=== PATIENT | male | born 1940 | race Caucasian/White ===

== ENCOUNTER → 2024-05-02 09:58 | Outpatient (REF) | payer OTHER, SELFPAY ==
[2024-05-02 12:24] LABS: Blood Urea Nitrogen 35 mg/dl (9-20); Calcium 9.2 mg/dl (8.4-10.2); Carbon Dioxide 24 mmol/L (22-30); Chloride 104 mmol/L (98-107); Glucose 157 mg/dl (70-99); Phosphorus 3.9 mg/dl (2.5-4.5); Potassium 5.1 mmol/L (3.5-5.1); Sodium 136 mmol/L (135-145); eGFR 37.12
[2024-05-02 13:11] LABS: Protein/creatinine Ratio 1.3; Urine Protein 160 mg/dl
== END ==
LOC: HWLAB 09:58
PROVIDERS: ATTENDING PHYSICIAN Specialist; FAMILY PHYSICIAN Family Medicine
DX: I10 Essential (primary) hypertension (principal); E78.5 Hyperlipidemia, unspecified; E87.5 Hyperkalemia
CPT/HCPCS: 36415; 80048; 82570; 83970; 84100; 84156

== ENCOUNTER → 2024-06-19 11:46 | Outpatient (REF) | payer OTHER, SELFPAY ==
[2024-06-19 16:33] LABS: Hemoglobin 14.3 g/dL (13.0-18.0)
[2024-06-19 16:40] LABS: Blood Urea Nitrogen 30 mg/dl (9-20); Calcium 9.9 mg/dl (8.4-10.2); Carbon Dioxide 30 mmol/L (22-30); Chloride 103 mmol/L (98-107); Glucose 87 mg/dl (70-99); Phosphorus 3.6 mg/dl (2.5-4.5); Potassium 5.4 mmol/L (3.5-5.1); Sodium 142 mmol/L (135-145); eGFR 46.19
[2024-06-19 16:41] LABS: Protein/creatinine Ratio 2.9; Urine Protein 334 mg/dl
[2024-06-20 11:00] LABS: Intact PTH 137.9 pg/ml (13.6-85.8)
== END ==
LOC: HWLAB 11:46
PROVIDERS: ATTENDING PHYSICIAN Specialist; FAMILY PHYSICIAN Family Medicine
DX: N18.32 Chronic kidney disease, stage 3b (principal); N25.81 Secondary hyperparathyroidism of renal origin
CPT/HCPCS: 36415; 80048; 82570; 83970; 84100; 84156; 85018

== ENCOUNTER 2024-09-17 11:51 | Inpatient (IN) | payer OTHER, SELFPAY ==
[2024-09-17] VITALS (22 sets, daily range): BP systolic 97–187; BP diastolic 48–133; BMI 33.3
[2024-09-17 07:54] LABS: Hematocrit 41.2 % (39.0-52.0); Hemoglobin 14.1 g/dL (13.0-18.0); Mean Corp Hgb Conc. 34.2 g/dL (33.0-37.0); Mean Corpuscular Hgb 30.3 pg (27.0-31.0); Mean Corpuscular Volume 88.4 fL (80.0-94.0); Mean Platelet Volume 9.8 fL (7.4-10.4); Platelet Count 254 10^3/uL (130-400); Red Blood Cell Count 4.66 10^6/uL (4.70-6.10); White Blood Cell Count 8.9 10^3/uL (4.8-10.8)
[2024-09-17 08:01] LABS: ALT (SGPT) 22 U/L (0-50); AST (SGOT) 21 U/L (17-59); Albumin 4.2 g/dl (3.5-5.0); Alkaline Phosphatase 102 U/L (38-126); Blood Urea Nitrogen 40 mg/dl (9-20); Calcium 9.5 mg/dl (8.4-10.2); Carbon Dioxide 26 mmol/L (22-30); Chloride 106 mmol/L (98-107); Glucose 160 mg/dl (70-99); Sodium 142 mmol/L (135-145); Total Bilirubin 0.3 mg/dl (0.2-1.3); Total Protein 6.7 g/dl (6.3-8.2); eGFR 34.79
[2024-09-17 08:35] LABS: Glucose - Point of Care 157 mg/dl (70-99)
[2024-09-17] MEDS: LOW STRENGTH ASPIRIN 324 MG PO (10:00)
[2024-09-17] MEDS: NSS 281 ML IV (10:02)
[2024-09-17 10:54] LABS: ACT-LR - POC 227 Seconds (116-155)
[2024-09-17 11:11] LABS: ACT-LR - POC 256 Seconds (116-155)
[2024-09-17 11:48] LABS: Glucose - Point of Care 108 mg/dl (70-99)
--- NOTE | 2024-09-17 12:08 | ITS.CL.CATH ---
Senior Mechanical Estimator - Catheterization
Cardiac Catheterization
Procedure Report:
LEFT HEART CATHETERIZATION
Date of Procedure: September 17, 2024
Referring: Dr. Rito Rosas
PROCEDURES:
1. Left heart catheterization with coronary angiography
2. Hemodynamic assessment of LAD and circumflex/OM with [place] Verrata wire. The iFR in the LAD measured below the ischemic threshold at 0.84, 0.85, 0.85. The iFR in the circumflex / OM measured above the ischemic threshold at 0.95 x 3
INDICATION: This is an 83 y/o gentleman with a past medical history notable for poorly controlled diabetes mellitus, hypertension and hyperlipidemia as well as underlying chronic renal insufficiency that is followed by Dr. Shahab Metcalf. He was
evaluated in our office for symptoms of substernal chest discomfort that has been occurring at lower levels of exertion. He experienced some chest discomfort while walking to his last office visit. He denies any resting anginal symptoms.
ACCESS: Right radial artery, 6 Persian sheath
HEMODYNAMICS : (mmHg)
AO (s/d) : 158/79, 110
LV (s/d) : 168/15
LVEDP : 25
CORONARY FINDINGS
DOMINANCE: Right
LEFT MAIN: Normal
LEFT ANTERIOR DESCENDING: The LAD arises normally from the left main and is heavily calcified over its course. The proximal LAD has a new 60% stenosis and 60% stenosis beyond the first septal judicial administrative assistant. The mid LAD is heavily calcified and there
is a long 60% stenosis involving and beyond the origin of the largest diagonal branch.
CIRCUMFLEX: The circumflex is a medium caliber dominant vessel that is moderately calcified over its course. A single sizable obtuse marginal branch arises from the distal circumflex. The mid circumflex has serial 40% and long 50-60% mid stenosis
extending to the origin of the only sizable obtuse marginal branch. The iFR in the distal portion of the obtuse marginal branch measures 0.95 x 3.
RIGHT CORONARY ARTERY: The right coronary artery is a dominant vessel with a 20% proximal stenosis. The distal right coronary artery has tandem 40% stenosis followed by a focal hazy eccentric 95% stenosis. The distal RCA is patent. The PDA is a
moderate size vessel with tandem 50% and 60% mid narrowing
HEMODYNAMIC ASSESSMENT OF THE LAD and CIRCUMFLEX WITH A VOLCANO VERRATA WIRE: The origin of the left main was cannulated with a 6 Fr JR4 guide catheter that was utilized to engage the ostia of the LM. Intravenous heparin was administered and the
ACT was followed during the procedure. Two hundred micrograms of intracoronary nitroglycerin was given through the guide catheter. A [place] Verrata wire was advanced to the guide catheter tip and normalized to guide catheter pressure. The
Verrata wire was then carefully manipulated across the stenosis in the mid circumflex and obtuse marginal branch beyond the stenotic segments. The iFR measured just above the ischemic threshold at 0.95 x 5. The Verrata wire was withdrawn to the
guide catheter tip where the iFR measured 0.99 confirming no baseline drift.
The guide catheter became disengaged from the left main and was eventually exchanged for a JL3.5 guide catheter and the Verrata wire was advanced to the guide catheter tip and normalized to the guide catheter pressures. The Verrata wire was
advanced to the distal LAD beyond the large terminal diagonal branch. The iFR serially measured below the ischemic threshold 0.84, 0.85, 0.85, 0.85. The Verrata wire was slowly withdrawn from the distal LAD and significant step up was noted across
the more distal lesion in the LAD involving the diagonal branch. A more significant stepup was noted across the more proximal stenotic segments in the proximal LAD. The Pd/Pa measured 1.0 confirming no baseline drift in pressure readings.
RADIATION SUMMARY: Fluoro Time (min): 13.7, Dose (mGy): 777, DAP (Gy.cm2) : 64.8
Closure Device: TR band
CONCLUSIONS
1. Multivessel calcified coronary disease in the proximal to mid LAD and high grade distal RCA stenosis. Moderate mid circumflex / OM stenosis
RECOMMENDATIONS
1. Patient will be admitted to [facility] given unstable nature of his anginal symptoms which have been occurring at low levels of exertion. Consult CT Surgery
2. Check carotid ultrasound
3. Echocardiogram
4. Further management decisions to be made after surgical evaluation and above studies completed
Copy to: Dr. Rito Rosas, Dr. Mor Perry, Dr. Shahab Richardson
--- NOTE | 2024-09-17 12:57 | CONSULT.CT ---
Consultation
-
Date/Time Consultation Requested: 09/17/24
Date/Time Consultation Performed: 09/17/24
Requesting Provider: Marj
Performing Provider: Ligia Dey PA-C for Dr. Rachid Billingsley
Reason for Consultation: CABG eval
Patient History
Physicians
Family Physician: Twan Perry
Outpatient Personal Lines Appraiser: Alison
Inpatient Personal Lines Appraiser: AUDRA/Marj
History of Present Illness
Pt is an 83y/oM with PMH IDDM, HTN, HLD, CKD who presented today for elective cardiac catheterization. Pt previously was experiencing stable anginal symptoms, but now increasing in frequency and severity necessitating admission. Pt describes it as
central chest pressure that was relieved with rest that usually occurred with exertion. Cath demonstrated multivessel CAD, CT surgery consulted for urgent CABG.
Past Medical History
Past Medical History: Other
Hypertension
Hyperlipidemia
Insulin dependent diabetes mellitus
CKD3b
MIKE with CPAP use
hearing loss with b/l aides
hx prostate CA s/p surgery ~1999
hx melanoma s/p excision 2023
psoriasis, remote
osteoarthritis
Past Surgical History
tonsillectomy as a child
appendectomy as a child
hx prostate surgery ~1999
melanoma excision of face 2023
left trigger finger release 2008
Right de quervain's release 2015
Social History
Alcohol: Other (1-2/month)
Drug: None
Tobacco: Former Smoker (quit 1979)
Personal:
Living: With Spouse
Allergies
Allergy/AdvReac Type Severity Reaction Status Date / Time
No Known Allergies Allergy Verified 09/17/24 08:13
Home Medications
�Medication �Instructions �Recorded �Confirmed �Type
oxybutynin chloride 10 mg 10 mg PO HS 03/30/10 09/17/24 History
tablet,extended release 24 hr
aspirin 81 mg tablet 81 mg PO DAILY 09/17/24 09/17/24 History
atorvastatin 40 mg tablet 40 mg PO HS 09/17/24 09/17/24 History
calcitriol 0.25 mcg capsule 0.25 mcg PO MOWEFR 09/17/24 09/17/24 History
dapagliflozin propanediol 10 mg 10 mg PO DAILY 09/17/24 09/17/24 History
tablet (Farxiga)
dulaglutide 1.5 mg/0.5 mL 1.5 mg SC QWEEK 09/17/24 09/17/24 History
subcutaneous pen injector
(Trulicity)
glimepiride 4 mg tablet 4 mg PO HS 09/17/24 09/17/24 History
insulin degludec 100 unit/mL (3 30 unit SC HS 09/17/24 09/17/24 History
mL) subcutaneous pen (Tresiba
FlexTouch U-100 insulin)
losartan 25 mg tablet 25 mg PO HS 09/17/24 09/17/24 History
metoprolol tartrate 25 mg tablet 25 mg PO NOON 09/17/24 09/17/24 History
triamcinolone acetonide 0.025 % 1 applic topical DAILY PRN rash 09/17/24 09/17/24 History
topical cream
Review of Systems
-
History Source: Patient
General: Reports No Symptoms
HEENT: Reports No Symptoms
Respiratory: Reports No Symptoms
Cardiac: Reports Chest Pain
Abdomen/GI: Reports No Symptoms
: Reports No Symptoms
Musculoskeletal: Reports No Symptoms
Skin: Reports No Symptoms
Neurological: Reports No Symptoms
Vascular: Reports No Symptoms
Physical Exam
Vital Signs
Temp route: Oral 09/17/24 08:10
Pulse 62 09/17/24 12:45
Resp Rate 21 09/17/24 12:45
Blood pressure 141/61 09/17/24 12:33
Blood pressure extremity used: Left upper arm 09/17/24 12:15
Position: Lying 09/17/24 12:15
MAP (cuff-Alvaro Monitor) 84 09/17/24 12:33
SaO2 95 09/17/24 12:45
Oxygen Mode of Delivery Room air 09/17/24 12:15
Can the patient verbally communicate their pain? Yes 09/17/24 12:15
Actual Weight 93.6 kg 09/17/24 08:10
Body Mass Index (BMI) 33.3 09/17/24 08:10
Labs
09/17/24 07:42
09/17/24 07:42
Exam
General: Well Developed, Well Nourished and No Apparent Distress
HEENT: Normocephalic and Anicteric
Neck: Trachea Midline; Negative JVD or Carotid Bruit
Respiratory: Clear; Negative Wheezes, Crackles or Rhonchi
Cardiac: Regular Rhythm; Negative Murmur, Rub or Gallop
GI: Soft and Non Tender
Rectal: Deferred by Provider
Skin: Warm and Dry
Neuro: Nonfocal/Grossly Intact
Extremities: Negative Lower Level Edema
Psych: Calm
Assessment / Plan
-
unstable angina
multivessel coronary artery disease
-will initiate preoperative workup to include US Carotids, NON CON CT chest, labs, 2V CXR. Monitor Cr closely over next 24-48hrs post dye load today. Pt amenable to moving forward with workup for CABG, will calculate STS risk once preop studies are
completed. Echo ordered by cards, continue medical management at their direction. hold MARILUZ-i and farxiga now in anticipation of CABG this week. hold oxybutynin tomorrow night. Full eval by attending to follow.
Data Reviewed
-
Computer Animator: Image Personally Visualized and interpreted and Report Reviewed by me
Labs: Labs Reviewed by me
[2024-09-17] MEDS: ROCALTROL 0.25 MCG PO (13:26)
[2024-09-17] MEDS: NSS 500 IV (13:36)
--- NOTE | 2024-09-17 15:11 | CM ---
Chart reviewed. Patient is independent of ADLS, lives with his in a 2 STH, 1 QUINTIN, 0 DME. Plan is for the patient to return home. CM to follow
--- NOTE | 2024-09-17 15:15 | CARDSERVLU ---
Echocardiogram with Lumason completed after protocol screening completed. Allergies verified.
Patent IV site: _L arm____
IV site flushed with 0.9% NaCl pre and post administration.
Diluted bolus method utilized to enhance visualization of ventricular sethi.
Total volume given: __1.5__ mL
Patient tolerated all procedures well without complications.
[2024-09-17 17:35] LABS: Glucose - Point of Care 124 mg/dl (70-99)
[2024-09-17] MEDS: LOVENOX 40 MG SC (18:51)
--- NOTE | 2024-09-17 19:26 | HPS.HSE ---
Addendum entered and electronically signed by Arlene Manuel MD 09/17/24 19:34:
DVT ppx changed from heparin to SCDs.
Original Note:
Family Physician
-
Family Physician: Twan Perry
Chief Complaint
-
chest pain
History of Present Illness
83-year-old male past medical history of diabetes, obstructive sleep apnea, hypertension, hyperlipidemia, CKD, prostate cancer status post surgery, melanoma status post excision, psoriasis, osteoarthritis, presenting with increasing frequency of
anginal symptoms and for elective cardiac catheterization. He has been having symptoms for few months. Patient describes the chest pain as central pressure relieved with rest occurring only with exertion. Denies shortness of breath, nausea
vomiting or sweating. Denies any lower extremity edema or increased weight gain.
Denies smoking. Drinks alcohol occasionally.
Medical History
Past Medical History
Past Medical History: Reports Other (diabetes, obstructive sleep apnea, hypertension, hyperlipidemia, CKD, prostate cancer status post surgery, melanoma status post excision, psoriasis, osteoarthritis)
Past Surgical History: Reports None
Social History
Tobacco: Non-smoker
Alcohol: Occasional
Drug: None
Family History
Family History: Not pertinent
Allergies / Home Medications
Allergies reflects when Allergies were last updated in [facility].
Home Medications with original date entered in [facility]
Allergy/Medication List:
Allergies
Allergy/AdvReac Type Severity Reaction Status Date / Time
No Known Allergies Allergy Verified 09/17/24 08:13
Home Medications
oxybutynin chloride 10 mg tablet,extended release 24 hr 10 mg PO HS 03/30/10
aspirin 81 mg tablet 81 mg PO DAILY 09/17/24
atorvastatin 40 mg tablet 40 mg PO HS 09/17/24
calcitriol 0.25 mcg capsule 0.25 mcg PO MOWEFR 09/17/24
dapagliflozin propanediol 10 mg tablet (Farxiga) 10 mg PO DAILY 09/17/24
dulaglutide 1.5 mg/0.5 mL subcutaneous pen injector (Trulicity) 1.5 mg SC QWEEK 09/17/24
glimepiride 4 mg tablet 4 mg PO HS 09/17/24
insulin degludec 100 unit/mL (3 mL) subcutaneous pen (Tresiba FlexTouch U-100 insulin) 30 unit SC HS 09/17/24
losartan 25 mg tablet 25 mg PO HS 09/17/24
metoprolol tartrate 25 mg tablet 25 mg PO NOON 09/17/24
triamcinolone acetonide 0.025 % topical cream 1 applic topical DAILY PRN rash 09/17/24
Review of Systems
-
History Source: Patient
A 12 point ROS was completed and negative except as noted: Yes
Constitutional: Reports No Symptoms
EENT: Reports No Symptoms
Respiratory: Reports No Symptoms
Cardiac: Reports No Symptoms and See HPI
Abdomen/GI: Reports No Symptoms
: Reports No Symptoms
Musculoskeletal: Reports No Symptoms
Skin: Reports No Symptoms
Neurological: Reports No Symptoms
Endocrine: Reports No Symptoms
Hematologic/Lymphatic: Reports No Symptoms
Psych: Reports No Symptoms
Physical Exam
Vital Signs
Vital Signs
Temp Pulse Resp BP Pulse Ox
98.6 F 66 20 154/66 96
09/17/24 19:10 09/17/24 19:03 09/17/24 19:10 09/17/24 19:03 09/17/24 19:10
Physical Exam
General: Well Developed, Well Nourished and No Apparent Distress
HEENT: NormoCephalic, Moist mucous membranes and Atraumatic
Respiratory: Clear
Cardiac: S1/S2 and Regular Rhythm; No Murmur or Rub
GI: Soft, Non Tender, Non Distended and Normal Bowel Sounds; No Organomegaly
Rectal: Deferred by Provider
Musculoskeletal: No Clubbing, No Cyanosis and No Edema
Skin: No Rash
Neuro: Nonfocal/grossly intact
Laboratory Results
-
09/17/24 07:42
09/17/24 07:42
Laboratory Results
Total Bilirubin 0.3 mg/dl (0.2-1.3) 09/17/24 07:42
AST 21 U/L (17-59) 09/17/24 07:42
ALT 22 U/L (0-50) 09/17/24 07:42
Alkaline Phosphatase 102 U/L (38-126) 09/17/24 07:42
Data Reviewed
-
Lab Data: Labs Reviewed by me
Old Records: Reviewed
Impression/Plan
-
IMPRESSION:
PLAN:
# Multivessel CAD with ongoing stable angina
-Underwent cardiac catheterization today showing multivessel CAD in the proximal to mid LAD and distal RCA stenosis, moderate mid circumflex/OM stenosis
-Continue aspirin, statin
-Check echo
-Check carotid ultrasound
-Cardiothoracic surgery consulted
# CKD 3B
-Hold losartan
-Creatinine of 1.9 from baseline of 1.5-1.8
-Continue calcitriol
Essential hypertension
-Continue metoprolol
Hyperlipidemia
Obstructive sleep apnea
-Uses CPAP
Hearing loss of bilateral aids
Type 2 diabetes
-Dapagliflozin, Trulicity stopped
-Continue Lantus 30 units at night
-Hold glimepiride
-Insulin sliding scale
Prostate cancer status post surgery
Melanoma status post excision
Psoriasis
Osteoarthritis
Overactive bladder
-Continue oxybutynin
Full code
DVT prophylaxis�heparin
Diabetic diet
--- NOTE | 2024-09-17 20:20 | PTCARENOTE ---
Rec'd pt at change of shift PT AAO*3, in NSR on TELE monitor, and VSS. Pt denies any pain or discomfort. Pt updated on plan of care and denies any questions or concern. Pt w R radial site CDI. Pt verbalized understanding of bleeding precautions
and currently resting in bed with call ortega in reach. See flowchart and MAR for full patient care record.
[2024-09-17] MEDS: COREG 6.25 MG PO (20:34)
[2024-09-17] MEDS: DITROPAN 5 MG PO (20:34)
--- NOTE | 2024-09-17 21:00 | PTCARENOTE ---
Pt post cardiac cath via right radial approach. Pt found to have multi-vessel disease during cath. Pt currently order ASA 81. Ct surgery MJ Stoll made aware and referred to cardiology. Cardiology dr. Real made aware and agreed with
current medications and no new orders made.
[2024-09-17 21:46] LABS: Glucose - Point of Care 196 mg/dl (70-99)
[2024-09-17] MEDS: LANTUS 0.3 UNITS SC (21:47)
[2024-09-17] MEDS: COZAAR 25 MG PO (21:53)
[2024-09-17] MEDS: LIPITOR 40 MG PO (21:54)
[2024-09-18] VITALS (8 sets, daily range): BP systolic 132–174; BP diastolic 53–71; BMI 33.2
[2024-09-18] MEDS: APRESOLINE 5 MG IV ×2 (00:09→06:07)
--- NOTE | 2024-09-18 00:53 | PTCARENOTE ---
Pt with elevated BP at 2300 vitals. BP @ 172/76. CT surgery Norberto made aware. Rec'd order for hydralazine 5mg IV STAT. Hydralazine given as ordered. Pt denies any pain or discomfort with elvated bp. Pt resting with call ortega in reach. Plan
of care ongoing.
[2024-09-18 05:14] LABS: Hematocrit 37.8 % (39.0-52.0); Hemoglobin 13.7 g/dL (13.0-18.0); Mean Corp Hgb Conc. 36.2 g/dL (33.0-37.0); Mean Corpuscular Volume 88.3 fL (80.0-94.0); Mean Platelet Volume 9.9 fL (7.4-10.4); Platelet Count 218 10^3/uL (130-400); Red Blood Cell Count 4.28 10^6/uL (4.70-6.10); Red Cell Dist. Width 13.1 % (11.5-14.5); White Blood Cell Count 9.4 10^3/uL (4.8-10.8)
[2024-09-18 05:25] LABS: INR 1.06; PT 14.1 Sec (11.4-14.6)
[2024-09-18 05:26] LABS: APTT 33.9 Sec (23.4-35.0)
[2024-09-18 05:46] LABS: Blood Urea Nitrogen 40 mg/dl (9-20); Calcium 9.2 mg/dl (8.4-10.2); Carbon Dioxide 22 mmol/L (22-30); Chloride 107 mmol/L (98-107); Estimated Creatinine Clearance 36 ml/min; Glucose 105 mg/dl (70-99); HDL Cholesterol 34 mg/dl; LDL Cholesterol, Calculated 61 mg/dl; Potassium 4.4 mmol/L (3.5-5.1); Sodium 139 mmol/L (135-145); Total Cholesterol 122 mg/dl (50-199); Triglyceride 139 mg/dl (10-149); Very Low Density Lipoprotein 27 mg/dl (0-30); eGFR 39.75
[2024-09-18 07:09] LABS: Urine Albumin 1+ (Neg - Trace); Urine Bilirubin Negative (Negative); Urine Character Clear (Clear); Urine Color Yellow; Urine Glucose 3+ (Negative); Urine Ketone Negative (Negative); Urine Leukocyte Negative (Negative); Urine Nitrite Negative (Negative); Urine Occult Blood Negative (Negative); Urine Urobilinogen Negative (Neg - 1+)
[2024-09-18 07:30] LABS: Urine Red Blood Cell 0-2 /HPF (0-2); Urine Squamous Cell 0-2 /LPF (Few); Urine White Cell 0-2 /HPF (0-5)
[2024-09-18 08:44] LABS: Glucose - Point of Care 110 mg/dl (70-99)
[2024-09-18] MEDS: NOVOLOG FLEXPEN-LOW RESISTANCE SC ×2 (08:46→17:35)
[2024-09-18] MEDS: LOW STRENGTH ASPIRIN 81 MG PO (08:47)
[2024-09-18] MEDS: COREG 6.25 MG PO ×2 (08:47→19:35)
[2024-09-18 08:58] LABS: Glycohemoglobin (HgbA1c) 8.4 % (4.0-5.6)
--- NOTE | 2024-09-18 09:35 | PTCARENOTE ---
Assumed care of pt from night RN. Pt received awake and alert, Ox3. VSS, CM shows NSR with 1st degree AVB and BBB, POX 98% on RA. He denies any pain or discomfort at this time, ambulating freely in room.
--- NOTE | 2024-09-18 11:47 | W.PN.CARDCBS ---
Addendum entered and electronically signed by Rito Rosas DO 09/18/24 12:53:
I saw and examined the patient.
The Client Care Specialist's note was reviewed and I agree with the note.
Comment:
Plan:
Reviewed his cath
CT surgery eval ongoing
Tentative surgery tomorrow.
Echo with preserved EF and no significant valvular disease
Cont tele
Hold Losartan in anticipation of surgery.
Original Note:
Today's Communication / Plan
-
CT surgery eval
Impression / Plan
-
PCP: Dr. Twan Perry
Cardiology: Dr. Rito Rosas
Impression:
CAD with multivessel calcified coronary disease in the proximal to mid LAD and high grade distal RCA stenosis, moderate mid circumflex/OM stenosis by cath 09/17/24
USA
HTN
Hyperlipidemia
DM 2
Former smoker
Overweight
CKD 3b
Echo 09/17/24: EF 65 to 70%, no significant valve disease
Plan:
-Patient was seen in the cardiology office 09/11/2024 and complained of crescendo angina. Patient previously had cardiac cath in 2009 with 40% LAD and 50% circumflex lesions noted at that time. Patient was started on Toprol-XL, aspirin was
continued and his simvastatin was changed to atorvastatin at that time. Patient then presented for cardiac cath on 10-09 and was found to have multivessel calcified CAD with proximal to mid LAD and high-grade distal RCA stenoses plus moderate mid
circumflex/OM stenosis. Patient was admitted for CT surgical team evaluation for possible CABG.
-No chest pain overnight
-Echo as noted above
-Outpatient dose of aspirin 81 mg daily has been continued.
-Outpatient dose of metoprolol changed to Coreg 6.25 mg BID
-Outpatient dose of losartan 25 mg daily is on hold and following Cre
-Patient with h/o CKD 3b, Cre was 1.9 on 09/17/24 and improved a bit ot 1.7 on 09/18/24
-Patient with a h/o DM 2. Trulicity stopped.
Progress Note - Explosive Operator
Subjective
Date of Service: September 18, 2024
He feels well
Objective
Labs:
09/18/24 04:51
09/18/24 04:51
Labs
Hgb 13.7 g/dL (13.0-18.0) 09/18/24 04:51
Hct 37.8 % (39.0-52.0) L 09/18/24 04:51
Plt Count 218 10^3/uL (130-400) 09/18/24 04:51
PT 14.1 Sec (11.4-14.6) 09/18/24 04:51
INR 1.06 09/18/24 04:51
APTT 33.9 Sec (23.4-35.0) 09/18/24 04:51
Sodium 139 mmol/L (135-145) 09/18/24 04:51
Potassium 4.4 mmol/L (3.5-5.1) 09/18/24 04:51
BUN 40 mg/dl (9-20) H 09/18/24 04:51
Creatinine 1.7 mg/dL (0.7-1.3) H 09/18/24 04:51
Glucose 105 mg/dl (70-99) H 09/18/24 04:51
Vital Signs and I&O:
Vital Signs
Temp Pulse Resp BP Pulse Ox
98.2 F 66 16 132/64 98
09/18/24 08:45 09/18/24 08:40 09/18/24 08:45 09/18/24 08:40 09/18/24 09:29
Vital Signs
Temp Pulse Resp BP Pulse Ox
98.2 F 66 16 132/64 98
09/18/24 08:45 09/18/24 08:40 09/18/24 08:45 09/18/24 08:40 09/18/24 09:29
Intake & Output
09/16/24 09/17/24 09/18/24 09/19/24
06:59 06:59 06:59 06:59
Intake Total 761 / 761
Balance 761 / 761
Physical Exam
Physical Exam
GEN: AAOx3
HEENT: mmm
LUNGS: No audible wheeze
CV: SR on tele
ABD: ND
EXT: No edema
NEURO: Gross non-focal
SKIN: No rash
--- NOTE | 2024-09-18 12:16 | CM ---
Teaching done with preoperative and postoperative instructions and restrictions, along with showering guidelines. Patient has a Cardiac Surgery Book. Patient is agreeable to a home visit by CT Transitional RN. Plan is for the patient to return
home with CT Transitional RN.
[2024-09-18 12:37] LABS: Glucose - Point of Care 189 mg/dl (70-99)
[2024-09-18] MEDS: NOVOLOG FLEXPEN-LOW RESISTANCE 1 UNITS SC (12:38)
--- NOTE | 2024-09-18 13:27 | W.PN.UPDATE ---
Update Note
Progress Note Update
I me with Mr. Curran at the bedside as well as his family. We went over the plan in detail and discussed the risks of heart surgery. Plan is to move forward tomorrow as a CABG x 3-4 with DAMON Clip. All questions were answered. He understands that his
age and CKD places him a slightly higher risk than the average.
--- NOTE | 2024-09-18 14:19 | W.PN.UPDATE ---
Update Note
Progress Note Update
Procedure Type:�Isolated CABG
PERIOPERATIVE OUTCOME ESTIMATE %
Operative Mortality 2.68%
Morbidity & Mortality 10.4%
Stroke 1.01%
Renal Failure 3.63%
Reoperation 2.12%
Prolonged Ventilation 5.18%
Deep Sternal Wound Infection 0.158%
Long Hospital Stay (>14 days) 6.92%
Short Hospital Stay (<6 days)* 29.3%
Clinical Summary
Planned Surgery: Isolated CABG, Urgent, First cardiovascular surgery
Demographics: 83 year old, White, male, 93.2kg, 168cm, BMI: 33 kg/m�
Lab Values: Creatinine: 1.7 mg/dL, Hematocrit: 37.8%, WBC Count: 9.4 10�/�L, Platelet Count: 589275 cells/�L
Substance Abuse: Former smoker, Alcohol use: <=1 drink/week
Risk Factors / Comorbidities: Cancer <=5 yrs, Hypertension
Pulmonary RF: Sleep Apnea
Cardiac Status: Ejection Fraction = 65%
Coronary Artery Disease: 3 vessels diseased, Unstable Angina
--- NOTE | 2024-09-18 15:15 | W.PN.HOSP.TC ---
Today's Communication/Plan
-
monitor vitals
see plan
Ongoing CABG eval
cw insulin
echo
Assessment / Plan
Assessment / Plan
General: Well Developed, Well Nourished and No Apparent Distress
HEENT: NormoCephalic, Moist mucous membranes and Atraumatic
Respiratory: Clear
Cardiac: S1/S2 and Regular Rhythm; No Murmur or Rub
GI: Soft, Non Tender, Non Distended and Normal Bowel Sounds
Musculoskeletal: No Edema
Skin: No Rash
Neuro: Nonfocal/grossly intact
Multivessel CAD with ongoing stable angina
-Underwent cardiac catheterization 09/17 showing multivessel CAD in the proximal to mid LAD and distal RCA stenosis, moderate mid circumflex/OM stenosis
-Continue aspirin, statin
-echo with preserved EF and no significant valvular disease
-Cardiothoracic surgery following, plan for CABG
# CKD 3B
-Hold losartan
-Creatinine of 1.9 from baseline of 1.5-1.8
-Continue calcitriol
now cr 1.7
Essential hypertension
-Continue metoprolol
Hyperlipidemia
Obstructive sleep apnea
-Uses CPAP
Hearing loss of bilateral aids
Type 2 diabetes
Trulicity stopped
-Continue Lantus 30 units at night
-Hold glimepiride
-Insulin sliding scale
A1c 8.4
Prostate cancer status post surgery
Melanoma status post excision
Psoriasis
Osteoarthritis
Overactive bladder
-Continue oxybutynin
Full code
DVT prophylaxis�SCD's
Anticipated Discharge: > 48 hours
Subjective/Interval History
-
Date of Service: September 18, 2024
Denies chest pain
Objective Data
-
Labs:
Laboratory Results
09/18/24
04:51
WBC 9.4
Hgb 13.7
Hct 37.8 L
Plt Count 218
PT 14.1
INR 1.06
APTT 33.9
Sodium 139
Potassium 4.4
Chloride 107
Carbon Dioxide 22
BUN 40 H
Creatinine 1.7 H
Glucose 105 H
Calcium 9.2
Vital Signs:
Vital Signs
Temp Pulse Resp BP Pulse Ox
97.4 F 65 18 154/63 97
09/18/24 11:54 09/18/24 12:00 09/18/24 11:54 09/18/24 11:56 09/18/24 11:56
I&O
09/17/24 09/18/24 09/19/24
06:59 06:59 06:59
Intake Total 761 / 761
Balance 761 / 761
[2024-09-18 17:35] LABS: Glucose - Point of Care 118 mg/dl (70-99)
--- NOTE | 2024-09-18 18:46 | PTCARENOTE ---
Pt tsf to CVICU Room 2260, report given to oncoming nurse.
--- NOTE | 2024-09-18 20:00 | PTCARENOTE ---
Received pt from [facility]. pt resting comfortably in chair with at bedside. pt is scheduled for CABG tomorrow, 09/19, with Dr Billingsley. pt is AAOx4, denies pain. NSR with 1st degree AVB on monitor, VSS. heart sounds audible, radial and DP pulses
palpable, no edema noted. lungs clear, spo2 96% on RA. + BS x4 quadrants, abdomen soft non tender, round/obese. pt voiding without difficulty. right radial cath site dressing is clean dry and intact, small abrasions/scratches noted on right groin.
call ortega within reach will continue to monitor.
[2024-09-18 21:44] LABS: Glucose - Point of Care 142 mg/dl (70-99)
[2024-09-18] MEDS: LIPITOR 40 MG PO (21:46)
[2024-09-18] MEDS: LANTUS 0.3 UNITS SC (21:46)
--- NOTE | 2024-09-18 23:00 | PTCARENOTE ---
Pt clipped and showered with CHG soap. new gown, tele leads, and socks provided. pt now resting in bed with home CPAP in use. will continue to monitor.
[2024-09-19] VITALS (9 sets, daily range): BP systolic 93–179; BP diastolic 52–80; BMI 32.9
--- NOTE | 2024-09-19 | PTCARENOTE ---
Pt assessment unchanged. NSR with f1st degree AVB. VSS. pt resting comfortably in bed. call ortega within reach.
[2024-09-19] MEDS: APRESOLINE 5 MG IV (03:19)
[2024-09-19] MEDS: PROTONIX 40 MG PO (05:53)
[2024-09-19] MEDS: MAGNESIUM OXIDE 500 MG PO (05:53)
[2024-09-19] MEDS: LOPRESSOR 25 MG PO (05:53)
[2024-09-19] MEDS: BACTROBAN 2% OINTMENT 1 APPLIC NASAL ×2 (05:53→21:29)
--- NOTE | 2024-09-19 06:15 | W.CVOR.SURPR ---
CVOR Surgeon Immed Pre Op
-
I have examined this patient prior to performance of the scheduled procedure.
The patient's condition is unchanged from the time of the dictated/written History and
Physical and the patient is able to undergo the scheduled procedure.
CABG + DAMON Clip +/- Sternal Plating
[2024-09-19 06:57] LABS: Blood Urea Nitrogen 41 mg/dl (9-20); Calcium 9.5 mg/dl (8.4-10.2); Carbon Dioxide 22 mmol/L (22-30); Chloride 106 mmol/L (98-107); Estimated Creatinine Clearance 38 ml/min; Glucose 110 mg/dl (70-99); Potassium 4.7 mmol/L (3.5-5.1); Sodium 141 mmol/L (135-145); eGFR 42.75
[2024-09-19] MEDS: NOVOLOG FLEXPEN-LOW RESISTANCE SC ×2 (09:01→13:34)
--- NOTE | 2024-09-19 09:02 | CM ---
Reviewed chart. Mr. Curran is in the operating room today. Prior to admission he resides with his spouse in a two story home with one step to enter. Prior to admission he was independent with ambulation and adls. He does not have any DME. Medical
work-up in progress. The discharge plan is to return home with his spouse and a home visit by the Transitional Care Nurse when medically stable.
[2024-09-19] MEDS: ROCALTROL PO (09:03)
[2024-09-19] MEDS: LOW STRENGTH ASPIRIN PO (09:03)
[2024-09-19] MEDS: COREG PO (09:03)
[2024-09-19 11:05] LABS: ACT+ - POC 118 Seconds (82-134)
[2024-09-19 11:06] LABS: Urine Albumin 1+ (Neg - Trace); Urine Bilirubin Negative (Negative); Urine Character Clear (Clear); Urine Color Yellow; Urine Glucose 2+ (Negative); Urine Ketone Negative (Negative); Urine Leukocyte Negative (Negative); Urine Nitrite Negative (Negative); Urine Occult Blood 2+ (Negative); Urine Specific Gravity 1.015 (<1.030); Urine Urobilinogen Negative (Neg - 1+)
[2024-09-19 11:46] LABS: Urine Amorphous Seen; Urine Squamous Cell 0-2 /LPF (Few); Urine Urothelial Cell 0-2 /LPF (FEW)
[2024-09-19 11:47] LABS: Urine White Cell 0-2 /HPF (0-5)
[2024-09-19 12:10] LABS: ACT+ - POC 717 Seconds (82-134)
[2024-09-19 12:21] LABS: B.E. - POC -4.6 mmol/L; Glucose - POC 99 mg/dl (70-99); HCO3 - POC 21 mmol/L (21-28); Hematocrit - POC 35 % PCV (42-52); Hemodilution- POC No; Hemoglobin Calculated - POC 11.8; Ionized Calcium - POC 1.23 mmol/L (1.15-1.33); O2 Saturation %Calculated-POC 99.8 % (94-98); PCO2 - POC 37 mmHg (35-48); PO2 - POC 223 mmHg (83-108); Potassium - POC 4.7 mmol/L (3.5-5.1); Sodium - POC 140 mmol/L (136-145); Specimen Type - POC Arterial; pH - POC 7.35 (7.35-7.45)
[2024-09-19 12:43] LABS: ACT+ - POC 867 Seconds (82-134)
[2024-09-19 13:02] LABS: B.E. - POC -1.3 mmol/L; Glucose - POC 68 mg/dl (70-99); HCO3 - POC 23 mmol/L (21-28); Hematocrit - POC 26 % PCV (42-52); Hemodilution- POC Yes; Ionized Calcium - POC 1.06 mmol/L (1.15-1.33); PCO2 - POC 35 mmHg (35-48); PO2 - POC 384 mmHg (83-108); POC Comment CPB; Potassium - POC 5.4 mmol/L (3.5-5.1); Sodium - POC 137 mmol/L (136-145); Specimen Type - POC Arterial; pH - POC 7.42 (7.35-7.45)
--- NOTE | 2024-09-19 13:21 | W.PN.UPDATE ---
Update Note
Progress Note Update
tried seeing patient in the morning. Now in for CABG. medicine service will signoff. Please call with questions
[2024-09-19 13:29] LABS: ACT+ - POC 637 Seconds (82-134)
[2024-09-19] MEDS: ANCEF 10 IV ×2 (13:36→15:32)
[2024-09-19 14:05] LABS: ACT+ - POC 112 Seconds (82-134)
--- NOTE | 2024-09-19 14:25 | W.PN.CT.SURG ---
CT Surgery Operative Note
-
CARDIAC SURGERY OPERATIVE REPORT
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
Postoperative Diagnosis: Same
Procedure(s) Performed:
1. Standard sternotomy with aortic and right atrial cannulation
2. Coronary artery bypass grafting x 4 (In situ FRIEDMAN to LAD, Ao to RSVG to diagonal to OM, Ao to RSVG to RPDA)
3. Left atrial appendage exclusion [35 mm clip]
4. Endoscopic vein harvesting of left lower extremity, exploration for vein in the left thigh
5. Placement of temporary ventricular pacing wires
6. Transesophageal echocardiography
7. Sternal fixation with plates x 2
Date of Surgery: 09/19/2024
Comorbidities:
1. Exertional angina with significant multivessel coronary disease
2. Poorly controlled diabetic with an HbA1c of 9, insulin-dependent
3. CKD stage IIIb
4. Hypertension
5. Hyperlipidemia
6. MIKE on CPAP
7. History of melanoma
8. History of prostate cancer status post surgery in 1999
9. Former tobacco abuse
10. Morbidly obese
Attending Surgeon: Rachid Billingsley MD, MS
Assistants: Marcelo Vargas MD (PGY2 Cardiac Surgery Resident), Ligia Dey PA-C (present and necessary to first beater, endoscopic vein harvest, retraction, suction, exposure, suture management, and wound closure under my direction)
Anesthesiology: Broderick Benitez MD and Ade Anderson CRNA
Scrub and Circulating RNs: Valentina Floyd, RN, Tere Espinoza, MAYNOR
Inspector Integrated Circuits: Katie Tamayo CCP
Anesthesia: GETA
EBL: per perfusion records
Products: 1 plt and 1 prbc
CPB Time: 86 minutes
Aortic Cross Clamp Time: 68 minutes
Implants: 35mm clip, SN [id number] / 2 box plates (one gold curved, and one silver flat)
Indication(s) for Procedures: This is an 83-year-old male who was recently cath for exertional angina. Given his extensive past medical history and CKD, he was admitted for observation with plans to proceed with surgical revascularization. His STS
was reviewed and given his multivessel coronary disease involving the proximal LAD and his ongoing exertional angina and diabetic status, surgery was felt to be the best method of revascularization.
Conduit(s) Quality:
FRIEDMAN -good/harvested in a pedicle fashion good flow
RSVG -good/distal right being smaller is relatively uniform with minimal varicosities
Target(s) Quality:
RCA/PDA -good/heavily calcified proximal to mid RCA, soft spot on the proximal RPDA, good flow with test dosing antegrade approximately 60-70 cc a minute at a pressure of 80 mm
OM -good/although this is heavily calcified proximally, there was a soft spot. Good sized lumen. There was a flow of approximately 60 to 70 cc a minute under pressure of 80 mmHg test dose of antegrade.
Diagonal -good/decent sized target that accommodated a 1.5 mm probe, test dosing of antegrade yielded a flow of approximately 50 cc a minute at a pressure of 80 mmHg.
LAD -good/grafted below the diagonal vessel after the areas of calcification, good visual flow in the LAD territory and flow on Doppler
Findings: His left ventricular ejection fraction preoperatively was normal at approximate 60% with no significant regional wall motion abnormalities. Following surgery his EF remained the same with no new regional wall motion abnormalities. Due to
adequate amount of conduit, the diagonal was sequenced to the OM targets. The left atrial appendage was verified to be free of any thrombus or debris preoperatively and found to be totally occlusive with a 35 mm clip postoperatively. The FRIEDMAN was
harvested in a pedicle fashion. Following bypass grafting, test dose cardioplegia was given down each distal and confirmed patency and hemostasis. Each distal was probed both proximally and distally to confirm disease and patency, respectively.
Doppler was used to assess all graft demonstrated good biphasic flow. He was relatively easy on entry and at the conclusion of the case and so 1 unit of platelet was given. He is hemoglobin on pump was also 8 g and so a unit of PRBCs was given.
He did otherwise did not require any inotropic support. He was in sinus rhythm following surgery did not require any pacing.
Description of Procedure: The patient was taken to the operating room. Their identity and procedure to be performed were verified and they were positioned supine on the operating table. Induction via general anesthesia with endotracheal intubation
was performed and central venous access and arterial monitoring were inserted. A preoperative transesophageal echocardiogram was performed to assess cardiac function and valvular function. The patient was then prepped and draped from chin to feet in
a sterile fashion. A preoperative time-out was performed with all members of the team present. A midline chest incision was performed along with median sternotomy. Simultaneous endoscopic access of the right lower extremity for saphenous vein
harvest was obtained along with administration of an initial 5,000 units of IV heparin. A RulTract sternal retractor was positioned to exposure the left internal mammary bed. The mammary was harvested and found to have good flow. A bulldog clamp was
applied to the distal end of the mammary after dividing it. It was wrapped in a papaverine soaked RayTec and replaced back into the left hemithorax. The RulTract was exchanged for a median sternal retractor. The innominate vein was isolated. Full
heparinization was given ([place] [address]49 units). We created a pericardial well. The aortic cannulation site was chosen where it was soft, pliable, and free of calcium. Cannulation was performed with an arterial cannula in the ascending aorta and a
triple-stage venous cannula through the right atrial appendage. The arterial cannula line had an appropriate bounce and correlating pressures with test dosing. Next, a root vent/antegrade cannula was inserted into the ascending aorta. The ACT was
confirmed to be over 400 and retrograde autologous priming was performed before commencing cardiopulmonary bypass. The pulmonary artery was away from the aorta to facilitate a clamp site. The aortic cross-clamp was placed after decreasing
the flow on the bypass and mean arterial pressure. A total of 1.0L initial dose of antegrade Del-Nido cardioplegia solution was given and planned for re-dosing every 75 minutes as necessary. There was rapid electro-mechanical arrest of the heart at
300 cc of cardioplegia. The left ventricle was observed for distention on echocardiogram and manual palpation. Cold slush was placed into a sponge and topically on the RV while we systemically cooled to 34 degrees centigrade. The heart was then
medialized the left atrial appendage was then clipped with a 35mm clip flush the base after division of the ligament of Costa.
I positioned the heart to expose the distal right coronary at the posterior descending artery. A port heiden blade was used to expose the coronary and perform the arteriotomy. Coronary Martin scissors were used to enlarge the incision. The saphenous vein
was trimmed and beveled to an appropriate size. The distal anastomosis was performed using 7-0 prolene in an end-to-side fashion. Antegrade cardioplegia was administered into the graft. Appropriate hemostasis and flow were confirmed. The graft was
measured for length to the aorta and cut. A suitable site on the obtuse marginal was chosen. We dissected and prepared the distal target in a similar fashion. An end-to-side anastomosis was created with a 7-0 prolene. Antegrade cardioplegia was
administered into the graft. Appropriate hemostasis and flow were confirmed. The diagonal vessel was then prepared in a similar fashion. This was identified after the area of calcification of the LAD. A small coronary arteriotomy was created.
The underside of the vein was then incised and a [id number] anastomosis was made in a perpendicular fashion with 7-0 Prolene in a running fashion. Test dosing of antegrade was given down the graft with occlusion of the distal end of the sequence
graft. There is excellent flow. The graft was measured for length to the aorta and cut. A suitable target on the mid/distal left anterior descending was identified. We dissected and prepared the distal target in a similar fashion. We retrieved the
FRIEDMAN from the chest and created a pericardial opening while being cognizant of the phrenic nerve to facilitate the course of the mammary. The distal end of the mammary was prepped and beveled to size. We verified orientation and length of the CLARISA
and found brisk flow. An end-to-side anastomosis was created with a 7-0 prolene. We temporarily released the bulldog clamp on the mammary to inspect flow. Perfusion to the LAD territory was visualized and hemostasis was confirmed. The bull clamp was
replaced on the mammary. The heart was filled and the root was distended with antegrade cardioplegia to make final assessment of graft length and orientation. We created 2 aortotomies using a #11 blade then a 4.0mm aortic punch. The proximal
anastomoses were created in an end-to-side fashion using 6-0 prolene. At the the same time, we re-warmed to 36.5 degrees centigrade. The bulldog clamp was removed from the mammary. Temporary bipolar ventricular pacing wires were placed on the base
of the right ventricle. The patient was placed in a Trendelenburg position and flows on bypass were lowered. The aortic cross clamp was removed and flows were slowly brought back up. All bypass grafts were inspected and were free from kinking or
twisting. The distal and proximal anastomoses appeared hemostatic. Once transesophageal echocardiography appeared satisfactory for de-airing, the flows were temporarily lowered for root vent removal. After verifying acceptable parameters, we
initiated weaning from cardiopulmonary bypass. Once we were off cardiopulmonary bypass, the venous cannula was clamped and removed. A test dose of protamine was administered and the patient was monitored for any adverse reaction before resuming
protamine. Once half of the protamine dose was delivered, pump suckers were turned off and the systolic blood pressure was lowered for aortic decannulation. The aortic cannula was removed and pursestrings were tied down. All cannulation sites were
oversewn with a 4-0 prolene. The mammary bed was inspected and hemostasis was confirmed. Once the mediastinum was hemostatic, 19Fr Silvio drain was placed in the left pleural cavity and two 24Fr Silvio drains were placed within the pericardium. The
sternum was approximated with 4 #7 single and 3 #8 double stainless steel wires. Two box plates were used to reinforce his bone given his diabetic status and size. Fascia was approximated with #1 vicryl suture. The subcutaneous, dermis and epidermis
were closed in layers in a running fashion. The skin wound was cleansed and dressed.
All instrument, sponge, and needle counts were confirmed to be correct x 2 at the end of the operation. The patient was transferred to the cardiac intensive care unit in critical but stable condition.
I, Dr. Rachid Billingsley, was present, scrubbed for, and performed all critical elements of this procedure.
Rachid Billingsley MD, MS
Cardiothoracic Surgeon
[facility]
This operative dictation was created using the [employer] dictation system. Please excuse any grammatical, typographical, or 'sound alike' errors
--- NOTE | 2024-09-19 14:36 | CON.INTV ---
Consultation
Consultation Request
Date/Time Consultation Requested: 09/19/2024 - 141
Date/Time Consultation Performed: 09/19/2024 - 1431
Requesting Provider: Ligia Dey PA-C
Performing Provider: Jermaine Garay MD
Reason for Consultation: s/p CABG x4
Medical History
-
Chief Complaint: Elective left heart catheterization
History of Present Illness:
83-year-old male former tobacco smoker (quit 1979) who presented initially with elective left heart catheterization. He was having substernal chest pain that was happening at low levels of exertion and that is what led to the left heart cath. LHC
performed on 09/17/2024 showing multivessel CAD involving the proximal�mid LAD with high-grade distal RCA stenosis, with moderate mid circumflex/OM stenosis. Transthoracic echo performed on 09/17/2024 showed preserved LVEF at 65 to 70% with mild
concentric LVH, normal regional wall motion with no significant valvular disease; no prior study available for comparison purposes. Cardiothoracic surgery was consulted. Preoperative imaging with vascular ultrasound (performed 09/17/2024) showed
calcified plaque in the bilateral carotid bulbs with <50% internal carotid artery stenosis. CT chest done on 09/17/2024 showed no focal airspace disease and no suspicious lung nodules. He was continued on aspirin + statin. Cardiothoracic surgery
reviewed risks and benefits of surgical revascularization, and today he underwent CABG x 4 with left atrial appendage exclusion with 35mm clip. He underwent the procedure without any immediate complications and was transferred to the CVICU
postoperatively for further care. Programs Director service is now consulted for additional management/recommendations.
When I saw the patient he was resting in bed, with patient's , Mary, at bedside. All questions were answered. Currently, heart rate 87, BP via right radial A-line: 126/72, with CVP: 12, and he is saturating 98% on SIMV at 12/500/40%/5, with
PSV: 5. PIP: 20 cmH2O, VTe 469 mL and breathing at 20 breaths/min. He is currently on Levophed at 3mcg/min, and insulin drip at 1.5 units/h. He has a left pleural chest tube + mediastinal chest tubes X2.
Of note, patient follows with us in the [facility] office with last visit on 09/23/2023 with ISI Higginbotham. He is compliant with his auto�CPAP 4�20 cmH2O with average pressure of 8.8 cmH2O (max: 10.2 cmH2O). Compliance report from 08/24 -
09/22/2023 showed residual AHI 3.9 with 100% compliance.
PMHx: Trigger finger, type I DM, hypercholesterolemia, CAD, obesity, history of moderate sleep apnea (via split-night sleep study in May 2010), psoriasis, hearing loss, history of melanoma s/p excision (2023), osteoarthritis, history of prostate
cancer s/p prostatectomy
PSHx: Appendectomy, cataract extraction bilaterally, prostatectomy, tonsillectomy, trigger finger surgery
Past Medical History
Past Medical History: Other (Above as per HPI)
Past Surgical History: Other (Above as per HPI)
Social History
Tobacco: Former Smoker (Quit smoking in 1979)
Alcohol: Occasional
Drug: None
Personal:
Living: With Family (: Mary)
Employment: Retired
Family History
Family History: CAD (Father: History of [place]), Diabetes (Sister) and Other (Sister: Thyroid disease)
Allergies / Home Medications
Allergies
Allergy/AdvReac Type Severity Reaction Status Date / Time
No Known Allergies Allergy Verified 09/17/24 08:13
Home Medications
�Medication �Instructions �Recorded �Confirmed �Last Taken �Type
oxybutynin chloride 10 mg 10 mg PO HS Urinary Issue 03/30/10 09/17/24 09/16/24 12:00 History
tablet,extended release 24 hr
aspirin 81 mg tablet 81 mg PO DAILY Blood Clot 09/17/24 09/17/24 09/15/24 20:00 History
Prevention/Tx
atorvastatin 40 mg tablet 40 mg PO HS High Cholesterol 09/17/24 09/17/24 09/15/24 20:00 History
calcitriol 0.25 mcg capsule 0.25 mcg PO MOWEFR Supplement 09/17/24 09/17/24 09/14/24 08:00 History
dapagliflozin propanediol 10 mg 10 mg PO DAILY Diabetes 09/17/24 09/17/24 09/16/24 08:00 History
tablet (Farxiga)
dulaglutide 1.5 mg/0.5 mL 1.5 mg SC QWEEK Diabetes 09/17/24 09/17/24 09/14/24 08:00 History
subcutaneous pen injector
(Trulicity)
glimepiride 4 mg tablet 4 mg PO HS Diabetes 09/17/24 09/17/24 09/16/24 12:00 History
insulin degludec 100 unit/mL (3 30 unit SC HS Diabetes 09/17/24 09/17/24 09/16/24 22:30 History
mL) subcutaneous pen (Tresiba
FlexTouch U-100 insulin)
losartan 25 mg tablet 25 mg PO HS Blood Pressure 09/17/24 09/17/24 09/15/24 20:00 History
metoprolol tartrate 25 mg tablet 25 mg PO NOON Blood Pressure 09/17/24 09/17/24 09/16/24 12:00 History
triamcinolone acetonide 0.025 % 1 applic topical DAILY PRN rash 09/17/24 09/17/24 Unknown History
topical cream
Review of Systems
-
Unable to Obtain full review of systems at this time due to: Patient Intubation
Vitals / Labs / Diagnostic Testing
Vital Signs
Temp Pulse Resp BP Pulse Ox
98.2 F 71 12 175/80 99
09/19/24 19:08 09/19/24 19:08 09/19/24 18:25 09/19/24 06:00 09/19/24 19:08
Lab Data
09/19/24 14:48
Laboratory Results
09/19/24
14:48
PT 18.6 H
INR 1.50
APTT 37.4 H
pH 7.34 L
pCO2 37
pO2 121 H
HCO3 20.0 L
O2 Delivery Level Vent
Diagnostic Testing:
Physical Exam
-
HEENT: Normocephalic, Anicteric and Other (ETT in place)
Cardiovascular: S1/S2 and Peripheral Edema (negative)
Respiratory: Wheeze (negative), Rales (negative), Rhonchi (negative), Non-Labored Respirations, Other (Mechanical breath sounds heard bilaterally) and Other (Left pleural + mediastinal chest tubes x 2)
GI: Soft, Non Distended, Non Tender and Normal Bowel Sounds
Neurology: Tremors (negative) and Other (Sedated; opens eyes to command but still very lethargic)
Skin: Warm and Dry
General: Respiratory Distress (negative), Comfortable, Fever (negative), Chills (negative) and Sweats (negative)
Assessment
-
Assessment: 83-year-old male former tobacco smoker (quit 1979) who presented initially with elective left heart catheterization. He was having substernal chest pain that was happening at low levels of exertion and that is what led to the left
heart cath. LHC performed on 09/17/2024 showing multivessel CAD involving the proximal�mid LAD with high-grade distal RCA stenosis, with moderate mid circumflex/OM stenosis. Transthoracic echo performed on 09/17/2024 showed preserved LVEF at 65 to
70% with mild concentric LVH, normal regional wall motion with no significant valvular disease; no prior study available for comparison purposes. Cardiothoracic surgery was consulted. Preoperative imaging with vascular ultrasound (performed
09/17/2024) showed calcified plaque in the bilateral carotid bulbs with <50% internal carotid artery stenosis. CT chest done on 09/17/2024 showed no focal airspace disease and no suspicious lung nodules. He was continued on aspirin + statin.
Cardiothoracic surgery reviewed risks and benefits of surgical revascularization, and on 09/19/2024 he underwent CABG x 4 with left atrial appendage exclusion with 35mm clip. He underwent the procedure without any immediate complications and was
transferred to the CVICU postoperatively for further care. Programs Director service is now consulted for additional management/recommendations.
Chronic conditions IMPLEMENTATION LEAD: Trigger finger, type I DM, hypercholesterolemia, CAD, obesity, history of moderate sleep apnea (via split-night sleep study in May 2010), psoriasis, hearing loss, history of melanoma s/p excision (2023), osteoarthritis,
history of prostate cancer s/p prostatectomy
Impression:
#Multivessel CAD with involvement of the proximal LAD s/p CABG x 4 (In situ FRIEDMAN to LAD, Ao to RSVG to diagonal to OM, Ao to RSVG to RPDA) - POD#0
#Acute anemia due to above
#PFO seen on LARON from 09/19/2024
#CKD (baseline creatinine approximately 1.5�1.6)
#Hypocalcemia
#Moderate MIKE (seen via split-night sleep study in 05/2010) on auto CPAP 4�20 cmH2O
#History of melanoma s/p excision
#History of prostate cancer s/p prostatectomy
#Osteoarthritis
#DM type I
#Hypercholesterolemia
#Former tobacco smoker (quit smoking in 1979)
Plan:
Ventilator settings reviewed
FiO2 will be weaned to maintain SpO2 >90-94%
Minute ventilation will be adjusted
Arterial blood gases will be monitored
Spontaneous breathing trial will be attempted with hopeful extubation after anesthesia/sedation wear off
prn nebulized bronchodilators
Pulmonary artery catheter parameters will be followed
Pressors/antihypertensive/inotropes/diuretics will be provided as needed
Maintain MAP>65
Replete electrolytes with K>4, Mg>2
Monitor chest tube output (left pleural + mediastinal chest tubes x 2)
Monitor hemoglobin
Monitor platelet count and coags
Transfuse blood products as needed to maintain Hb>7g/dL, plt>50k (given post-operative status)
CT surgery managing chest tubes
Monitor blood sugar to maintain euglycemia with goal BG 140-180
Insulin drip per protocol
Aspiration precautions
VAP prevention protocol
DVT prophylaxis
Early nutrition
Early mobilization
Of note, he should continue following up with us in the pulmonary/sleep office as last visit was on 09/23/2023 with ISI Higginbotham.
Critical care statement: A total of 41 minutes of critical care time was provided for this patient today. This includes management of ventilator, spontaneous breathing trial, arterial blood gases, pressors, of unstable vital signs, evaluation of the
patient at bedside, reviewing the patient's pertinent medical records including radiographs, microbiology, laboratory evaluations, and discussion with primary team and critical care nursing.
[2024-09-19 14:45] LABS: B.E. - POC -1.7 mmol/L; Glucose - POC 169 mg/dl (70-99); HCO3 - POC 23 mmol/L (21-28); Hematocrit - POC 27 % PCV (42-52); Hemodilution- POC Yes; Hemoglobin Calculated - POC 9.2; Ionized Calcium - POC 1.06 mmol/L (1.15-1.33); O2 Saturation %Calculated-POC 99.7 % (94-98); PCO2 - POC 37 mmHg (35-48); PO2 - POC 206 mmHg (83-108); POC Comment WARM; Potassium - POC 5.9 mmol/L (3.5-5.1); Sodium - POC 137 mmol/L (136-145); Specimen Type - POC Arterial
[2024-09-19 14:45] LABS: B.E. - POC -5.3 mmol/L; Glucose - POC 144 mg/dl (70-99); HCO3 - POC 19 mmol/L (21-28); Hematocrit - POC 24 % PCV (42-52); Hemodilution- POC Yes; Ionized Calcium - POC 1.07 mmol/L (1.15-1.33); O2 Saturation %Calculated-POC 99.9 % (94-98); PCO2 - POC 31 mmHg (35-48); PO2 - POC 267 mmHg (83-108); POC Comment POST; Potassium - POC 5.1 mmol/L (3.5-5.1); Sodium - POC 138 mmol/L (136-145); Specimen Type - POC Arterial; pH - POC 7.39 (7.35-7.45)
[2024-09-19 14:47] LABS: Glucose - Point of Care 158 mg/dl (70-99)
[2024-09-19 15:02] LABS: B.E. -5.3 mmol/L; Ionized Calcium 1.09 mMOL/L (1.15-1.33); O2 Saturation % 98.9 % (94-98); PCO2 37 mmHg (35-48); PO2 121 mmHg (83-108); Potassium 5.4 mMOL/L (3.5-5.1); Sodium 134 mMOL/L (136-145); pH 7.34 (7.35-7.45)
[2024-09-19 15:04] LABS: O2 Therapy VENT
[2024-09-19 15:05] LABS: Hematocrit 27.7 % (39.0-52.0); Hemoglobin 9.9 g/dL (13.0-18.0); Platelet Count 171 10^3/uL (130-400)
[2024-09-19 15:09] LABS: PT 18.6 Sec (11.4-14.6)
[2024-09-19 15:10] LABS: APTT 37.4 Sec (23.4-35.0)
--- NOTE | 2024-09-19 15:18 | W.PN.CARDCBS ---
Addendum entered and electronically signed by Sam Kan MD 09/19/24 15:30:
I saw and examined the patient.
The TICKET WORKER or PA's note was reviewed and I agree with the note.
Comment: Sedate
Neck: Supple, no JVD, HJR, carotids +2 B/L, no bruits bilaterally.
Heart: Non displaced PMI, RRR, no murmurs, No S3, S4, no rubs.
Lungs: Scattered rhonchi
Sternal dressings noted
Extremities: No clubbing, cyanosis or edema bilaterally.
Neuro: Sedate
Stable cardiology status status post CABG. Remains in sinus rhythm. On low-dose Levophed. Discussed with CT surgery nursing
Original Note:
Today's Communication / Plan
-
continue post op care
Impression / Plan
-
PCP: Dr. Twan Perry
Cardiology: Dr. Rito Rosas
Impression:
[place]
CAD with multivessel calcified coronary disease in the proximal to mid LAD and high grade distal RCA stenosis, moderate mid circumflex/OM stenosis by cath 09/17/24
s/p CABG x4 In situ FRIEDMAN to LAD, Ao to RSVG to diagonal to OM, Ao to RSVG to RPDA, DAMON clip and sternal plate fixation 09/19/24
RBBB
HTN
Hyperlipidemia
DM 2
Former smoker
Overweight
CKD 3b
Echo 09/17/24: EF 65 to 70%, no significant valve disease
Plan:
-s/p CABG x4 In situ FRIEDMAN to LAD, Ao to RSVG to diagonal to OM, Ao to RSVG to RPDA, DAMON clip and sternal plate fixation 09/19/24
-remains intubated, sedated
-on levo@3, insulin @1. wean as able
-noted with some oozing s/p 1 plts and 1 U PRBCs. follow hgb/plts - 9.9/171K on 09/19
-BPs stable
-follow Cr, 1.6 this AM. known CKD stage 3B
-EKG SR with 1st degree av block and RBBB. follow QTc
-continue post op care
-d/w nursing
PREADMIT DATA:
-Patient was seen in the cardiology office 09/11/2024 and complained of crescendo angina. Patient previously had cardiac cath in 2009 with 40% LAD and 50% circumflex lesions noted at that time. Patient was started on Toprol-XL, aspirin was
continued and his simvastatin was changed to atorvastatin at that time. Patient then presented for cardiac cath on 09-17-24 and was found to have multivessel calcified CAD with proximal to mid LAD and high-grade distal RCA stenoses plus moderate mid
circumflex/OM stenosis. Patient was admitted for CT surgical team evaluation for possible CABG.
Progress Note - Hall Monitor
Subjective
Date of Service: September 19, 2024
intubated, sedated
Objective
Labs:
Labs
Hgb 9.9 g/dL (13.0-18.0) L D 09/19/24 14:48
Hct 27.7 % (39.0-52.0) L 09/19/24 14:48
Plt Count 171 10^3/uL (130-400) D 09/19/24 14:48
PT 18.6 Sec (11.4-14.6) H 09/19/24 14:48
INR 1.50 09/19/24 14:48
APTT 37.4 Sec (23.4-35.0) H 09/19/24 14:48
Sodium 141 mmol/L (135-145) 09/19/24 06:05
Potassium 4.7 mmol/L (3.5-5.1) 09/19/24 06:05
BUN 41 mg/dl (9-20) H 09/19/24 06:05
Creatinine 1.6 mg/dL (0.7-1.3) H 09/19/24 06:05
Glucose 110 mg/dl (70-99) H 09/19/24 06:05
Vital Signs and I&O:
Vital Signs
Temp Pulse Resp BP Pulse Ox
97.5 F 68 20 175/80 96
09/19/24 08:00 09/19/24 09:00 09/19/24 08:00 09/19/24 06:00 09/19/24 08:00
Vital Signs
Temp Pulse Resp BP Pulse Ox
97.5 F 68 20 175/80 96
09/19/24 08:00 09/19/24 09:00 09/19/24 08:00 09/19/24 06:00 09/19/24 08:00
Intake & Output
09/17/24 09/18/24 09/19/24 09/20/24
07:59 07:59 07:59 07:59
Intake Total 761 / 761
Output Total 5 / 5
Balance 761 / 761 -5 / -5
Physical Exam
Physical Exam
GEN: No distress, intubated, sedated
HEENT: supple, mmm
LUNGS: CTA B/L, no wheezes
CV: Reg, S1/S2, no murmur
ABD: soft, NT/ND
EXT: No cyanosis, clubbing, edema. LLE with dotty wrap
NEURO: sedated
SKIN: Warm, pink, dry. No rash. Sternotomy incision c/d/i. CTs in place
[2024-09-19 15:29] LABS: Blood Urea Nitrogen 36 mg/dl (9-20); Estimated Creatinine Clearance 40 ml/min; Glucose 144 mg/dl (70-99); Magnesium 2.6 mg/dl (1.6-2.3)
[2024-09-19] MEDS: NEURONTIN PO ×3 (15:29→22:17)
[2024-09-19] MEDS: NSS 500 IV (15:29)
[2024-09-19] MEDS: CALCIUM GLUCONATE 100 IV (15:29)
[2024-09-19] MEDS: SODIUM BICARBONATE 50 MEQ IV ×2 (15:31→19:14)
[2024-09-19] MEDS: VITAMIN C PO (15:31)
[2024-09-19] MEDS: TYLENOL PO ×2 (15:32→22:17)
[2024-09-19] MEDS: CALCIUM CHLORIDE 10% SYRINGE 500 MG IV ×2 (15:41→17:07)
[2024-09-19 15:56] LABS: Glucose - Point of Care 153 mg/dl (70-99)
--- NOTE | 2024-09-19 16:07 | PTCARENOTE ---
received patient from CVOR sedated and placed on vent by AMUSEMENT PARK RIDE MECHANIC. usual lines. no swan. CTx3. placed to -20 wall suction. draining red. #8 ETT @24 lip. SIMV on vent settings set by AMUSEMENT PARK RIDE MECHANIC. lungs coarse and diminished. pulses palpable. +1 edema. Bowel
sounds hypoactive and olson draining clear yellow urine. [facility] ASSISTANT. R kemi puncture and leg with MARILUZ wrap. L leg incision as well but glued and BELIA. out on levo precedex and insulin per glycemic protocol. Family updated and will continue to monitor.
[2024-09-19 16:56] LABS: Glucose - Point of Care 128 mg/dl (70-99)
[2024-09-19] MEDS: LR 250 ML IV ×2 (17:08→20:26)
[2024-09-19] MEDS: DILAUDID 0.5 MG IV ×2 (17:58→23:13)
--- NOTE | 2024-09-19 18:05 | PTCARENOTE ---
patient now starting to wake. nodding head appropriately.
[2024-09-19 18:09] LABS: Glucose - Point of Care 131 mg/dl (70-99)
[2024-09-19] MEDS: LR 250 IV (18:15)
--- NOTE | 2024-09-19 18:42 | PTCARENOTE ---
1 unit prbcs started,
[2024-09-19 19:00] LABS: Glucose - Point of Care 130 mg/dl (70-99)
--- NOTE | 2024-09-19 19:30 | PTCARENOTE ---
CPAP trial initiated, PA and RT agree pt too sleepy, placed back on SIMV. Will allow patient to wake up more before trialing again per CTPA
[2024-09-19 19:45] LABS: Ionized Calcium 1.35 mMOL/L (1.15-1.33); O2 Saturation % 99.8 % (94-98); PCO2 48 mmHg (35-48); PO2 138 mmHg (83-108); Potassium 4.9 mMOL/L (3.5-5.1); pH 7.27 (7.35-7.45)
[2024-09-19 19:47] LABS: Mixed Venous O2 Saturation 74.9 %
[2024-09-19 19:51] LABS: Hematocrit 34.5 % (39.0-52.0); Platelet Count 216 10^3/uL (130-400)
[2024-09-19 20:09] LABS: Glucose - Point of Care 122 mg/dl (70-99)
[2024-09-19] MEDS: SODIUM BICARBONATE 100 MEQ IV ×2 (20:12→22:06)
[2024-09-19] MEDS: ASPIRIN 300 MG RECTAL (20:14)
[2024-09-19] MEDS: ANCEF 5 IV (20:14)
--- NOTE | 2024-09-19 20:27 | PTCARENOTE ---
assumed care of patient @ 1900. received pt intubated post CVOR. Responds to verbal commands and moves extremities appropriately. Pt is very drowsy, trouble keeping awake while interacting. NSR on tele , +1 edema to b/l lower legs. V wire set to VVI
40,20, 12. BP Labile between 80s and 130s. CVP ~10. Lungs are clear, diminished throughout on ventilator SIMV 12,500,5,5,40%. 8.0 ET tube [address] lip[address] x3 to wall suction, no air leak, tidaling or crepitus noted. Belly round, hypoactive. Inman
present draining clear yellow urine. MSI with glue CDI LEAN MANUFACTURING LEADER. R IJ cordis with SLIC, L rad a line, PIV R arm. Received on insulin per protocol, levo at 4.
--- NOTE | 2024-09-19 21:05 | PTCARENOTE ---
Addendum entered by Nicholas Guzman RN 09/19/24 22:12:
CTPA says to give 2 amps bicarb, keep pt cpap for additional 30 minutes and re draw ABG. pt tolerating CPAP trial well. awake, no apnea .
Original Note:
placed on CPAP trial
[2024-09-19] MEDS: SENOKOT-S PO (21:29)
[2024-09-19] MEDS: OFIRMEV 100 IV (21:41)
[2024-09-19 21:43] LABS: B.E. -6.6 mmol/L; HCO3 18.2 mmol/L (21-28); O2 Saturation % 99.9 % (94-98); PCO2 33 mmHg (35-48); PO2 144 mmHg (83-108); Potassium 3.5 mMOL/L (3.5-5.1); pH 7.35 (7.35-7.45)
[2024-09-19 22:02] LABS: Glucose - Point of Care 118 mg/dl (70-99)
[2024-09-19] MEDS: KCL 50 IV (22:15)
[2024-09-19] MEDS: LIPITOR PO (22:17)
[2024-09-19 22:47] LABS: B.E. 3.3 mmol/L; HCO3 27.8 mmol/L (21-28); O2 Saturation % 99.3 % (94-98); PCO2 41 mmHg (35-48); PO2 139 mmHg (83-108); pH 7.44 (7.35-7.45)
--- NOTE | 2024-09-19 23:00 | PTCARENOTE ---
bedside report received from previous RN. ABG reviewed w CT PA. RT at bedside. pt extubated to 6LNC without incident. no wheezing or stridor present. pt AAOx4. MARTIN equally. pt c.o sternal incision pain. PRN Dilaudid given. SR w 1st degree AVB on
monitor. HR 60s-70s. V wires intact to back up VVI. B/L radial and DP pulses palpable. heart tones clear. RIJ cordis + slic intact w KVOs infusing. RT radial art line intact. Levo gtt infusing @ 5mcg. B/L breath sounds present. CT x3 intact to -20
cm wall suction, drainage WNL, no air leak present. olson catheter intact, draining CYU, UO adequate. hypoactive bowel sounds present. Insulin gtt infusing per protocol. all surgical sites stable. see worklist for full assessment, VS, and
interventions. pt resting comfortably.
[2024-09-20] VITALS (44 sets, daily range): BP systolic 76–140; BP diastolic 38–71; PULSE 56; O2SAT 93–94; BMI 34.8
[2024-09-20 00:22] LABS: Glucose - Point of Care 136 mg/dl (70-99)
[2024-09-20] MEDS: DILAUDID 0.25 MG IV (01:06)
[2024-09-20 01:15] LABS: Glucose - Point of Care 140 mg/dl (70-99)
[2024-09-20 02:32] LABS: Glucose - Point of Care 131 mg/dl (70-99)
[2024-09-20 02:47] LABS: Hematocrit 33.1 % (39.0-52.0); Hemoglobin 11.7 g/dL (13.0-18.0); Mean Corp Hgb Conc. 35.3 g/dL (33.0-37.0); Mean Corpuscular Hgb 31.5 pg (27.0-31.0); Mean Corpuscular Volume 89.2 fL (80.0-94.0); Mean Platelet Volume 9.9 fL (7.4-10.4); Platelet Count 220 10^3/uL (130-400); Red Blood Cell Count 3.71 10^6/uL (4.70-6.10); Red Cell Dist. Width 13.6 % (11.5-14.5); White Blood Cell Count 17.2 10^3/uL (4.8-10.8)
[2024-09-20 03:20] LABS: Blood Urea Nitrogen 42 mg/dl (9-20); Calcium 9.1 mg/dl (8.4-10.2); Carbon Dioxide 29 mmol/L (22-30); Chloride 106 mmol/L (98-107); Estimated Creatinine Clearance 29 ml/min; Glucose 129 mg/dl (70-99); Magnesium 2.4 mg/dl (1.6-2.3); Sodium 144 mmol/L (135-145); eGFR 30.85
[2024-09-20 03:21] LABS: Glucose - Point of Care 126 mg/dl (70-99)
[2024-09-20 03:30] LABS: Mixed Venous O2 Saturation 70.2 %
--- NOTE | 2024-09-20 03:30 | PTCARENOTE ---
no acute changes. AM labs drawn and sent. EKG completed, showing SR w 1st degree AVB and R BBB. pt AAOx4. HR 60s-70s. Levo gtt infusing @ 4mcg. POX 96% on 2LNC. CT output and UO WNL. all surgical sites stable. Insulin gtt maintained per protocol. pt
resting between care.
[2024-09-20 03:36] LABS: Ionized Calcium 1.25 mMOL/L (1.15-1.33)
[2024-09-20] MEDS: ANCEF 5 IV ×2 (03:36→12:20)
[2024-09-20] MEDS: DILAUDID 0.5 MG IV (03:36)
[2024-09-20] MEDS: ZOFRAN 4 MG IV (03:37)
[2024-09-20 04:16] LABS: Glucose - Point of Care 120 mg/dl (70-99)
--- NOTE | 2024-09-20 04:51 | W.PN.CT ---
Today's Communication / Plan
-
-pod #1
-no issues overnight. Extubated uneventfully at 11 pm
-drips: Levo 2, insulin
-CT output: 2 meds 70/155, L pleur 60/95 in 1224 hrs
-deline
-continue insulin
-follow Cr -- 2.1 today (1.6-1.9 preop)
-maintain pw (VVI 40 backup), Cordis
-current meds (ASA, Plavix, Lipitor, Lopressor, Amio, Protonix)
-encourage IS, OOB
Assessment / Plan
-
- mv-CAD - s/p CABG x 4 (In situ FRIEDMAN to LAD, Ao to RSVG to diagonal to OM, Ao to RSVG to RPDA); Left atrial appendage exclusion [35 mm clip] on 09/19/[address] Billingsley, pod #1
- Intraop LARON: LVEF preop and postop 60% with no wma. The DAMON was verified to be free of any thrombus or debris preoperatively and found to be totally occlusive with a 35 mm clip postoperatively.
- Exertional angina with significant multivessel coronary disease
- Poorly controlled diabetic with an HbA1c of 9, insulin-dependent
- CKD stage IIIb (Cr 1.6-1.9 preop)
- Hypertension
- Hyperlipidemia
- MIKE on CPAP
- History of melanoma
- History of prostate cancer, status post surgery in 1999
- Former tobacco abuse
- Class 1 obesity (BMI 32.8)
- Acute postop blood loss anemia/ coagulopathy - s/p 2 pRBCs and 1 unit platelet
- Acute postop metabolic acidosis
- Acute postop hypovolemia with subsequent hypervolemia
- Acute postop atelectasis
- TOMY on CKD
Discussed patient care with: Nursing and Care Team
Subjective
Procedure
- s/p CABG x 4 (In situ FRIEDMAN to LAD, Ao to RSVG to diagonal to OM, Ao to RSVG to RPDA); Left atrial appendage exclusion [35 mm clip] on 09/19/[address] Billingsley
-
Date of Service: September 19, 2024
Objective Data
-
Lab Results
09/19/24 19:35
09/19/24 14:48
PT 18.6 Sec (11.4-14.6) H 09/19/24 14:48
INR 1.50 09/19/24 14:48
APTT 37.4 Sec (23.4-35.0) H 09/19/24 14:48
Vital Signs
Vital Signs
Temp Pulse Resp BP Pulse Ox
98.3 F 69 11 136/70 98
09/19/24 22:00 09/19/24 22:06 09/19/24 22:00 09/19/24 22:06 09/19/24 22:06
CT Intake/Output/Weight
09/19/24 09/19/24 09/20/24
06:59 18:59 06:59
Intake Total 407.4 / 563.9 156.5 / 563.9
Output Total 795 / 1060 265 / 1060
Balance -387.6 / -496.1 -108.5 / -496.1
SaO2: 98
Physical Exam
-
General: Awake and AOx3
Cardiovascular: Regular rate & rhythm, No Murmurs and No Rub
Respiratory: Decreased Breath Sounds
Sternum: Stable
Incision: Clean, Dry and Intact
Extremities: No Edema
Abdomen: soft, nontender, nondistended, +decreased bowel sounds
Data Reviewed
-
Lab Results: Results Reviewed
Medications: Active Meds Reviewed
Chest X-Ray: Report Reviewed and Image Reviewed
ECG: Report Reviewed and Image Reviewed
[2024-09-20 05:02] LABS: Glucose - Point of Care 124 mg/dl (70-99)
--- NOTE | 2024-09-20 06:00 | PTCARENOTE ---
attempted to get pt OOB, pt became very dizzy and was only able to stand for a short period. pt assisted back to bed. VSS.
[2024-09-20] MEDS: TYLENOL 1000 MG PO ×3 (06:17→21:13)
[2024-09-20] MEDS: LR 1000 IV (06:54)
[2024-09-20] MEDS: LOW STRENGTH ASPIRIN 81 MG PO (08:16)
[2024-09-20] MEDS: BACTROBAN 2% OINTMENT 1 APPLIC NASAL ×2 (08:16→20:35)
--- NOTE | 2024-09-20 08:31 | W.PN.INTV ---
Today's Communication / Plan
Recommendations
Pain control
Up OOB as tolerated
CVP was reportedly >20 and he has rales bilaterally to recommend trial of diuresis
Encourage incentive spirometer use
Cardiac rehab consult
Continue with dobutamine gtt and wean off per primary team
Continue insulin drip with goal BG 140�180
Continue with CVICU level care given that he remains on dobutamine drip + insulin drip. Painting Department Supervisor services will continue to follow along while he remains in the CVICU.
Assessment
-
Assessment: 83-year-old male former tobacco smoker (quit 1979) who presented initially with elective left heart catheterization. He was having substernal chest pain that was happening at low levels of exertion and that is what led to the left
heart cath. LHC performed on 09/17/2024 showing multivessel CAD involving the proximal�mid LAD with high-grade distal RCA stenosis, with moderate mid circumflex/OM stenosis. Transthoracic echo performed on 09/17/2024 showed preserved LVEF at 65 to
70% with mild concentric LVH, normal regional wall motion with no significant valvular disease; no prior study available for comparison purposes. Cardiothoracic surgery was consulted. Preoperative imaging with vascular ultrasound (performed
09/17/2024) showed calcified plaque in the bilateral carotid bulbs with <50% internal carotid artery stenosis. CT chest done on 09/17/2024 showed no focal airspace disease and no suspicious lung nodules. He was continued on aspirin + statin.
Cardiothoracic surgery reviewed risks and benefits of surgical revascularization, and on 09/19/2024 he underwent CABG x 4 with left atrial appendage exclusion with 35mm clip. He underwent the procedure without any immediate complications and was
transferred to the CVICU postoperatively for further care. Painting Department Supervisor service is now consulted for additional management/recommendations.
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
history of prostate cancer s/p prostatectomy
Impression:
#Multivessel CAD with involvement of the proximal LAD s/p CABG x 4 (In situ FRIEDMAN to LAD, Ao to RSVG to diagonal to OM, Ao to RSVG to RPDA) - POD#1
#Acute anemia due to above
#PFO seen on LARON from 09/19/2024
#TOMY on CKD (baseline creatinine approximately 1.5�1.6)
#Hypocalcemia
#Moderate MIKE (seen via split-night sleep study in 05/2010) on auto CPAP 4�20 cmH2O
#History of melanoma s/p excision
#History of prostate cancer s/p prostatectomy
#Osteoarthritis
#DM type I
#Hypercholesterolemia
#Former tobacco smoker (quit smoking in 1979)
Plan:
Patient was extubated on the evening of 09/19/2024, and currently remains on minimal O2 at 1 L/min and saturating 93%, breathing comfortably
prn nebulized bronchodilators - not currently bronchospastic
Encourage incentive spirometer 10x per hour for at least 4 hrs a day
Pressors/antihypertensive/inotropes/diuretics will be provided as needed
Maintain MAP>65
Replete electrolytes with K>4, Mg>2
Continue with PO amiodarone + DAPT with ASA + Plavix; continue with PO Lopressor
Monitor chest tube output (mediastinal chest tubes x 2)
Monitor hemoglobin
Monitor platelet count and coags
Transfuse blood products as needed to maintain Hb>7g/dL, plt>50k (given post-operative status)
CT surgery managing chest tubes
Monitor blood sugar to maintain euglycemia with goal BG 140-180
Insulin drip per protocol
Aspiration precautions
DVT prophylaxis
Early nutrition
Early mobilization
Of note, he should continue following up with us in the pulmonary/sleep office as last visit was on 09/23/2023 with ISI Higginbotham.
Continue with CVICU level care given that he remains on dobutamine drip + insulin drip. Painting Department Supervisor services will continue to follow along while he remains in the CVICU.
Critical care statement: A total of 38 minutes of critical care time was provided for this patient today. This includes management of ventilator, spontaneous breathing trial, arterial blood gases, pressors, of unstable vital signs, evaluation of the
patient at bedside, reviewing the patient's pertinent medical records including radiographs, microbiology, laboratory evaluations, and discussion with primary team and critical care nursing.
Subjective Dataa
Subjective Data
Date of Service:
Date of Service: September 20, 2024
Chief Complaint: Painting Department Supervisor Follow Up
Subjective:
Patient was seen and evaluated this morning and is resting in bed in no acute distress with patient's , Mary, and daughter, Kailyn at bedside and all questions were answered. Patient currently on 1 L/min nasal cannula saturating 93%, heart
rate 63 and BP 93/50 on dobutamine at 3mcg/kg/min. Also on insulin drip at 0.6 units/hr. He says he feels okay, mainly feels fatigued. Denies chest pain, DE, abdominal pain, nausea, fevers or chills.
Review of Systems
General: Other (Negative unless mentioned above)
Objective Data
Data Reviewed
Vital Signs / I&O / Oxygen:
Vital Signs
Temp Pulse Resp BP Pulse Ox
98.5 F 54 11 102/53 94
09/20/24 05:00 09/20/24 08:35 09/19/24 22:00 09/20/24 08:00 09/20/24 08:00
Intake and Output
09/19/24 09/20/24 09/21/24
06:59 06:59 06:59
Intake Total 867.6 / 867.6 23.4 / 23.4
Output Total 5 / 5 1420 / 1420 55 / 55
Balance -5 / -5 -552.4 / -552.4 -31.6 / -31.6
SaO2 [P-SIMV] 99
SaO2 94
Nasal Cannula flow liters per 2
minute
Physical Exam
General: Respiratory Distress (negative), Comfortable, Chills (negative) and Sweats (negative)
HEENT: Normocephalic, Anicteric and Moist Mucous Membranes
Cardiovascular: S1-S2 and Peripheral Edema (Trace lower extremity edema bilaterally)
Respiratory: Wheeze (negative), Crackles (Bilateral), Rhonchi (negative) and Non-Labored Respirations
GI: Soft, Distended (Abdominal obesity), Non Tender and Normal Bowel Sounds
Neurology: AO x 3, Tremors (negative) and Other (Confused at times)
Skin: Warm, Dry, Cyanosis (negative) and Jaundice (negative)
Labs/Micro/Reports
Lab Data
09/20/24 02:32
Laboratory Results
09/19/24 09/19/24 09/19/24
14:48 19:35 21:38
PT 18.6 H
INR 1.50
APTT 37.4 H
pH 7.34 L 7.27 L 7.35
pCO2 37 48 33 L
pO2 121 H 138 H 144 H
HCO3 20.0 L 22.0 18.2 L
O2 Delivery Level Vent Not Reportable
09/19/24
22:40
PT
INR
APTT
pH 7.44
pCO2 41
pO2 139 H
HCO3 27.8
O2 Delivery Level
[2024-09-20] MEDS: NSS IV (08:35)
[2024-09-20] MEDS: PROTONIX 40 MG PO (08:40)
[2024-09-20] MEDS: PLAVIX 75 MG PO (08:40)
[2024-09-20] MEDS: NEURONTIN 100 MG PO ×3 (08:41→21:13)
[2024-09-20] MEDS: SENOKOT-S 1 TABLET PO ×2 (08:41→20:35)
[2024-09-20] MEDS: VITAMIN C 500 MG PO (08:41)
[2024-09-20] MEDS: MAGNESIUM OXIDE 500 MG PO ×2 (08:41→20:35)
[2024-09-20] MEDS: ROXICODONE 5 MG PO (09:00)
[2024-09-20 10:36] LABS: Glucose - Point of Care 99 mg/dl (70-99)
[2024-09-20 10:36] LABS: Glucose - Point of Care 96 mg/dl (70-99)
--- NOTE | 2024-09-20 11:44 | W.PN.CARDCBS ---
Today's Communication / Plan
-
Stable postop except for worsening renal function
Remains in sinus rhythm
Impression / Plan
-
PCP: Dr. Twan Perry
Cardiology: Dr. Rito Rosas
Impression:
[place]
CAD with multivessel calcified coronary disease in the proximal to mid LAD and high grade distal RCA stenosis, moderate mid circumflex/OM stenosis by cath 09/17/24
s/p CABG x4 In situ FRIEDMAN to LAD, Ao to RSVG to diagonal to OM, Ao to RSVG to RPDA, DAMON clip and sternal plate fixation 09/19/24
RBBB
HTN
Hyperlipidemia
DM 2
Former smoker
Overweight
CKD 3b
Echo 09/17/24: EF 65 to 70%, no significant valve disease
Plan:
Doing well postop
Remains in sinus rhythm
Creatinine is worsened to 2.1 and repeat is pending
PREADMIT DATA:
-Patient was seen in the cardiology office 09/11/2024 and complained of crescendo angina. Patient previously had cardiac cath in 2009 with 40% LAD and 50% circumflex lesions noted at that time. Patient was started on Toprol-XL, aspirin was
continued and his simvastatin was changed to atorvastatin at that time. Patient then presented for cardiac cath on 09-17-24 and was found to have multivessel calcified CAD with proximal to mid LAD and high-grade distal RCA stenoses plus moderate mid
circumflex/OM stenosis. Patient was admitted for CT surgical team evaluation for possible CABG.
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
Subjective
Date of Service: September 20, 2024
Complains of some sternal pain.
Objective
Labs:
09/20/24 02:32
Labs
Hgb 11.7 g/dL (13.0-18.0) L 09/20/24 02:32
Hct 33.1 % (39.0-52.0) L 09/20/24 02:32
Plt Count 220 10^3/uL (130-400) 09/20/24 02:32
PT 18.6 Sec (11.4-14.6) H 09/19/24 14:48
INR 1.50 09/19/24 14:48
APTT 37.4 Sec (23.4-35.0) H 09/19/24 14:48
Sodium 144 mmol/L (135-145) 09/20/24 02:32
Potassium 5.0 mmol/L (3.5-5.1) 09/20/24 02:32
BUN 42 mg/dl (9-20) H 09/20/24 02:32
Creatinine 2.1 mg/dL (0.7-1.3) H 09/20/24 02:32
Glucose 129 mg/dl (70-99) H 09/20/24 02:32
Vital Signs and I&O:
Vital Signs
Temp Pulse Resp BP Pulse Ox
97.1 F 55 11 100/46 94
09/20/24 10:00 09/20/24 11:00 09/19/24 22:00 09/20/24 10:00 09/20/24 11:00
Vital Signs
Temp Pulse Resp BP Pulse Ox
97.1 F 55 11 100/46 94
09/20/24 10:00 09/20/24 11:00 09/19/24 22:00 09/20/24 10:00 09/20/24 11:00
Intake & Output
09/18/24 09/19/24 09/20/24 09/21/24
06:59 06:59 06:59 06:59
Intake Total 761 / 761 867.6 / 867.6 274.2 / 274.2
Output Total 1420 / 1420 70 / 70
Balance 761 / 761 -5 / -5 -552.4 / -552.4 204.2 / 204.2
Physical Exam
Physical Exam
General: Well developed, well nourished in NAD.
Neck: Supple, no JVD, HJR, carotids +2 B/L, no bruits bilaterally.
Heart: Non displaced PMI, RRR, no murmurs, No S3, S4, no rubs.
Lungs: Scattered rhonchi
Sternal dressings noted
Extremities: No clubbing, cyanosis or edema bilaterally.
Neuro: Grossly nonfocal, awake, alert and oriented x3.
[2024-09-20 12:12] LABS: Glucose - Point of Care 104 mg/dl (70-99)
[2024-09-20] MEDS: FLEXBUMIN 50 IV ×2 (12:25→19:08)
--- NOTE | 2024-09-20 12:32 | PTCARENOTE ---
d/c pleural chest tube without issue. OOB with help of cardiac rehab. reported some light headedness and dizziness. BP soft. Urine output dropping off. FISH MACHINE FEEDER made aware. order for Albumin placed. FISH MACHINE FEEDER at bedside and adjusting pacing settings. Now V
pacing at 80. BP improved. out in chair and will continue to monitor.
[2024-09-20 12:54] LABS: Blood Urea Nitrogen 49 mg/dl (9-20); Calcium 8.7 mg/dl (8.4-10.2); Carbon Dioxide 28 mmol/L (22-30); Chloride 100 mmol/L (98-107); Estimated Creatinine Clearance 22 ml/min; Glucose 93 mg/dl (70-99); Potassium 5.1 mmol/L (3.5-5.1); Sodium 140 mmol/L (135-145); eGFR 21.84
[2024-09-20] MEDS: DOBUTREX 500 MG 250 IV (13:25)
--- NOTE | 2024-09-20 13:37 | CM ---
Reviewed chart. Met with and his daughter to review discharge plans. He states he is feeling well. Prior to admission he resides with his spouse in a two story home with one step to enter. Prior to admission he was independent with
ambulation and adls. He does not have any DME in the home. Medical work-up in progress. The discharge plan is to retrun home with his spouse when medically stable.
[2024-09-20 14:24] LABS: Glucose - Point of Care 94 mg/dl (70-99)
[2024-09-20] MEDS: ALBUMIN 5% 250 IV (15:52)
[2024-09-20 16:09] LABS: Glucose - Point of Care 107 mg/dl (70-99)
[2024-09-20] MEDS: LR 500 IV (16:52)
[2024-09-20 16:59] LABS: Glucose - Point of Care 126 mg/dl (70-99)
--- NOTE | 2024-09-20 17:00 | PTCARENOTE ---
Assumed care of the patient ~1650. Patient in bed, at bedside. Aox3, STR, drowsy, c/o feeling tired, flat affect. NSR on the monitor with a RBBB, v wires in place, VVI 35/14/0.8; +1 edema of lower extremities, + pulses. Maintained on 1LNC
satting 93%, lungs diminished at the bases, medx2 CT in place with sanguineous drainage, IS encouraged. Patient's appetite poor; offered dinner but refused, abdomen NT, firm, obese. Inman catheter in place, oliguric, clear yellow urine. All surgical
sites CDI TEACHERS' ASSISTANT. On Insulin gtt per protocol and Dobutamine @3. LR initiated at 100/hr per CVPA. RIJ cordis present, PIV x1 in the L forearm. Call ortega within reach, assessment of needs ongoing.
[2024-09-20 18:05] LABS: Glucose - Point of Care 124 mg/dl (70-99)
[2024-09-20 18:34] LABS: Blood Urea Nitrogen 50 mg/dl (9-20); Calcium 8.3 mg/dl (8.4-10.2); Carbon Dioxide 25 mmol/L (22-30); Chloride 100 mmol/L (98-107); Estimated Creatinine Clearance 20 ml/min; Glucose 110 mg/dl (70-99); Potassium 5.1 mmol/L (3.5-5.1); Sodium 138 mmol/L (135-145); eGFR 19.33
[2024-09-20] MEDS: 0.45%NACL 1000 IV (19:08)
[2024-09-20 19:16] LABS: Glucose - Point of Care 171 mg/dl (70-99)
--- NOTE | 2024-09-20 20:00 | PTCARENOTE ---
assumed care of pt from previous RN. pt A&Ox4, flat, withdrawn affect noted. MAEE. SR on tele-monitor. temp epicardial v-wires w/ backup settings VVI 35/14/0.8. POX 93% on 1 L NC. CTx2 (mediastinal x2) to -20cm wall suction, draining sanguineous
drainage. abd firm, round, obese. no c/o N/V. olson catheter draining clear, yellow urine w/ U/O <0.5ml/kg/h. all surgical sites stable, CDI. R IJ cordis w/ IV fluids as ordered, see MAR. PIV intact. see worklist for complete nursing assessment,
interventions, VS, and I&Os.
[2024-09-20 20:15] LABS: Glucose - Point of Care 161 mg/dl (70-99)
[2024-09-20 20:21] LABS: Mixed Venous O2 Saturation 71.6 %
[2024-09-20 20:23] LABS: B.E. -1.3 mmol/L; HCO3 24.8 mmol/L (21-28); Ionized Calcium 1.15 mMOL/L (1.15-1.33); O2 Saturation % 94.8 % (94-98); PCO2 47 mmHg (35-48); PO2 64 mmHg (83-108); Potassium 5.2 mMOL/L (3.5-5.1); pH 7.33 (7.35-7.45)
[2024-09-20 20:35] LABS: Lactic Acid 1.4 mmol/L (0.7-2.0)
[2024-09-20 20:36] LABS: Blood Urea Nitrogen 54 mg/dl (9-20); Calcium 8.3 mg/dl (8.4-10.2); Carbon Dioxide 25 mmol/L (22-30); Chloride 97 mmol/L (98-107); Estimated Creatinine Clearance 19 ml/min; Glucose 175 mg/dl (70-99); Potassium 5.1 mmol/L (3.5-5.1); Sodium 138 mmol/L (135-145); eGFR 18.61
[2024-09-20] MEDS: CALCIUM GLUCONATE 100 IV (20:44)
[2024-09-20] MEDS: LIPITOR 40 MG PO (21:13)
[2024-09-20 21:18] LABS: Glucose - Point of Care 182 mg/dl (70-99)
[2024-09-20] MEDS: LASIX 20 MG IV (21:29)
[2024-09-20] MEDS: DEXTROSE 50% SYRINGE 25 GRAMS IV (22:02)
[2024-09-20] MEDS: NOVOLIN R 5 UNITS IV (22:05)
[2024-09-20 22:09] LABS: Glucose - Point of Care 155 mg/dl (70-99)
[2024-09-20 23:16] LABS: B-Hydroxybutyrate 0.13 mmol/L (0.02-0.27)
[2024-09-21] VITALS (39 sets, daily range): BP systolic 99–136; BP diastolic 32–65; PULSE 71; O2SAT 98–100; BMI 36.2
--- NOTE | 2024-09-21 00:15 | PTCARENOTE ---
assessment remains unchanged. SR on tele-monitor. pt on HiFlo NC, 50L, 75% O2, POX 100%. CT drainage WNL. U/O <0.5ml/kg/h- CT MJ Al[place]a aware. no c/o pain at this time. BMP drawn, sent.
[2024-09-21 00:19] LABS: Glucose - Point of Care 228 mg/dl (70-99)
[2024-09-21 01:00] LABS: Blood Urea Nitrogen 55 mg/dl (9-20); Calcium 8.7 mg/dl (8.4-10.2); Carbon Dioxide 26 mmol/L (22-30); Chloride 97 mmol/L (98-107); Estimated Creatinine Clearance 17 ml/min; Glucose 194 mg/dl (70-99); Sodium 138 mmol/L (135-145); eGFR 16.16
[2024-09-21 01:09] LABS: Glucose - Point of Care 197 mg/dl (70-99)
[2024-09-21 02:03] LABS: Glucose - Point of Care 195 mg/dl (70-99)
[2024-09-21] MEDS: FLEXBUMIN 50 IV ×2 (03:04→10:44)
[2024-09-21 03:12] LABS: Glucose - Point of Care 149 mg/dl (70-99)
[2024-09-21 04:07] LABS: Glucose - Point of Care 159 mg/dl (70-99)
[2024-09-21] MEDS: TYLENOL 1000 MG PO ×3 (04:12→21:44)
[2024-09-21] MEDS: NOVOLIN R INSULIN INFUSION 100 IV (04:12)
[2024-09-21 04:14] LABS: Mixed Venous O2 Saturation 72.9 %
--- NOTE | 2024-09-21 04:15 | PTCARENOTE ---
no acute changes. SR on tele-monitor. HiFlo NC 50L/75% O2, POX 100%. CT drainage WNL. U/O <0.5ml/kg/h- CT MJ [place] aware. AM labs collected and sent. AM plan of care discussed w/ pt, pt in agreement.
[2024-09-21 04:46] LABS: Blood Urea Nitrogen 59 mg/dl (9-20); Calcium 8.7 mg/dl (8.4-10.2); Carbon Dioxide 27 mmol/L (22-30); Chloride 97 mmol/L (98-107); Estimated Creatinine Clearance 16 ml/min; Glucose 137 mg/dl (70-99); Magnesium 2.6 mg/dl (1.6-2.3); Sodium 136 mmol/L (135-145); eGFR 14.68
[2024-09-21 04:47] LABS: Lactic Acid 1.3 mmol/L (0.7-2.0)
[2024-09-21 04:56] LABS: Glucose - Point of Care 138 mg/dl (70-99)
[2024-09-21 05:04] LABS: Hematocrit 23.9 % (39.0-52.0); Hemoglobin 8.2 g/dL (13.0-18.0); Mean Corp Hgb Conc. 34.3 g/dL (33.0-37.0); Mean Corpuscular Hgb 32.2 pg (27.0-31.0); Mean Corpuscular Volume 93.7 fL (80.0-94.0); Platelet Count 131 10^3/uL (130-400); Red Blood Cell Count 2.55 10^6/uL (4.70-6.10); Red Cell Dist. Width 14.1 % (11.5-14.5); White Blood Cell Count 15.8 10^3/uL (4.8-10.8)
[2024-09-21 06:14] LABS: Glucose - Point of Care 131 mg/dl (70-99)
--- NOTE | 2024-09-21 06:31 | W.PN.CT ---
Today's Communication / Plan
-
-pod #2
-Drips: Dobut 3 - weaned to off, 1/2 NSS @ 75cc/hr, Insulin
-no response to 20 mg iv Lasix last night, likely will need higher dose. UO mostly 5-10 cc/hr. Gave 1mg iv Bumex this am
-will ask Nephrology to evaluate pt
-Cr is trending up - 3.9 today (1.6-1.9 preop)- follow
-CT output: 2 meds 115/175 in 10/09 hrs
-mVO2 nl 72.9, LA nl 1.3
-hyperkalemia treated with insulin/D50 and Ca repleted last night
-mild acidosis 7.33 on ABG yesterday with nl pCO2 and nl bicarb. BHB (Beta-hydroxybutyrate ketone) was nl. LA was nl
-low pO2 64- started on high flow O2 @ 50L, 75% fiO2
-25% Albumin started yesterday
-Echo 09/20 revealed hyperdynamic left ventricular systolic function. Left ventricular ejection fraction is 70-75% by visual assessment. No gross regional wall motion abnormalities within limits of the study.
Normal pericardium without effusion in limited views.
-maintain Inman, Cordis, pw
-encourage IS
Assessment / Plan
-
- mv-CAD - s/p CABG x 4 (In situ FRIEDMAN to LAD, Ao to RSVG to diagonal to OM, Ao to RSVG to RPDA); Left atrial appendage exclusion [35 mm clip] on 09/19/[address] Billingsley, pod #2
- Intraop LARON: LVEF preop and postop 60% with no wma. The DAMON was verified to be free of any thrombus or debris preoperatively and found to be totally occlusive with a 35 mm clip postoperatively.
- Exertional angina with significant multivessel coronary disease
- Poorly controlled diabetic with an HbA1c of 9, insulin-dependent
- CKD stage IIIb (Cr 1.6-1.9 preop)
- Hypertension
- Hyperlipidemia
- MIKE on CPAP
- History of melanoma
- History of prostate cancer, status post surgery in 1999
- Former tobacco abuse
- Class 1 obesity (BMI 32.8)
- Acute postop blood loss anemia/ coagulopathy - s/p 2 pRBCs and 1 unit platelet
- Acute postop metabolic acidosis
- Acute postop hypovolemia with subsequent hypervolemia
- Acute postop atelectasis/ respiratory insufficiency
- TOMY on CKD
Discussed patient care with: Nursing and Care Team
Subjective
Procedure
- s/p CABG x 4 (In situ FRIEDMAN to LAD, Ao to RSVG to diagonal to OM, Ao to RSVG to RPDA); Left atrial appendage exclusion [35 mm clip] on 09/19/[address] Billingsley
-
Date of Service: September 21, 2024
Objective Data
-
PT 18.6 Sec (11.4-14.6) H 09/19/24 14:48
INR 1.50 09/19/24 14:48
APTT 37.4 Sec (23.4-35.0) H 09/19/24 14:48
Vital Signs
Vital Signs
Temp Pulse Resp BP Pulse Ox
98.5 F 65 16 124/47 100
09/21/24 00:00 09/21/24 00:00 09/21/24 00:00 09/21/24 00:00 09/21/24 00:00
CT Intake/Output/Weight
09/20/24 09/20/24 09/21/24
06:59 18:59 06:59
Intake Total 460.2 / 867.6 1377.8 / 2175.7 797.9 / 2175.7
Output Total 625 / 1420 165 / 270 105 / 270
Balance -164.8 / -552.4 1212.8 / 1905.7 692.9 / 1905.7
SaO2: 100
Physical Exam
-
General: Awake and AOx3
Cardiovascular: Regular rate & rhythm (+ JVD)
Respiratory: Decreased Breath Sounds
Sternum: Stable
Incision: Clean, Dry and Intact
Extremities: Other (trace edema b/l)
Abdomen: ? mildly distended, nontender, denies flatus, decreased bowel sounds
Data Reviewed
-
Lab Results: Results Reviewed
Medications: Active Meds Reviewed
Chest X-Ray: Report Reviewed and Image Reviewed
ECG: Report Reviewed and Image Reviewed
Total Time Spent with Patient (in minutes): Abdomen: decreased bowel sounds, denies flatus
[2024-09-21] MEDS: BUMEX 1 MG IV ×2 (06:43→10:44)
[2024-09-21 08:09] LABS: Glucose - Point of Care 107 mg/dl (70-99)
--- NOTE | 2024-09-21 08:20 | W.PN.INTV ---
Today's Communication / Plan
Recommendations
Pain control
Up OOB as tolerated
Encourage incentive spirometer use 10x per hour for at least 4 hrs a day
Cardiac rehab consult
Diuresis as per nephrology
If Cr continues to worsen then he may end up needing HD
Goal BG 140�180
Manager Pulmonary services will continue to follow along while he remains in the CVICU.
Assessment
-
Assessment: 83-year-old male former tobacco smoker (quit 1979) who presented initially with elective left heart catheterization. He was having substernal chest pain that was happening at low levels of exertion and that is what led to the left
heart cath. LHC performed on 09/17/2024 showing multivessel CAD involving the proximal�mid LAD with high-grade distal RCA stenosis, with moderate mid circumflex/OM stenosis. Transthoracic echo performed on 09/17/2024 showed preserved LVEF at 65 to
70% with mild concentric LVH, normal regional wall motion with no significant valvular disease; no prior study available for comparison purposes. Cardiothoracic surgery was consulted. Preoperative imaging with vascular ultrasound (performed
09/17/2024) showed calcified plaque in the bilateral carotid bulbs with <50% internal carotid artery stenosis. CT chest done on 09/17/2024 showed no focal airspace disease and no suspicious lung nodules. He was continued on aspirin + statin.
Cardiothoracic surgery reviewed risks and benefits of surgical revascularization, and on 09/19/2024 he underwent CABG x 4 with left atrial appendage exclusion with 35mm clip. He underwent the procedure without any immediate complications and was
transferred to the CVICU postoperatively for further care. Manager Pulmonary service is now consulted for additional management/recommendations.
Chronic conditions [employer] TOOL: Trigger finger, type I DM, hypercholesterolemia, CAD, obesity, history of moderate sleep apnea (via split-night sleep study in May 2010), psoriasis, hearing loss, history of melanoma s/p excision (2023), osteoarthritis,
history of prostate cancer s/p prostatectomy
Impression:
#Multivessel CAD with involvement of the proximal LAD s/p CABG x 4 (In situ FRIEDMAN to LAD, Ao to RSVG to diagonal to OM, Ao to RSVG to RPDA) - POD#2
#Acute anemia due to above
#Acute thrombocytopenia
#Acute HFpEF exacerbation
#PFO seen on LARON from 09/19/2024
#TOMY on CKD (baseline creatinine approximately 1.5�1.6) - TOMY worsening
#Hypocalcemia
#Moderate MIKE (seen via split-night sleep study in 05/2010) on auto CPAP 4�20 cmH2O
#History of melanoma s/p excision
#History of prostate cancer s/p prostatectomy
#Osteoarthritis
#DM type I
#Hypercholesterolemia
#Former tobacco smoker (quit smoking in 1979)
Plan:
Patient was extubated on the evening of 09/19/2024; continue supplemental O2 as needed to keep SpO2 >90-94%
prn nebulized bronchodilators - not currently bronchospastic
Encourage incentive spirometer 10x per hour for at least 4 hrs a day
Pressors/antihypertensive/inotropes/diuretics will be provided as needed
Maintain MAP>65
Replete electrolytes with K>4, Mg>2
Continue with PO amiodarone + DAPT with ASA + Plavix; continue with PO Lopressor
Starting bumex gtt; aim for net negative fluid balance as tolerated
Trend BNP, sHCO3 level and sCr with strict I/O; trend UOP
Consult nephrology
Renal ultrasound today showed no evidence for hydronephrosis and there were bilateral simple renal cysts
If Cr continues to worsen with reduced UOP despite diuretics, then he will need dialysis
Monitor hemoglobin
Monitor platelet count and coags
Transfuse blood products as needed to maintain Hb>7g/dL, plt>50k (given post-operative status)
Monitor blood sugar to maintain euglycemia with goal BG 140-180
Insulin drip now off; continue with ISS to maintain BG goal as above
Aspiration precautions
DVT prophylaxis
Early nutrition
Early mobilization
Of note, he should continue following up with us in the pulmonary/sleep office as last visit was on 09/23/2023 with ISI Higginbotham.
Continue with CVICU level care given his worsening TOMY and suspected acute decompensated heart failure, as CVICU is considering starting Bumex drip. [facility] Pulmonary services will continue to follow along while he remains in the CVICU.
Critical care statement: A total of 36 minutes of critical care time was provided for this patient today. This includes management of ventilator, spontaneous breathing trial, arterial blood gases, pressors, of unstable vital signs, evaluation of the
patient at bedside, reviewing the patient's pertinent medical records including radiographs, microbiology, laboratory evaluations, and discussion with primary team and critical care nursing.
Data:
Transthoracic echocardiogram 09/20/2024:
Technically difficult study
Normal left ventricular chamber size. Mild concentric left ventricular
hypertrophy. Hyperdynamic left ventricular systolic function. Left ventricular
ejection fraction is 70-75% by visual assessment. No gross regional wall
motion abnormalities within limits of the study.
Normal pericardium without effusion in limited views.
CXR 09/21/2024:
Postop cardiothoracic surgery. No evidence for significant pneumothorax; Slight improvement in atelectasis in the left lower lung.
Subjective Dataa
Subjective Data
Date of Service:
Date of Service: September 21, 2024
Chief Complaint: Manager Pulmonary Follow Up
Subjective:
Patient was seen and evaluated today at bedside. Afebrile overnight. Saturating 99% on room air. Denies chest pain, DE, abdominal pain, fevers or chills.
Review of Systems
General: Other (Negative unless mentioned above)
Objective Data
Data Reviewed
Vital Signs / I&O / Oxygen:
Vital Signs
Temp Pulse Resp BP Pulse Ox
98.8 F 79 15 122/60 99
09/21/24 08:00 09/21/24 08:00 09/21/24 08:00 09/21/24 08:00 09/21/24 08:07
Intake and Output
09/20/24 09/21/24 09/22/24
06:59 06:59 06:59
Intake Total 867.6 / 867.6 2697.3 / 2774.9 130.2 / 130.2
Output Total 1420 / 1420 385 / 410 90 / 90
Balance -552.4 / -552.4 2312.3 / 2364.9 40.2 / 40.2
SaO2 [P-SIMV] 99
SaO2 99
Nasal Cannula flow liters per 50
minute
Physical Exam
General: Respiratory Distress (negative), Comfortable, Chills (negative) and Sweats (negative)
HEENT: Normocephalic, Anicteric and Moist Mucous Membranes
Cardiovascular: S1-S2, Rub (negative) and Peripheral Edema (Negative)
Respiratory: Wheeze (negative), Crackles (Bilateral), Rhonchi (negative) and Non-Labored Respirations
GI: Soft, Distended (Abdominal obesity), Non Tender and Normal Bowel Sounds
Neurology: AO x 3 and Tremors (negative)
Skin: Warm, Dry, Cyanosis (negative) and Jaundice (negative)
Labs/Micro/Reports
Lab Data
09/21/24 04:02
09/21/24 04:02
Laboratory Results
09/20/24
20:04
pH 7.33 L
pCO2 47
pO2 64 L
HCO3 24.8
O2 Delivery Level
[2024-09-21] MEDS: BACTROBAN 2% OINTMENT 1 APPLIC NASAL ×2 (08:24→20:06)
[2024-09-21] MEDS: VITAMIN C 500 MG PO (08:25)
[2024-09-21] MEDS: SENOKOT-S 1 TABLET PO ×2 (08:25→20:06)
[2024-09-21] MEDS: PLAVIX 75 MG PO (08:25)
[2024-09-21] MEDS: PROTONIX 40 MG PO (08:25)
[2024-09-21] MEDS: LOW STRENGTH ASPIRIN 81 MG PO (08:25)
--- NOTE | 2024-09-21 08:30 | PTCARENOTE ---
Received patient from shift engineer RN; AAOx3, responds spontaneously to RN and follows commands but drowsy; Slow speech and generalized weakness noted; Flat affect and withdrawn; VSS; SR with 1st AVB and BBBC on monitor; Distant heart sounds;
Epicardial V-wire connected to temporary pacemaker settings VVI 35/14/0.8; +2 B/L radial pulses and +1 B/L DP pulses; Shallow respirations, lung sounds diminished throughout; SpO2 95-100% on high flow NC 50L O2 75% delivered; IS 500 ml; CTx2 to -20
wall suction draining serosanguineous drainage - no crepitus, air leak, or tidaling noted; + BS, poor appetite; Abdomen distended, firm but non-tender; Inman catheter draining clear, yellow urine; All surgical sites intact; +1 scrotal, +1 B/L UE, +2
B/L Hand, and trace B/L LE edema; PIVx1 #18 left forearm with insulin gtt infusing and RIJ Cordis with 1/2 NSS infusing - see nursing flowsheets for further details; Metoprolol resumed; US Kidneys being done at bedside; See nursing documentation for
further information.
[2024-09-21] MEDS: ROCALTROL 0.25 MCG PO (08:32)
--- NOTE | 2024-09-21 08:38 | PN.DE.MGMTRT ---
Insulin Management
- -
09/21/2024: Diabetes Management Consult
83 year old male admitted on 09/17 with increasing frequency of anginal symptoms and for elective cardiac catheterization.
PMH: CAD, HTN, HLD, MIKE, CKD, prostate cancer status post surgery, melanoma status post excision, psoriasis, OA, overweight and T2DM. Was taking Trulicity q Fridays, Tresiba 30 units @ HS, Glimepiride 4mg daily at lunch and Farxiga 10mg daily in AM.
A1C 8.4% Cr 3.9(1.6-1.9 preop), eGFR 14.68
Pt was managed on Glycemic protocol x48 hrs post-op. Glucose range has been 107 to 197, requiring 2-6 units of insulin/hr
Pt awake, alert, resting in bed, offers no complaints, Dtr-Kailyn a bedside, able to discuss diabetes mgt. Pt does not
Will transition off drip to SQ Insulin at 1400. Pt is not a candidate for oral regimen at this time given TOMY on CKD with an uptrending Cr.
Give Lantus 15 units @ 14:00. Turn drip off 1 hr after giving Lantus. Tonight (09/21) give Lantus 20 units @ HS. On 09/22 increase Lantus to 25 units @ HS.
Start NovoLog 6 units AC, 1st dose @ 16:30 with dinner today and moderate corrective with meals.
Pt has glucose monitor at home.
Diabetes History
- -
Type of Diabetes: 2 requiring insulin
Pre-Admission Diabetes Regimen
09/20/24 09/20/24 09/20/24
12:08 18:04 20:12
Creatinine 2.8 H 3.1 H 3.2 H
09/21/24 09/21/24
00:18 04:02
Creatinine 3.6 H 3.9 H
Lab Results
Hemoglobin A1c 8.4 % (4.0-5.6) H 09/18/24 04:51
Insulin Pump Settings
IP Diabetes Regimen
09/20/24 09/20/24 09/20/24
08:18 10:26 12:08
Glucose 93
POC Glucose 99 96
09/20/24 09/20/24 09/20/24
12:10 14:24 16:08
Glucose
POC Glucose 104 H 94 107 H
09/20/24 09/20/24 09/20/24
16:58 18:04 19:14
Glucose 110 H
POC Glucose 126 H 124 H 171 H
09/20/24 09/20/24 09/20/24
20:12 21:11 22:07
Glucose 175 H
POC Glucose 161 H 182 H 155 H
09/21/24 09/21/24 09/21/24
00:18 01:06 02:01
Glucose 194 H
POC Glucose 228 H 197 H 195 H
09/21/24 09/21/24 09/21/24
03:09 04:02 04:54
Glucose 137 H
POC Glucose 149 H 159 H 138 H
09/21/24 09/21/24
06:13 08:08
Glucose
POC Glucose 131 H 107 H
Meal type: Dinner
Amount consumed: Patient refused
Patient Education
[2024-09-21] MEDS: LOPRESSOR 12.5 MG PO (08:44)
--- NOTE | 2024-09-21 09:12 | W.PN.CARDCBS ---
Today's Communication / Plan
-
Nephrology consult
Diurese as able
Supportive postoperative care
Impression / Plan
-
PCP: Dr. Twan Perry
Cardiology: Dr. Rito Rosas
Impression:
[place]
CAD with multivessel calcified coronary disease in the proximal to mid LAD and high grade distal RCA stenosis, moderate mid circumflex/OM stenosis by cath 09/17/24
s/p CABG x4 In situ FRIEDMAN to LAD, Ao to RSVG to diagonal to OM, Ao to RSVG to RPDA, DAMON clip and sternal plate fixation 09/19/24
Postoperative blood loss anemia
Acute on chronic renal insufficiency with hyperkalemia
--------
RBBB
HTN
Hyperlipidemia
DM 2
Former smoker
Overweight
CKD 3b
Echo 09/17/24: EF 65 to 70%, no significant valve disease
Plan:
USA with multivessel calcified coronary disease in the proximal to mid LAD and high grade distal RCA stenosis, moderate mid circumflex/OM stenosis by cath 09/17/24
s/p CABG x4 In situ FRIEDMAN to LAD, Ao to RSVG to diagonal to OM, Ao to RSVG to RPDA, DAMON clip and sternal plate fixation 09/19/24
Hemodynamically stable off pressors and inotropes
Remains in sinus rhythm on telemetry
Postop EKG sinus rhythm with first-degree AV block and known right bundle branch block
Postoperative limited 2D echocardiogram with normal biventricular size and systolic function and no significant pericardial effusion.
Chest x-ray today with no evidence o of pneumothorax with small left pleural effusion and atelectasis
Chest tube management per CT surgery
Continue atorvastatin 40 mg daily- LDL 61 on 09/18/2024
Continue aspirin 81 mg daily, Plavix 75 mg daily, Lopressor 12-1/2 mg every 12.
Continue amiodarone prophylaxis.
I-S, increase activity
-acute on chronic renal insufficiency with creatinine 3.9
baseline creatinine 1.5-1.[address] Richardson
nephrology consult
Avoid nephrotoxic agents. Hold Farxiga and losartan.
Maintain Inman catheter
Postoperative anemia-monitor
History of MIKE on high flow O2
Pulmonary consulted. Wean O2 supplementation as able
Diuresis
I-S
Diabetes mellitus type 2 uncontrolled with hemoglobin A1c 8.4%
Stressed importance of better glycemic control with goal normoglycemia
Currently on insulin drip
Will follow with you
PREADMIT DATA:
-Patient was seen in the cardiology office 09/11/2024 and complained of crescendo angina. Patient previously had cardiac cath in 2009 with 40% LAD and 50% circumflex lesions noted at that time. Patient was started on Toprol-XL, aspirin was
continued and his simvastatin was changed to atorvastatin at that time. Patient then presented for cardiac cath on 09-17-24 and was found to have multivessel calcified CAD with proximal to mid LAD and high-grade distal RCA stenoses plus moderate mid
circumflex/OM stenosis. Patient was admitted for CT surgical team evaluation for possible CABG.
Progress Note - Inlayer Silver
Subjective
Date of Service: September 21, 2024
Seen and examined. On high flow nasal cannula O2. Denies chest pain or pressure no dizziness. Denies shortness of breath or cough.
Objective
Labs:
09/21/24 04:02
09/21/24 04:02
Labs
Hgb 8.2 g/dL (13.0-18.0) L D 09/21/24 04:02
Hct 23.9 % (39.0-52.0) L 09/21/24 04:02
Plt Count 131 10^3/uL (130-400) D 09/21/24 04:02
PT 18.6 Sec (11.4-14.6) H 09/19/24 14:48
INR 1.50 09/19/24 14:48
APTT 37.4 Sec (23.4-35.0) H 09/19/24 14:48
Sodium 136 mmol/L (135-145) 09/21/24 04:02
Potassium 5.0 mmol/L (3.5-5.1) 09/21/24 04:02
BUN 59 mg/dl (9-20) H 09/21/24 04:02
Creatinine 3.9 mg/dL (0.7-1.3) H 09/21/24 04:02
Glucose 137 mg/dl (70-99) H 09/21/24 04:02
Vital Signs and I&O:
Vital Signs
Temp Pulse Resp BP Pulse Ox
98.8 F 69 14 123/64 100
09/21/24 09:00 09/21/24 09:00 09/21/24 09:00 09/21/24 09:00 09/21/24 09:00
Vital Signs
Temp Pulse Resp BP Pulse Ox
98.8 F 69 14 123/64 100
09/21/24 09:00 09/21/24 09:00 09/21/24 09:00 09/21/24 09:00 09/21/24 09:00
Intake & Output
09/19/24 09/20/24 09/21/24 09/22/24
06:59 06:59 06:59 06:59
Intake Total 867.6 / 867.6 2697.3 / 2774.9 637.2 / 637.2
Output Total 5 / 5 1420 / 1420 385 / 410 150 / 150
Balance -5 / -5 -552.4 / -552.4 2312.3 / 2364.9 487.2 / 487.2
Physical Exam
Physical Exam
General: NAD on high flow nasal cannula O2
Heart: Regular. Positive S1-S2. Distant heart sounds. Positive chest tubes.
Lungs: Bronchovesicular breath sounds decreased bilaterally. Sternal dressings noted
Extremities: No edema
Neuro: Grossly nonfocal, awake, alert and oriented x3.
--- NOTE | 2024-09-21 09:52 | W.CON.NEPH ---
Consultation
-
Date/Time Consultation Requested: 09/21/24 0600
Date/Time Consultation Performed: 09/21/24 0945
Requesting Provider: Scarlett Alcala PA-C
Performing Provider: Elisa Chavira
Reason for Consultation: TOMY with CKD
Medical History
-
Chief Complaint: CP
History of Present Illness:
83-year-old male past medical history of diabetes type uncontrolled on Glimepride, Trulicity, Farxiga, insulin, CKD [id number] baseline cr 1.8 with diabetic nephropathy, sub nephrotic proteinuria, obstructive sleep apnea, hypertension on low dose
Losartan and BB, hyperlipidemia on statin, prostate cancer status post surgery, melanoma status post excision, psoriasis, osteoarthritis, presenting with increasing frequency of anginal symptoms and for elective cardiac catheterization on 09/17. He
noted to have Multivessel disease, following left heart catheterization creatinine remained stable on the fourth at 1.6. On the same day patient underwent CABGx4. His creatinine since then is steadily increasing today 3.9 and decreased urine
output Hence nephrology consulted. He received Bumex this morning only had about 1 60 cc in last 3 hours. He is on high flow of oxygen for worsening respiratory status. His blood pressures were Low postop however improved now. He reports mild
chest pain at the incision site, Nando. No short of breath at rest denies any dizziness or lightheadedness. No fever. No diarrhea. No nausea or vomiting or abdominal pain.
Past Medical History
diabetes, obstructive sleep apnea, hypertension, hyperlipidemia, CKD, prostate cancer status post surgery, melanoma status post excision, psoriasis, osteoarthritis
Past Surgical History: Other (CABG, tonsillectomy and appendectomy, prostatectomy, cataract surgery)
Social History
Tobacco: Non-Smoker
Alcohol: None
Living: With Family
Family History
No CK 80, father with heart disease
Family History: Not Pertinent
Allergies / Home Medications
Allergy/AdvReac Type Severity Reaction Status Date / Time
No Known Allergies Allergy Verified 09/17/24 08:13
�Medication �Instructions �Recorded �Confirmed �Type
oxybutynin chloride 10 mg 10 mg PO HS Urinary Issue 03/30/10 09/17/24 History
tablet,extended release 24 hr
aspirin 81 mg tablet 81 mg PO DAILY Blood Clot 09/17/24 09/17/24 History
Prevention/Tx
atorvastatin 40 mg tablet 40 mg PO HS High Cholesterol 09/17/24 09/17/24 History
calcitriol 0.25 mcg capsule 0.25 mcg PO MOWEFR Supplement 09/17/24 09/17/24 History
dapagliflozin propanediol 10 mg 10 mg PO DAILY Diabetes 09/17/24 09/17/24 History
tablet (Farxiga)
dulaglutide 1.5 mg/0.5 mL 1.5 mg SC QWEEK Diabetes 09/17/24 09/17/24 History
subcutaneous pen injector
(Trulicity)
glimepiride 4 mg tablet 4 mg PO HS Diabetes 09/17/24 09/17/24 History
insulin degludec 100 unit/mL (3 30 unit SC HS Diabetes 09/17/24 09/17/24 History
mL) subcutaneous pen (Tresiba
FlexTouch U-100 insulin)
losartan 25 mg tablet 25 mg PO HS Blood Pressure 09/17/24 09/17/24 History
metoprolol tartrate 25 mg tablet 25 mg PO NOON Blood Pressure 09/17/24 09/17/24 History
triamcinolone acetonide 0.025 % 1 applic topical DAILY PRN rash 09/17/24 09/17/24 History
topical cream
Review of Systems
-
All complete 12 point review of system have been inquired and found negative other than stated in HPI
Physical Exam
Vital Signs
Vital Signs
Temp Pulse Resp BP Pulse Ox
98.8 F 69 14 123/64 100
09/21/24 09:00 09/21/24 09:00 09/21/24 09:00 09/21/24 09:00 09/21/24 09:00
Lab Results
WBC 15.8 10^3/uL (4.8-10.8) H 09/21/24 04:02
RBC 2.55 10^6/uL (4.70-6.10) L 09/21/24 04:02
Hgb 8.2 g/dL (13.0-18.0) L D 09/21/24 04:02
Hct 23.9 % (39.0-52.0) L 09/21/24 04:02
Plt Count 131 10^3/uL (130-400) D 09/21/24 04:02
Sodium 136 mmol/L (135-145) 09/21/24 04:02
Potassium 5.0 mmol/L (3.5-5.1) 09/21/24 04:02
Chloride 97 mmol/L (98-107) L 09/21/24 04:02
Carbon Dioxide 27 mmol/L (22-30) 09/21/24 04:02
BUN 59 mg/dl (9-20) H 09/21/24 04:02
Creatinine 3.9 mg/dL (0.7-1.3) H 09/21/24 04:02
eGFR 14.68 09/21/24 04:02
Glucose 137 mg/dl (70-99) H 09/21/24 04:02
Calcium 8.7 mg/dl (8.4-10.2) 09/21/24 04:02
Albumin 4.2 g/dl (3.5-5.0) 09/17/24 07:42
Renal US:
NDICATION: -83-year-old with acute kidney injury. Low urine output.
COMPARISON: Renal and bladder ultrasound from August 05, 2023.
FINDINGS: Ultrasound of the kidneys is performed.
Right kidney length is 11.0 cm. There is no evidence for pelvicalyceal dilation or solid mass. In the upper pole of the right kidney is a simple cyst, measuring 1.9 x 1.6 x 1.6 cm.
Left kidney length is 11.0 cm. In the upper pole is a simple cyst measuring 2.4 x 2.2 x 2.5 cm. In the lower pole is a second simple cyst measuring 3.8 x 3.1 x 2.9 cm. There is no evidence for pelvicalyceal dilation or solid mass.
No sonographic evidence for calcification involving either kidney.
IMPRESSION: Bilateral simple renal cysts.
No evidence for pelvicalyceal dilation.
CXR:
IMPRESSION:
Postop cardiothoracic surgery. No evidence for significant pneumothorax.
Slight improvement in atelectasis in the left lower lung.
Physical Exam
General: Awake, Alert, Oriented, AOx3 and Nontoxic
HEENT: Anicteric, Conjunctivae Clear and Facial Symmetry
Respiratory: Nonlabored Respirations and Other (on high flow O2, decreased)
Cardiac: S1/S2 and Regular Rate/Rhythm
Breast: Deferred by me
Abdomen: Soft, Nontender and Nondistended
Musculoskeletal: No Cyanosis and No Edema
Skin: No Rash
Neuro: Nonfocal/Grossly Intact
Psych: Insight/judgement good and Appropriate
Data Reviewed
-
Radiology: Report Reviewed by me, Discussed with Patient and Discussed with Family
Labs: Labs Reviewed by me, Discussed with Nurse and Discussed with Family
Assessment/Plan
-
IMP:
MV-CAD - s/p CABG x 4 Left atrial appendage exclusion [35 mm clip] on 09/19/[address] Billingsley
Exertional angina with significant multivessel coronary disease -[employer]PER[employer]
Diabetic with an HbA1c of 8.4, insulin-dependent
TOMY with CKD stage IIIb (Cr 1.6-1.9 preop)-follows Dr Richardson
Proteinuria-sub nephrotic
Anemia from acute blood loss s/p 2 PRNC and 1 platelet
Acute respiratory failure on high flow O2
Hypertension
Hyperlipidemia
MIKE on CPAP
History of melanoma
History of prostate cancer, status post surgery in 1999
Former tobacco abuse
Class 1 obesity (BMI 32.8)
OA
Psoriasis
Overactive bladder
Hearing loss bilat H aids
PLan:
A/w Angina, s/p LHC on 09/17 and noted MVD- s/p CABG x4 on 09/19
cr pre op was at 1.6 and now steady increase to 3.9 with decreased UOP
UA bland on 09/18, repeat 09/19-mild microhematuria-?olson sample, check FEna
TOMY likely hemodynamic ATN, renal US no hydro
would increase bumex to 2mg BID
if UOP still not improving ok for bumex gtt
he is on high flow O2-wean as tolerated
CXR noted atelectasis , however wt gain noted too
echo normal EF and no WMA
keep olson for now
BP stable
Reviewed with pt if fails to respond to diuretics likely need dialysis
follow labs later today
dose meds renally, avoid nephrotoxins
cont calcitriol, holding farxiga, ARB
d/w pt and nursing
d/w CT surg
[2024-09-21 10:03] LABS: Glucose - Point of Care 105 mg/dl (70-99)
[2024-09-21 11:14] LABS: Urine Sodium 87 mmol/L (30-90)
[2024-09-21 11:55] LABS: Glucose - Point of Care 82 mg/dl (70-99)
[2024-09-21] MEDS: NOVOLOG FLEXPEN-MODERATE RESISTANCE SC ×2 (11:55→16:51)
--- NOTE | 2024-09-21 12:26 | PTCARENOTE ---
IV Bumex 1 mg ordered and given at 1044; Low urine output for 1200 hourly check - CVNP Corrina Huynh notified and aware - IV Bumex gtt ordered; Urine creatine and sodium ordered and sent to lab; Assist x2 with cardiac rehab to chair - patient states
he feels a little lightheaded and dizzy with change of position but able to tolerate stand and pivot to chair; Oxygen weaned to high flow NC 50L O2 40% delivered; See nursing documentation for further details.
[2024-09-21] MEDS: BUMEX 50 IV ×2 (13:17→20:49)
[2024-09-21] MEDS: LANTUS 0.15 UNITS SC ×2 (14:00→21:44)
[2024-09-21 14:05] LABS: Glucose - Point of Care 177 mg/dl (70-99)
[2024-09-21] MEDS: NSS IV (14:18)
--- NOTE | 2024-09-21 14:25 | PN.CDI ---
CDI
- -
CDI:
Physician Documentation Request
Admit Date: 09/17/24 11:51
Dear Scarlett Alcala,
Patient admitted with CAD s/p CABG x 4 and left atrial appendage exclusion.
09/21 PN, '....-low pO2 64- started on high flow O2 @ 50L, 75% fiO2.... acute postop atelectasis/ respiratory insufficiency.'
09/21 PCN, 'Shallow respirations, lung sounds diminished throughout; SpO2 95-100% on high flow NC 50L O2 75% delivered; IS 500 ml...'
Clarify which of the following accurately represents the patient's respiratory status following surgery:
Acute hypoxic respiratory failure (following surgery)
Acute pulmonary insufficiency (following surgery)
Hypoxia
Other
Additional information for Pulmonary Insufficiency:
Consider when patients require intermodal dispatcher oxygen therapy postoperatively
Weaned off oxygen initially then requiring supplemental oxygen
No other definitive diagnosis to support the need for oxygen (COPD exac, CHF etc.)
Unable to wean from vent
When criteria for respiratory failure not present
May extend stay or require additional resources; may need home O2
Additional information for Respiratory Failure:
Recognized criteria for Respiratory Failure (Source: [facility] Aug 2013)
ABGs: (1 or more) Symptoms Indicate:
1. p)2 <60 or RA SPO2 <91% on RA 1. Tachypnea, SOB, dyspnea 1. Type as:
2. pCO2 50 and pH <7.35 2. Use of accessory muscles a. Hypoxic
3. pO2 decrease of pCO2 increase by 3. Pallor or cyanosis b. Hypercapnic
10 mmHg from baseline if known 4. Anxiety or restlessness 2. If due to procedure or due to another cause
5. Unable to speak in full sentences
Supplemental O2 of > 40% Intubation is not required
Use of terms such as suspected, likely, concern for, or probable (associated with a specific diagnosis that is being evaluated, monitored, or treated as if it exists) are acceptable and can be coded in the inpatient setting, when documented at the
time of discharge.
Thank you,
Deonna KEARNEY,RN,CCDS
CDI Specialist
Available via [employer]
Please use your independent medical judgment in providing your response.
[2024-09-21 14:33] LABS: Urine Albumin Trace (Neg - Trace); Urine Bilirubin Negative (Negative); Urine Character Clear (Clear); Urine Color Straw; Urine Glucose Negative (Negative); Urine Ketone Negative (Negative); Urine Leukocyte Negative (Negative); Urine Nitrite Negative (Negative); Urine Occult Blood 1+ (Negative); Urine Specific Gravity 1.015 (<1.030); Urine Urobilinogen Negative (Neg - 1+)
[2024-09-21 14:47] LABS: Urine Mucus Many
[2024-09-21 14:49] LABS: Urine Amorphous Seen; Urine Urothelial Cell >30 /LPF (FEW)
[2024-09-21 14:51] LABS: Urine Hyaline Cast 0-2 /LPF (0-2)
[2024-09-21 14:55] LABS: Urine Bacteria Few (Negative)
--- NOTE | 2024-09-21 14:57 | CM ---
Reviewed chart. Met with and Mrs. Curran to review discharge plans. We reviewed a home visit by the Transitional Care NUrse. He is agreeable to a home visit. Prior to admission he resides with his spouse in a two story with one step to enter.
Prior to admission he was independent with ambulation and adls. He does not have any DME in the home. Medical work-up in progress. The discharge plan is to return home with his spouse and a home visit by the Transitional Care Nurse when medically
stable.
[2024-09-21 16:00] LABS: Glucose - Point of Care 107 mg/dl (70-99)
--- NOTE | 2024-09-21 16:30 | PTCARENOTE ---
CTx2 discontinued at 1540 without any complications and VSS throughout; Oxygen weaned to 8L Midflow NC - SpO2 98-100%; Patient complaining of poor appetite all day and only ate jello and cantelope - Ensure BID ordered for patient.
At 1555, patient's spouse approached RN stating that patient is seeing 'pictures on the wall that aren't there.' Upon evaluation, patient states he sees 'moving lines on sethi on either side of TV in the room that move in a generally upward motion.'
He denies flashing lights, holman veil appearances, or history of ocular migraines. No other neurological deficits noted. VSS. SB with BBBC and occasional junctional rhythm on monitor - patient V-wire connected back to temporary pacemaker as backup
settings VVI 35/14/0.8. ERUM Huynh notified and aware. BMP ordered and sent for patient - awaiting results.
[2024-09-21] MEDS: NOVOLOG FLEXPEN SC (16:58)
--- NOTE | 2024-09-21 17:04 | W.PN.ANS.POP ---
Anesthesia Post Operative
- Anesthesia Post Op Note
Vital Signs Stable-See Nursing Note: Yes
Airway Patent: Yes
Adequate Pain Control: Yes
Change in Mental Status: No
Current Postoperative Nausea & Vomiting: No
Anesthesia Complications: No
General Anesthetic Recall: No
Unplanned Admission: No
Post Op Hydration Adequate: Yes
[2024-09-21 17:51] LABS: Blood Urea Nitrogen 66 mg/dl (9-20); Calcium 8.3 mg/dl (8.4-10.2); Carbon Dioxide 26 mmol/L (22-30); Chloride 96 mmol/L (98-107); Estimated Creatinine Clearance 14 ml/min; Glucose 85 mg/dl (70-99); Sodium 135 mmol/L (135-145); eGFR 12.36
--- NOTE | 2024-09-21 20:00 | PTCARENOTE ---
assumed care of pt from previous RN. pt A&Ox4, resting in bed at time of assessment. flat affect noted. SR on tele-monitor. temp epicardial v-wires plugged into pulse generator w/ backup settings VVI 35/14/0.8. POX 95% on 4 L NC. abd non-tender;
obese, round, firm. Inman catheter draining clear, yellow urine. U/O <0.5ml/kg/h. CT PA aware. Bumex gtt running as ordered. all surgical sites stable, CDI. R IJ cordis. PIV intact. see worklist for complete nursing assessment, interventions, VS,
and I&Os.
[2024-09-21] MEDS: LIPITOR 40 MG PO (21:44)
[2024-09-21 21:45] LABS: Glucose - Point of Care 268 mg/dl (70-99)
[2024-09-22] VITALS (29 sets, daily range): BP systolic 88–156; BP diastolic 34–71; PULSE 59; O2SAT 96; BMI 35.8
--- NOTE | 2024-09-22 00:15 | PTCARENOTE ---
assessment remains unchanged. VSS. SR w/ PACs on tele-monitor. POX 95% on 4 L NC. no c/o pain at this time. see worklist for VS & I&Os.
--- NOTE | 2024-09-22 03:24 | W.PN.CT ---
Today's Communication / Plan
-
Plan:
-No major issues overnight. Hemodynamically and neurologically intact
-Currently on Bumex gtt @ 1mg/hr. 24 hrs u/o 1166 mL
-Creatinine is 5.1, was 4.5 yesterday afternoon, baseline is 1.5-1.9. Nephrology is following
-May need to add Metolazone to Bumex
-HR is sinus ramila with PAC @ 56 bpm. Amiodarone and BB currently on hold
-Wean off of O2 as tolerated, currently requiring 4L of Nasal Cannula support, O2sats of 94-95%
-Encourage use of IS
-Maintain temporary v-wires another day
-Maintain cordis another day
-OOB into chair
-Ambulate
-Will consult PT/OT as pt appears deconditioned
Assessment / Plan
-
- mv-CAD - s/p CABG x 4 (In situ FRIEDMAN to LAD, Ao to RSVG to diagonal to OM, Ao to RSVG to RPDA); Left atrial appendage exclusion [35 mm clip] on 09/19/[address] Billingsley, pod #3
- Intraop LARON: LVEF preop and postop 60% with no wma. The DAMON was verified to be free of any thrombus or debris preoperatively and found to be totally occlusive with a 35 mm clip postoperatively.
- Exertional angina with significant multivessel coronary disease
- Poorly controlled diabetic with an HbA1c of 9, insulin-dependent
- CKD stage IIIb (Cr 1.6-1.9 preop)
- Hypertension
- Hyperlipidemia
- MIKE on CPAP
- History of melanoma
- History of prostate cancer, status post surgery in 1999
- Former tobacco abuse
- Class 1 obesity (BMI 32.8)
- Acute postop blood loss anemia/ coagulopathy - s/p 2 pRBCs and 1 unit platelet
- Acute postop metabolic acidosis
- Acute postop hypovolemia with subsequent hypervolemia
- Acute postop atelectasis
- Acute postop pulmonary insufficiency
- TOMY on CKD
Discussed patient care with: Cardiology, Nursing, Respiratory Therapy, Pharmacy and Care Team
Subjective
Procedure
- s/p CABG x 4 (In situ FRIEDMAN to LAD, Ao to RSVG to diagonal to OM, Ao to RSVG to RPDA); Left atrial appendage exclusion [35 mm clip] on 09/19/[address] Billingsley
-
Date of Service: September 22, 2024
Pt c/o mild incisional pain, otherwise feels well
Objective Data
-
PT 18.6 Sec (11.4-14.6) H 09/19/24 14:48
INR 1.50 09/19/24 14:48
APTT 37.4 Sec (23.4-35.0) H 09/19/24 14:48
Vital Signs
Vital Signs
Temp Pulse Resp BP Pulse Ox
99 F 57 12 128/48 95
09/22/24 03:00 09/22/24 03:00 09/22/24 02:00 09/22/24 03:00 09/22/24 03:00
CT Intake/Output/Weight
09/21/24 09/21/24 09/22/24
06:59 18:59 06:59
Intake Total 1319.5 / 2774.9 1038.6 / 1124.6 86 / 1124.6
Output Total 220 / 410 751 / 1131 380 / 1131
Balance 1099.5 / 2364.9 287.6 / -6.4 -294 / -6.4
SaO2: 95 (4L)
Physical Exam
-
General: Awake, Oriented and AOx3
Cardiovascular: Regular rate & rhythm, No Murmurs, No Rub and No Gallop
Respiratory: Decreased Breath Sounds (at bases)
Sternum: Stable
Incision: Clean, Dry, Intact and Dressing Intact
Extremities: Edema +1
Data Reviewed
-
Lab Results: Results Reviewed
Medications: Active Meds Reviewed
Chest X-Ray: Report Reviewed and Image Reviewed
ECG: Report Reviewed and Image Reviewed
[2024-09-22 04:07] LABS: Blood Urea Nitrogen 76 mg/dl (9-20); Carbon Dioxide 25 mmol/L (22-30); Chloride 96 mmol/L (98-107); Estimated Creatinine Clearance 12 ml/min; Glucose 168 mg/dl (70-99); Magnesium 2.6 mg/dl (1.6-2.3); Potassium 5.1 mmol/L (3.5-5.1); Sodium 136 mmol/L (135-145); eGFR 10.64
--- NOTE | 2024-09-22 04:30 | PTCARENOTE ---
no acute changes. VSS. AM labs collected and sent. AM plan of care discussed, pt in agreement.
[2024-09-22 04:32] LABS: Hematocrit 23.3 % (39.0-52.0); Hemoglobin 8.1 g/dL (13.0-18.0); Mean Corp Hgb Conc. 34.8 g/dL (33.0-37.0); Mean Corpuscular Hgb 31.9 pg (27.0-31.0); Mean Corpuscular Volume 91.7 fL (80.0-94.0); Mean Platelet Volume 10.9 fL (7.4-10.4); Platelet Count 133 10^3/uL (130-400); Red Blood Cell Count 2.54 10^6/uL (4.70-6.10); White Blood Cell Count 15.7 10^3/uL (4.8-10.8)
[2024-09-22] MEDS: TYLENOL 1000 MG PO ×2 (05:36→20:04)
[2024-09-22] MEDS: BUMEX 50 IV ×3 (07:55→19:03)
[2024-09-22] MEDS: VITAMIN C 500 MG PO (07:58)
[2024-09-22] MEDS: LOW STRENGTH ASPIRIN 81 MG PO (07:58)
[2024-09-22] MEDS: SENOKOT-S 1 TABLET PO ×2 (07:58→20:04)
[2024-09-22] MEDS: NOVOLOG FLEXPEN-MODERATE RESISTANCE 3 UNITS SC ×2 (07:58→12:06)
[2024-09-22] MEDS: PLAVIX 75 MG PO (07:58)
[2024-09-22] MEDS: PROTONIX 40 MG PO (07:58)
[2024-09-22] MEDS: BACTROBAN 2% OINTMENT 1 APPLIC NASAL ×2 (07:58→20:04)
[2024-09-22] MEDS: NOVOLOG FLEXPEN 6 UNITS SC ×3 (07:59→17:31)
[2024-09-22 08:02] LABS: Glucose - Point of Care 217 mg/dl (70-99)
--- NOTE | 2024-09-22 08:16 | PTCARENOTE ---
Received pt from sales support administrator RN; pt AAOx3 and resting comfortably in chair; Sinus Anatoliy PACs on monitor and VSS; Epicardial V wire set to back up VVI 35/14/0.8 and no pacing noted; RIJ Cordis and PIV patent; Bumex drip infusing see flow sheet for
details; Lungs Diminished Coarse Fine crackles; Is to 500; hypoactive bowel sounds; Inman catheter draining yellow urine; palpable pulses throughout; +2 bilateral hand edema, +1 lower extremity edema and +1 generalized edema noted; all surgical
sites C/D/I; see nursing documentation for further details.
--- NOTE | 2024-09-22 08:31 | W.PN.INTV ---
Today's Communication / Plan
Recommendations
Pain control
Up OOB as tolerated
Encourage incentive spirometer use 10x per hour for at least 4 hrs a day
Cardiac rehab consult
Diuresis as per nephrology
If Cr continues to worsen then he may end up needing HD
Goal BG 140�180
Beauty Shop Manager services will continue to follow along while he remains in the CVICU.
Assessment
-
Assessment: 83-year-old male former tobacco smoker (quit 1979) who presented initially with elective left heart catheterization. He was having substernal chest pain that was happening at low levels of exertion and that is what led to the left
heart cath. LHC performed on 09/17/2024 showing multivessel CAD involving the proximal�mid LAD with high-grade distal RCA stenosis, with moderate mid circumflex/OM stenosis. Transthoracic echo performed on 09/17/2024 showed preserved LVEF at 65 to
70% with mild concentric LVH, normal regional wall motion with no significant valvular disease; no prior study available for comparison purposes. Cardiothoracic surgery was consulted. Preoperative imaging with vascular ultrasound (performed
09/17/2024) showed calcified plaque in the bilateral carotid bulbs with <50% internal carotid artery stenosis. CT chest done on 09/17/2024 showed no focal airspace disease and no suspicious lung nodules. He was continued on aspirin + statin.
Cardiothoracic surgery reviewed risks and benefits of surgical revascularization, and on 09/19/2024 he underwent CABG x 4 with left atrial appendage exclusion with 35mm clip. He underwent the procedure without any immediate complications and was
transferred to the CVICU postoperatively for further care. Beauty Shop Manager service is now consulted for additional management/recommendations.
Chronic conditions BUTCHER MEAT: Trigger finger, type I DM, hypercholesterolemia, CAD, obesity, history of moderate sleep apnea (via split-night sleep study in May 2010), psoriasis, hearing loss, history of melanoma s/p excision (2023), osteoarthritis,
history of prostate cancer s/p prostatectomy
Impression:
#Multivessel CAD with involvement of the proximal LAD s/p CABG x 4 (In situ FRIEDMAN to LAD, Ao to RSVG to diagonal to OM, Ao to RSVG to RPDA) - POD#3
#Acute anemia due to above
#Acute thrombocytopenia
#Acute HFpEF exacerbation
#PFO seen on LARON from 09/19/2024
#TOMY on CKD (baseline creatinine approximately 1.5�1.6) - TOMY worsening
#Hypocalcemia
#Moderate MIKE (seen via split-night sleep study in 05/2010) on auto CPAP 4�20 cmH2O
#History of melanoma s/p excision
#History of prostate cancer s/p prostatectomy
#Osteoarthritis
#DM type I
#Hypercholesterolemia
#Former tobacco smoker (quit smoking in 1979)
Plan:
Patient was extubated on the evening of 09/19/2024; continue supplemental O2 as needed to keep SpO2 >90-94%
prn nebulized bronchodilators - not currently bronchospastic
Encourage incentive spirometer 10x per hour for at least 4 hrs a day
Pressors/antihypertensive/inotropes/diuretics will be provided as needed
Maintain MAP>65
Replete electrolytes with K>4, Mg>2
Continue with PO amiodarone + DAPT with ASA + Plavix; continue with PO Lopressor
Continue bumex gtt; aim for net negative fluid balance as tolerated
Trend BNP, sHCO3 level and sCr with strict I/O; trend UOP
Nephrology consulted and recommendations appreciated - continue diuresis
Renal ultrasound from 09/21 showed no evidence for hydronephrosis and there were bilateral simple renal cysts
If Cr continues to worsen with reduced UOP despite diuretics, then he will need dialysis
Monitor hemoglobin
Monitor platelet count and coags
Transfuse blood products as needed to maintain Hb>7g/dL, plt>50k (given post-operative status)
Monitor blood sugar to maintain euglycemia with goal BG 140-180
Insulin drip now off; continue with ISS to maintain BG goal as above
Aspiration precautions
DVT prophylaxis
Early nutrition
Early mobilization
Of note, he should continue following up with us in the pulmonary/sleep office as last visit was on 09/23/2023 with ISI Higginbotham.
Continue with CVICU level care given his worsening TOMY and suspected acute decompensated heart failure, and remains on Bumex drip. Beauty Shop Manager services will continue to follow along while he remains in the CVICU.
Critical care statement: A total of 38 minutes of critical care time was provided for this patient today. This includes management of ventilator, spontaneous breathing trial, arterial blood gases, pressors, of unstable vital signs, evaluation of the
patient at bedside, reviewing the patient's pertinent medical records including radiographs, microbiology, laboratory evaluations, and discussion with primary team and critical care nursing.
Data:
Transthoracic echocardiogram 09/20/2024:
Technically difficult study
Normal left ventricular chamber size. Mild concentric left ventricular
hypertrophy. Hyperdynamic left ventricular systolic function. Left ventricular
ejection fraction is 70-75% by visual assessment. No gross regional wall
motion abnormalities within limits of the study.
Normal pericardium without effusion in limited views.
CXR 09/21/2024:
Postop cardiothoracic surgery. No evidence for significant pneumothorax; Slight improvement in atelectasis in the left lower lung.
CXR 09/22/2024: Low lung volumes. Left basilar opacification most likely representing subsegmental atelectasis and possible tiny left pleural effusion.
Subjective Dataa
Subjective Data
Date of Service:
Date of Service: September 22, 2024
Chief Complaint: Beauty Shop Manager Follow Up
Subjective:
Pt seen and evaluated this AM. He is resting in a chair no acute distress. Patient's at bedside. Currently on Bumex drip at 2 mg/h, HR 54 and BP 130/55. He says that he is breathing better today. Denies chest pain, DE, nausea, fevers or
chills.
Review of Systems
General: Other (Negative unless mentioned above)
Objective Data
Data Reviewed
Vital Signs / I&O / Oxygen:
Vital Signs
Temp Pulse Resp BP Pulse Ox
97.6 F 54 22 113/58 95
09/22/24 08:00 09/22/24 09:00 09/22/24 08:00 09/22/24 08:00 09/22/24 09:17
Intake and Output
09/21/24 09/22/24 09/23/24
06:59 06:59 06:59
Intake Total 2697.3 / 2774.9 1151.6 / 1160.6
Output Total 385 / 410 1346 / 1396 130 / 130
Balance 2312.3 / 2364.9 -194.4 / -235.4 -103 / -103
SaO2 [P-SIMV] 99
SaO2 95
Nasal Cannula flow liters per 2
minute
Physical Exam
General: Respiratory Distress (negative), Comfortable, Chills (negative) and Sweats (negative)
HEENT: Normocephalic, Anicteric and Moist Mucous Membranes
Cardiovascular: S1-S2, Rub (negative) and Peripheral Edema (Negative)
Respiratory: Wheeze (negative), Crackles (Bilateral), Rhonchi (negative) and Non-Labored Respirations
GI: Soft, Distended (Abdominal obesity), Non Tender and Normal Bowel Sounds
Neurology: AO x 3 and Tremors (negative)
Skin: Warm, Dry, Cyanosis (negative) and Jaundice (negative)
Labs/Micro/Reports
Lab Data
09/22/24 04:24
09/22/24 03:26
[2024-09-22] MEDS: DIURIL 0.5 GRAM VIAL 0.5 GRAMS IV (08:51)
[2024-09-22] MEDS: STERILE WATER FOR INJECTION 18 ML IV (08:51)
--- NOTE | 2024-09-22 08:56 | PTCARENOTE ---
Bumex drip increased to 2 mg/hr per CVPA order.
[2024-09-22] MEDS: LIDOCAINE URO-JET 2% 1 SYRINGE TOPICAL (11:09)
--- NOTE | 2024-09-22 12:00 | PTCARENOTE ---
Assessment unchanged; Sinus Anatoliy PACs on monitor and VSS; pt resting comfortably in chair with family at bedside.
[2024-09-22] MEDS: LANTUS 0.15 UNITS SC (12:06)
[2024-09-22 12:09] LABS: Glucose - Point of Care 222 mg/dl (70-99)
--- NOTE | 2024-09-22 12:14 | W.PN.NEPH.PH ---
Today's Communication / Plan
-
escalated diuresis
Assessment/Plan
-
IMP:
MV-CAD - s/p CABG x 4 Left atrial appendage exclusion [35 mm clip] on 09/19/[address] Billingsley
Exertional angina with significant multivessel coronary disease -[employer]ER
Diabetic with an HbA1c of 8.4, insulin-dependent
TOMY with CKD stage IIIb (Cr 1.6-1.9 preop)-follows Dr Richardson
Proteinuria-sub nephrotic
Anemia from acute blood loss s/p 2 PRNC and 1 platelet
Acute respiratory failure on high flow O2
Hypertension
Hyperlipidemia
MIKE on CPAP
History of melanoma
History of prostate cancer, status post surgery in 1999
Former tobacco abuse
Class 1 obesity (BMI 32.8)
OA
Psoriasis
Overactive bladder
Hearing loss bilat H aids
PLan:
A/w Angina, s/p LHC on 09/17 and noted MVD- s/p CABG x4 on 09/19
cr pre op was at 1.6 and now steady increase to 3.9-->5.1
UA bland on 09/18, repeat 09/19-mild microhematuria-?olson sample, FEna not low
TOMY likely hemodynamic ATN, renal US no hydro
no sig response to diuretics
ok to increase bumex gtt to 2mg/hr and diuril
if renal function worsens and no sig UOP may need HD in next 24-48hrs
CXR noted atelectasis
echo normal EF and no WMA
keep olson for now
BP stable on low dose BB
follow labs later today
dose meds renally, avoid nephrotoxins
cont calcitriol, holding farxiga, ARB
d/w pt and nursing
d/w CT surg
-
-
Date of Service: September 22, 2024
CC / HPI / ROS
-
Chief Complaint:
Tomy with CKD
History of Present Illness:
cr increasing to 5.1, k 5.1.
BUN 76. non oliguric on bumex gtt
could not stand to get wts
on 2lit of O2
Review of Systems:
no cp or sob at rest
CT out.
no n/v
Labs
-
Labs:
WBC 15.7 10^3/uL (4.8-10.8) H 09/22/24 04:24
RBC 2.54 10^6/uL (4.70-6.10) L 09/22/24 04:24
Hgb 8.1 g/dL (13.0-18.0) L 09/22/24 04:24
Hct 23.3 % (39.0-52.0) L 09/22/24 04:24
Plt Count 133 10^3/uL (130-400) 09/22/24 04:24
Sodium 136 mmol/L (135-145) 09/22/24 03:26
Potassium 5.1 mmol/L (3.5-5.1) 09/22/24 03:26
Chloride 96 mmol/L (98-107) L 09/22/24 03:26
Carbon Dioxide 25 mmol/L (22-30) 09/22/24 03:26
BUN 76 mg/dl (9-20) H 09/22/24 03:26
Creatinine 5.1 mg/dL (0.7-1.3) H* 09/22/24 03:26
eGFR 10.64 09/22/24 03:26
Glucose 168 mg/dl (70-99) H 09/22/24 03:26
Calcium 8.0 mg/dl (8.4-10.2) L 09/22/24 03:26
Albumin 4.2 g/dl (3.5-5.0) 09/17/24 07:42
Physical Exam
-
Vital Signs:
Vital Signs
Temp Pulse Resp BP Pulse Ox
98.1 F 58 22 118/59 95
09/22/24 11:00 09/22/24 12:00 09/22/24 11:00 09/22/24 12:00 09/22/24 11:00
Cardiovascular:: Regular rate and rhythm
Respiratory:: Bilateral: Rales
Lung Excursion:: Normal
Abdomen:: Nontender
Extremity Edema:: +1: Bilateral:
Olson Catheter: Yes
--- NOTE | 2024-09-22 14:32 | W.PN.CARDCBS ---
Today's Communication / Plan
-
Postop care
Diuresis per nephrology
Impression / Plan
-
PCP: Dr. Twan Perry
Cardiology: Dr. Rito Rosas
Impression:
[place]
CAD with multivessel calcified coronary disease in the proximal to mid LAD and high grade distal RCA stenosis, moderate mid circumflex/OM stenosis by cath 09/17/24
s/p CABG x4 In situ FRIEDMAN to LAD, Ao to RSVG to diagonal to OM, Ao to RSVG to RPDA, DAMON clip and sternal plate fixation 09/19/24
Postoperative blood loss anemia
Acute on chronic renal insufficiency with hyperkalemia
--------
RBBB
HTN
Hyperlipidemia
DM 2
Former smoker
Overweight
CKD 3b
Echo 09/17/24: EF 65 to 70%, no significant valve disease
Plan:
USA with multivessel calcified coronary disease in the proximal to mid LAD and high grade distal RCA stenosis, moderate mid circumflex/OM stenosis by cath 09/17/24
s/p CABG x4 In situ FRIEDMAN to LAD, Ao to RSVG to diagonal to OM, Ao to RSVG to RPDA, DAMON clip and sternal plate fixation 09/19/24
Hemodynamically stable off pressors and inotropes
Remains in sinus rhythm on telemetry
Postop EKG sinus rhythm with first-degree AV block and known right bundle branch block
Postoperative limited 2D echocardiogram with normal biventricular size and systolic function and no significant pericardial effusion.
Chest x-ray today with no evidence o of pneumothorax with small left pleural effusion and atelectasis
Chest tube management per CT surgery
Continue aspirin 81 mg daily, Plavix 75 mg daily and atorvastatin
Metoprolol and amiodarone on hold
-acute on chronic renal insufficiency with rising creatinine
baseline creatinine 1.5-[address] Richardson
Appreciate nephrology input and management of diuretics - may require HD
Avoid nephrotoxic agents. Hold Farxiga and losartan.
Will follow with you
PREADMIT DATA:
-Patient was seen in the cardiology office 09/11/2024 and complained of crescendo angina. Patient previously had cardiac cath in 2009 with 40% LAD and 50% circumflex lesions noted at that time. Patient was started on Toprol-XL, aspirin was
continued and his simvastatin was changed to atorvastatin at that time. Patient then presented for cardiac cath on 09-17-24 and was found to have multivessel calcified CAD with proximal to mid LAD and high-grade distal RCA stenoses plus moderate mid
circumflex/OM stenosis. Patient was admitted for CT surgical team evaluation for possible CABG.
Progress Note - Drill Sharpener
Subjective
Date of Service: September 22, 2024
No acute overnight events. Patient resting comfortably OOB to chair. Tells me breathing is comfortable on supplemental O2 via nasal cannula.
Objective
Labs:
09/22/24 04:24
Labs
Hgb 8.1 g/dL (13.0-18.0) L 09/22/24 04:24
Hct 23.3 % (39.0-52.0) L 09/22/24 04:24
Plt Count 133 10^3/uL (130-400) 09/22/24 04:24
PT 18.6 Sec (11.4-14.6) H 09/19/24 14:48
INR 1.50 09/19/24 14:48
APTT 37.4 Sec (23.4-35.0) H 09/19/24 14:48
Sodium 136 mmol/L (135-145) 09/22/24 03:26
Potassium 5.1 mmol/L (3.5-5.1) 09/22/24 03:26
BUN 76 mg/dl (9-20) H 09/22/24 03:26
Creatinine 5.1 mg/dL (0.7-1.3) H* 09/22/24 03:26
Glucose 168 mg/dl (70-99) H 09/22/24 03:26
Vital Signs and I&O:
Vital Signs
Temp Pulse Resp BP Pulse Ox
98.1 F 61 20 128/67 95
09/22/24 11:00 09/22/24 14:16 09/22/24 12:00 09/22/24 14:16 09/22/24 14:10
Vital Signs
Temp Pulse Resp BP Pulse Ox
98.1 F 61 20 128/67 95
09/22/24 11:00 09/22/24 14:16 09/22/24 12:00 09/22/24 14:16 09/22/24 14:10
Intake & Output
09/20/24 09/21/24 09/22/24 09/23/24
06:59 06:59 06:59 06:59
Intake Total 867.6 / 867.6 2697.3 / 2774.9 1151.6 / 1160.6 92 / 92
Output Total 1420 / 1420 385 / 410 1346 / 1396 425 / 425
Balance -552.4 / -552.4 2312.3 / 2364.9 -194.4 / -235.4 -333 / -333
Physical Exam
Physical Exam
Gen: NAD, OOB to chair
HEENT: NC/AT, sclera anicteric
Neck: No JVD
CV: RRR, NL s1/s2
Lungs: Decrease BS at the bases, on 2L NC
Abd: S/ND
: Inman with mikki urine.
Ext: Trace LE edema
Skin: Warm, dry. Sternotomy CDI.
Neuro: Non-focal
[2024-09-22 15:31] LABS: Blood Urea Nitrogen 81 mg/dl (9-20); Carbon Dioxide 25 mmol/L (22-30); Chloride 94 mmol/L (98-107); Estimated Creatinine Clearance 10 ml/min; Glucose 238 mg/dl (70-99); Potassium 4.5 mmol/L (3.5-5.1); Sodium 133 mmol/L (135-145); eGFR 8.58
[2024-09-22] MEDS: TYLENOL PO (15:45)
--- NOTE | 2024-09-22 15:53 | PTCARENOTE ---
Sinus Anatoliy PACs on monitor and VSS; assessment unchanged; pt resting comfortably in bed and family at bedside.
[2024-09-22 16:54] LABS: Glucose - Point of Care 276 mg/dl (70-99)
[2024-09-22] MEDS: NOVOLOG FLEXPEN-MODERATE RESISTANCE 5 UNITS SC (17:31)
--- NOTE | 2024-09-22 20:00 | PTCARENOTE ---
assumed care of pt from previous RN. A&Ox4, resting in bed at time of assessment. flat affect noted. sinus bradycardia/SR on tele-monitor, frequent PACs, occasionally in a bigeminy pattern. temp epicardial v-wires plugged into pulse generator w/
backup settings VVI 35/14/0.8. POX 94-95% on 3 L NC. abd non-tender, obese, round, firm. hypoactive BS. no c/o N/V. pt denies passing flatus. olson catheter draining clear, yellow urine. all surgical sites stable, CDI. R IJ cordis w/ KVO. bumex gtt
infusing as ordered. PIV intact. see worklist for complete nursing assessment, interventions, VS, and I&Os.
[2024-09-22] MEDS: LIPITOR 40 MG PO (20:04)
[2024-09-22] MEDS: NSS 500 IV (20:04)
[2024-09-22 22:11] LABS: Glucose - Point of Care 173 mg/dl (70-99)
[2024-09-22] MEDS: KCL 20 MEQ PO (22:30)
[2024-09-22] MEDS: LANTUS 0.25 UNITS SC (22:30)
[2024-09-23] VITALS (29 sets, daily range): BP systolic 120–184; BP diastolic 53–72; PULSE 79; O2SAT 95; BMI 34.9
--- NOTE | 2024-09-23 | PTCARENOTE ---
assessment remains unchanged. VSS. SR on tele-monitor. POX 94% on 3 L NC. no c/o pain at this time. U/O >0.5ml/kg/h.
[2024-09-23] MEDS: BUMEX 50 IV ×3 (01:37→13:13)
--- NOTE | 2024-09-23 03:51 | W.PN.CT ---
Today's Communication / Plan
-
Plan:
-No major issues overnight. Hemodynamically and neurologically intact
-Bumex gtt increased to 2mg/hr, also received Diuril yesterday AM. 24 hrs u/o 3175 mL (~230 ml/hr)
-Creatinine is 6.5 today, was 5.1->6.1 yesterday, baseline is 1.5-1.9. Nephrology is following
-Will likely benefit from avoidance of thiazide diuretics. Cont. Bumex
-HR had been ramila in 50's, now 80-90's. Will start low dose BB given increased BP in 160's with increasing HR
-Wean off of O2 as tolerated, currently requiring 2L of Nasal Cannula support, O2sats of 94-95%
-Encourage use of IS
-Maintain temporary v-wires another day
-Maintain cordis another day
-Maintain olson catheter
-OOB into chair
-Ambulate
-PT/OT follow up
Assessment / Plan
-
- mv-CAD - s/p CABG x 4 (In situ FRIEDMAN to LAD, Ao to RSVG to diagonal to OM, Ao to RSVG to RPDA); Left atrial appendage exclusion [35 mm clip] on 09/19/[address] Billingsley, pod #4
- Intraop LARON: LVEF preop and postop 60% with no wma. The DAMON was verified to be free of any thrombus or debris preoperatively and found to be totally occlusive with a 35 mm clip postoperatively.
- Exertional angina with significant multivessel coronary disease
- Poorly controlled diabetic with an HbA1c of 9, insulin-dependent
- CKD stage IIIb (Cr 1.6-1.9 preop)
- Hypertension
- Hyperlipidemia
- MIKE on CPAP
- History of melanoma
- History of prostate cancer, status post surgery in 1999
- Former tobacco abuse
- Class 1 obesity (BMI 32.8)
- Acute postop blood loss anemia/ coagulopathy - s/p 2 pRBCs and 1 unit platelet
- Acute postop metabolic acidosis
- Acute postop hypovolemia with subsequent hypervolemia
- Acute postop atelectasis
- Acute postop pulmonary insufficiency
- TOMY on CKD
- Acute postop oliguria
- Acute postop hyponatremia/hypocalcemia
Discussed patient care with: Cardiology, Nursing, Respiratory Therapy, Pharmacy and Care Team
Subjective
Procedure
- s/p CABG x 4 (In situ FRIEDMAN to LAD, Ao to RSVG to diagonal to OM, Ao to RSVG to RPDA); Left atrial appendage exclusion [35 mm clip] on 09/19/[address] Billingsley
-
Date of Service: September 23, 2024
Pt c/o feeling weak and mild incisional pain, otherwise feels well
Objective Data
-
PT 18.6 Sec (11.4-14.6) H 09/19/24 14:48
INR 1.50 09/19/24 14:48
APTT 37.4 Sec (23.4-35.0) H 09/19/24 14:48
Vital Signs
Vital Signs
Temp Pulse Resp BP Pulse Ox
99.3 F 83 14 154/53 93
09/23/24 03:00 09/23/24 03:00 09/23/24 03:00 09/23/24 03:00 09/23/24 03:00
CT Intake/Output/Weight
09/22/24 09/22/24 09/23/24
06:59 18:59 06:59
Intake Total 113 / 1160.6 144 / 261 117 / 261
Output Total 595 / 1396 970 / 2690 1720 / 2690
Balance -482 / -235.4 -826 / -2429 -1603 / -2429
SaO2: 93 (3L)
Physical Exam
-
General: Awake, Oriented and AOx3
Cardiovascular: Regular rate & rhythm, No Murmurs, No Rub and No Gallop
Respiratory: Decreased Breath Sounds (at bases)
Sternum: Stable
Incision: Clean, Dry, Intact and Dressing Intact
Extremities: Edema +1
Data Reviewed
-
Lab Results: Results Reviewed
Medications: Active Meds Reviewed
Chest X-Ray: Image Reviewed
ECG: Report Reviewed and Image Reviewed
[2024-09-23 04:29] LABS: Ionized Calcium 1.11 mMOL/L (1.15-1.33)
--- NOTE | 2024-09-23 04:30 | PTCARENOTE ---
no acute changes. VSS. POX 94% on 2 L NC. AM labs collected and sent.
[2024-09-23 04:59] LABS: Hematocrit 26.6 % (39.0-52.0); Mean Corp Hgb Conc. 33.8 g/dL (33.0-37.0); Mean Corpuscular Hgb 31.1 pg (27.0-31.0); Mean Platelet Volume 10.4 fL (7.4-10.4); Platelet Count 189 10^3/uL (130-400); Red Blood Cell Count 2.89 10^6/uL (4.70-6.10); Red Cell Dist. Width 13.7 % (11.5-14.5); White Blood Cell Count 14.8 10^3/uL (4.8-10.8)
[2024-09-23 05:02] LABS: Blood Urea Nitrogen 92 mg/dl (9-20); Calcium 8.4 mg/dl (8.4-10.2); Carbon Dioxide 28 mmol/L (22-30); Chloride 94 mmol/L (98-107); Estimated Creatinine Clearance 10 ml/min; Glucose 120 mg/dl (70-99); Magnesium 2.8 mg/dl (1.6-2.3); Potassium 4.4 mmol/L (3.5-5.1); Sodium 135 mmol/L (135-145); eGFR 7.95
[2024-09-23 05:04] LABS: NT-proBNP 20200 pg/ml
[2024-09-23] MEDS: TYLENOL 1000 MG PO ×2 (05:44→14:09)
[2024-09-23] MEDS: PROTONIX 40 MG PO (08:06)
[2024-09-23] MEDS: PLAVIX 75 MG PO (08:06)
[2024-09-23] MEDS: TOPROL XL 12.5 MG PO ×2 (08:06→19:21)
[2024-09-23] MEDS: LOW STRENGTH ASPIRIN 81 MG PO (08:06)
[2024-09-23] MEDS: VITAMIN C 500 MG PO (08:07)
[2024-09-23] MEDS: BACTROBAN 2% OINTMENT 1 APPLIC NASAL (08:07)
[2024-09-23] MEDS: SENOKOT-S 1 TABLET PO ×2 (08:07→19:21)
[2024-09-23] MEDS: NOVOLOG FLEXPEN-MODERATE RESISTANCE SC ×2 (08:15→18:16)
[2024-09-23 08:16] LABS: Glucose - Point of Care 130 mg/dl (70-99)
[2024-09-23] MEDS: NOVOLOG FLEXPEN 6 UNITS SC ×2 (08:29→12:31)
--- NOTE | 2024-09-23 08:31 | W.PN.INTV ---
Today's Communication / Plan
Recommendations
Heading towards HD
Pain control
Up OOB as tolerated
Encourage incentive spirometer use 10x per hour for at least 4 hrs a day
Cardiac rehab consult
Diuresis as per nephrology
Goal BG 140�180
Tyre Fitter services will continue to follow along while he remains in the CVICU.
Assessment
-
Assessment: 83-year-old male former tobacco smoker (quit 1979) who presented initially with elective left heart catheterization. He was having substernal chest pain that was happening at low levels of exertion and that is what led to the left
heart cath. LHC performed on 09/17/2024 showing multivessel CAD involving the proximal�mid LAD with high-grade distal RCA stenosis, with moderate mid circumflex/OM stenosis. Transthoracic echo performed on 09/17/2024 showed preserved LVEF at 65 to
70% with mild concentric LVH, normal regional wall motion with no significant valvular disease; no prior study available for comparison purposes. Cardiothoracic surgery was consulted. Preoperative imaging with vascular ultrasound (performed
09/17/2024) showed calcified plaque in the bilateral carotid bulbs with <50% internal carotid artery stenosis. CT chest done on 09/17/2024 showed no focal airspace disease and no suspicious lung nodules. He was continued on aspirin + statin.
Cardiothoracic surgery reviewed risks and benefits of surgical revascularization, and on 09/19/2024 he underwent CABG x 4 with left atrial appendage exclusion with 35mm clip. He underwent the procedure without any immediate complications and was
transferred to the CVICU postoperatively for further care. Tyre Fitter service is now consulted for additional management/recommendations.
Chronic conditions CHIEF GAUGER: Trigger finger, type I DM, hypercholesterolemia, CAD, obesity, history of moderate sleep apnea (via split-night sleep study in May 2010), psoriasis, hearing loss, history of melanoma s/p excision (2023), osteoarthritis,
history of prostate cancer s/p prostatectomy
Impression:
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
#Acute anemia due to above
#Acute thrombocytopenia - resolved
#Acute HFpEF exacerbation
#PFO seen on LARON from 09/19/2024
#TOMY on CKD (baseline creatinine approximately 1.5�1.6) - TOMY is severe
#Hypocalcemia
#Moderate MIKE (seen via split-night sleep study in 05/2010) on auto CPAP 4�20 cmH2O
#History of melanoma s/p excision
#History of prostate cancer s/p prostatectomy
#Osteoarthritis
#DM type I
#Hypercholesterolemia
#Former tobacco smoker (quit smoking in 1979)
Plan:
Patient was extubated on the evening of 09/19/2024; continue supplemental O2 as needed to keep SpO2 >90-94%
prn nebulized bronchodilators - not currently bronchospastic
Encourage incentive spirometer 10x per hour for at least 4 hrs a day
Pressors/antihypertensive/inotropes/diuretics will be provided as needed
Maintain MAP>65
Replete electrolytes with K>4, Mg>2
Continue with DAPT with ASA + Plavix and metoprolol (toprol started 09/23); amiodarone on hold
Continue bumex gtt; aim for net negative fluid balance as tolerated
Trend BNP, sHCO3 level and sCr with strict I/O; trend UOP
Nephrology consulted and recommendations appreciated - continue diuresis
Renal ultrasound from 09/21 showed no evidence for hydronephrosis and there were bilateral simple renal cysts
If Cr does not improve with diuresis with reduced UOP despite diuretics, then he will need dialysis
Monitor hemoglobin
Monitor platelet count and coags
Transfuse blood products as needed to maintain Hb>7g/dL, plt>50k (given post-operative status)
Monitor blood sugar to maintain euglycemia with goal BG 140-180
Insulin drip now off; continue with basal-bolus SQ insulin dosing to maintain BG goal as above
Aspiration precautions
DVT prophylaxis
Early nutrition
Early mobilization
Of note, he should continue following up with us in the pulmonary/sleep office as last visit was on 09/23/2023 with ISI Higginbotham.
Continue with CVICU level care given his severe TOMY and suspected acute decompensated heart failure, and remains on Bumex drip. Tyre Fitter services will continue to follow along while he remains in the CVICU.
Critical care statement: A total of 41 minutes of critical care time was provided for this patient today. This includes management of ventilator, spontaneous breathing trial, arterial blood gases, pressors, of unstable vital signs, evaluation of the
patient at bedside, reviewing the patient's pertinent medical records including radiographs, microbiology, laboratory evaluations, and discussion with primary team and critical care nursing.
Data:
Transthoracic echocardiogram 09/20/2024:
Technically difficult study
Normal left ventricular chamber size. Mild concentric left ventricular
hypertrophy. Hyperdynamic left ventricular systolic function. Left ventricular
ejection fraction is 70-75% by visual assessment. No gross regional wall
motion abnormalities within limits of the study.
Normal pericardium without effusion in limited views.
CXR 09/21/2024: Postop cardiothoracic surgery. No evidence for significant pneumothorax; Slight improvement in atelectasis in the left lower lung.
CXR 09/22/2024: Low lung volumes. Left basilar opacification most likely representing subsegmental atelectasis and possible tiny left pleural effusion.
Subjective Dataa
Subjective Data
Date of Service:
Date of Service: September 23, 2024
Chief Complaint: Tyre Fitter Follow Up
Subjective:
Patient seen and evaluated today at bedside. Currently on Bumex drip at 2 mg/hour. He is sleeping but easily arousable. Heart rate 78, BP 160/55 and saturating 93% on 2 L/min nasal cannula. Feels little better today, denies chest pain, DE,
fevers or chills.
Review of Systems
General: Other (Negative unless mentioned above)
Objective Data
Data Reviewed
Vital Signs / I&O / Oxygen:
Vital Signs
Temp Pulse Resp BP Pulse Ox
98.7 F 77 20 165/57 94
09/23/24 09:00 09/23/24 09:00 09/23/24 09:00 09/23/24 09:00 09/23/24 09:00
Intake and Output
09/22/24 09/23/24 09/24/24
06:59 06:59 06:59
Intake Total 1151.6 / 1160.6 300 / 313 39 / 39
Output Total 1346 / 1396 3325 / 3545 645 / 645
Balance -194.4 / -235.4 -3025 / -3232 -606 / -606
SaO2 [P-SIMV] 99
SaO2 94
Nasal Cannula flow liters per 2
minute
Physical Exam
General: Respiratory Distress (negative), Comfortable, Chills (negative) and Sweats (negative)
HEENT: Normocephalic, Anicteric and Moist Mucous Membranes
Cardiovascular: S1-S2, Rub (negative) and Peripheral Edema (Negative)
Respiratory: Wheeze (negative), Crackles (Bilateral), Rhonchi (negative) and Non-Labored Respirations
GI: Soft, Distended (Abdominal obesity), Non Tender and Normal Bowel Sounds
Neurology: AO x 3 and Tremors (negative)
Skin: Warm, Dry, Cyanosis (negative) and Jaundice (negative)
Labs/Micro/Reports
Lab Data
09/23/24 04:22
--- NOTE | 2024-09-23 08:32 | PTCARENOTE ---
Received pt from shift nurse manager RN; pt AAOx3 drowsy and resting comfortably in bed; NSR on monitor and VSS; Epicardial V wire set to VVI 35/14/0.8 and no pacing noted; RIJ Cordis and PIV patent; Bumex infusing see flow sheet for details; Lungs
diminished, coarse with crackles; IS to 750; hypoactive bowels; Inman Catheter draining yellow urine; +1 generalized edema and +2 hand edema; palpable pulses throughout; all surgical sites C/D/I; see nursing documentation for further details.
--- NOTE | 2024-09-23 11:07 | W.PN.NEPH.PH ---
Today's Communication / Plan
-
see plan
Assessment/Plan
-
IMP:
MV-CAD - s/p CABG x 4 Left atrial appendage exclusion [35 mm clip] on 09/19/[address] Billingsley
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
Diabetic with an HbA1c of 8.4, insulin-dependent
TOMY with CKD stage IIIb (Cr 1.6-1.9 preop)-follows Dr Richardson
Proteinuria-sub nephrotic
Anemia from acute blood loss s/p 2 PRNC and 1 platelet
Acute respiratory failure on high flow O2
Hypertension
Hyperlipidemia
MIKE on CPAP
History of melanoma
History of prostate cancer, status post surgery in 1999
Former tobacco abuse
Class 1 obesity (BMI 32.8)
OA
Psoriasis
Overactive bladder
Hearing loss bilat H aids
PLan:
A/w Angina, s/p LHC on 09/17 and noted MVD- s/p CABG x4 on 09/19
cr pre op was at 1.6 and now steady increase to 3.9-->5.1-->6.5
UA bland on 09/18, repeat 09/19-mild microhematuria-?olson sample, FEna not low
TOMY likely hemodynamic ATN, renal US no hydro
improving UOP on bumex gtt , cont same and no diuril
worsening azotemia-monitor
no emergent need of HD, assess daily
if renal function worsens and no sig UOP may need HD in next 24-48hrs
echo normal EF and no WMA
keep olson for now
BP stable on low dose BB
follow labs later today
dose meds renally, avoid nephrotoxins
cont calcitriol, holding farxiga, ARB
d/w pt and nursing
d/w CT surg
-
-
Date of Service: September 23, 2024
CC / HPI / ROS
-
Chief Complaint:
Tomy with CKD
History of Present Illness:
cr increasing to 6.5, k 4.4. non oliguric with foely
BUN 92. non oliguric on bumex gtt
wt decreasing but still 5kg over fromo admit wt
on 2lit of O2
Review of Systems:
no cp or sob at rest
no n/v
feels weak and unable to feed himself
reports not able lift his limbs but able to move
Labs
-
Labs:
WBC 14.8 10^3/uL (4.8-10.8) H 09/23/24 04:22
RBC 2.89 10^6/uL (4.70-6.10) L 09/23/24 04:22
Hgb 9.0 g/dL (13.0-18.0) L 09/23/24 04:22
Hct 26.6 % (39.0-52.0) L 09/23/24 04:22
Plt Count 189 10^3/uL (130-400) D 09/23/24 04:22
eGFR 7.95 09/23/24 04:22
Beo-F-Jceztkxgrdq Pept 01382 pg/ml 09/23/24 04:22
Albumin 4.2 g/dl (3.5-5.0) 09/17/24 07:42
Physical Exam
-
Vital Signs:
Vital Signs
Temp Pulse Resp BP Pulse Ox
98.7 F 80 20 160/55 94
09/23/24 10:00 09/23/24 10:00 09/23/24 10:00 09/23/24 10:00 09/23/24 10:00
Cardiovascular:: Regular rate and rhythm
Respiratory:: Bilateral: CTA (decreased)
Lung Excursion:: Normal
Abdomen:: Nontender and Soft
Extremity Edema:: +1: Bilateral: (generalized)
Olson Catheter: Yes
--- NOTE | 2024-09-23 11:54 | PTCARENOTE ---
Pt washed with CHG wipes, telemetry electrodes changed Chest tube dressings changed and pt Marilin lifted into chair; NSR on monitor and VSS; family at bedside.
[2024-09-23 12:10] LABS: Glucose - Point of Care 195 mg/dl (70-99)
[2024-09-23] MEDS: LANTUS 0.15 UNITS SC (12:31)
[2024-09-23] MEDS: NOVOLOG FLEXPEN-MODERATE RESISTANCE 1 UNITS SC (12:31)
[2024-09-23] MEDS: KCL 20 MEQ PO (12:31)
--- NOTE | 2024-09-23 13:50 | W.PN.CARDCBS ---
Today's Communication / Plan
-
Postop care
Volume management per nephrology
Impression / Plan
-
PCP: Dr. Twan Perry
Cardiology: Dr. Rito Rosas
Impression:
[place]
CAD with multivessel calcified coronary disease in the proximal to mid LAD and high grade distal RCA stenosis, moderate mid circumflex/OM stenosis by cath 09/17/24
s/p CABG x4 In situ FRIEDMAN to LAD, Ao to RSVG to diagonal to OM, Ao to RSVG to RPDA, DAMON clip and sternal plate fixation 09/19/24
Postoperative blood loss anemia
Acute on chronic renal insufficiency with hyperkalemia
--------
RBBB
HTN
Hyperlipidemia
DM 2
Former smoker
Overweight
CKD 3b
Echo 09/17/24: EF 65 to 70%, no significant valve disease
Plan:
USA with multivessel calcified coronary disease in the proximal to mid LAD and high grade distal RCA stenosis, moderate mid circumflex/OM stenosis by cath 09/17/24
s/p CABG x4 In situ FRIEDMAN to LAD, Ao to RSVG to diagonal to OM, Ao to RSVG to RPDA, DAMON clip and sternal plate fixation 09/19/24
Hemodynamically stable off pressors and inotropes
Remains in sinus rhythm on telemetry
Postop EKG sinus rhythm with first-degree AV block and known right bundle branch block
Postoperative limited 2D echocardiogram with normal biventricular size and systolic function and no significant pericardial effusion.
Continue aspirin 81 mg daily, Plavix 75 mg daily and atorvastatin
Metoprolol and amiodarone on hold
Acute on chronic renal insufficiency with rising creatinine
baseline creatinine 1.5-1.[address] Richardson
Appreciate nephrology input and management of diuretics -currently on bumex gtt and may ultimately require HD
Avoid nephrotoxic agents. Hold Farxiga and losartan.
Will follow with you
PREADMIT DATA:
-Patient was seen in the cardiology office 09/11/2024 and complained of crescendo angina. Patient previously had cardiac cath in 2009 with 40% LAD and 50% circumflex lesions noted at that time. Patient was started on Toprol-XL, aspirin was
continued and his simvastatin was changed to atorvastatin at that time. Patient then presented for cardiac cath on 09-17-24 and was found to have multivessel calcified CAD with proximal to mid LAD and high-grade distal RCA stenoses plus moderate mid
circumflex/OM stenosis. Patient was admitted for CT surgical team evaluation for possible CABG.
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
Subjective
Date of Service: September 23, 2024
No acute overnight events. Patient is resting comfortably this morning. Reports that he has some muscle for soreness. Also fatigue. No chest discomfort. +SOB and peripheral edema.
Objective
Labs:
09/23/24 04:22
Labs
Hgb 9.0 g/dL (13.0-18.0) L 09/23/24 04:22
Hct 26.6 % (39.0-52.0) L 09/23/24 04:22
Plt Count 189 10^3/uL (130-400) D 09/23/24 04:22
PT 18.6 Sec (11.4-14.6) H 09/19/24 14:48
INR 1.50 09/19/24 14:48
APTT 37.4 Sec (23.4-35.0) H 09/19/24 14:48
Sodium 135 mmol/L (135-145) 09/23/24 04:22
Potassium 4.4 mmol/L (3.5-5.1) 09/23/24 04:22
BUN 92 mg/dl (9-20) H 09/23/24 04:22
Creatinine 6.5 mg/dL (0.7-1.3) H* 09/23/24 04:22
Glucose 120 mg/dl (70-99) H 09/23/24 04:22
Vital Signs and I&O:
Vital Signs
Temp Pulse Resp BP Pulse Ox
98.7 F 75 20 122/56 95
09/23/24 11:00 09/23/24 13:00 09/23/24 13:00 09/23/24 13:00 09/23/24 13:00
Vital Signs
Temp Pulse Resp BP Pulse Ox
98.7 F 75 20 122/56 95
09/23/24 11:00 09/23/24 13:00 09/23/24 13:00 09/23/24 13:00 09/23/24 13:00
Intake & Output
09/21/24 09/22/24 09/23/24 09/24/24
06:59 06:59 06:59 06:59
Intake Total 2697.3 / 2774.9 1151.6 / 1160.6 300 / 313 87 / 87
Output Total 385 / 410 1346 / 1396 3325 / 3545 1570 / 1570
Balance 2312.3 / 2364.9 -194.4 / -235.4 -3025 / -3232 -1483 / -1483
Physical Exam
Physical Exam
Gen: NAD, AA
HEENT: NC/AT, sclera anicteric
Neck: Difficult to assess JVD
CV: RRR, NL s1/s2
Lungs: No increased WOB on 2L NC
Abd: S/ND
Ext: 1+ peripheral edema
Skin: Warm, dry
Neuro: Non-focal
--- NOTE | 2024-09-23 15:20 | PTCARENOTE ---
Labs drawn and Bumex drip placed on hold per CVPA order.
[2024-09-23 15:50] LABS: Blood Urea Nitrogen 98 mg/dl (9-20); Calcium 8.4 mg/dl (8.4-10.2); Carbon Dioxide 30 mmol/L (22-30); Chloride 91 mmol/L (98-107); Estimated Creatinine Clearance 10 ml/min; Glucose 170 mg/dl (70-99); Potassium 4.4 mmol/L (3.5-5.1); Sodium 134 mmol/L (135-145)
[2024-09-23 16:50] LABS: Glucose - Point of Care 179 mg/dl (70-99)
--- NOTE | 2024-09-23 17:04 | PTCARENOTE ---
Assessment unchanged; NSR on monitor and VSS: family at bedside and pt resting comfortably in bed.
[2024-09-23] MEDS: NOVOLOG FLEXPEN SC (18:16)
[2024-09-23] MEDS: LIPITOR 40 MG PO (19:21)
[2024-09-23] MEDS: ANESTHETIC LOZENGE 1 LOZENGE PO (19:21)
[2024-09-23] MEDS: CALCIUM GLUCONATE 130 MG IV (20:07)
--- NOTE | 2024-09-23 20:24 | SUR.OPER ---
assumed care of patient @ 1900. recieved pt laying in bed, AOx3. Drowsy, flat affect. SR on tele, +1 generalized edema. V wire 35, 14, 0.8. 2LNC satting mid 90s. Lungs diminished, crackles in the bases. non productive occasional cough. belly round,
firm, hypoactive. olson present draining clear yellow urine. 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 Cordis with KVO, PIV patent. q2 turn. call ortega within reach.
--- NOTE | 2024-09-23 21:14 | PTCARENOTE ---
CTPA ordered 3g CA gluconate. During administration, BP high 180s. CTPA notified .
[2024-09-23] MEDS: LANTUS 0.25 UNITS SC (21:58)
[2024-09-23 21:59] LABS: Glucose - Point of Care 199 mg/dl (70-99)
[2024-09-23] MEDS: TYLENOL PO (23:36)
[2024-09-24] VITALS (29 sets, daily range): BP systolic 105–157; BP diastolic 46–122; PULSE 72; O2SAT 97; BMI 34.2
--- NOTE | 2024-09-24 00:18 | PTCARENOTE ---
pt resting comfortably, no change in assessment .
--- NOTE | 2024-09-24 03:15 | PTCARENOTE ---
pt incontinent of loose BM. labs drawn and sent . no other change in assessment .
[2024-09-24 03:20] LABS: Hematocrit 27.6 % (39.0-52.0); Hemoglobin 9.4 g/dL (13.0-18.0); Mean Corp Hgb Conc. 34.1 g/dL (33.0-37.0); Mean Corpuscular Hgb 31.1 pg (27.0-31.0); Mean Corpuscular Volume 91.4 fL (80.0-94.0); Mean Platelet Volume 9.8 fL (7.4-10.4); Platelet Count 254 10^3/uL (130-400); Red Blood Cell Count 3.02 10^6/uL (4.70-6.10); Red Cell Dist. Width 13.6 % (11.5-14.5); White Blood Cell Count 13.6 10^3/uL (4.8-10.8)
--- NOTE | 2024-09-24 03:52 | W.PN.CT ---
Today's Communication / Plan
-
Plan:
-No major issues overnight. Hemodynamically and neurologically intact
-Bumex gtt discontinued yesterday, U/O ~ 150 mL/hr, 24hr u/o 4450 mL
-Creatinine is 6.3 today, was 6.5 ->6.4 yesterday, baseline is 1.5-1.9. Nephrology is following
-Will likely benefit from avoidance of thiazide diuretics
-Tolerating low dose BB in light increase BP/HR. Amiodarone remains on hold
-Wean off of O2 as tolerated, currently requiring 2L of Nasal Cannula support, O2sats of 94-95%
-Encourage use of IS
-Maintain temporary v-wires
-Maintain cordis
-Maintain olson catheter
-OOB into chair
-Ambulate
-PT/OT follow up
Assessment / Plan
-
- mv-CAD - s/p CABG x 4 (In situ FRIEDMAN to LAD, Ao to RSVG to diagonal to OM, Ao to RSVG to RPDA); Left atrial appendage exclusion [35 mm clip] on 09/19/[address] Billingsley, pod #5
- Intraop LARON: LVEF preop and postop 60% with no wma. The DAMON was verified to be free of any thrombus or debris preoperatively and found to be totally occlusive with a 35 mm clip postoperatively.
- Exertional angina with significant multivessel coronary disease
- Poorly controlled diabetic with an HbA1c of 9, insulin-dependent
- CKD stage IIIb (Cr 1.6-1.9 preop)
- Hypertension
- Hyperlipidemia
- MIKE on CPAP
- History of melanoma
- History of prostate cancer, status post surgery in 1999
- Former tobacco abuse
- Class 1 obesity (BMI 32.8)
- Acute postop blood loss anemia/ coagulopathy - s/p 2 pRBCs and 1 unit platelet
- Acute postop metabolic acidosis
- Acute postop hypovolemia with subsequent hypervolemia
- Acute postop atelectasis
- Acute postop pulmonary insufficiency
- TOMY on CKD
- Acute postop oliguria
- Acute postop hyponatremia/hypocalcemia
Discussed patient care with: Cardiology, Nursing, Respiratory Therapy, Pharmacy and Care Team
Subjective
Procedure
- s/p CABG x 4 (In situ FRIEDMAN to LAD, Ao to RSVG to diagonal to OM, Ao to RSVG to RPDA); Left atrial appendage exclusion [35 mm clip] on 09/19/[address] Billingsley
-
Date of Service: September 24, 2024
Pt states feeling of weakness is improving
Objective Data
-
Lab Results
09/24/24 03:08
PT 18.6 Sec (11.4-14.6) H 09/19/24 14:48
INR 1.50 09/19/24 14:48
APTT 37.4 Sec (23.4-35.0) H 09/19/24 14:48
Vital Signs
Vital Signs
Temp Pulse Resp BP Pulse Ox
99.2 F 75 16 146/64 96
09/24/24 02:00 09/24/24 03:00 09/24/24 03:00 09/24/24 03:00 09/24/24 03:00
CT Intake/Output/Weight
09/23/24 09/23/24 09/24/24
06:59 18:59 06:59
Intake Total 156 / 313 120 / 410 290 / 410
Output Total 2355 / 3545 2420 / 3995 1575 / 3995
Balance -2199 / -3232 -2300 / -3585 -1285 / -3585
SaO2: 96 (RA)
Physical Exam
-
General: Awake, Oriented and AOx3
Cardiovascular: Regular rate & rhythm, No Murmurs, No Rub and No Gallop
Respiratory: Decreased Breath Sounds (at bases, otherwise clear)
Sternum: Stable
Incision: Clean, Dry, Intact and Dressing Intact
Extremities: No Edema
Data Reviewed
-
Lab Results: Results Reviewed
Medications: Active Meds Reviewed
Chest X-Ray: Report Reviewed and Image Reviewed
ECG: Report Reviewed and Image Reviewed
[2024-09-24 03:59] LABS: Blood Urea Nitrogen 103 mg/dl (9-20); Carbon Dioxide 31 mmol/L (22-30); Chloride 91 mmol/L (98-107); Estimated Creatinine Clearance 10 ml/min; Glucose 126 mg/dl (70-99); Magnesium 2.8 mg/dl (1.6-2.3); Phosphorus 6.7 mg/dl (2.5-4.5); Potassium 4.3 mmol/L (3.5-5.1); Sodium 135 mmol/L (135-145); eGFR 8.25
[2024-09-24] MEDS: TYLENOL 1000 MG PO ×3 (06:20→20:37)
[2024-09-24] MEDS: NSS IV ×2 (07:47→16:48)
--- NOTE | 2024-09-24 08:04 | PN.DE.MGMTRT ---
Insulin Management
- -
09/24/2024: Diabetes Management F/U:
83 year old male admitted on 09/17 with increasing frequency of anginal symptoms and for elective cardiac catheterization.
PMH: CAD, HTN, HLD, MIKE, CKD, prostate cancer status post surgery, melanoma status post excision, psoriasis, OA, overweight and T2DM. Was taking Trulicity Q Fridays, Tresiba 30 units @ HS, Glimepiride 4mg daily at lunch and Farxiga 10mg daily in AM.
A1C 8.4% Cr 3.9(1.6-1.9 preop), eGFR 14.68
Pt was managed on Glycemic protocol x48 hrs post-op. Transitioned off drip to SQ Insulin on 09/21.
Pt awake, alert, sitting up in chair, offers no complaints, able to discuss diabetes mgt. No family at bedside.
Not a candidate for oral regimen at this time given TOMY on CKD with an uptrending Cr of 6.3 today.
09/23 Premeal glucose 130 to 195, HS glucose was 199, and 126@ 3AM, with a fasting glucose of 130(V) this AM.
Will make no changes to current regimen: Lantus 25 units @ HS, NovoLog 6 units AC, and moderate corrective with meals.
Pt has glucose monitor at home.
Diabetes History
- -
Type of Diabetes: 2 requiring insulin
Pre-Admission Diabetes Regimen
09/23/24 09/24/24
15:15 03:08
Creatinine 6.4 H* 6.3 H*
Lab Results
Hemoglobin A1c 8.4 % (4.0-5.6) H 09/18/24 04:51
Insulin Pump Settings
IP Diabetes Regimen
09/23/24 09/23/24 09/23/24
08:09 12:08 15:15
Glucose 170 H
POC Glucose 130 H 195 H
09/23/24 09/23/24 09/24/24
16:48 21:58 03:08
Glucose 126 H
POC Glucose 179 H 199 H
Meal type: Lunch
Meal type: Breakfast
Amount consumed: 30%
Amount consumed: 80%
Patient Education
--- NOTE | 2024-09-24 08:31 | W.PN.NEPH.PH ---
Today's Communication / Plan
-
monitor off diuretics
no HD today
Assessment/Plan
-
IMP:
MV-CAD - s/p CABG x 4 Left atrial appendage exclusion [35 mm clip] on 09/19/[address] Billingsley
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
Diabetic with an HbA1c of 8.4, insulin-dependent
TOMY with CKD stage IIIb (Cr 1.6-1.9 preop)-follows Dr Richardson
Proteinuria-sub nephrotic
Anemia from acute blood loss s/p 2 PRNC and 1 platelet
Acute respiratory failure on high flow O2
Hypertension
Hyperlipidemia
MIKE on CPAP
History of melanoma
History of prostate cancer, status post surgery in 1999
Former tobacco abuse
Class 1 obesity (BMI 32.8)
OA
Psoriasis
Overactive bladder
Hearing loss bilat H aids
PLan:
A/w Angina, s/p LHC on 09/17 and noted MVD- s/p CABG x4 on 09/19
cr pre op was at 1.6 and now steady increase to 3.9-->5.1-->6.5, now coming down to 6.3 and grossly nonoliguric with urine output of 4 L
Holding diuretic (bumex gtt)
Do not remove the Olson
UA bland on 09/18, repeat 09/19-mild microhematuria-?olson sample, FEna not low
TOMY likely hemodynamic ATN, renal US no hydro
worsening azotemia-monitor
no emergent need of HD, assess daily
if renal function worsens and no sig UOP may need HD in next 24-48hrs
echo normal EF and no WMA
keep olson for now
BP stable on low dose BB
follow labs later today
dose meds renally, avoid nephrotoxins
cont calcitriol, holding farxiga, ARB
d/w pt and nursing
d/w CT surg
-
-
Date of Service: September 24, 2024
CC / HPI / ROS
-
Chief Complaint:
Tomy with CKD
History of Present Illness:
cr down to 6.3, k 4.3. non oliguric with foely
BUN >100 non oliguric off bumex gtt (d/c'd yesterday)
wt decreasing
on 2lit of O2
Review of Systems:
no cp or sob at rest
no n/v
feels weak and unable to feed himself
reports not able lift his limbs but able to move
Grossly nonoliguric via Olson
Weights down
Labs
-
Labs:
WBC 13.6 10^3/uL (4.8-10.8) H 09/24/24 03:08
RBC 3.02 10^6/uL (4.70-6.10) L 09/24/24 03:08
Hgb 9.4 g/dL (13.0-18.0) L 09/24/24 03:08
Hct 27.6 % (39.0-52.0) L 09/24/24 03:08
Plt Count 254 10^3/uL (130-400) D 09/24/24 03:08
Sodium 135 mmol/L (135-145) 09/24/24 03:08
Potassium 4.3 mmol/L (3.5-5.1) 09/24/24 03:08
Chloride 91 mmol/L (98-107) L 09/24/24 03:08
Carbon Dioxide 31 mmol/L (22-30) H 09/24/24 03:08
BUN 103 mg/dl (9-20) H* 09/24/24 03:08
Creatinine 6.3 mg/dL (0.7-1.3) H* 09/24/24 03:08
eGFR 8.25 12/09/24 03:08
Glucose 126 mg/dl (70-99) H 09/24/24 03:08
Calcium 9.0 mg/dl (8.4-10.2) 09/24/24 03:08
Phosphorus 6.7 mg/dl (2.5-4.5) H 09/24/24 03:08
Jrd-H-Taimaqtnsag Pept 24311 pg/ml 09/23/24 04:22
Albumin 4.2 g/dl (3.5-5.0) 09/17/24 07:42
Physical Exam
-
Vital Signs:
Vital Signs
Temp Pulse Resp BP Pulse Ox
99.2 F 72 14 138/65 95
09/24/24 02:00 09/24/24 06:00 09/24/24 04:00 09/24/24 06:00 09/24/24 04:00
Cardiovascular:: Regular rate and rhythm
Respiratory:: Bilateral: CTA (decreased)
Lung Excursion:: Normal
Abdomen:: Nontender and Soft
Extremity Edema:: +1: Bilateral: (generalized)
Olson Catheter: Yes
[2024-09-24 09:12] LABS: Glucose - Point of Care 130 mg/dl (70-99)
[2024-09-24] MEDS: NOVOLOG FLEXPEN-MODERATE RESISTANCE SC ×2 (09:19→17:41)
[2024-09-24] MEDS: LOW STRENGTH ASPIRIN 81 MG PO (09:34)
[2024-09-24] MEDS: PLAVIX 75 MG PO (09:34)
[2024-09-24] MEDS: TOPROL XL 12.5 MG PO ×2 (09:34→20:37)
[2024-09-24] MEDS: PROTONIX 40 MG PO (09:35)
[2024-09-24] MEDS: NOVOLOG FLEXPEN 6 UNITS SC ×3 (09:35→17:42)
[2024-09-24] MEDS: SENOKOT-S 1 TABLET PO ×2 (09:35→20:36)
[2024-09-24] MEDS: VITAMIN C 500 MG PO (09:35)
[2024-09-24] MEDS: ROCALTROL 0.25 MCG PO (09:36)
--- NOTE | 2024-09-24 10:08 | PTCARENOTE ---
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 Lungs diminished, + MEDINA, pox 93% on RA. +bs, abd soft,
non tender, tolerating PO intake. Inman catheter draining clear yellow. MSI w glue intact, dressing changed to CT sites, bilateral legs w surgical sites glued, blister to left knee incision. Right IJ cordis w kvo infusing, PIV leaking, removed. Pt
denies pain. Lift used to assist pt OOB to chair, pt ate breakfast and assisted w mouth care. Plan of care reviewed w the pt and questions encouraged.
--- NOTE | 2024-09-24 10:58 | W.PN.CARDCBS ---
Today's Communication / Plan
-
Supportive postop care with close monitoring of renal function
Impression / Plan
-
PCP: Dr. Twan Perry
Cardiology: Dr. Rito Rosas
Impression:
[place]
CAD with multivessel calcified coronary disease in the proximal to mid LAD and high grade distal RCA stenosis, moderate mid circumflex/OM stenosis by cath 09/17/24
s/p CABG x4 In situ FRIEDMAN to LAD, Ao to RSVG to diagonal to OM, Ao to RSVG to RPDA, DAMON clip and sternal plate fixation 09/19/24
Postoperative blood loss anemia
Acute on chronic renal insufficiency with hyperkalemia
--------
RBBB
HTN
Hyperlipidemia
DM 2
Former smoker
Overweight
CKD 3b
Echo 09/17/24: EF 65 to 70%, no significant valve disease
Plan:
USA with multivessel calcified coronary disease in the proximal to mid LAD and high grade distal RCA stenosis, moderate mid circumflex/OM stenosis by cath 09/17/24
s/p CABG x4 In situ FRIEDMAN to LAD, Ao to RSVG to diagonal to OM, Ao to RSVG to RPDA, DAMON clip and sternal plate fixation 09/19/24
Hemodynamically stable off pressors and inotropes
Remains in sinus rhythm on telemetry
Postop EKG sinus rhythm with first-degree AV block and known right bundle branch block
Postoperative limited 2D echocardiogram with normal biventricular size and systolic function and no significant pericardial effusion.
Continue aspirin 81 mg daily, Plavix 75 mg daily and atorvastatin
Metoprolol and amiodarone on hold
Acute on chronic renal insufficiency with rising creatinine, creatinine today 6.3
baseline creatinine 1.5-1.[address] Richardson
Appreciate nephrology input and management of diuretics -diuretics currently held, previously on a Bumex drip.
Maintain Inman catheter
No dialysis today per nephrology
Support hemodynamics
Avoid nephrotoxic agents. Hold Farxiga and losartan.
Generalized weakness/marked deconditioning requiring full support and Marilin lift to transfer patient to chair
Anticipate will need SNF
Will follow with you
PREADMIT DATA:
-Patient was seen in the cardiology office 09/11/2024 and complained of crescendo angina. Patient previously had cardiac cath in 2009 with 40% LAD and 50% circumflex lesions noted at that time. Patient was started on Toprol-XL, aspirin was
continued and his simvastatin was changed to atorvastatin at that time. Patient then presented for cardiac cath on 09-17-24 and was found to have multivessel calcified CAD with proximal to mid LAD and high-grade distal RCA stenoses plus moderate mid
circumflex/OM stenosis. Patient was admitted for CT surgical team evaluation for possible CABG.
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
Subjective
Date of Service: September 24, 2024
Seen and examined sitting out of bed to chair after nurse used lift to transfer him. He denies chest pain or pressure. No abdominal pain. No dizziness. States prior to bypass surgery he was ambulating without assistive devices and doing
activities of daily living at home
Objective
Labs:
09/24/24 03:08
09/24/24 03:08
Labs
Hgb 9.4 g/dL (13.0-18.0) L 09/24/24 03:08
Hct 27.6 % (39.0-52.0) L 09/24/24 03:08
Plt Count 254 10^3/uL (130-400) D 09/24/24 03:08
PT 18.6 Sec (11.4-14.6) H 09/19/24 14:48
INR 1.50 09/19/24 14:48
APTT 37.4 Sec (23.4-35.0) H 09/19/24 14:48
Sodium 135 mmol/L (135-145) 09/24/24 03:08
Potassium 4.3 mmol/L (3.5-5.1) 09/24/24 03:08
BUN 103 mg/dl (9-20) H* 09/24/24 03:08
Creatinine 6.3 mg/dL (0.7-1.3) H* 09/24/24 03:08
Glucose 126 mg/dl (70-99) H 09/24/24 03:08
Vital Signs and I&O:
Vital Signs
Temp Pulse Resp BP Pulse Ox
98.3 F 72 16 140/59 93
09/24/24 09:00 09/24/24 10:00 09/24/24 10:00 09/24/24 10:00 09/24/24 10:29
Vital Signs
Temp Pulse Resp BP Pulse Ox
98.3 F 72 16 140/59 93
09/24/24 09:00 09/24/24 10:00 09/24/24 10:00 09/24/24 10:00 09/24/24 10:29
Intake & Output
09/22/24 09/23/24 09/24/24 09/25/24
06:59 06:59 06:59 06:59
Intake Total 1151.6 / 1160.6 300 / 313 490 / 500 140 / 140
Output Total 1346 / 1396 3325 / 3545 4445 / 4545 400 / 400
Balance -194.4 / -235.4 -3025 / -3232 -3955 / -4045 -260 / -260
Physical Exam
Physical Exam
General: NAD on nasal cannula O2
Heart: Regular. Positive S1-S2. Distant heart sounds.
Lungs: Bronchovesicular breath sounds decreased bilaterally. Sternal dressings noted
Extremities: No edema
Neuro: Grossly nonfocal, awake, alert and oriented x3.
--- NOTE | 2024-09-24 12:00 | PTCARENOTE ---
pt remains in chair, VSS, sinus rhythm maintained on tele.
--- NOTE | 2024-09-24 12:16 | W.PN.INTV ---
Today's Communication / Plan
Recommendations
Continue postoperative care
Physical therapy
Monitor renal function
Bumex drip has been discontinued
Low rate supplemental oxygen-wean off as able
Sign off
Assessment
-
Assessment: 83-year-old male former tobacco smoker (quit 1979) who presented initially with elective left heart catheterization. He was having substernal chest pain that was happening at low levels of exertion and that is what led to the left
heart cath. LHC performed on 09/17/2024 showing multivessel CAD involving the proximal�mid LAD with high-grade distal RCA stenosis, with moderate mid circumflex/OM stenosis. Transthoracic echo performed on 09/17/2024 showed preserved LVEF at 65 to
70% with mild concentric LVH, normal regional wall motion with no significant valvular disease; no prior study available for comparison purposes. Cardiothoracic surgery was consulted. Preoperative imaging with vascular ultrasound (performed
09/17/2024) showed calcified plaque in the bilateral carotid bulbs with <50% internal carotid artery stenosis. CT chest done on 09/17/2024 showed no focal airspace disease and no suspicious lung nodules. He was continued on aspirin + statin.
Cardiothoracic surgery reviewed risks and benefits of surgical revascularization, and on 09/19/2024 he underwent CABG x 4 with left atrial appendage exclusion with 35mm clip. He underwent the procedure without any immediate complications and was
transferred to the CVICU postoperatively for further care. Lumber Grader service is now consulted for additional management/recommendations.
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
history of prostate cancer s/p prostatectomy
Impression:
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
#Acute anemia due to above
#Acute thrombocytopenia - resolved
#Acute HFpEF exacerbation
#PFO seen on LARON from 09/19/2024
#TOMY on CKD (baseline creatinine approximately 1.5�1.6) - TOMY is severe
#Hypocalcemia
#Moderate MIKE (seen via split-night sleep study in 05/2010) on auto CPAP 4�20 cmH2O
#History of melanoma s/p excision
#History of prostate cancer s/p prostatectomy
#Osteoarthritis
#DM type I
#Hypercholesterolemia
#Former tobacco smoker (quit smoking in 1979)
Plan:
Patient was extubated on the evening of 09/19/2024; continue supplemental O2 as needed to keep SpO2 >90-94%
Currently only on 2 L of supplemental oxygen-likely subsegmental atelectasis.
prn nebulized bronchodilators - not currently bronchospastic
-
Encourage incentive spirometer 10x per hour for at least 4 hrs a day
Significantly debilitated: Physical therapy as able.
Cardiology following the patient as well.
Continue with DAPT with ASA + Plavix and metoprolol (toprol started 09/23); amiodarone on hold
Hemodynamically stable-not requiring vasoactive drugs.
Bumex drip has been discontinued.
Follow renal function-nephrology evaluating patient. At this point no need for dialysis.
Renal ultrasound from 09/21 showed no evidence for hydronephrosis and there were bilateral simple renal cysts
Monitor hemoglobin
Monitor platelet count and coags
Transfuse blood products as needed to maintain Hb>7g/dL, plt>50k (given post-operative status)
Monitor blood sugar to maintain euglycemia with goal BG 140-180
Insulin drip now off; continue with basal-bolus SQ insulin dosing to maintain BG goal as above
Aspiration precautions
DVT prophylaxis
Nutritional support continue
Physical therapy/Occupational Therapy
Nocturnal CPAP
Of note, he should continue following up with us in the pulmonary/sleep office as last visit was on 09/23/2023 with ISI Higginbotham.
No additional recommendation from the critical care perspective.
At this point I will sign off.
Please call with questions or if any respiratory issues arise.
Data:
Transthoracic echocardiogram 09/20/2024:
Technically difficult study
Normal left ventricular chamber size. Mild concentric left ventricular
hypertrophy. Hyperdynamic left ventricular systolic function. Left ventricular
ejection fraction is 70-75% by visual assessment. No gross regional wall
motion abnormalities within limits of the study.
Normal pericardium without effusion in limited views.
CXR 09/21/2024: Postop cardiothoracic surgery. No evidence for significant pneumothorax; Slight improvement in atelectasis in the left lower lung.
CXR 09/22/2024: Low lung volumes. Left basilar opacification most likely representing subsegmental atelectasis and possible tiny left pleural effusion.
Subjective Dataa
Subjective Data
Date of Service:
Date of Service: September 24, 2024
Chief Complaint: Lumber Grader Follow Up
Subjective:
No overnight events
Remains on low rate supplemental oxygen
Significantly debilitated
Review of Systems
Cardiopulmonary: Dyspnea (With any activity), Cough (n) and Sputum Production (n)
GI: Abdominal Pain (n)
Objective Data
Data Reviewed
Vital Signs / I&O / Oxygen:
Vital Signs
Temp Pulse Resp BP Pulse Ox
98.3 F 72 16 140/59 93
09/24/24 09:00 09/24/24 10:00 09/24/24 10:00 09/24/24 10:00 09/24/24 10:29
Intake and Output
09/23/24 09/24/24 09/25/24
06:59 06:59 06:59
Intake Total 300 / 313 490 / 500 140 / 140
Output Total 3325 / 3545 4445 / 4545 400 / 400
Balance -3025 / -3232 -3955 / -4045 -260 / -260
SaO2 [P-SIMV] 99
SaO2 93
Nasal Cannula flow liters per 2
minute
Physical Exam
General: Respiratory Distress (negative), Comfortable, Chills (negative) and Sweats (negative)
HEENT: Normocephalic, Anicteric and Moist Mucous Membranes
Cardiovascular: S1-S2, Rub (negative) and Peripheral Edema (Negative)
Respiratory: Wheeze (negative), Crackles (Bilateral), Rhonchi (negative) and Non-Labored Respirations
GI: Soft, Distended (Abdominal obesity), Non Tender and Normal Bowel Sounds
Neurology: AO x 3 and Tremors (negative)
Skin: Warm, Dry, Cyanosis (negative) and Jaundice (negative)
Labs/Micro/Reports
Lab Data
09/24/24 03:08
09/24/24 03:08
[2024-09-24 12:46] LABS: Glucose - Point of Care 165 mg/dl (70-99)
[2024-09-24] MEDS: NOVOLOG FLEXPEN-MODERATE RESISTANCE 1 UNITS SC (12:47)
--- NOTE | 2024-09-24 14:35 | CM ---
Chart reviewed. Patient is independent of ADLS, lives with his in a 2 STH, 1 QUINTIN, 0 DME. PT evaluation recommending Acute Rehab. Patient is agreeable. Referral sent to [facility]. Physiatry consult placed. Plan is for the patient to go to
Acute Rehab when medically stable. CM to follow
--- NOTE | 2024-09-24 16:37 | PTCARENOTE ---
PIV placed, cordis removed.
[2024-09-24] MEDS: BUMEX 2 MG IV (16:48)
[2024-09-24 17:44] LABS: Glucose - Point of Care 132 mg/dl (70-99)
[2024-09-24 18:06] LABS: Blood Urea Nitrogen 115 mg/dl (9-20); Calcium 8.7 mg/dl (8.4-10.2); Carbon Dioxide 29 mmol/L (22-30); Chloride 88 mmol/L (98-107); Estimated Creatinine Clearance 10 ml/min; Glucose 122 mg/dl (70-99); Potassium 4.2 mmol/L (3.5-5.1); Sodium 132 mmol/L (135-145); eGFR 8.93
--- NOTE | 2024-09-24 20:00 | PTCARENOTE ---
assumed care of patient @ 1900. recieved pt laying in bed, AOx3. Drowsy, flat affect. SR on tele, +1 generalized edema. V wire insulated. 2LNC satting mid 90s. Lungs diminished, non productive occasional cough. belly round, firm, hypoactive. olson
present draining clear yellow urine. 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 Cordis with KVO, PIV patent. q2 turn. call ortega within reach.
[2024-09-24 20:37] LABS: Glucose - Point of Care 275 mg/dl (70-99)
[2024-09-24] MEDS: LIPITOR 40 MG PO (20:37)
[2024-09-24] MEDS: LANTUS 0.25 UNITS SC (20:37)
[2024-09-25] VITALS (23 sets, daily range): BP systolic 107–147; BP diastolic 51–67; PULSE 68–70; O2SAT 95; BMI 34.3
--- NOTE | 2024-09-25 03:57 | W.PN.CT ---
Today's Communication / Plan
-
Plan:
-No major issues overnight. Hemodynamically and neurologically intact
-Bumex gtt discontinued 09/23. Did receive 2mg IV Bumex yesterday afternoon, U/O 125 - 150 mL/hr, 24hr u/o 2960 mL
-Creatinine is 5.9 today, was 6.3 -> 5.9 yesterday, baseline is 1.5-1.9. Nephrology is following
-Will benefit from avoidance of thiazide diuretics
-Tolerating low dose BB in light increase BP/HR. Amiodarone remains on hold
-Wean off of O2 as tolerated, currently requiring 2L of Nasal Cannula support, O2sats of 94-95%
-Encourage use of IS
-Maintain temporary v-wires
-Maintain cordis
-Maintain olson catheter
-OOB into chair
-Ambulate
-PT/OT follow up
-Encourage nutritional intake, pre-albumin/albumin are low
Assessment / Plan
-
- mv-CAD - s/p CABG x 4 (In situ FRIEDMAN to LAD, Ao to RSVG to diagonal to OM, Ao to RSVG to RPDA); Left atrial appendage exclusion [35 mm clip] on 09/19/[address] Billingsley, pod #6
- Intraop LARON: LVEF preop and postop 60% with no wma. The DAMON was verified to be free of any thrombus or debris preoperatively and found to be totally occlusive with a 35 mm clip postoperatively.
- Exertional angina with significant multivessel coronary disease
- Poorly controlled diabetic with an HbA1c of 9, insulin-dependent
- CKD stage IIIb (Cr 1.6-1.9 preop)
- Hypertension
- Hyperlipidemia
- MIKE on CPAP
- History of melanoma
- History of prostate cancer, status post surgery in 1999
- Former tobacco abuse
- Class 1 obesity (BMI 32.8)
- Acute postop blood loss anemia/ coagulopathy - s/p 2 pRBCs and 1 unit platelet
- Acute postop metabolic acidosis
- Acute postop hypovolemia with subsequent hypervolemia
- Acute postop atelectasis
- Acute postop pulmonary insufficiency
- TOMY on CKD
- Acute postop azotemia
- Acute postop oliguria
- Acute postop hyponatremia/hypocalcemia
- Acute postop hyperphosphatemia
Discussed patient care with: Cardiology, Nursing, Respiratory Therapy, Pharmacy and Care Team
Subjective
Procedure
- s/p CABG x 4 (In situ FRIEDMAN to LAD, Ao to RSVG to diagonal to OM, Ao to RSVG to RPDA); Left atrial appendage exclusion [35 mm clip] on 09/19/[address] Billingsley
-
Date of Service: September 25, 2024
Pt c/o poor appetite and some weakness, encouraged to increase nutritional intake as it will help with feeling of weakness and with recovery process
Objective Data
-
PT 18.6 Sec (11.4-14.6) H 09/19/24 14:48
INR 1.50 09/19/24 14:48
APTT 37.4 Sec (23.4-35.0) H 09/19/24 14:48
Vital Signs
Vital Signs
Temp Pulse Resp BP Pulse Ox
97.7 F 65 16 134/64 96
09/24/24 20:00 09/25/24 03:00 09/25/24 03:00 09/25/24 03:00 09/25/24 03:00
CT Intake/Output/Weight
09/24/24 09/24/24 09/25/24
06:59 18:59 06:59
Intake Total 370 / 500 400 / 450 50 / 450
Output Total 2024 / 4544 1235 / 2535 1300 / 2535
Balance -1655 / -4045 -835 / -2085 -1250 / -2085
SaO2: 96 (2L)
Physical Exam
-
General: Awake, Oriented and AOx3
Cardiovascular: Regular rate & rhythm, No Murmurs and No Gallop
Respiratory: Decreased Breath Sounds (at bases)
Sternum: Stable
Incision: Clean, Dry and Intact
Extremities: Other (+trace edema)
Data Reviewed
-
Lab Results: Results Reviewed
Medications: Active Meds Reviewed
Chest X-Ray: Report Reviewed and Image Reviewed
ECG: Report Reviewed and Image Reviewed
[2024-09-25 04:20] LABS: Hematocrit 26.9 % (39.0-52.0); Hemoglobin 9.2 g/dL (13.0-18.0); Mean Corp Hgb Conc. 34.2 g/dL (33.0-37.0); Mean Corpuscular Hgb 31.1 pg (27.0-31.0); Mean Corpuscular Volume 90.9 fL (80.0-94.0); Mean Platelet Volume 9.7 fL (7.4-10.4); Platelet Count 270 10^3/uL (130-400); Red Blood Cell Count 2.96 10^6/uL (4.70-6.10); Red Cell Dist. Width 13.3 % (11.5-14.5); White Blood Cell Count 12.9 10^3/uL (4.8-10.8)
[2024-09-25 05:12] LABS: ALT (SGPT) < 10 U/L (0-50); AST (SGOT) 20 U/L (17-59); Albumin 3.3 g/dl (3.5-5.0); Alkaline Phosphatase 80 U/L (38-126); Blood Urea Nitrogen 120 mg/dl (9-20); Calcium 8.3 mg/dl (8.4-10.2); Carbon Dioxide 33 mmol/L (22-30); Chloride 88 mmol/L (98-107); Direct Bilirubin 0.1 mg/dl (0.0-0.4); Estimated Creatinine Clearance 10 ml/min; Glucose 107 mg/dl (70-99); Magnesium 2.8 mg/dl (1.6-2.3); Phosphorus 6.8 mg/dl (2.5-4.5); Potassium 3.9 mmol/L (3.5-5.1); Sodium 133 mmol/L (135-145); Total Bilirubin 0.5 mg/dl (0.2-1.3); Total Protein 5.4 g/dl (6.3-8.2); eGFR 8.93
[2024-09-25] MEDS: TYLENOL PO (06:43)
[2024-09-25] MEDS: PROTONIX 40 MG PO (07:37)
[2024-09-25] MEDS: VITAMIN C 500 MG PO (07:38)
[2024-09-25] MEDS: PLAVIX 75 MG PO (07:38)
[2024-09-25] MEDS: SENOKOT-S 1 TABLET PO ×2 (07:38→19:50)
[2024-09-25] MEDS: LOW STRENGTH ASPIRIN 81 MG PO (07:38)
[2024-09-25] MEDS: TOPROL XL 12.5 MG PO ×2 (07:38→19:49)
[2024-09-25 07:46] LABS: Glucose - Point of Care 150 mg/dl (70-99)
--- NOTE | 2024-09-25 07:53 | PN.DE.MGMTRT ---
Insulin Management
- -
09/25/2024: Diabetes Management Follow up
Patient admitted on 09/17 with increasing frequency of anginal symptoms and for elective cardiac catheterization.
PMH: CAD, HTN, HLD, MIKE, CKD, prostate cancer status post surgery, melanoma status post excision, psoriasis, OA, overweight and T2DM. Was taking Trulicity Q Fridays, Tresiba 30 units @ HS, Glimepiride 4mg daily at lunch and Farxiga 10mg daily in AM.
A1C 8.4% Cr 3.9(1.6-1.9 preop), eGFR 14.68
Pt was managed on Glycemic protocol x48 hrs post-op. Transitioned off drip to SQ Insulin on 09/21.
Pt awake, alert, resting in bed, offers no complaints, able to discuss diabetes mgt. No family at bedside.
Not a candidate for oral regimen at this time given TMOY on CKD with an uptrending Cr of 5.9, eGFR 8.93 today.
09/24 Premeal glucose 130 to 165, HS glucose was 275.
09/25 Fasting glucose this AM 150. Will continue Lantus 25 units @ HS, NovoLog 6 units AC with breakfast and lunch and 8 units with dinner. Will change moderate corrective to low with meals.
Pt has glucose monitor at home.
Diabetes History
- -
Type of Diabetes: 2 requiring insulin
Pre-Admission Diabetes Regimen
09/24/24 09/25/24
17:33 04:08
Creatinine 5.9 H* 5.9 H*
Lab Results
Hemoglobin A1c 8.4 % (4.0-5.6) H 09/18/24 04:51
Insulin Pump Settings
IP Diabetes Regimen
09/24/24 09/24/24 09/24/24
09:11 12:45 17:33
Glucose 122 H
POC Glucose 130 H 165 H 132 H
09/24/24 09/25/24 09/25/24
20:36 04:08 07:45
Glucose 107 H
POC Glucose 275 H 150 H
Meal type: Breakfast
Amount consumed: 90%
Patient Education
--- NOTE | 2024-09-25 08:00 | PTCARENOTE ---
received patient at change of shift from previous RN. pt OOB in chair resting comfortably. AAOX3- forgetful at times. SR on telemetry heart rate in 60s. pulses palpable. +1 generalized edema. pt on room air, sat 95%. lung sounds diminished in bases.
IS 500. 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 Inman draining clear yellow urine. see worklist for full nursing assessment and interventions. pt updated on plan of care.
--- NOTE | 2024-09-25 08:32 | W.PN.NEPH.PH ---
Today's Communication / Plan
-
observe
would hold off further diuretics today given rising BUN
no acute HD indication, creatinine down and grossly non oliguric
Assessment/Plan
-
IMP:
MV-CAD - s/p CABG x 4 Left atrial appendage exclusion [35 mm clip] on 09/19/[address] Billingsley
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
Diabetic with an HbA1c of 8.4, insulin-dependent
TOMY with CKD stage IIIb (Cr 1.6-1.9 preop)-follows Dr Richardson
Proteinuria-sub nephrotic
Anemia from acute blood loss s/p 2 PRNC and 1 platelet
Acute respiratory failure on high flow O2
Hypertension
Hyperlipidemia
MIKE on CPAP
History of melanoma
History of prostate cancer, status post surgery in 1999
Former tobacco abuse
Class 1 obesity (BMI 32.8)
OA
Psoriasis
Overactive bladder
Hearing loss bilat H aids
PLan:
A/w Angina, s/p LHC on 09/17 and noted MVD- s/p CABG x4 on 09/19
cr pre op was at 1.6 and now steady increase to 3.9-->5.1-->6.5->5.9, and grossly nonoliguric with urine output of 2.5 L
Holding diuretic (bumex gtt),BUN up to 120
Do not remove the Olson
UA bland on 09/18, repeat 09/19-mild microhematuria-?olson sample, FEna not low
TOMY likely hemodynamic ATN, renal US no hydro
worsening azotemia-monitor
no emergent need of HD, assess daily
echo normal EF and no WMA
BP stable on low dose BB
follow labs later today
dose meds renally, avoid nephrotoxins
continue calcitriol, holding farxiga, ARB
d/w pt and nursing
-
-
Date of Service: September 25, 2024
CC / HPI / ROS
-
Chief Complaint:
Tomy with CKD
History of Present Illness:
cr down to 5.9 k 4.3. non oliguric with foely
BUN >120 non oliguric off bumex gtt (d/c'd yesterday)
wt decreasing
on 2lit of O2
Review of Systems:
no cp or sob at rest
no n/v
feels weak and unable to feed himself
reports not able lift his limbs but able to move
Grossly nonoliguric via Olson
Weights down
Labs
-
Labs:
WBC 12.9 10^3/uL (4.8-10.8) H 09/25/24 04:08
RBC 2.96 10^6/uL (4.70-6.10) L 09/25/24 04:08
Hgb 9.2 g/dL (13.0-18.0) L 09/25/24 04:08
Hct 26.9 % (39.0-52.0) L 09/25/24 04:08
Plt Count 270 10^3/uL (130-400) 09/25/24 04:08
Sodium 133 mmol/L (135-145) L 09/25/24 04:08
Potassium 3.9 mmol/L (3.5-5.1) 09/25/24 04:08
Chloride 88 mmol/L (98-107) L 09/25/24 04:08
Carbon Dioxide 33 mmol/L (22-30) H 09/25/24 04:08
BUN 120 mg/dl (9-20) H* 09/25/24 04:08
Creatinine 5.9 mg/dL (0.7-1.3) H* 09/25/24 04:08
eGFR 8.93 09/25/24 04:08
Glucose 107 mg/dl (70-99) H 09/25/24 04:08
Calcium 8.3 mg/dl (8.4-10.2) L 09/25/24 04:08
Phosphorus 6.8 mg/dl (2.5-4.5) H 09/25/24 04:08
Hut-H-Svvhtxswpfb Pept 15604 pg/ml 09/23/24 04:22
Albumin 3.3 g/dl (3.5-5.0) L 09/25/24 04:08
Physical Exam
-
Vital Signs:
Vital Signs
Temp Pulse Resp BP Pulse Ox
97.7 F 75 16 121/58 95
09/24/24 20:00 09/25/24 07:38 09/25/24 06:00 09/25/24 07:38 09/25/24 06:00
Cardiovascular:: Regular rate and rhythm
Respiratory:: Bilateral: CTA (decreased)
Lung Excursion:: Normal
Abdomen:: Nontender and Soft
Extremity Edema:: +1: Bilateral: (generalized)
Olson Catheter: Yes
[2024-09-25] MEDS: NOVOLOG FLEXPEN 6 UNITS SC ×2 (09:03→13:23)
[2024-09-25] MEDS: KCL 10 MEQ PO (09:03)
[2024-09-25] MEDS: NOVOLOG FLEXPEN-LOW RESISTANCE 1 UNITS SC (09:03)
[2024-09-25] MEDS: NOVOLOG FLEXPEN-MODERATE RESISTANCE SC (09:07)
[2024-09-25] MEDS: NOVOLOG FLEXPEN SC (09:07)
--- NOTE | 2024-09-25 10:27 | W.PN.CARDCBS ---
Addendum entered and electronically signed by Rod Vigil MD 09/25/24 10:47:
I saw and examined the patient.
The Networks Computer Consultant's note was reviewed and I agree with the note.
Comment: Briefly, 83-year-old man presenting with unstable angina found to have multivessel CAD and underwent CABG 09/19/2024
Postoperative course has been complicated by acute kidney injury
Creatinine has peaked and is now downtrending
Discussed with nephrology, hopefully able to manage with diuretics as there is no acute indication for dialysis
Remains mildly volume overloaded, will defer further diuresis to nephrology team, was maintained on Bumex drip over the weekend
Sinus rhythm on telemetry
Postop ECG with right bundle similar to prior
Agree with current cardiac meds�aspirin/Plavix, high intensity statin, metoprolol and amiodarone
We will continue to follow with you
Original Note:
Today's Communication / Plan
-
follow Cr
continue post op care
in SR
Impression / Plan
-
PCP: Dr. Twan Perry
Cardiology: Dr. Rito Rosas
Impression:
[place]
CAD with multivessel calcified coronary disease in the proximal to mid LAD and high grade distal RCA stenosis, moderate mid circumflex/OM stenosis by cath 09/17/24
s/p CABG x4 In situ FRIEDMAN to LAD, Ao to RSVG to diagonal to OM, Ao to RSVG to RPDA, DAMON clip and sternal plate fixation 09/19/24
Postoperative blood loss anemia
Acute on chronic renal insufficiency with hyperkalemia
--------
RBBB
HTN
Hyperlipidemia
DM 2
Former smoker
Overweight
CKD 3b
Echo 09/17/24: EF 65 to 70%, no significant valve disease
Plan:
-USA with multivessel calcified coronary disease in the proximal to mid LAD and high grade distal RCA stenosis, moderate mid circumflex/OM stenosis by cath 09/17/24
-s/p CABG x4 In situ FRIEDMAN to LAD, Ao to RSVG to diagonal to OM, Ao to RSVG to RPDA, DAMON clip and sternal plate fixation 09/19/24
-Cr peaked at 6.3 and subsequently trending down. holding diuretics today. no plans for HD. with good urine output from olson. nephrology following. avoiding nephrotoxic agents
-remains in SR on review of tele with 1 ventricular couplet. continue lopressor. holding amiodarone
-continue asa, plavix, lipitor
-Postoperative limited 2D echocardiogram with normal biventricular size and systolic function and no significant pericardial effusion.
-continue PT/OT as able. will need SNF upon DC
-d/w nursing
PREADMIT DATA:
-Patient was seen in the cardiology office 09/11/2024 and complained of crescendo angina. Patient previously had cardiac cath in 2009 with 40% LAD and 50% circumflex lesions noted at that time. Patient was started on Toprol-XL, aspirin was
continued and his simvastatin was changed to atorvastatin at that time. Patient then presented for cardiac cath on 09-17-24 and was found to have multivessel calcified CAD with proximal to mid LAD and high-grade distal RCA stenoses plus moderate mid
circumflex/OM stenosis. Patient was admitted for CT surgical team evaluation for possible CABG.
Progress Note - Senior Manager Asset Protection
Subjective
Date of Service: September 25, 2024
resting comfortably
Objective
Labs:
09/25/24 04:08
09/25/24 04:08
Labs
Hgb 9.2 g/dL (13.0-18.0) L 09/25/24 04:08
Hct 26.9 % (39.0-52.0) L 09/25/24 04:08
Plt Count 270 10^3/uL (130-400) 09/25/24 04:08
PT 18.6 Sec (11.4-14.6) H 09/19/24 14:48
INR 1.50 09/19/24 14:48
APTT 37.4 Sec (23.4-35.0) H 09/19/24 14:48
Sodium 133 mmol/L (135-145) L 09/25/24 04:08
Potassium 3.9 mmol/L (3.5-5.1) 09/25/24 04:08
BUN 120 mg/dl (9-20) H* 09/25/24 04:08
Creatinine 5.9 mg/dL (0.7-1.3) H* 09/25/24 04:08
Glucose 107 mg/dl (70-99) H 09/25/24 04:08
Vital Signs and I&O:
Vital Signs
Temp Pulse Resp BP Pulse Ox
98.2 F 66 15 124/56 92
09/25/24 07:00 09/25/24 10:00 09/25/24 10:00 09/25/24 10:00 09/25/24 10:23
Vital Signs
Temp Pulse Resp BP Pulse Ox
98.2 F 66 15 124/56 92
09/25/24 07:00 09/25/24 10:00 09/25/24 10:00 09/25/24 10:00 09/25/24 10:23
Intake & Output
09/23/24 09/24/24 09/25/24 09/26/24
07:59 07:59 07:59 07:59
Intake Total 304 / 317 487 / 497 490 / 490 480 / 480
Output Total 3495 / 3745 4325 / 4425 2790 / 2840 260 / 260
Balance -3191 / -3428 -3838 / -3928 -2300 / -2350 220 / 220
Physical Exam
Physical Exam
GEN: No distress, resting comfortably.
HEENT: supple, mmm
LUNGS: no audible wheezes
CV: in SR on tele
EXT: Trace edema of B/L LE
SKIN: Warm, pink, dry. No rash
: olson in place
--- NOTE | 2024-09-25 11:17 | CM ---
Chart reviewed. Patient is independent of ADLS, lives with his in a 2 STH, 1 QUINTIN, 0 DME. PT evaluation recommending Acute Rehab. Referral sent to [facility]. Physiatry consult placed. Patient will need preauthorization with [employer].
Plan is for the patient to go to Acute Rehab when medically stable. CM to follow
--- NOTE | 2024-09-25 12:00 | PTCARENOTE ---
vitals stable. pt resting in bed, sleeping at this time. at bedside. pt arouses easily. denies pain. ordered lunch. no changes in assessment noted.
[2024-09-25 12:30] LABS: Glucose - Point of Care 213 mg/dl (70-99)
[2024-09-25] MEDS: NSS IV (12:40)
[2024-09-25] MEDS: NOVOLOG FLEXPEN-LOW RESISTANCE 2 UNITS SC (13:23)
[2024-09-25] MEDS: TYLENOL 1000 MG PO ×2 (13:24→19:50)
--- NOTE | 2024-09-25 15:57 | PTCARENOTE ---
pt resting comfortably. no changes in assessment noted. pt 1 assist OOB with rolling walker. no changes in assessment noted.
[2024-09-25 18:18] LABS: Glucose - Point of Care 284 mg/dl (70-99)
[2024-09-25] MEDS: NOVOLOG FLEXPEN-LOW RESISTANCE 3 UNITS SC (18:42)
[2024-09-25] MEDS: NOVOLOG FLEXPEN 8 UNITS SC (18:42)
[2024-09-25] MEDS: LIPITOR 40 MG PO (19:50)
--- NOTE | 2024-09-25 20:00 | PTCARENOTE ---
assumed care of pt from previous RN. pt A&Ox4, resting in chair at time of assessment. no c/o pain at this time. SR on tele-monitor. temp epicardial v-wires insulated. POX 92-94% on RA. abd non-tender, round, obese, firm. +BS. olson catheter
draining clear, yellow urine. all surgical sites stable, CDI. PIV intact. see worklist for complete nursing assessment, interventions, VS, and I&Os.
[2024-09-25 20:32] LABS: Ionized Calcium 1.08 mMOL/L (1.15-1.33)
[2024-09-25 20:59] LABS: Calcium 8.1 mg/dl (8.4-10.2); Carbon Dioxide 29 mmol/L (22-30); Chloride 87 mmol/L (98-107); Estimated Creatinine Clearance 12 ml/min; Glucose 260 mg/dl (70-99); Magnesium 2.7 mg/dl (1.6-2.3); Potassium 4.1 mmol/L (3.5-5.1); Sodium 130 mmol/L (135-145); eGFR 10.16
[2024-09-25 21:04] LABS: Blood Urea Nitrogen 130 mg/dl (9-20)
[2024-09-25 21:46] LABS: Glucose - Point of Care 308 mg/dl (70-99)
[2024-09-25] MEDS: LANTUS 0.25 UNITS SC (21:46)
--- NOTE | 2024-09-25 23:15 | PTCARENOTE ---
assessment remains unchanged. VSS. pt placed on home CPAP. POX 93%.
[2024-09-26] VITALS (11 sets, daily range): BP systolic 102–156; BP diastolic 37–84; PULSE 65–72; O2SAT 95; BMI 33.5
--- NOTE | 2024-09-26 03:51 | W.PN.CT ---
Today's Communication / Plan
-
Plan:
-No major issues overnight. Hemodynamically and neurologically intact. Progressing daily
-Bumex gtt discontinued 09/23. No diuretics given yesterday 09/25. 24hr u/o 1800 mL
-Creatinine is 5.2 today, was 5.9 -> 5.3 yesterday, peaked @ 6.5, baseline is 1.5-1.9. Nephrology is following
-Will benefit from avoidance of thiazide diuretics
-Tolerating low dose BB in light increase BP/HR. Amiodarone remains on hold
-Weaned off of O2 yesterday 09/25 with RA O2sats 91-92%. Currently has CPAP on d/t hx OSAP
-Encourage use of IS
-Maintain temporary v-wires
-Maintain cordis
-Maintain olson catheter
-OOB into chair
-Ambulate
-PT/OT follow up
-Encourage nutritional intake, pre-albumin/albumin are low
Assessment / Plan
-
- mv-CAD - s/p CABG x 4 (In situ FRIEDMAN to LAD, Ao to RSVG to diagonal to OM, Ao to RSVG to RPDA); Left atrial appendage exclusion [35 mm clip] on 09/19/[address] Billingsley, pod #7
- Intraop LARON: LVEF preop and postop 60% with no wma. The DAMON was verified to be free of any thrombus or debris preoperatively and found to be totally occlusive with a 35 mm clip postoperatively.
- Exertional angina with significant multivessel coronary disease
- Poorly controlled diabetic with an HbA1c of 9, insulin-dependent
- CKD stage IIIb (Cr 1.6-1.9 preop)
- Hypertension
- Hyperlipidemia
- MIKE on CPAP
- History of melanoma
- History of prostate cancer, status post surgery in 1999
- Former tobacco abuse
- Class 1 obesity (BMI 32.8)
- Acute postop blood loss anemia/ coagulopathy - s/p 2 pRBCs and 1 unit platelet
- Acute postop metabolic acidosis
- Acute postop hypovolemia with subsequent hypervolemia
- Acute postop atelectasis
- Acute postop pulmonary insufficiency
- TOMY on CKD
- Acute postop azotemia
- Acute postop oliguria
- Acute postop hyponatremia/hypocalcemia
- Acute postop hyperphosphatemia
Discussed patient care with: Cardiology, Nursing, Respiratory Therapy, Pharmacy and Care Team
Subjective
Procedure
- s/p CABG x 4 (In situ FRIEDMAN to LAD, Ao to RSVG to diagonal to OM, Ao to RSVG to RPDA); Left atrial appendage exclusion [35 mm clip] on 09/19/[address] Billingsley
-
Date of Service: September 26, 2024
Pt c/o mild incisional pain and some fatigue, otherwise feels well
Objective Data
-
PT 18.6 Sec (11.4-14.6) H 09/19/24 14:48
INR 1.50 09/19/24 14:48
APTT 37.4 Sec (23.4-35.0) H 09/19/24 14:48
Vital Signs
Vital Signs
Temp Pulse Resp BP Pulse Ox
98.3 F 65 14 145/59 91
09/25/24 23:00 09/26/24 02:00 09/25/24 23:00 09/25/24 23:11 09/26/24 02:00
CT Intake/Output/Weight
09/25/24 09/25/24 09/26/24
06:59 18:59 06:59
Intake Total 100 / 500 480 / 480
Output Total 1575 / 2890 775 / 1310 535 / 1310
Balance -1475 / -2390 -295 / -830 -535 / -830
SaO2: 95 (CPAP)
Physical Exam
-
General: Awake, Oriented and AOx3
Cardiovascular: Regular rate & rhythm, No Murmurs, No Rub and No Gallop
Respiratory: Decreased Breath Sounds (at bases, otherwise clear)
Sternum: Stable
Incision: Clean, Dry, Intact and Dressing Intact
Extremities: Other (+trace edema)
Data Reviewed
-
Lab Results: Results Reviewed
Medications: Active Meds Reviewed
Chest X-Ray: Report Reviewed and Image Reviewed
ECG: Report Reviewed and Image Reviewed
--- NOTE | 2024-09-26 04:00 | PTCARENOTE ---
no acute changes. VSS. AM labs collected and sent.
[2024-09-26 04:30] LABS: Hematocrit 26.2 % (39.0-52.0); Mean Corp Hgb Conc. 34.4 g/dL (33.0-37.0); Mean Corpuscular Hgb 31.4 pg (27.0-31.0); Mean Corpuscular Volume 91.3 fL (80.0-94.0); Platelet Count 308 10^3/uL (130-400); Red Blood Cell Count 2.87 10^6/uL (4.70-6.10); Red Cell Dist. Width 13.1 % (11.5-14.5); White Blood Cell Count 12.2 10^3/uL (4.8-10.8)
[2024-09-26 04:54] LABS: Calcium 8.1 mg/dl (8.4-10.2); Carbon Dioxide 32 mmol/L (22-30); Chloride 89 mmol/L (98-107); Estimated Creatinine Clearance 12 ml/min; Glucose 160 mg/dl (70-99); Magnesium 2.8 mg/dl (1.6-2.3); Sodium 134 mmol/L (135-145); eGFR 10.39
[2024-09-26 05:10] LABS: Blood Urea Nitrogen 133 mg/dl (9-20)
[2024-09-26] MEDS: TYLENOL 1000 MG PO ×2 (06:29→22:01)
--- NOTE | 2024-09-26 07:32 | PN.DE.MGMTRT ---
Insulin Management
- -
09/26/2024: Diabetes Management Follow up
Patient admitted on 09/17 with increasing frequency of anginal symptoms and for elective cardiac catheterization.
PMH: CAD, HTN, HLD, MIKE, CKD, prostate cancer status post surgery, melanoma status post excision, psoriasis, OA, overweight and T2DM. Was taking Trulicity Q Fridays, Tresiba 30 units @ HS, Glimepiride 4mg daily at lunch and Farxiga 10mg daily in AM.
A1C 8.4% Cr 3.9(1.6-1.9 preop), eGFR 14.68
Pt was managed on Glycemic protocol x48 hrs post-op. Transitioned off drip to SQ Insulin on 09/21.
Not a candidate for oral regimen at this time given TOMY on CKD with an uptrending Cr of 5.9, eGFR 8.93 today.
09/25 Premeal glucose 150 to 284, HS glucose was 308.
09/26 Fasting glucose this AM 160, Cr 5.2, eGFR 10.39. Will increase Lantus to home dose 30 units @ HS, and NovoLog 8 units AC with low corrective with meals.
Pt has glucose monitor at home.
Diabetes History
- -
Type of Diabetes: 2 requiring insulin
Pre-Admission Diabetes Regimen
09/25/24 09/26/24
20:26 04:02
Creatinine 5.3 H* 5.2 H*
Lab Results
Hemoglobin A1c 8.4 % (4.0-5.6) H 09/18/24 04:51
Insulin Pump Settings
IP Diabetes Regimen
09/25/24 09/25/24 09/25/24
07:45 12:28 18:12
Glucose
POC Glucose 150 H 213 H 284 H
09/25/24 09/25/24 09/26/24
20:26 21:45 04:02
Glucose 260 H 160 H
POC Glucose 308 H
Meal type: Breakfast
Amount consumed: 100%
Patient Education
[2024-09-26 07:37] LABS: Glucose - Point of Care 225 mg/dl (70-99)
--- NOTE | 2024-09-26 07:54 | PTCARENOTE ---
Assumed care of patient from casino shift manager RN. AAO x 3 sitting up in the chair. SR on monitor. Epicardial wire insulated. Room air 95% IS encouraged. Abdomen firm, distended with active bowel sounds, passed a BM this am. Surgical sites c,d,i.
Pulses palpable. General plus one anasarca noted. Plan for day discussed.
[2024-09-26] MEDS: NOVOLOG FLEXPEN-LOW RESISTANCE 2 UNITS SC (08:37)
[2024-09-26] MEDS: TOPROL XL 12.5 MG PO ×2 (08:38→19:52)
[2024-09-26] MEDS: VITAMIN C 500 MG PO (08:38)
[2024-09-26] MEDS: NOVOLOG FLEXPEN 8 UNITS SC ×3 (08:38→17:58)
[2024-09-26] MEDS: PROTONIX 40 MG PO (08:38)
[2024-09-26] MEDS: PLAVIX 75 MG PO (08:38)
[2024-09-26] MEDS: SENOKOT-S 1 TABLET PO ×2 (08:38→19:53)
[2024-09-26] MEDS: LOW STRENGTH ASPIRIN 81 MG PO (08:38)
[2024-09-26] MEDS: NOVOLOG FLEXPEN SC (08:59)
[2024-09-26] MEDS: ROCALTROL 0.25 MCG PO (09:14)
--- NOTE | 2024-09-26 09:52 | W.PN.CARDCBS ---
Addendum entered and electronically signed by Rod Vigil MD 09/26/24 15:24:
I saw and examined the patient.
The Certified Addiction Counselor's note was reviewed and I agree with the note.
Comment: Briefly, 83-year-old man presenting with unstable angina found to have multivessel CAD and underwent CABG 09/19/2024
Postoperative course has been complicated by acute kidney injury
Creatinine has peaked and is now downtrending
Will defer diuretic dosing to nephrology - currently receiving IVF
Sinus rhythm on telemetry
Postop ECG with right bundle similar to prior
Agree with current cardiac meds� aspirin/Plavix, high intensity statin, metoprolol and amiodarone
Stable cardiac status
We will sign off, please recall as needed
Original Note:
Today's Communication / Plan
-
continue post op care
Cr improving, nephro following
OP cardiac follow up arranged
for SNF/[facility] upon DC
Impression / Plan
-
PCP: Dr. Twan Perry
Cardiology: Dr. Rito Rosas
Impression:
USA
CAD with multivessel calcified coronary disease in the proximal to mid LAD and high grade distal RCA stenosis, moderate mid circumflex/OM stenosis by cath 09/17/24
s/p CABG x4 In situ FRIEDMAN to LAD, Ao to RSVG to diagonal to OM, Ao to RSVG to RPDA, DAMON clip and sternal plate fixation 09/19/24
Postoperative blood loss anemia
Acute on chronic renal insufficiency with hyperkalemia
--------
RBBB
HTN
Hyperlipidemia
DM 2
Former smoker
Overweight
CKD 3b
Echo 09/17/24: EF 65 to 70%, no significant valve disease
Plan:
-USA with multivessel calcified coronary disease in the proximal to mid LAD and high grade distal RCA stenosis, moderate mid circumflex/OM stenosis by cath 09/17/24
-s/p CABG x4 In situ FRIEDMAN to LAD, Ao to RSVG to diagonal to OM, Ao to RSVG to RPDA, DAMON clip and sternal plate fixation 09/19/24
-Cr peaked at 6.3 and subsequently trending down, Cr 5.2 on 09/26. no plans for HD. with good urine output from olson. diuresis per nephrology
-remains in SR on review of tele with 1 ventricular couplet. continue lopressor. holding amiodarone
-continue asa, plavix, lipitor
-Postoperative limited 2D echocardiogram with normal biventricular size and systolic function and no significant pericardial effusion.
-continue PT/OT. for SNF/[facility] upon DC
-OP cardiac follow up arranged
-d/w nursing, CT surgery PA
PREADMIT DATA:
-Patient was seen in the cardiology office 09/11/2024 and complained of crescendo angina. Patient previously had cardiac cath in 2009 with 40% LAD and 50% circumflex lesions noted at that time. Patient was started on Toprol-XL, aspirin was
continued and his simvastatin was changed to atorvastatin at that time. Patient then presented for cardiac cath on 09-17-24 and was found to have multivessel calcified CAD with proximal to mid LAD and high-grade distal RCA stenoses plus moderate mid
circumflex/OM stenosis. Patient was admitted for CT surgical team evaluation for possible CABG.
Progress Note - Buggy Ladle Tender
Subjective
Date of Service: September 26, 2024
reports some SOB
Objective
Labs:
09/26/24 04:02
09/26/24 04:02
Labs
Hgb 9.0 g/dL (13.0-18.0) L 09/26/24 04:02
Hct 26.2 % (39.0-52.0) L 09/26/24 04:02
Plt Count 308 10^3/uL (130-400) 09/26/24 04:02
PT 18.6 Sec (11.4-14.6) H 09/19/24 14:48
INR 1.50 09/19/24 14:48
APTT 37.4 Sec (23.4-35.0) H 09/19/24 14:48
Sodium 134 mmol/L (135-145) L 09/26/24 04:02
Potassium 4.0 mmol/L (3.5-5.1) 09/26/24 04:02
BUN 133 mg/dl (9-20) H* 09/26/24 04:02
Creatinine 5.2 mg/dL (0.7-1.3) H* 09/26/24 04:02
Glucose 160 mg/dl (70-99) H 09/26/24 04:02
Vital Signs and I&O:
Vital Signs
Temp Pulse Resp BP Pulse Ox
98.4 F 75 16 123/73 95
09/26/24 07:51 09/26/24 08:59 09/26/24 07:51 09/26/24 08:59 09/26/24 09:00
Vital Signs
Temp Pulse Resp BP Pulse Ox
98.4 F 75 16 123/73 95
09/26/24 07:51 09/26/24 08:59 09/26/24 07:51 09/26/24 08:59 09/26/24 09:00
Intake & Output
09/24/24 09/25/24 09/26/24 09/27/24
07:59 07:59 07:59 07:59
Intake Total 487 / 497 490 / 490 480 / 840 360 / 360
Output Total 4325 / 4425 2790 / 2840 1625 / 1675 50 / 50
Balance -3838 / -3928 -2300 / -2350 -1145 / -835 310 / 310
Physical Exam
Physical Exam
GEN: No distress, awake, alert, oriented x3
HEENT: supple, anicteric, mmm, eomi
LUNGS: Few crackles RLB, no wheezes
CV: Reg, S1/S2, no murmur
ABD: soft, BS+, NT/ND
EXT: No cyanosis, clubbing, edema. LLE with blood blister at incision site
NEURO: Gross non-focal
SKIN: Warm, pink, dry. No rash. Sternotomy incision c/d/i
: whitney
--- NOTE | 2024-09-26 10:37 | W.PN.NEPH.PH ---
Today's Communication / Plan
-
IVF
Assessment/Plan
-
IMP:
MV-CAD - s/p CABG x 4 Left atrial appendage exclusion [35 mm clip] on 09/19/[address] Billingsley
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
Diabetic with an HbA1c of 8.4, insulin-dependent
TOMY with CKD stage IIIb (Cr 1.6-1.9 preop)-follows Dr Richardson
Proteinuria-sub nephrotic
Anemia from acute blood loss s/p 2 PRNC and 1 platelet
Acute respiratory failure on high flow O2
Hypertension
Hyperlipidemia
MIKE on CPAP
History of melanoma
History of prostate cancer, status post surgery in 1999
Former tobacco abuse
Class 1 obesity (BMI 32.8)
OA
Psoriasis
Overactive bladder
Hearing loss bilat H aids
Plan:
at this time, probable ATN TOMY
check urine studies
IVF NSS today
I would not send to rehab with rising BUN, ideally Cr would be decreasing and <5
maintain olson for now with unstable renal numbers still
no emergent HD needs today
-
-
Date of Service: September 26, 2024
CC / HPI / ROS
-
Chief Complaint:
Tomy with CKD
History of Present Illness:
cr down 5.2.
BUN >120 and rising
non oliguric off bumex gtt
wt decreasing
on RA
Review of Systems:
no cp or sob at rest
no n/v
feels weak and unable to feed himself
Labs
-
Labs:
WBC 12.2 10^3/uL (4.8-10.8) H 09/26/24 04:02
RBC 2.87 10^6/uL (4.70-6.10) L 09/26/24 04:02
Hgb 9.0 g/dL (13.0-18.0) L 09/26/24 04:02
Hct 26.2 % (39.0-52.0) L 09/26/24 04:02
Plt Count 308 10^3/uL (130-400) 09/26/24 04:02
Sodium 134 mmol/L (135-145) L 09/26/24 04:02
Potassium 4.0 mmol/L (3.5-5.1) 09/26/24 04:02
Chloride 89 mmol/L (98-107) L 09/26/24 04:02
Carbon Dioxide 32 mmol/L (22-30) H 09/26/24 04:02
BUN 133 mg/dl (9-20) H* 09/26/24 04:02
Creatinine 5.2 mg/dL (0.7-1.3) H* 09/26/24 04:02
eGFR 10.39 09/26/24 04:02
Glucose 160 mg/dl (70-99) H 09/26/24 04:02
Calcium 8.1 mg/dl (8.4-10.2) L 09/26/24 04:02
Phosphorus 6.0 mg/dl (2.5-4.5) H 09/26/24 04:02
Iao-N-Vyciatcweej Pept 44701 pg/ml 09/23/24 04:22
Albumin 3.3 g/dl (3.5-5.0) L 09/25/24 04:08
Physical Exam
-
Vital Signs:
Vital Signs
Temp Pulse Resp BP Pulse Ox
98.4 F 75 16 123/73 95
09/26/24 07:51 09/26/24 08:59 09/26/24 07:51 09/26/24 08:59 09/26/24 10:26
Cardiovascular:: Regular rate and rhythm
Respiratory:: Bilateral: Coarse
Lung Excursion:: Normal
Abdomen:: Nontender and Soft
Bowel Sounds:: Normal
Extremity Edema:: None: Bilateral:
[2024-09-26] MEDS: NSS 500 IV (11:20)
[2024-09-26] MEDS: NSS 1000 IV (11:48)
[2024-09-26 12:04] LABS: Urine Albumin Trace (Neg - Trace); Urine Bilirubin Negative (Negative); Urine Character Clear (Clear); Urine Color Yellow; Urine Glucose Negative (Negative); Urine Ketone Negative (Negative); Urine Leukocyte 1+ (Negative); Urine Nitrite Negative (Negative); Urine Occult Blood 4+ (Negative); Urine Specific Gravity 1.015 (<1.030); Urine Urobilinogen Negative (Neg - 1+)
[2024-09-26 12:06] LABS: Glucose - Point of Care 258 mg/dl (70-99)
[2024-09-26] MEDS: NOVOLOG FLEXPEN-LOW RESISTANCE 3 UNITS SC (12:07)
--- NOTE | 2024-09-26 12:10 | PTCARENOTE ---
Reluctantly sitting in chair until after lunch. Encouraged increase in ambulation. IVF therapy initiated per md order. VSS. Assessment otherwise unchanged from prior.
--- NOTE | 2024-09-26 12:41 | CON.MD ---
Consultation - Medical
-
Referring Provider:�Dr. Rachid Billingsley
Chief Complaint:�Debility after CABG x 4 with left atrial appendage exclusion
�
History of Present Illness:�83-year-old male with PMH (as below) presented to [facility] on 09/17/2024 with recent increase in angina scheduled for elective cardiac catheterization showing multivessel CAD in the proximal to mid LAD and
distal RCA stenosis, moderate mid circumflex/OM stenosis. LARON 09/19 with EF 60% mild concentric left ventricular hypertrophy, patent foramen ovale with left to right shunt. On 09/19/24 he had a Coronary artery bypass grafting x 4 (In situ FRIEDMAN to
LAD, Ao to RSVG to diagonal to OM, Ao to RSVG to RPDA), Left atrial appendage exclusion [35 mm clip]. Extubated 09/19/2024. Developed acute kidney injury postoperatively and seen by nephrology. Also with anemia requiring 2 units of PRBCs and 1
unit of platelets.
�
Past Medical History:�Uncontrolled type 2 diabetes, obstructive sleep apnea, hypertension, hyperlipidemia, CKD stage 3B, prostate cancer status post surgery, melanoma status post excision, psoriasis, osteoarthritis, overactive bladder, trigger
finger, CAD, obesity
Procedure History:�Prostate cancer status post surgery, Melanoma status post excision, Appendectomy, cataract extraction bilaterally, tonsillectomy, trigger finger surgery
Family History:� CAD (Father: History of [place]), Diabetes (Sister) and Other (Sister: Thyroid disease)
�
Social History:�
Functional Level Premorbidly:�Independent with all activities�
Functional Level Currently:�Mod assist bed mobility and transfers. Ambulating 10 to 15 feet mod assist with rolling walker. Min assist grooming, dependent toileting, max assist upper and lower extremity dressing.
�
Tobacco:�Former�
Alcohol:�Occasional
Drug use:�Denies�
�
Lives with:�
24-hour assistance available:�Yes
Number of floors:�2
# steps to enter:�1
# steps to second floor: Full flight
Potential First floor set up:�Yes
Driving:�Yes
Occupation:�Retired
�
�
Allergies:�
Allergy/AdvReac Type Severity Reaction Status Date / Time
No Known Allergies Allergy Verified 09/17/24 08:13
�
Review of Systems:�
Constitutional: (x) abNormal _fatigue
Eye: (x) Normal _
Ear/Nose/Throat: (x) Normal _
Respiratory: (x) Normal _
Cardiovascular: (x) abNormal _chest pain with CABG surgery
Gastrointestinal: (x) Normal _
Genitourinary: (x) abNormal _decreased urine output with renal failure, urinary retention. No problems with urinary retention previously, had been on oxybutynin for urinary frequency.
Musculoskeletal: (x) abNormal _chest pain after surgery
Integumentary: (x) abNormal _blister over left knee incision. Has right knee incision and chest incision.
Neurologic: (x) Normal _
Psychiatric: (x) Normal _
Endocrine: (x) Normal _
Hematologic/Lymphatic: (x) Normal _
Allergic/Immunologic: (x) Normal _
�
Medications:�
Active Current Visit Medication List
Category Date Time Status
0.9% Sodium Chloride 1000 ml [Nss] 1,000 ml Med 09/26/24 10:45 Active
IV 100 mls/hr
0.9% Sodium Chloride 500 ml [Nss] 500 ml Med 09/19/24 14:11 Active
IV CORDIS
Acetaminophen [Tylenol] Med 09/19/24 14:11 Active
1,000 mg PO TID@0600,1400,2200
Acetaminophen [Tylenol] Med 09/19/24 14:11 Active
650 mg PO Q4HPRN PRN
Albuterol Nebs [Ventolin Nebules] Med 09/19/24 14:11 Active
2.5 mg INH R Q4HPRN PRN
Albuterol [ProAIR HFA INHALER] Med 09/19/24 14:11 Active
2 puff INH R Q4HPRN PRN
Amiodarone [Pacerone] Med 09/19/24 16:00 Hold
200 mg PO TID
Ascorbic Acid [Vitamin C] Med 09/19/24 14:11 Active
500 mg PO DAILY
Aspirin Chewable [Low Strength Aspirin] Med 09/20/24 08:00 Active
81 mg PO DAILY
Atorvastatin [Lipitor] Med 09/17/24 22:00 Active
40 mg PO HS
Benzocaine/Menthol [Anesthetic Lozenge] Med 09/23/24 18:18 Active
1 lozenge PO Q4HPRN PRN
Bisacodyl [Dulcolax] Med 09/19/24 14:11 Active
10 mg RECTAL DAILYPRN PRN
Calcitriol [Rocaltrol] Med 09/17/24 13:00 Active
0.25 mcg PO MoWeFr@0800
Clopidogrel Bisulfate [Plavix] Med 09/20/24 08:00 Active
75 mg PO DAILY
Cyclobenzaprine HCl [Flexeril] Med 09/19/24 14:11 Active
5 mg PO Q8HPRN PRN
Dextrose 50%-Water [Dextrose 50% Syringe] Med 09/21/24 11:30 Active
12.5 grams IV P27GHLD PRN
Docusate W/Senna [Senokot-S] Med 09/19/24 20:00 Active
1 tablet PO Q12
Flush (0.9% Sodium Chloride) [Flush (Nss)] Med 09/19/24 15:00 Active
See Dose Instructions IV PER PROTOCOL
Glucagon [GlucaGen] Med 09/21/24 11:30 Active
1 mg IM PRN PRN
HYDROmorphone [Dilaudid] Med 09/19/24 14:11 Active
0.25 mg IV Q3HPRN PRN
Insulin Aspart Corrective Low [Novolog Flexpen-Low Med 09/25/24 08:00 Active
Resistance]
See Protocol SC AC
Insulin Aspart Pen [Novolog Flexpen] Med 09/26/24 08:00 Active
8 units SC BID@0730,1130
Insulin Aspart Pen [Novolog Flexpen] Med 09/25/24 16:30 Active
8 units SC DAILY@1630
Insulin Glargine Lantus [Lantus] 30 units Med 09/26/24 22:00 Active
Subcutaneous Insulin Syringe [Syringe-Insulin] 0 unit
SC HS
Metoprolol Xl [Toprol Xl] Med 09/23/24 08:00 Active
12.5 mg PO BID
Ondansetron Injectable [Zofran] Med 09/19/24 14:11 Active
4 mg IV Q8HPRN PRN
Oxycodone [Roxicodone] Med 09/19/24 14:11 Active
2.5 mg PO Q4HPRN PRN
Oxycodone [Roxicodone] Med 09/19/24 14:11 Active
5 mg PO Q4HPRN PRN
Pantoprazole [Protonix] Med 09/20/24 08:00 Active
40 mg PO DAILY
�
Vitals:�
Temp Pulse Resp BP Pulse Ox
98.0 F 79 14 156/84 95
09/26/24 11:49 09/26/24 11:49 09/26/24 11:49 09/26/24 11:11 09/26/24 11:49
Height 5 ft 6 in
Actual Weight 94.1 kg
Body Mass Index (BMI) 33.5
�
Physical Exam:�
General Appearance/Observation: Well-developed, well-nourished male in no apparent distress.�
Pain/Comfort Assessment: Mild chest pain proved with medication
Mood/Affect: Appropriate�
�
Integumentary/Operative Site:�Midsternal incision and drain sites healing. Right medial knee incision with glue healing well. Left medial knee incision with glue with significant blood-filled blister.
�� Pressure Ulcer Evaluation: absent over heels.�
�
Eyes: Conjunctiva/Lids: normal���� Pupils: pupils equal round and reactive to light and Accommodation�
Ears/Nose/Throat: oral mucosa moist,� throat clear.������������ Lips/Teeth/Gums: normal�
Neck: No muscle spasm or tenderness�
Cardiovascular: Heart: regular, murmur�
Pulses: dorsalis pedis 2+ bilaterally�
Respiratory: Respiratory Effort/Chest Expansion: normal������� Auscultation: Clear to auscultation bilaterally�
Gastrointestinal: abdomen not tender, no distension, normal abdominal bowel sounds
Genitourinary: Inman�with yellow urine
Extremities:�Edema: Mild bilateral lower extremities�cyanosis: None�Trophic�changes: None
�
Neurology Exam:
Orientation: Alert, Oriented to self, Time, Place�
Memory: Intact for recent medical concerns
Comprehension: Intact
Two step command: Intact
Cranial Nerves:
�� CNII:�Pupillary light reflex: Intact����Visual Field: Intact
�� CN III, IV, : Extraocular muscles: Intact�
�� CN V:�Facial Sensation�at�Forehead: Intact,�Maxilla: Intact,�Mandible: Intact
�� CN VII:�Facial movement: Symmetric
�� CN VIII:�Hearing: Normal
�� CN IX/X:�Speech & swallow: Normal,�Position of Uvula: Midline
�� CN XI:�Shoulder shrug: Symmetric
�� CN XII:�Tongue protrusion: Midline
Sensory:
�� Light touch: Intact in bilateral upper and lower extremities
�
Reflexes:
�� Biceps: 2+ bilaterally
�� Brachioradialis: 2+ bilaterally
�� Triceps: 2+ bilaterally
�� Patellar: 0 bilaterally
�� Achilles: 0 bilaterally
�� Babinski: Down going bilaterally
�� Clonus: None
�� Jagdish: Negative bilaterally�
Cerebellar: Dysmetria/Ataxia: Not tested
Musculoskeletal: Motor: (Manual muscle scale 0-5)�
Muscle SA EF WE EE FF FA HF KE DF EHL PF
Right� >4 5 >4 5 4 5 5 5
Left >4 5 >4 5 4 5 5 5
�
Tone: Normal in all extremities�
Range of Motion: Passively within normal limits in all extremities except for bilateral shoulder not tested with precautions.
�
Lab Results
Labs
WBC 12.2 10^3/uL (4.8-10.8) H 09/26/24 04:02
RBC 2.87 10^6/uL (4.70-6.10) L 09/26/24 04:02
Hgb 9.0 g/dL (13.0-18.0) L 09/26/24 04:02
Hct 26.2 % (39.0-52.0) L 09/26/24 04:02
MCV 91.3 fL (80.0-94.0) 09/26/24 04:02
MCH 31.4 pg (27.0-31.0) H 09/26/24 04:02
MCHC 34.4 g/dL (33.0-37.0) 09/26/24 04:02
RDW 13.1 % (11.5-14.5) 09/26/24 04:02
Plt Count 308 10^3/uL (130-400) 09/26/24 04:02
MPV 10.0 fL (7.4-10.4) 09/26/24 04:02
CBC Comment Cancelled 09/22/24 03:26
PT 18.6 Sec (11.4-14.6) H 09/19/24 14:48
INR 1.50 09/19/24 14:48
APTT 37.4 Sec (23.4-35.0) H 09/19/24 14:48
pH 7.33 (7.35-7.45) L 09/20/24 20:04
pCO2 47 mmHg (35-48) 09/20/24 20:04
pO2 64 mmHg (83-108) L 09/20/24 20:04
HCO3 24.8 mmol/L (21-28) 09/20/24 20:04
Base Excess -1.3 mmol/L 09/20/24 20:04
ABG O2 Sat (Measured) 94.8 % (94-98) 09/20/24 20:04
POC ABG O2 Sat (Calc) 99.9 % (94-98) H 09/19/24 14:10
Mixed VBG O2 Saturation 72.9 % 09/21/24 04:03
Sodium 134 mMOL/L (136-145) L 09/19/24 14:48
Potassium 5.2 mMOL/L (3.5-5.1) H 09/20/24 20:04
O2 Delivery Level 09/20/24 20:04
Sodium 134 mmol/L (135-145) L 09/26/24 04:02
Potassium 4.0 mmol/L (3.5-5.1) 09/26/24 04:02
Chloride 89 mmol/L (98-107) L 09/26/24 04:02
Carbon Dioxide 32 mmol/L (22-30) H 09/26/24 04:02
BUN 133 mg/dl (9-20) H* 09/26/24 04:02
Creatinine 5.2 mg/dL (0.7-1.3) H* 09/26/24 04:02
Estimated Creat Clear 12 ml/min 09/26/24 04:02
eGFR 10.39 09/26/24 04:02
Glucose 160 mg/dl (70-99) H 09/26/24 04:02
Hemoglobin A1c 8.4 % (4.0-5.6) H 09/18/24 04:51
Lactic Acid Cancelled 09/21/24 06:00
Calcium 8.1 mg/dl (8.4-10.2) L 09/26/24 04:02
Ionized Calcium 1.08 mMOL/L (1.15-1.33) L 09/25/24 20:26
Phosphorus 6.0 mg/dl (2.5-4.5) H 09/26/24 04:02
Magnesium 2.8 mg/dl (1.6-2.3) H 09/26/24 04:02
Total Bilirubin 0.5 mg/dl (0.2-1.3) 09/25/24 04:08
Direct Bilirubin 0.1 mg/dl (0.0-0.4) 09/25/24 04:08
AST 20 U/L (17-59) 09/25/24 04:08
ALT < 10 U/L (0-50) 09/25/24 04:08
Alkaline Phosphatase 80 U/L (38-126) 09/25/24 04:08
Tic-P-[id number] Pept 11313 pg/ml 09/23/24 04:22
Total Protein 5.4 g/dl (6.3-8.2) L 09/25/24 04:08
Albumin 3.3 g/dl (3.5-5.0) L 09/25/24 04:08
Prealbumin 13.0 mg/dl (17.6-36.0) L 09/25/24 04:08
Triglycerides 139 mg/dl (10-149) 09/18/24 04:51
Total Cholesterol 122 mg/dl (50-199) 09/18/24 04:51
LDL Cholesterol, Calc 61 mg/dl 09/18/24 04:51
VLDL Cholesterol, Calc 27 mg/dl (0-30) 09/18/24 04:51
HDL Cholesterol 34 mg/dl 09/18/24 04:51
Urine Color Yellow 09/26/24 11:24
Urine Clarity Clear (Clear) 09/26/24 11:24
Urine pH 5.0 (5.0-9.0) 09/26/24 11:24
Ur Specific [place] 1.015 (<1.030) 09/26/24 11:24
Urine Ketones Negative (Negative) 09/26/24 11:24
Urine Occult Blood 4+ (Negative) A 09/26/24 11:24
Ur Occult Blood Reflex 2+ (Negative) A 09/19/24 10:40
Urine Nitrite Negative (Negative) 09/26/24 11:24
Urine Nitrite (Reflex) Negative (Negative) 09/19/24 10:40
Urine Bilirubin Negative (Negative) 09/26/24 11:24
Urine Urobilinogen Negative (Neg - 1+) 09/26/24 11:24
Ur Leukocyte Esterase 1+ (Negative) A 09/26/24 11:24
Leukocyte Esterase Rfl Negative (Negative) 09/19/24 10:40
Urine RBC 70-80 /HPF (0-2) A 09/26/24 11:24
Urine WBC 26-30 /HPF (0-5) A 09/26/24 11:24
Urine WBC (Reflex) 0-2 /HPF (0-5) 09/19/24 10:40
Ur Squamous Epith Cells 0-2 /LPF (Few) 09/26/24 11:24
Ur Urothelial Cells >30 /LPF (FEW) 09/21/24 10:15
Amorphous Crystals Seen 09/21/24 10:15
Urine Bacteria Moderate (Negative) A 09/26/24 11:24
Hyaline Casts 0-2 /LPF (0-2) 09/26/24 11:24
Granular Casts 0-2 /LPF (0) 09/26/24 11:24
Urine Mucus Few 09/26/24 11:24
Urine Creatinine 33.400 mg/dl 09/21/24 10:15
Urine Sodium 87 mmol/L (30-90) 09/21/24 10:15
Urine Glucose Negative (Negative) 09/26/24 11:24
Urine Albumin Trace (Neg - Trace) 09/26/24 11:24
Urine Albumin (Reflex) 1+ (Neg - Trace) A 09/19/24 10:40
B-Hydroxybutyrate 0.13 mmol/L (0.02-0.27) 09/20/24 22:45
Specimen Type Arterial 09/19/24 14:10
POC ABG Comment Post 09/19/24 14:10
POC pH 7.39 (7.35-7.45) 09/19/24 14:10
POC Base Excess -5.3 mmol/L 09/19/24 14:10
POC pO2 267 mmHg (83-108) H 09/19/24 14:10
POC pCO2 31 mmHg (35-48) L 09/19/24 14:10
POC HCO3 19 mmol/L (21-28) L 09/19/24 14:10
POC Glucose 258 mg/dl (70-99) H 09/26/24 12:05
POC Glucose 144 mg/dl (70-99) H 09/19/24 14:10
POC Sodium 138 mmol/L (136-145) 09/19/24 14:10
POC Potassium 5.1 mmol/L (3.5-5.1) 09/19/24 14:10
POC Ionized Calcium 1.07 mmol/L (1.15-1.33) L 09/19/24 14:10
POC ACT+ 112 Seconds (82-134) 09/19/24 14:02
POC ACT Low Range 256 Seconds (116-155) H 09/17/24 11:02
POC Hemoglobin Calc 8.0 09/19/24 14:10
POC Hematocrit 24 % PCV (42-52) L 09/19/24 14:10
POC Hemodilution Yes 09/19/24 14:10
Blood Type O NEG 09/18/24 04:51
Blood Type Confirm O NEG 09/18/24 06:05
Antibody Screen Negative (Negative) 09/18/24 04:51
Crossmatch IS Only See Detail 09/18/24 04:51
�
Diagnostic Results:�as per HPI�
�
Assessment
83-year-old M PMH (Uncontrolled type 2 diabetes, obstructive sleep apnea, hypertension, hyperlipidemia, CKD stage 3B, prostate cancer status post surgery, melanoma status post excision, psoriasis, osteoarthritis, overactive bladder, trigger finger,
CAD, obesity) s/p 09/19/2024 CABG x 4 and left atrial appendage exclusion with postoperative anemia and significant acute kidney injury with ADL and ambulatory dysfunction.
Plan�
PM&R�PT/OT to increase independence with ADLs, improve balance, coordination, endurance, strength, mobility, community reintegration, decreased burden of care on others and family education.�
CAD S/P CABG x 4 09/19/24: Sternal precautions.� Aspirin/Plavix, statin, BP control.� Amiodarone on hold. Monitor incision, pain control.����������������������������������
�
HTN: Metoprolol
HLD: Statin�
Uncontrolled DM II: Accu-Cheks, insulin sliding scale, aspart, lantus.�
MIKE: CPAP.�
Postoperative anemia: Given 2 units of PRBCs postoperatively.� Monitor
�
Psych: Monitor mood, medications as needed.�
Skin: monitor for pressure sores/rashes/lesions.� Spoke with CT surgery regarding blood-filled blister along the left medial knee incision.
Pain: Currently getting Tylenol 1000 mg 3 times daily and 650 mg as needed for mild pain. Would hold as needed Tylenol if continuing standing dose to prevent liver injury. Stop IV pain medication, oxycodone as needed.� Flexeril as needed for spasms
Bowel: Colace and Senna, PRN bisacodyl.�
Bladder: Time void, PVRs, PRN straight cath.�
GI Prophylaxis: Pantoprazole�
DVT Prophylaxis: Mechanical, please comment on when patient can start chemoprophylaxis
Pulmonary: Incentive spirometry�
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 Body habitus and increased force to move body and extremities causes further difficulty with functional tasks.�
Safety: Continue to reinforce assistance with all transfers.�
Code Status:� Full code
Dispo�(date/plan/equipment needs): Home with family care.� Social history reviewed.�
Functional and Medical Goals:�Modified Independent with ADL�s, ambulation, transfers�
Discharge Destination:�Acute inpatient rehabilitation once renal function is significantly improved that he can be safely discharged to rehab.
�
Summary of recommendations:
-�Discharge Destination:�Acute inpatient rehabilitation once renal function is significantly improved that he can be safely discharged to rehab.
CAD S/P CABG x 4 09/19/24: Sternal precautions.� Aspirin/Plavix, statin, BP control.� Amiodarone on hold. Monitor incision, pain control.����������������������������������
Pain: Currently getting Tylenol 1000 mg 3 times daily and 650 mg as needed for mild pain. Would hold as needed Tylenol if continuing standing dose to prevent liver injury.
-Stop IV pain medication, oxycodone as needed.� Flexeril as needed for spasms
Bowel: Colace and Senna, PRN bisacodyl.�
Bladder: Time void, PVRs, PRN straight cath.�
DVT Prophylaxis: Mechanical, please comment on when patient can start chemoprophylaxis
Thank you for allowing me to care for your patient. Please contact me with any questions or concerns.
[2024-09-26 12:54] LABS: Urine White Cell 26-30 /HPF (0-5)
[2024-09-26 12:55] LABS: Urine Bacteria Moderate (Negative)
[2024-09-26 12:56] LABS: Urine Granular Cast 0-2 /LPF (0); Urine Hyaline Cast 0-2 /LPF (0-2); Urine Mucus Few
[2024-09-26 12:57] LABS: Urine Red Blood Cell 70-80 /HPF (0-2)
[2024-09-26 12:58] LABS: Urine Squamous Cell 0-2 /LPF (Few)
[2024-09-26 13:58] LABS: Body Fluid for Eosinophils 10%
[2024-09-26 14:47] LABS: Protein/creatinine Ratio 0.4; Urine Protein 38 mg/dl; Urine Sodium 32 mmol/L (30-90)
[2024-09-26] MEDS: TYLENOL PO (14:58)
--- NOTE | 2024-09-26 15:29 | W.PN.UPDATE ---
Update Note
Progress Note Update
LLE medial leg incision noted to have 2x2cm fluid filled blister associated with it. Dermabond still intact, blister starting to weep serosanguinous drainage. Likely reactive to sutures/dermabond or previously placed dressings. LLE incision site was
for vein exploration only locally, no vein harvested or tunnel created into thigh. Continue vaseline gauze & dry dressings to this region until blister has resolved. continue to monitor closely for signs of infection.
[2024-09-26 17:58] LABS: Glucose - Point of Care 157 mg/dl (70-99)
[2024-09-26] MEDS: NOVOLOG FLEXPEN-LOW RESISTANCE 1 UNITS SC (17:58)
--- NOTE | 2024-09-26 19:42 | PTCARENOTE ---
Received pt from [facility]. Pt is AAOX4, no neuro deficits noted. NSR on monitor, HR 84, B/P 149/55. V-wires insulated. Pulses palpable. Generalized +1 edema throughout. Lungs diminished in base. POX 95% RA. I/S 1000. Encouraged pt to use and pt
demonstrated use X3. Inman intact, draining clear, yellow urine WNL. Noted blister on top of penis shaft. NBS, abdomen round, firm. Sternal incision approx, surgical glue present, R groin puncture scabbed, R leg incision approx, surgical glue
present. L leg incision dressing C/D/I. 22g PVA R hand flushes, no redness or edema noted. Discussed plan of care with pt. including walk. Pt agrees to plan. Will continue to monitor pt needs.
[2024-09-26] MEDS: LIDOCAINE URO-JET 2% 1 SYRINGE TOPICAL (20:42)
[2024-09-26] MEDS: LIPITOR 40 MG PO (22:00)
[2024-09-26] MEDS: LANTUS 0.3 UNITS SC (22:00)
[2024-09-26 22:01] LABS: Glucose - Point of Care 320 mg/dl (70-99)
[2024-09-26] MEDS: MELATONIN 5 MG PO (23:16)
--- NOTE | 2024-09-26 23:35 | PTCARENOTE ---
VSS, NSR on monitor. HR 78. B/P 138/61. Pt c/o inability to fall asleep. CTPA Tslina notified, melatonin ordered (See MAR). Pt resting in bed. Will continue to monitor pt needs.
[2024-09-27] VITALS (11 sets, daily range): BP systolic 120–155; BP diastolic 53–64; PULSE 67; O2SAT 96; BMI 33.7
--- NOTE | 2024-09-27 04:00 | PTCARENOTE ---
VSS. NSR on monitor. HR 63, B/P 140/60. Morning labs obtained. Pt resting in bed. Will continue to monitor pt needs.
[2024-09-27 04:13] LABS: Hematocrit 23.8 % (39.0-52.0); Hemoglobin 8.2 g/dL (13.0-18.0); Mean Corp Hgb Conc. 34.5 g/dL (33.0-37.0); Mean Corpuscular Hgb 31.1 pg (27.0-31.0); Mean Corpuscular Volume 90.2 fL (80.0-94.0); Mean Platelet Volume 9.6 fL (7.4-10.4); Platelet Count 318 10^3/uL (130-400); Red Blood Cell Count 2.64 10^6/uL (4.70-6.10); White Blood Cell Count 12.5 10^3/uL (4.8-10.8)
[2024-09-27 04:53] LABS: Blood Urea Nitrogen 131 mg/dl (9-20); Calcium 8.1 mg/dl (8.4-10.2); Carbon Dioxide 28 mmol/L (22-30); Chloride 93 mmol/L (98-107); Estimated Creatinine Clearance 15 ml/min; Glucose 170 mg/dl (70-99); Magnesium 2.7 mg/dl (1.6-2.3); Phosphorus 5.1 mg/dl (2.5-4.5); Potassium 3.9 mmol/L (3.5-5.1); Sodium 134 mmol/L (135-145); eGFR 13.82
[2024-09-27] MEDS: TYLENOL 1000 MG PO ×2 (06:26→22:48)
--- NOTE | 2024-09-27 06:59 | W.PN.CT ---
Today's Communication / Plan
-
-pod #8
-no issues overnight, appears more interactive
-Cr is trending down - 4.1 today (5.2 on 09/26, 6.5 on 09/23, 1.6-1.9 preop). Appreciate renal input
-Bumex gtt discontinued 09/23. IVF per Nephrology
-tolerating Toprol 12.5 bid. Amio is on hold
-maintain Inman
-weaned off O2 - pOx 95% on RA
-current meds (Toprol 12.5, Lipitor, Lantus/Novolog, ASA, Plavix, Protonix)
-evaluated by Physiatry. Appreciate input
-encourage IS, OOB
Assessment / Plan
-
- mv-CAD - s/p CABG x 4 (In situ FRIEDMAN to LAD, Ao to RSVG to diagonal to OM, Ao to RSVG to RPDA); Left atrial appendage exclusion [35 mm clip] on 09/19/[address] Billingsley, pod #8
- Intraop LARON: LVEF preop and postop 60% with no wma. The DAMON was verified to be free of any thrombus or debris preoperatively and found to be totally occlusive with a 35 mm clip postoperatively.
- Exertional angina with significant multivessel coronary disease
- Poorly controlled diabetic with an HbA1c of 9, insulin-dependent
- CKD stage IIIb (Cr 1.6-1.9 preop)
- Hypertension
- Hyperlipidemia
- MIKE on CPAP
- History of melanoma
- History of prostate cancer, status post surgery in 1999
- Former tobacco abuse
- Class 1 obesity (BMI 32.8)
- Acute postop blood loss anemia/ coagulopathy - s/p 2 pRBCs and 1 unit platelet
- Acute postop metabolic acidosis
- Acute postop hypovolemia with subsequent hypervolemia
- Acute postop atelectasis
- Acute postop pulmonary insufficiency
- TOMY on CKD
- Acute postop azotemia
- Acute postop oliguria
- Acute postop hyponatremia/hypocalcemia
- Acute postop hyperphosphatemia
Discussed patient care with: Nursing and Care Team
Subjective
Procedure
- s/p CABG x 4 (In situ FRIEDMAN to LAD, Ao to RSVG to diagonal to OM, Ao to RSVG to RPDA); Left atrial appendage exclusion [35 mm clip] on 09/19/[address] Billingsley
-
Date of Service: September 26, 2024
Objective Data
-
Lab Results
09/26/24 04:02
09/26/24 04:02
PT 18.6 Sec (11.4-14.6) H 09/19/24 14:48
INR 1.50 09/19/24 14:48
APTT 37.4 Sec (23.4-35.0) H 09/19/24 14:48
Vital Signs
Vital Signs
Temp Pulse Resp BP Pulse Ox
98.6 F 85 18 149/55 95
09/26/24 19:47 09/26/24 20:00 09/26/24 19:47 09/26/24 19:52 09/26/24 22:08
CT Intake/Output/Weight
09/26/24 09/26/24 09/27/24
06:59 18:59 06:59
Intake Total 1700 / 1940 240 / 1940
Output Total 930 / 1705 660 / 760 100 / 760
Balance -930 / -1225 1040 / 1180 140 / 1180
SaO2: 95
Physical Exam
-
General: Awake and AOx3
Cardiovascular: Regular rate & rhythm, No Murmurs and No Rub
Respiratory: Decreased Breath Sounds
Sternum: Stable
Incision: Clean, Dry and Intact
Extremities: Edema +1 (hands and legs b/l)
Abdomen: soft, nondistended, nontender, + BM today, no nausea
Data Reviewed
-
Lab Results: Results Reviewed
Medications: Active Meds Reviewed
Chest X-Ray: Report Reviewed and Image Reviewed
ECG: Report Reviewed and Image Reviewed
--- NOTE | 2024-09-27 07:31 | PN.DE.MGMTRT ---
Insulin Management
- -
09/27/2024 Diabetes Management Follow up
Patient admitted on 09/17 with increasing frequency of anginal symptoms and for elective cardiac catheterization - CABG 09/19.
PMH: CAD, HTN, HLD, MIKE, CKD, prostate cancer status post surgery, melanoma status post excision, psoriasis, OA, overweight and T2DM. Was taking Trulicity Q Fridays, Tresiba 30 units @ HS, Glimepiride 4mg daily at lunch and Farxiga 10mg daily in AM.
A1C 8.4% Cr 3.9(1.6-1.9 preop), eGFR 14.68
Not a candidate for oral regimen at this time given TOMY on CKD with Cr of 4.1, eGFR 13.82 today.
09/26 POD 7 Fasting glucose 160. Will increase Lantus to home dose 30 units @ HS, and NovoLog 8 units AC with low corrective with meals.
09/27 POD 8 Patient awake alert and oriented, able to discuss diabetes management. Patient states his appetite is improving. Pre meal glucose 157 to 258, hs glucose 320. Will increase AC novolog to 10 units with low corrective. Will follow for
further needed adjustments.
Pt has glucose monitor at home.
Discussed with patients nurse.
Diabetes History
- -
Type of Diabetes: 2 requiring insulin
Pre-Admission Diabetes Regimen
09/27/24
03:58
Creatinine 4.1 H*
Lab Results
Hemoglobin A1c 8.4 % (4.0-5.6) H 09/18/24 04:51
Insulin Pump Settings
IP Diabetes Regimen
09/26/24 09/26/24 09/26/24
07:34 12:05 17:52
Glucose
POC Glucose 225 H 258 H 157 H
09/26/24 09/27/24
21:59 03:58
Glucose 170 H
POC Glucose 320 H
Meal type: Dinner
Amount consumed: 100%
Amount consumed: 100%
Patient Education
[2024-09-27 08:00] LABS: Glucose - Point of Care 196 mg/dl (70-99)
[2024-09-27] MEDS: NOVOLOG FLEXPEN 10 UNITS SC ×3 (08:08→17:00)
[2024-09-27] MEDS: NOVOLOG FLEXPEN-LOW RESISTANCE 1 UNITS SC ×2 (08:08→13:18)
[2024-09-27] MEDS: VITAMIN C 500 MG PO (08:09)
[2024-09-27] MEDS: SENOKOT-S 1 TABLET PO (08:09)
[2024-09-27] MEDS: PLAVIX 75 MG PO (08:09)
[2024-09-27] MEDS: LOW STRENGTH ASPIRIN 81 MG PO (08:09)
[2024-09-27] MEDS: PROTONIX 40 MG PO (08:09)
[2024-09-27] MEDS: TOPROL XL 12.5 MG PO ×2 (08:09→20:05)
[2024-09-27] MEDS: NOVOLOG FLEXPEN SC (09:15)
--- NOTE | 2024-09-27 10:46 | W.PN.NEPH.PH ---
Today's Communication / Plan
-
Voiding trial
Assessment/Plan
-
IMP:
MV-CAD - s/p CABG x 4 Left atrial appendage exclusion [35 mm clip] on 09/19/[address] Billingsley
Exertional angina with significant multivessel coronary disease -FAMILY NURSE PRACTITIONER
Diabetic with an HbA1c of 8.4, insulin-dependent
TOMY with CKD stage IIIb (Cr 1.6-1.9 preop)-follows Dr Richardson
Proteinuria-sub nephrotic
Anemia from acute blood loss s/p 2 PRNC and 1 platelet
Acute respiratory failure on high flow O2
Hypertension
Hyperlipidemia
MIKE on CPAP
History of melanoma
History of prostate cancer, status post surgery in 1999
Former tobacco abuse
Class 1 obesity (BMI 32.8)
OA
Psoriasis
Overactive bladder
Hearing loss bilat H aids
Plan:
at this time, probable ATN TOMY though there is potential for recovery
check urine studies
IVF NSS complete today
Voiding trial
Start Flomax
Okay for rehab at this time
-
-
Date of Service: September 27, 2024
CC / HPI / ROS
-
Chief Complaint:
Tomy with CKD
History of Present Illness:
cr down 4.1
BUN stable at 131
non oliguric off diuretics
on RA
Sodium 134 but stable relatively
Review of Systems:
no cp or sob at rest
no n/v
feels weak and unable to feed himself
Labs
-
Labs:
WBC 12.5 10^3/uL (4.8-10.8) H 09/27/24 03:58
RBC 2.64 10^6/uL (4.70-6.10) L 09/27/24 03:58
Hgb 8.2 g/dL (13.0-18.0) L 09/27/24 03:58
Hct 23.8 % (39.0-52.0) L 09/27/24 03:58
Plt Count 318 10^3/uL (130-400) 09/27/24 03:58
Sodium 134 mmol/L (135-145) L 09/27/24 03:58
Potassium 3.9 mmol/L (3.5-5.1) 09/27/24 03:58
Chloride 93 mmol/L (98-107) L 09/27/24 03:58
Carbon Dioxide 28 mmol/L (22-30) 09/27/24 03:58
BUN 131 mg/dl (9-20) H* 09/27/24 03:58
Creatinine 4.1 mg/dL (0.7-1.3) H* 09/27/24 03:58
eGFR 13.82 09/27/24 03:58
Glucose 170 mg/dl (70-99) H 09/27/24 03:58
Calcium 8.1 mg/dl (8.4-10.2) L 09/27/24 03:58
Phosphorus 5.1 mg/dl (2.5-4.5) H 09/27/24 03:58
Soh-Q-Oxwogcvkjxf Pept 11234 pg/ml 09/23/24 04:22
Albumin 3.3 g/dl (3.5-5.0) L 09/25/24 04:08
Physical Exam
-
Vital Signs:
Vital Signs
Temp Pulse Resp BP Pulse Ox
98.3 F 68 18 124/53 95
09/27/24 08:00 09/27/24 09:00 09/27/24 08:00 09/27/24 08:09 09/27/24 09:32
Cardiovascular:: Regular rate and rhythm
Respiratory:: Bilateral: Coarse
Lung Excursion:: Normal
Abdomen:: Nontender and Soft
Bowel Sounds:: Normal
Extremity Edema:: None: Bilateral:
[2024-09-27] MEDS: FLOMAX 0.4 MG PO (11:20)
--- NOTE | 2024-09-27 11:58 | CM ---
auth process started with mary rajan to [facility], awaiting determination.
--- NOTE | 2024-09-27 12:08 | PTCARENOTE ---
Epicardial wire cut by CT RN FIRST ASSISTANT. VSS. Resting in bed. No change in assessment
[2024-09-27 12:38] LABS: Glucose - Point of Care 196 mg/dl (70-99)
[2024-09-27] MEDS: TYLENOL PO (13:39)
[2024-09-27] MEDS: NSS IV (13:49)
[2024-09-27 17:00] LABS: Glucose - Point of Care 251 mg/dl (70-99)
[2024-09-27] MEDS: NOVOLOG FLEXPEN-LOW RESISTANCE 3 UNITS SC (17:00)
[2024-09-27] MEDS: SENOKOT-S PO (19:52)
--- NOTE | 2024-09-27 21:00 | PTCARENOTE ---
Patient received OOB in chair watching television. Family at bedside. Patient A+A+Ox3. No neurological deficits noted. No c/o headache, dizziness or lightheadedness. Patient had BM. Small amount of edwin blood noted while wiping - PA for CT
Surgery made aware (Scarlett Alcala PA-C). Patient assisted to bed. No s/s of respiratory distress. No c/o SOB. Room air. SpO2 96%. Sinus Rhythm with First Degree AV Block and BBC. Heart rate 60-80's. No c/o chest pain, pressure or
discomfort. Abdomen soft, round, nontender. Normoactive bowels sounds. Voiding. Generalized edema. Positive, palpable pulses. Sternal incision intact - Surgical adhesive - Open to air. Three chest tube sites - Open to air. Right groin
puncture site intact. Right knee incision - Surgical adhesive - Open to air. Left knee region with dressing. Assessment as documented.
[2024-09-27 22:47] LABS: Glucose - Point of Care 257 mg/dl (70-99)
[2024-09-27] MEDS: LIPITOR 40 MG PO (22:48)
[2024-09-27] MEDS: LANTUS 0.3 UNITS SC (22:48)
--- NOTE | 2024-09-28 | PTCARENOTE ---
Patient assisted OOB to rolling walker to void - Voided 300 ml yellow, clear urine. Patient given CHG bath and linens changed. Patient back to bed. Assessment/Interventions as documented.
[2024-09-28 03:23] VITALS: BP 133/58
[2024-09-28 03:30] VITALS: BP 133/58
--- NOTE | 2024-09-28 04:00 | PTCARENOTE ---
Patient A+A+Ox3. No neurological deficits noted. Vital signs obtained. AM lab work collected and sent. OOB in AM. Assessment/Interventions as documented.
[2024-09-28 04:10] LABS: Hematocrit 23.5 % (39.0-52.0); Mean Corpuscular Hgb 31.4 pg (27.0-31.0); Mean Corpuscular Volume 92.2 fL (80.0-94.0); Mean Platelet Volume 9.5 fL (7.4-10.4); Platelet Count 352 10^3/uL (130-400); Red Blood Cell Count 2.55 10^6/uL (4.70-6.10); Red Cell Dist. Width 13.2 % (11.5-14.5); White Blood Cell Count 13.5 10^3/uL (4.8-10.8)
[2024-09-28 04:49] LABS: Calcium 8.3 mg/dl (8.4-10.2); Carbon Dioxide 29 mmol/L (22-30); Chloride 94 mmol/L (98-107); Estimated Creatinine Clearance 17 ml/min; Glucose 145 mg/dl (70-99); Magnesium 2.7 mg/dl (1.6-2.3); Phosphorus 4.8 mg/dl (2.5-4.5); Potassium 3.8 mmol/L (3.5-5.1); Sodium 135 mmol/L (135-145); eGFR 16.16
[2024-09-28 04:56] LABS: Blood Urea Nitrogen 129 mg/dl (9-20)
[2024-09-28 05:56] VITALS: BMI 33.7
[2024-09-28] MEDS: TYLENOL 1000 MG PO (06:01)
--- NOTE | 2024-09-28 07:23 | PN.DE.MGMTRT ---
Insulin Management
- -
09/28/2024 Diabetes Management Follow up
Patient admitted on 09/17 with increasing frequency of anginal symptoms and for elective cardiac catheterization - CABG 09/19.
PMH: CAD, HTN, HLD, MIKE, CKD, prostate cancer status post surgery, melanoma status post excision, psoriasis, OA, overweight and T2DM. Was taking Trulicity Q Fridays, Tresiba 30 units @ HS, Glimepiride 4mg daily at lunch and Farxiga 10mg daily in AM.
A1C 8.4% Cr 3.9(1.6-1.9 preop), eGFR 14.68
Not a candidate for oral regimen at this time given TOMY on CKD with Cr of 4.1, eGFR 13.82 today.
09/27 POD 8 Patient awake alert and oriented, able to discuss diabetes management. Appetite is improving. Pre meal glucose 157 to 258, hs glucose 320. Will increase AC novolog to 10 units with low corrective.
09/28 POD 9 Glucose pre meal 196, will further increase AC novolog to 13 units with low corrective. Continue lantus 30 units @ hs, fasting lgucose 145. Will follow for further needed adjustments.
Pt has glucose monitor at home.
Discussed with patients nurse.
Diabetes History
- -
Type of Diabetes: 2 requiring insulin
Pre-Admission Diabetes Regimen
09/28/24
03:38
Creatinine 3.6 H
Lab Results
Hemoglobin A1c 8.4 % (4.0-5.6) H 09/18/24 04:51
Insulin Pump Settings
IP Diabetes Regimen
09/27/24 09/27/24 09/27/24
07:59 12:36 16:58
Glucose
POC Glucose 196 H 196 H 251 H
09/27/24 09/28/24
22:44 03:38
Glucose 145 H
POC Glucose 257 H
Meal type: Dinner
Meal type: Lunch
Amount consumed: 100%
Amount consumed: 100%
Patient Education
--- NOTE | 2024-09-28 07:26 | W.PN.CT ---
Today's Communication / Plan
-
-pod #9
-doing well, no issues overnight
-weaned off O2 - pOx 97 on RA
-Cr is improving - 3.6 today (4.1 yesterday). UO 700+/900+ in 12/24 hrs. Storm dcd 09/27
-continue current meds
-appreciate everyone's input
-plan to d/c to [facility] when bed available and approved by insurance
-continue PT/OT
Assessment / Plan
-
- mv-CAD - s/p CABG x 4 (In situ FRIEDMAN to LAD, Ao to RSVG to diagonal to OM, Ao to RSVG to RPDA); Left atrial appendage exclusion [35 mm clip] on 09/19/[address] Billingsley, pod #9
- Intraop LARON: LVEF preop and postop 60% with no wma. The DAMON was verified to be free of any thrombus or debris preoperatively and found to be totally occlusive with a 35 mm clip postoperatively.
- Exertional angina with significant multivessel coronary disease
- Poorly controlled diabetic with an HbA1c of 9, insulin-dependent
- CKD stage IIIb (Cr 1.6-1.9 preop)
- Hypertension
- Hyperlipidemia
- MIKE on CPAP
- History of melanoma
- History of prostate cancer, status post surgery in 1999
- Former tobacco abuse
- Class 1 obesity (BMI 32.8)
- Acute postop blood loss anemia/ coagulopathy - s/p 2 pRBCs and 1 unit platelet
- Acute postop metabolic acidosis
- Acute postop hypovolemia with subsequent hypervolemia
- Acute postop atelectasis
- Acute postop pulmonary insufficiency
- TOMY on CKD
- Acute postop azotemia
- Acute postop oliguria
- Acute postop hyponatremia/hypocalcemia
- Acute postop hyperphosphatemia
Discussed patient care with: Nursing and Care Team
Subjective
Procedure
- s/p CABG x 4 (In situ FRIEDMAN to LAD, Ao to RSVG to diagonal to OM, Ao to RSVG to RPDA); Left atrial appendage exclusion [35 mm clip] on 09/19/[address] Billingsley
-
Date of Service: September 28, 2024
Objective Data
-
Lab Results
09/28/24 03:38
09/28/24 03:38
PT 18.6 Sec (11.4-14.6) H 09/19/24 14:48
INR 1.50 09/19/24 14:48
APTT 37.4 Sec (23.4-35.0) H 09/19/24 14:48
Vital Signs
Vital Signs
Temp Pulse Resp BP Pulse Ox
97.9 F 60 16 133/58 97
09/28/24 03:30 09/28/24 04:00 09/28/24 03:30 09/28/24 03:30 09/28/24 03:30
CT Intake/Output/Weight
09/27/24 09/28/24 09/28/24
18:59 06:59 18:59
Intake Total 1420 / 1660 240 / 1660
Output Total 560 / 1260 700 / 1260
Balance 860 / 400 -460 / 400
SaO2: 97
Physical Exam
-
General: Awake and AOx3
Cardiovascular: Regular rate & rhythm, No Murmurs and No Rub
Respiratory: Decreased Breath Sounds
Sternum: Stable
Incision: Clean, Dry and Intact
Extremities: Edema +1 (hands and legs b/l)
Abdomen: soft, nondistended, nontender, + BM, no nausea
Data Reviewed
-
Lab Results: Results Reviewed
Medications: Active Meds Reviewed
Chest X-Ray: Report Reviewed and Image Reviewed
ECG: Report Reviewed and Image Reviewed
[2024-09-28 07:57] VITALS: BP 119/47
[2024-09-28 08:02] LABS: Glucose - Point of Care 162 mg/dl (70-99)
--- NOTE | 2024-09-28 08:17 | W.PN.NEPH.PH ---
Today's Communication / Plan
-
Stable for discharge to rehab
Holding all diuretics and losartan
Will need daily BMP
Assessment/Plan
-
IMP:
MV-CAD - s/p CABG x 4 Left atrial appendage exclusion [35 mm clip] on 09/19/[address] Billingsley
Exertional angina with significant multivessel coronary disease -COMMISSIONING AGENT
Diabetic with an HbA1c of 8.4, insulin-dependent
TOMY with CKD stage IIIb (Cr 1.6-1.9 preop)-follows Dr Richardson
Proteinuria-sub nephrotic
Anemia from acute blood loss s/p 2 PRNC and 1 platelet
Acute respiratory failure on high flow O2
Hypertension
Hyperlipidemia
MIKE on CPAP
History of melanoma
History of prostate cancer, status post surgery in 1999
Former tobacco abuse
Class 1 obesity (BMI 32.8)
OA
Psoriasis
Overactive bladder
Hearing loss bilat H aids
Plan:
at this time, probable ATN TOMY
Creatinine continues to improve down to 3.6 remains nonoliguric
BUN slow to decrease
holding diuretics in setting of profound azotemia
Voiding trial
Started Flomax previously
Okay for rehab at this time
-
-
Date of Service: September 28, 2024
CC / HPI / ROS
-
Chief Complaint:
Tomy with CKD
History of Present Illness:
cr down 3.6
BUN stable at 129
non oliguric off diuretics
on RA
Sodium 13 \\5
Review of Systems:
no cp or sob at rest
no n/v
feels weak and unable to feed himself
Nonoliguric
Labs
-
Labs:
WBC 13.5 10^3/uL (4.8-10.8) H 09/28/24 03:38
RBC 2.55 10^6/uL (4.70-6.10) L 09/28/24 03:38
Hgb 8.0 g/dL (13.0-18.0) L 09/28/24 03:38
Hct 23.5 % (39.0-52.0) L 09/28/24 03:38
Plt Count 352 10^3/uL (130-400) 09/28/24 03:38
Sodium 135 mmol/L (135-145) 09/28/24 03:38
Potassium 3.8 mmol/L (3.5-5.1) 09/28/24 03:38
Chloride 94 mmol/L (98-107) L 09/28/24 03:38
Carbon Dioxide 29 mmol/L (22-30) 09/28/24 03:38
BUN 129 mg/dl (9-20) H* 09/28/24 03:38
Creatinine 3.6 mg/dL (0.7-1.3) H 09/28/24 03:38
eGFR 16.16 09/28/24 03:38
Glucose 145 mg/dl (70-99) H 09/28/24 03:38
Calcium 8.3 mg/dl (8.4-10.2) L 09/28/24 03:38
Phosphorus 4.8 mg/dl (2.5-4.5) H 09/28/24 03:38
Iqk-J-Nlvcyyfvmiy Pept 11764 pg/ml 09/23/24 04:22
Albumin 3.3 g/dl (3.5-5.0) L 09/25/24 04:08
Physical Exam
-
Vital Signs:
Vital Signs
Temp Pulse Resp BP Pulse Ox
97.9 F 60 16 133/58 97
09/28/24 03:30 09/28/24 04:00 09/28/24 03:30 09/28/24 03:30 09/28/24 07:31
Cardiovascular:: Regular rate and rhythm
Respiratory:: Bilateral: Coarse
Lung Excursion:: Normal
Abdomen:: Nontender and Soft
Bowel Sounds:: Normal
Extremity Edema:: None: Bilateral:
[2024-09-28] MEDS: VITAMIN C 500 MG PO (08:38)
[2024-09-28] MEDS: TOPROL XL 12.5 MG PO (08:38)
[2024-09-28] MEDS: PLAVIX 75 MG PO (08:38)
[2024-09-28] MEDS: NOVOLOG FLEXPEN-LOW RESISTANCE 1 UNITS SC ×2 (08:38→11:55)
[2024-09-28] MEDS: LOW STRENGTH ASPIRIN 81 MG PO (08:38)
[2024-09-28] MEDS: SENOKOT-S 1 TABLET PO (08:38)
[2024-09-28] MEDS: FLOMAX 0.4 MG PO (08:38)
[2024-09-28] MEDS: PROTONIX 40 MG PO (08:38)
[2024-09-28] MEDS: NOVOLOG FLEXPEN 13 UNITS SC ×2 (08:39→11:55)
[2024-09-28] MEDS: ROCALTROL 0.25 MCG PO (08:56)
[2024-09-28 11:55] LABS: Glucose - Point of Care 179 mg/dl (70-99)
[2024-09-28 13:35] VITALS: BP 124/53; BP 148/50; PULSE 64; O2SAT 98
--- NOTE | 2024-09-28 14:22 | W.DCSUMMARY ---
Discharge Summary
Discharge Data
Date of Admission: 09/17/24
Date of Discharge: 09/28/24
-
Pending Results: No
Hospital Course
Primary care physician: Twan Sapp
Outpatient reinsurance accountant: Rito Rosas
Inpatient consultants: [facility], Nephrology, diabetes nurse practitioner, physiatry
Procedures:
1. Coronary artery bypass grafting with left atrial appendage clip
Primary Diagnosis:
1. Coronary artery disease
Secondary Diagnoses:
1. Type 2 diabetes (A1c 8.4)
3. CKD stage IIIb (GFR 39)
4. Hypertension
5. Hyperlipidemia
6. MIKE with CPAP use
7. History of melanoma
8. History of prostate cancer status post surgery in 1999
9. Former tobacco abuse
10. Obesity (BMI 33.7)
11. post-op vasoplegia
12. Post op TOMY/ATN on CKD
13. Acute postop blood loss anemia/ coagulopathy - s/p 2 PRBCs and 1 unit platelet
14. Acute postop metabolic acidosis-expected
15. Acute postop respiratory insufficiency
HPI: 83 year old male with PMH IDDM, HTN, HLD, CKD was admitted 09/17 after elective cardiac catheterization for increasing angina, reported triple-vessel coronary disease.
Hospital course: Outpatient Farxiga and losartan were held for 2 days preoperatively. Patient underwent a CABG x 4 (FRIEDMAN to LAD, RSVG to diagonal to OM, RSVG to RPDA), Left atrial appendage exclusion [#35 mm clip] with Dr. Rachid Billingsley. Post LARON
reported an EF of 60%. Right patient returned to CVICU on Levophed at 2. Due to vasoplegia, patient received 1 packed cell and 1 platelet along with 500 cc of LR and 2 A of bicarb. On postoperative day #1, patient's creatinine was 2.1 from
baseline of 1.6. Lactated Ringer's was continued at 100 cc/h. Afternoon creatinine increased to 2.8 and nephrology was consulted. Dobutamine was restarted and TTE reported normal LV function. On postoperative day #2, creatinine increased further
to 3.9 and Bumex 1 mg IV push x 2 was given. Patient required high flow oxygen at 75% / 50 L which was weaned down to 6 L by the end of the day. Renal ultrasound reported ATN. Patient remained in a high output renal failure with creatinine level
peak of 6.5 on postoperative day #4. Patient was evaluated by diabetes nurse practitioner team and transition to Lantus 30 units at at bedtime and NovoLog 10 units AC in preparation for discharge. Home Farxiga, Trulicity, and glimepiride, losartan
were held due to TOMY. Patient continued to diurese well with creatinine decreasing to 3.6 on the day of discharge. Bladder catheter was removed on 12/12 and Flomax initiated with adequate spontaneous urine output. Patient was evaluated by
physiatry and deemed appropriate from [facility]. Insurance approval was obtained on 09/28 and patient was deemed stable for discharge to acute rehab.
Home medication changes:
Stop Farxiga, Trulicity, Glimeperide, Losartan
Discharge Plan
-
Patient Disposition: Acute Rehab Facility
Discharge Diagnosis/Procedures: triple vessel CAD/CABG x 4 & DAMON clip
Condition: Fair
Diet: Low Cholesterol, Low Sodium and Diabetic, Carb Controlled
Activity: No strenuous activity
Driving Restrictions: Not until seen by your Dr
Bathing Restrictions: OK to Shower
Other Services: Cardiac Rehab
Specialty Instructions: Weigh Daily- Call MD for wt gain/loss 3 lbs overnight/5 lbs in 1 week
Activity Restrictions/Additional Instructions:
ACTIVITY:
-No strenuous activity: no heavy lifting, pushing, pulling anything over 15 pounds for one month
-continue to use stairs as tolerated
DRIVING RESTRICTIONS:
-No driving for one month or until approved by your surgeon
WOUND CARE:
-Shower daily. Use soap & water.
-No lotions, creams or powders on incision area.
DIET:
-continue a low fat/low cholesterol diet.
-IF you are diabetic, continue carb controlled diet.
CARDIAC REHAB:
-Please make appointment to start in 5-6 weeks with your local hospital program. (See Cardiac Rehabilitation Discharge Booklet).
SPECIALTY INSTRUCTIONS:
-Weigh yourself daily. Call your physician for any weight gain/loss of 3 lbs overnight or 5 lbs in one week.
-REPORT any clicking noise or uneven appearance of your sternum to your surgeon immediately.
-If you smoke, you are instructed to quit. The [place] smoking hotline phone number is [phone]
Referrals:
CT Transitional Care Nurse [Outside]
(
The Cardiothoracic Transitional Care Nurse will call you to set up a visit in 1-2 days.)
[facility]. Cardiac Rehab [Outside] - 11/05/24 1:00 pm
(Cardiac Rehab Orientation appointment is on Tuesday November 05, 2024 @ 1:00pm
The Cardiac Rehab gym is located on the first floor of the [facility].)
Rito Rosas DO [Active] - 10/31/24 2:00 pm
Lora Johnson CRNP [Specified Professional Personl] - in four to six weeks
Twan Perry DO [Family Provider] - (Please make an appointment in four to six weeks. )
Rachid Billingsley MD [Active] - 10/22/24 1:30 pm
Prescriptions:
New
clopidogrel 75 mg Tablet
75 mg PO DAILY Qty: 0 0RF
metoprolol succinate [Toprol XL] 25 mg tablet extended release 24 hr
25 mg PO DAILY Qty: 30 1RF
acetaminophen 325 mg Tablet
650 mg PO Q4HPRN PRN (Reason: mild pain,headache,temp >101F ) Qty: 0 0RF
pantoprazole 40 mg Tablet,Delayed Release (Dr/Ec)
40 mg PO DAILY Qty: 0 0RF
Insulin Glargine Lantus [Lantus] 30 UNITS
Subcutaneous Insulin Syringe [Syringe-Insulin] 0 UNIT
As Directed mls/hr SC HS
Reason for use: diabetes
Ordered By: Corrina Medley CRNP
Last Taken: 09/27/24 22:48 0.3 mls
insulin aspart U-100 100 unit/mL (3 mL) Insulin Pen
10 unit SC AC Qty: 0 0RF
sennosides-docusate sodium 8.6-50 mg Tablet
1 tab PO Q12 Qty: 0 0RF
tamsulosin 0.4 mg Capsule
0.4 mg PO DAILY Qty: 0 0RF
Continued
oxybutynin chloride 10 MG tablet extended release 24hr
10 mg PO HS
atorvastatin 40 mg Tablet
40 mg PO HS
aspirin 81 mg Tablet
81 mg PO DAILY
triamcinolone acetonide 0.025 % Cream
1 applic TOPICAL DAILY PRN (Reason: rash)
calcitriol 0.25 mcg Capsule
0.25 mcg PO MOWEFR
Discontinued
glimepiride 4 mg Tablet
4 mg PO HS
losartan 25 mg Tablet
25 mg PO HS
metoprolol tartrate 25 mg Tablet
25 mg PO NOON
insulin degludec [Tresiba FlexTouch U-100] 100 unit/mL (3 mL) Insulin Pen
30 unit SC HS
dapagliflozin propanediol [Farxiga] 10 mg Tablet
10 mg PO DAILY
Trulicity 1.5 mg/0.5 mL Pen Injector
1.5 mg SC QWEEK
Discharge Orders:
Discharge Patient (As Directed); Ordered 09/28/24
Ordered By: Corrina Medley
Care Plan Goals
Care Plan Goals:
Problem: Readiness for enhanced knowledge related to diagnosis and treatment plan
Goal: Understand your diagnosis and treatment plan needs, including medications if applicable.
Instructions: Know your diagnosis, underlying causes and treatment plan options, including medications if applicable. Consult with your health care team to learn about your diagnosis and treatment plan, including medications if applicable.
Discharge Date and Time
Print Language: CYMRAES
--- NOTE | 2024-09-28 14:52 | CM ---
approval for [facility]- # [id number]- rehab level 1- 09/28-10/03, NRD 10/04 F [phone]. confirmed there is an avail bed.
--- NOTE | 2024-09-28 16:20 | PTCARENOTE ---
REport given to [facility]. Pt belongings packed up and took some of them home. Ambulated in hallway with RN. VSS Assessment unchanged from prior.
== END 2024-09-28 16:31 | DRG 233 ==
LOC: CVICU 11:51
PROVIDERS: Anesthesiology; Hospitalist; Nurse Practitioner; Physician Assistant; Physician Assistant Medical; Specialist; ADMITTING PHYSICIAN Internal Medicine Interventional Cardiology; ATTENDING PHYSICIAN Thoracic Surgery (Cardiothoracic Vascular Surgery); CONSULT PHYSICIAN Internal Medicine; CONSULT PHYSICIAN Internal Medicine Critical Care Medicine; CONSULT PHYSICIAN Physical Medicine & Rehabilitation; FAMILY PHYSICIAN Family Medicine
PROC: 4A033BC Measurement of Arterial Pressure, Coronary, Percutaneous Approach (ICD-10-PCS; 2024-09-17)
PROC: B2151ZZ Fluoroscopy of Left Heart using Low Osmolar Contrast (ICD-10-PCS; 2024-09-17)
PROC: 4A023N7 Measurement of Cardiac Sampling and Pressure, Left Heart, Percutaneous Approach (ICD-10-PCS; 2024-09-17)
PROC: B2111ZZ Fluoroscopy of Multiple Coronary Arteries using Low Osmolar Contrast (ICD-10-PCS; 2024-09-17)
PROC: 06BQ4ZZ Excision of Left Saphenous Vein, Percutaneous Endoscopic Approach (ICD-10-PCS; 2024-09-19)
PROC: 30233N1 Transfusion of Nonautologous Red Blood Cells into Peripheral Vein, Percutaneous Approach (ICD-10-PCS; 2024-09-19)
PROC: 5A1221Z Performance of Cardiac Output, Continuous (ICD-10-PCS; 2024-09-19)
PROC: 30233R1 Transfusion of Nonautologous Platelets into Peripheral Vein, Percutaneous Approach (ICD-10-PCS; 2024-09-19)
PROC: 021209W Bypass Coronary Artery, Three Arteries from Aorta with Autologous Venous Tissue, Open Approach (ICD-10-PCS; 2024-09-19)
PROC: 02L70CK Occlusion of Left Atrial Appendage with Extraluminal Device, Open Approach (ICD-10-PCS; 2024-09-19)
PROC: 02100Z9 Bypass Coronary Artery, One Artery from Left Internal Mammary, Open Approach (ICD-10-PCS; 2024-09-19)
PROC: B24BZZ4 Ultrasonography of Heart with Aorta, Transesophageal (ICD-10-PCS; 2024-09-19)
PROC: 5A09357 Assistance with Respiratory Ventilation, Less than 24 Consecutive Hours, Continuous Positive Airway Pressure (ICD-10-PCS; 2024-09-25)
DX: I25.110 Atherosclerotic heart disease of native coronary artery with unstable angina pectoris (principal); J95.1 Acute pulmonary insufficiency following thoracic surgery; N17.0 Acute kidney failure with tubular necrosis; Q21.12 Patent foramen ovale; D62 Acute posthemorrhagic anemia; D68.8 Other specified coagulation defects; E87.20 Acidosis, unspecified; J98.11 Atelectasis; E87.1 Hypo-osmolality and hyponatremia; G47.33 Obstructive sleep apnea (adult) (pediatric); I12.9 Hypertensive chronic kidney disease with stage 1 through stage 4 chronic kidney disease, or unspecified chronic kidney disease; E78.00 Pure hypercholesterolemia, unspecified; E66.811 Obesity, class 1; N18.32 Chronic kidney disease, stage 3b; E10.22 Type 1 diabetes mellitus with diabetic chronic kidney disease; E83.51 Hypocalcemia; S80.822A Blister (nonthermal), left lower leg, initial encounter; Y83.8 Other surgical procedures as the cause of abnormal reaction of the patient, or of later complication, without mention of misadventure at the time of the procedure; E10.65 Type 1 diabetes mellitus with hyperglycemia; N99.0 Postprocedural (acute) (chronic) kidney failure; Y83.2 Surgical operation with anastomosis, bypass or graft as the cause of abnormal reaction of the patient, or of later complication, without mention of misadventure at the time of the procedure; E87.70 Fluid overload, unspecified; E86.1 Hypovolemia; E83.39 Other disorders of phosphorus metabolism; Z68.33 Body mass index [BMI] 33.0-33.9, adult; L40.9 Psoriasis, unspecified; H91.93 Unspecified hearing loss, bilateral; M19.90 Unspecified osteoarthritis, unspecified site; N32.81 Overactive bladder; I65.23 Occlusion and stenosis of bilateral carotid arteries; Z79.4 Long term (current) use of insulin; Z79.82 Long term (current) use of aspirin; Z79.899 Other long term (current) drug therapy; Z82.49 Family history of ischemic heart disease and other diseases of the circulatory system; Z85.46 Personal history of malignant neoplasm of prostate; Z85.820 Personal history of malignant melanoma of skin; Z87.891 Personal history of nicotine dependence
CPT/HCPCS: 93308; 36600; 71045; 71046; 71250; 76775; 80048; 80053; 80061; 81003; 81015; 81099; 82010; 82248; 82330; 82565; 82570; 82805; 82810; 82947; 82962; 83036; 83605; 83735; 83880; 84100; 84132; 84134; 84156; 84300; 84302; 84520; 85014; 85018; 85027; 85049; 85347; 85610; 85730; 86850; 86900; 86901; 86920; 93005; 93306; 93312; 93320; 93325; 93458; 93799; 93880; 94002; 97110; 97112; 97116; 97163; 97167; 97530; 97535; C1713; C1769; C1894; J1205; J2916; P9016; P9045; P9047; P9073; Q9950; Q9967

== ENCOUNTER 2024-11-16 16:03 | Outpatient (RCR) | payer OTHER, SELFPAY ==
[2024-11-05 15:27] LABS: Glucose - Point of Care 198 mg/dl (70-99)
[2024-11-05 16:20] LABS: Glucose - Point of Care 167 mg/dl (70-99)
[2024-11-07 14:49] LABS: Glucose - Point of Care 117 mg/dl (70-99)
[2024-11-07 15:56] LABS: Glucose - Point of Care 70 mg/dl (70-99)
[2024-11-07 16:00] LABS: Glucose - Point of Care 92 mg/dl (70-99)
[2024-11-07 16:16] LABS: Glucose - Point of Care 133 mg/dl (70-99)
[2024-11-09 14:46] LABS: Glucose - Point of Care 335 mg/dl (70-99)
[2024-11-12 14:48] LABS: Glucose - Point of Care 191 mg/dl (70-99)
[2024-11-12 15:37] LABS: Glucose - Point of Care 142 mg/dl (70-99)
[2024-11-14 14:55] LABS: Glucose - Point of Care 207 mg/dl (70-99)
[2024-11-14 15:43] LABS: Glucose - Point of Care 142 mg/dl (70-99)
[2024-11-16 15:04] LABS: Glucose - Point of Care 107 mg/dl (70-99)
[2024-11-16 15:55] LABS: Glucose - Point of Care 146 mg/dl (70-99)
== END 2024-11-16 23:59 | disposition home or self-care (01) ==
LOC: CRHB 16:03
PROVIDERS: ATTENDING PHYSICIAN Nuclear Medicine Nuclear Cardiology
DX: I25.10 Atherosclerotic heart disease of native coronary artery without angina pectoris (principal); Z95.1 Presence of aortocoronary bypass graft
CPT/HCPCS: 82962; G0422; G0423

== ENCOUNTER → 2024-12-05 09:20 | Outpatient (REF) | payer OTHER, SELFPAY | LOC: HWRAD 09:20 | PROVIDERS: ATTENDING PHYSICIAN Family Medicine | DX: R22.42 Localized swelling, mass and lump, left lower limb (principal) | CPT/HCPCS: 76882 ==

== ENCOUNTER 2024-12-12 15:31 | Outpatient (RCR) | payer OTHER, SELFPAY ==
[2024-11-19 14:59] LABS: Glucose - Point of Care 117 mg/dl (70-99)
[2024-11-21 14:50] LABS: Glucose - Point of Care 156 mg/dl (70-99)
[2024-11-21 15:40] LABS: Glucose - Point of Care 101 mg/dl (70-99)
[2024-11-23 14:39] LABS: Glucose - Point of Care 176 mg/dl (70-99)
[2024-11-23 15:31] LABS: Glucose - Point of Care 145 mg/dl (70-99)
[2024-11-26 14:59] LABS: Glucose - Point of Care 176 mg/dl (70-99)
[2024-11-26 15:44] LABS: Glucose - Point of Care 137 mg/dl (70-99)
[2024-12-10 14:51] LABS: Glucose - Point of Care 166 mg/dl (70-99)
[2024-12-10 15:41] LABS: Glucose - Point of Care 142 mg/dl (70-99)
== END 2024-12-12 23:59 | disposition home or self-care (01) ==
LOC: CRHB 15:31
PROVIDERS: ATTENDING PHYSICIAN Nuclear Medicine Nuclear Cardiology
DX: I25.10 Atherosclerotic heart disease of native coronary artery without angina pectoris (principal); Z95.1 Presence of aortocoronary bypass graft
CPT/HCPCS: 82962; G0422; G0423

== ENCOUNTER → 2024-12-14 16:06 | Outpatient (REF) | payer OTHER, SELFPAY | LOC: RCS 16:06 | PROVIDERS: ATTENDING PHYSICIAN Nuclear Medicine Nuclear Cardiology; FAMILY PHYSICIAN Family Medicine | DX: Z95.1 Presence of aortocoronary bypass graft (principal); R07.9 Chest pain, unspecified | CPT/HCPCS: 93306 ==

== ENCOUNTER → 2024-12-19 13:01 | Outpatient (REF) | payer OTHER, SELFPAY ==
[2024-12-19 16:07] LABS: Blood Urea Nitrogen 40 mg/dl (9-20); Calcium 10.2 mg/dl (8.4-10.2); Carbon Dioxide 26 mmol/L (22-30); Chloride 105 mmol/L (98-107); Glucose 98 mg/dl (70-99); Potassium 5.2 mmol/L (3.5-5.1); Sodium 139 mmol/L (135-145); eGFR 27.66
== END ==
LOC: HWLAB 13:01
PROVIDERS: ATTENDING PHYSICIAN Specialist; FAMILY PHYSICIAN Family Medicine
DX: R80.8 Other proteinuria (principal); N18.32 Chronic kidney disease, stage 3b
CPT/HCPCS: 36415; 80048

== ENCOUNTER 2025-01-14 15:27 | Outpatient (RCR) | payer OTHER, SELFPAY ==
[2025-01-11 14:54] LABS: Glucose - Point of Care 163 mg/dl (70-99)
== END 2025-01-14 23:59 | disposition home or self-care (01) ==
LOC: CRHB 15:27
PROVIDERS: ATTENDING PHYSICIAN Nuclear Medicine Nuclear Cardiology
DX: I25.10 Atherosclerotic heart disease of native coronary artery without angina pectoris; Z95.1 Presence of aortocoronary bypass graft
CPT/HCPCS: 82962; G0422; G0423

== ENCOUNTER 2025-02-08 16:11 | Outpatient (RCR) | payer OTHER, SELFPAY ==
[2025-01-16 14:53] LABS: Glucose - Point of Care 164 mg/dl (70-99)
== END 2025-02-08 23:59 | disposition home or self-care (01) ==
LOC: CRHB 16:11
PROVIDERS: ATTENDING PHYSICIAN Nuclear Medicine Nuclear Cardiology; FAMILY PHYSICIAN Family Medicine
DX: I25.10 Atherosclerotic heart disease of native coronary artery without angina pectoris (principal); Z95.1 Presence of aortocoronary bypass graft (principal)
CPT/HCPCS: 82962; 93005; G0422; G0423

== ENCOUNTER 2025-02-14 11:42 | Inpatient (IN) | payer OTHER, SELFPAY ==
[2025-02-14] VITALS (45 sets, daily range): BP systolic 110–205; BP diastolic 43–121; BMI 32.3; BMI 31.9
--- NOTE | 2025-02-14 10:53 | EDRN ---
1054 Ca Glu given
1054 paceing started @ 20
[2025-02-14] MEDS: CALCIUM GLUCONATE 1000 MG IV ×2 (10:55→13:44)
--- NOTE | 2025-02-14 10:55 | ED.GENMED ---
History of Present Illness
General
Chief Complaint: Breathing Problem
Source: patient and ambulance crew
Exam Limitations: none
Time Seen by Provider: 02/14/25 10:53
Nursing documentation reviewed up to this point in time: agreed with
History of Present Illness
History of Present Illness:
84-year-old male presents emergency room complaining of shortness of breath. Patient had what appeared to be a seizure at home. He had episodes of unresponsiveness with EMS.
Past History
Past History
ED Past Medical History: CAD, IDDM, NIDDM and ID
ED Past Surgical History: Cardiac (Cardiac catheterization, CABG) and Tonsilectomy
Social History
Tobacco: Former smoker
Alcohol: None
Drug: None
Personal:
Living: with family
Employment: Retired
Review of Systems
Review of Systems
Allergies reviewed?: Yes
All Other Systems: Not applicable
Constitutional: Reports no symptoms
EENT: Reports no symptoms
Respiratory: Reports trouble breathing
Cardiac: Reports chest pain
ABD/GI: Reports no symptoms
: Reports no symptoms
Musculoskeletal: Reports no symptoms
Skin: Reports no symptoms
Neurological: Reports weakness
Endocrine: Reports no symptoms
Hematologic/Lymphatic: Reports no symptoms
Psychiatric: Reports no symptoms
Phy Exam
Physical Exam
Physical Exam:
Physical Exam
General: Ill-appearing, afebrile
Neck: supple. no meningeal signs. normal posterior pharynx
Heart: s1/s2 regular rate and rhythm, but intermittently bradycardic. equal radial
pulses. Midline sternotomy scar
HEENT: Pupils equal round reactive to light, EOMI
Lungs: no acute respiratory distress. clear bilaterally
Abdomen: normal bowel sounds. not tender. no CVAT
Neuro: alert and oriented. no focal neurological deficits cranial nerves II through XII intact
Skin: no rash
Psychiatric: well kept. interactive and cooperative
Extremities: no edema. no calf tenderness. negative homans. good distal pulses
Scores
Heart Failure Risk
Heart Failure Risk Score: Not Applicable
Course
Orders/Labs/Results
Orders:
Orders
02/14/25 Lunch
NPO
Allow oral meds: Yes
Allow clear liquids: Sips of Clears
02/14/25 10:54
Calcium CHLORIDE [Calcium Chloride 10% Syringe] 1,000 mg .ROUTE .STK-MED ONE
Calcium Gluconate 1,000 mg IV NOW STA
CR Chest Portable - 1 View Urgent
Comment:
Reason For Exam: short of breath
Reason Study Needs to be Portable: Patient Unstable
02/14/25 10:55
Electrocardiogram (*1) Stat
Reason for Study: Other
Other Reason for Exam: bradycardia
Electrocardiogram (*1) Urgent
02/14/25 11:01
Atropine Sulfate [Atropine 0.1 mg/ml Syringe] 1 mg .ROUTE .STK-MED ONE
DOPamine 400 MG/D5W 250 ML [DOPamine 400 MG] 400 mg in 250 ml .ROUTE .STK-MED
02/14/25 11:05
DOPamine 400 MG/D5W 250 ML [DOPamine 400 MG] 400 mg in 250 ml IV NOW
Initial dose in mcg/kg/min, then titrate:: 2
Titrate to keep:: Heart Rate
Keep Heart Rate (bpm) greater than:: 60
Titrate by mcg/kg/min:: 1-2 mcg/kg/min
Frequency of titrations (minutes):: 15
Maximum dose in ICU in mcg/kg/min:: 20
Maximum dose in IMU in mcg/kg/min:: 10
Begin to taper infusion when:: Remained at goal for 4hrs
Taper by mcg/kg/min:: 1-2 mcg/kg/min
Frequency of taper (minutes) if patient maintains goal:: 30
Taper to off?: Yes
If infusion off & no longer maintaining goal:: Contact Provider
02/14/25 11:16
Complete Blood Count/With Diff Urgent
Comprehensive Metabolic Panel Urgent
Lactic Acid Q4H
Comment: CANCEL 2nd LACTIC ACID IF 1st LACTIC ACID IS LESS THAN 2
NT-proBNP Urgent
Troponin I Urgent
02/14/25 11:31
Calcium Gluconate 1,000 mg IV NOW STA
02/14/25 11:32
Calcium Gluconate 1,000 mg .ROUTE .STK-MED ONE
02/14/25 11:37
Admit/Transfer Patient As Directed
Co-Sign Provider:
Level of Care: Inpatient admission
Assign to:: ICU
Physician / Group: Courtney
Diagnosis: Bradycardia
Reason for Hospitalization: Cardio consult
Expected length of stay greater than two midnights?: Yes
ELOS- Estimated Length of Stay in days: 4
I certify the patient meets the requirements for IP care: Yes
PRN Pain Medication Management As Directed
May give lesser potent ordered pain med per pt: Yes
preference::
Protocol:: Medication orders for pain may be administered in a
manner that supports deferring to patient preference
when the pt is:
- Requesting an ordered lesser potent pain medication.
Least to most potent pain medications are defined
as: acetaminophen < NSAID < tramadol < opioids
(morphine, oxycodone, hydromorphone).
- Requesting a lesser dose of the same medication IF
ORDERED.
- Requesting a less intrusive route of administration
if both routes are prescribed by the provider (PO <
IV).
02/14/25 11:39
Code Status As Directed
Resuscitation Status: Full Code
02/14/25 13:14
Acetaminophen [Tylenol] 650 mg PO Q6HPRN PRN
02/14/25 13:14
CARDIOLOGY CONSULT Routine
Consulting Provider: Shawna Lomeli
Was physician already notified: Yes
Activity As Directed
Activity Level: Bedrest
DX Deep Vein Thrombosis Video Routine
02/14/25 15:15
Lactic Acid Q4H
Comment: CANCEL 2nd LACTIC ACID IF 1st LACTIC ACID IS LESS THAN 2
02/14/25 18:00
Aspirin Chewable [Low Strength Aspirin] 81 mg PO QPM
Docusate Sodium [Colace] 100 mg PO QPM
Loratadine [Claritin] 10 mg PO QPM
oxybutynin chloride 10 mg PO QPM
02/14/25 20:00
Heparin 5,000 units SC Q12
02/14/25 22:00
Atorvastatin [Lipitor] 40 mg PO HS
02/15/25 06:00
BMP [Basic Metabolic Panel] IN AM
CBC/With Diff [Complete Blood Count/With Diff] IN AM
Levothyroxine [Synthroid] 50 mcg PO DAILY@0600
02/15/25 08:00
Calcitriol [Rocaltrol] 0.25 mcg PO MOWEFR
Clopidogrel Bisulfate [Plavix] 75 mg PO DAILY
Dapagliflozin [Farxiga] 10 mg PO DAILY
02/16/25 06:00
BMP [Basic Metabolic Panel] IN AM
Abnormal Lab Results
02/14/25
11:16
WBC 15.2 H 10^3/uL
(4.8-10.8)
RBC 3.69 L 10^6/uL
(4.70-6.10)
Hgb 11.3 L g/dL
(13.0-18.0)
Hct 34.3 L %
(39.0-52.0)
MCHC 32.9 L g/dL
(33.0-37.0)
MPV 10.9 H fL
(7.4-10.4)
Abs Immat Gran (auto) 0.1 H 10^3/uL
(0-0.05)
Absolute Neuts (auto) 12.5 H 10^3/uL
(1.4-6.5)
Absolute Monos (auto) 1.1 H 10^3/uL
(0.1-0.6)
Immature Gran % 0.9 H %
(0-0.5)
Neutrophils % 82.1 H %
(42.2-75.2)
Lymphocytes % 9.7 L %
(20.5-51.1)
Potassium 7.3 H* mmol/L
(3.5-5.1)
Carbon Dioxide 9 L* mmol/L
(22-30)
BUN 93 H mg/dl
(9-20)
Creatinine 6.1 H* mg/dL
(0.7-1.3)
Glucose 255 H mg/dl
(70-99)
Lactic Acid 10.8 H* mmol/L
(0.7-2.0)
Calcium 10.6 H mg/dl
(8.4-10.2)
AST 1270 H* U/L
(17-59)
ALT 1229 H* U/L
(0-50)
Troponin I 0.365 H* ng/ml
Total Protein 5.9 L g/dl
(6.3-8.2)
02/14/25 11:16
02/14/25 11:16
Vital Signs
Initial and Last Documented VS:
Initial Vital Signs
Pulse Resp Pulse Ox
26 32 92
02/14/25 10:52 02/14/25 10:52 02/14/25 10:52
Last Documented Vital Signs
Temp Pulse Resp BP Pulse Ox
95.9 F L 60 21 156/63 98
02/14/25 13:43 02/14/25 15:45 02/14/25 15:45 02/14/25 15:37 02/14/25 15:45
MDM/Problems Addressed
Differential Diagnosis Includes:
ID, complete heart block, hyperkalemia
MDM/Problems Addressed:
84-year-old male with hyperkalemia, acute renal failure, bradycardia. Dr. Hathaway took to Stock Clerk for temporary pacemaker. Multiple doses of IV calcium gluconate given.
Chronic conditions affecting care: CAD, Cardiomyopathy and Kidney disease
Acute Exacerbation and/or Progression of Chronic Illness: CAD, Cardiomyopathy and Kidney disease
*Radiology
Radiology exam reviewed: radiology read reviewed (Chest x-ray no acute findings)
*Pulse Oximetry
Patient hypoxic: no
*EKG
Interpreted by ED Provider?: Yes
EKG Intrepretation Date: 02/14/25
EKG Intrepretation Time: 11:03
Interpretation: abnormal
Comparison EKG: changes noted
Heart Rate: 82
Rate: normal
Rhythm: junctional
[place]: right axis deviation
Interval: normal interval
QRS Pattern: left bundle branch block
Ischemia: non-specific ST changes
*Digital Content Producer Interpretation
Rate: normal
Interpretation: abnormal
Heart Rate: 85
Rhythm: junctional
*Critical Care Note
Total Time (30-74mins, 75-104mins- exclusive of procedures): 62
comment:
Critical care statement: A total of 62 minutes of critical care time was provided for this patient. This includes management of unstable vital signs, evaluation of the patient at bedside, reviewing the patient's pertinent medical records, discussion
with consultants, review of old EKGs and review of pertinent medical records. This time with separate from time utilized to perform the aforementioned documented procedures
Data Reviewed
Review of Other/Old Records Reveals: Labs (Creatinine 2.3 on 12/19/2024)
Source: records
Patient Management
Social determinants of health affecting care: Living situation and Strong social support
Discussion with other providers: Hospitalist and Pediatric Physician (Cardiology, Dr. Yee)
Escalation/DeEscalation of care consider admission/obs:
Admit to Stock Clerk indicated
ED Attending Note
-
Portions of this chart may have been created with voice recognition software.� Occasional wrong word or��sound alike� substitutions may have occurred due to the inherent limitations of voice recognition software.
Discharge Plan
Departure
Patient Disposition: [facility]
Date of Disposition: 02/14/25
Time of Disposition: 11:24
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
Presentation/result/management discussed w/ accepting MD/DO: Hospitalist
Patient with high blood pressure during this ER visit?: Yes
Condition: Critical
Discharge Problem:
Complete heart block, CAD (coronary artery disease), Acute hyperkalemia, Acute renal failure
Interventions
Interventions:
*Risk Screen - Suicide Last Done: 02/14/25 12:30
*General Assessment Last Done: 02/14/25 11:00
*Neglect/Abuse Screening Last Done: 02/14/25 12:30
*ED COVID-19 Vaccine History Last Done: 02/14/25 12:30
*Nursing Disposition Last Done: 02/14/25 12:55
ED- Cardiac Assessment Last Done: 02/14/25 11:00
ED- Pulmonary Assessment Last Done: 02/14/25 11:00
Discharge Date and Time
Discharge Date/Time: 02/14/25 12:00
[2025-02-14] MEDS: DOPamine 400 MG 250 IV (11:05)
--- NOTE | 2025-02-14 11:07 | EDRN ---
1059 seizure lasting 5seconds
HR 62 83% RR 18
1102 1/2 amp Atropin given
HR 68 205/76 84% RR24 2LPMnc placed on pt
additonal IV access being attempted
1105 seizure lasting <5seconds
pace increased to 30
1107 1/2 amp given of Atropin
1108 Dopamine started @ 5mcg/93kg
HR 65 98% 2lpm NC RR 24 165/64
pacing at 70
1113 18g LAC blood obtained.
1114 Seizure lasting 20seconds
HR 64 89% 4LPM NC
1117 147/64 78 95% 28
chest xray completed
labs sent
seizure pads in room
--- NOTE | 2025-02-14 11:26 | EDRN ---
1124 call report to cat lab
1126 seizure like active
64 165/47 25 100% 4LPM NC
[address] Valdez at bedside
Cards at bedside
1128 141/44 86 99% 24
[2025-02-14 11:29] LABS: % Basophils 0.1 % (0-2); % Immature Granulocytes 0.9 % (0-0.5); % Lymphocytes 9.7 % (20.5-51.1); % Monocytes 7.2 % (1.7-9.3); % Neutrophils 82.1 % (42.2-75.2); Absolute Immature Granulocytes 0.1 10^3/uL (0-0.05); Absolute Lymphocytes 1.5 10^3/uL (1.2-3.4); Absolute Monocytes 1.1 10^3/uL (0.1-0.6); Absolute Neutrophils 12.5 10^3/uL (1.4-6.5); Hematocrit 34.3 % (39.0-52.0); Hemoglobin 11.3 g/dL (13.0-18.0); Mean Corp Hgb Conc. 32.9 g/dL (33.0-37.0); Mean Corpuscular Hgb 30.6 pg (27.0-31.0); Mean Platelet Volume 10.9 fL (7.4-10.4); Nucleated Red Blood Cells % 0.1 % (-); Platelet Count 334 10^3/uL (130-400); Red Blood Cell Count 3.69 10^6/uL (4.70-6.10); White Blood Cell Count 15.2 10^3/uL (4.8-10.8)
--- NOTE | 2025-02-14 11:33 | EDRN ---
1133 Cards obtain consent for pacemarker and cath
164/51 73 97% 4LPM NC RR 23
pace rate 70, cards verbal to increase if pt has 'seizure' like active till capture is noted.
Ca Gluc amp at this time
is in waiting room and Drs informed.
--- NOTE | 2025-02-14 11:37 | EDRN ---
1137 139/62 82 100 4LPM MO 21
, Mary, is at bedside
--- NOTE | 2025-02-14 11:41 | EDRN ---
1141 Pt taken to [facility] 3 at this time.
V/s stable at this time.
--- NOTE | 2025-02-14 11:41 | HPS.HSE ---
Family Physician
-
Family Physician: Twan Perry
Chief Complaint
-
Syncope, shortness of breath
History of Present Illness
84-year-old male syncopized at home and was brought in for evaluation. Possible seizure as well. Currently in the emergency room getting treated empirically for presumed hyperkalemia. Labs have yet to be resulted. We are asked to admit for
temporary pacemaker placement due to severe bradycardia.
Received 3 doses of atropine so far, getting IV dopamine for bradycardia. Transcutaneous pacer in place. Questionable capture.
Patient is not a good historian.
I managed to get a hold of his on the phone who mentioned to me that apparently he has been fatigued for the past week, has been slumped over in the chair a lot as well. Complaining of shortness of breath.
mentioned that he was being evaluated for permanent pacemaker placement prior to admission due to bradycardia.
Medical History
Past Medical History
Past Medical History: Reports Other
Additional Past Medical History:
CAD
Essential hypertension
Hyperlipidemia
DM2
History of prostate cancer
MIKE on CPAP
Psoriasis
CKD 3B
History of melanoma
Past Surgical History: Reports Appendectomy and Other
Additional Past Surgical History:
CABG x 4
Prostatectomy
Tonsillectomy
Cataracts
Social History
Tobacco: Former Smoker
Alcohol: None
Drug: None
Personal:
Living: With Family
Family History
Family History: Not pertinent
Allergies / Home Medications
Allergies reflects when Allergies were last updated in [facility].
Home Medications with original date entered in [facility]
Allergy/Medication List:
Allergies
Allergy/AdvReac Type Severity Reaction Status Date / Time
No Known Allergies Allergy Verified 09/17/24 08:13
Home Medications
atorvastatin 40 mg tablet 40 mg PO HS High Cholesterol 09/17/24
aspirin 81 mg chewable tablet 81 mg PO QPM Blood Clot Prevention/Tx 09/28/24
clopidogrel 75 mg tablet 75 mg PO DAILY Heart disease/condition 30 days #30 tabs 10/08/24
calcitriol 0.25 mcg capsule 0.25 mcg PO MOWEFR Supplement for kidney 30 days #15 caps 10/09/24
dapagliflozin propanediol 10 mg tablet (Farxiga) 10 mg PO DAILY 02/14/25
docusate sodium 100 mg capsule (Colace) 100 mg PO QPM 02/14/25
dulaglutide 1.5 mg/0.5 mL subcutaneous pen injector (Trulicity) 3 mg SC FR 02/14/25
insulin degludec 200 unit/mL (3 mL) subcutaneous pen (Tresiba FlexTouch U-200 insulin) 18 unit SC QPM 02/14/25
inulin 1.7 gram chewable tablet (Fiber Gummies) 3.4 g PO QPM 02/14/25
levothyroxine 50 mcg tablet (Synthroid) 50 mcg PO DAILY 02/14/25
loratadine 10 mg tablet (Claritin) 10 mg PO QPM 02/14/25
losartan 25 mg tablet 25 mg PO QPM 02/14/25
oxybutynin chloride 10 mg tablet,extended release 24 hr 10 mg PO QPM 02/14/25
Review of Systems
-
History Source: Patient
A 12 point ROS was completed and negative except as noted: Yes
Physical Exam
Vital Signs
Vital Signs
Pulse Resp BP Pulse Ox
75 24 165/47 98
02/14/25 11:20 02/14/25 11:20 02/14/25 11:20 02/14/25 11:20
Physical Exam
General: Well Developed, Well Nourished, No Apparent Distress and Comfortable
HEENT: NormoCephalic and Anicteric
Respiratory: Clear
Cardiac: S1/S2 and Regular Rhythm
GI: Soft, Non Tender, Non Distended and Other (Abdominal breathing)
Musculoskeletal: No Clubbing, No Cyanosis and No Edema
Skin: Warm and Dry
Neuro: Awake, Alert and Oriented
Hematologic/Lymphatic: No Lymphadenopathy
Psych: Calm
Laboratory Results
-
02/14/25 11:16
Impression/Plan
-
Severe symptomatic bradycardia -admit to ICU. Plan for temporary pacemaker placement as per cardiology. Etiology likely due to hyperkalemia. Received atropine, dopamine in the emergency room.
Consult enterprise infrastructure architect.
Life-threatening hyperkalemia -suspect related to TOMY, losartan, etc.
Stop losartan. Calcium gluconate administered in the ER, give a dose of IV insulin, glucose is already elevated at 255. Recheck labs later today.
TOMY on CKD 4 -etiology of TOMY unclear. Differential diagnosis includes severe volume depletion versus other etiology. Stop losartan. Consult nephrology. Check bladder scan, urinalysis.
Lactic acidosis due to TOMY. Possible starvation.
Hypercalcemia -10.6.
DM2 with hyperglycemia -he is on Farxiga 10 mg daily, dulaglutide 3 mg subcu every Tuesday, insulin degludec 18 units at bedtime at home.
We use low resistance insulin scale for now.
CAD/CABG
Essential hypertension
Hyperlipidemia
Obesity due to excess calories
Full code - to obtain advanced directives today and update me. She believes he may be a DNR.
Updated at the bedside.
[2025-02-14 11:44] LABS: Lactic Acid 10.8 mmol/L (0.7-2.0)
[2025-02-14 11:45] LABS: Albumin 3.5 g/dl (3.5-5.0); Alkaline Phosphatase 104 U/L (38-126); Blood Urea Nitrogen 93 mg/dl (9-20); Calcium 10.6 mg/dl (8.4-10.2); Carbon Dioxide 9 mmol/L (22-30); Chloride 105 mmol/L (98-107); Estimated Creatinine Clearance 10 ml/min; Glucose 255 mg/dl (70-99); Potassium 7.3 mmol/L (3.5-5.1); Sodium 137 mmol/L (135-145); Total Bilirubin 1.2 mg/dl (0.2-1.3); Total Protein 5.9 g/dl (6.3-8.2); eGFR 8.53
[2025-02-14 11:56] LABS: ALT (SGPT) 1229 U/L (0-50); AST (SGOT) 1270 U/L (17-59); Troponin I 0.365 ng/ml
[2025-02-14 12:03] LABS: NT-proBNP 17600 pg/ml
--- NOTE | 2025-02-14 12:29 | CON.INTV ---
Consultation
Consultation Request
Date/Time Consultation Requested: 02/14/20254557-7389-1:15 PM
Date/Time Consultation Performed: 02/14/2025-1:15 PM
Requesting Provider: hospitalist
Performing Provider: Dr. Dawson
Reason for Consultation: severe symptomatic bradycardia
Medical History
-
Chief Complaint: bradycardia
History of Present Illness:
84-year-old obese and distant smoking male with a history of hypertension, hyperlipidemia, CAD/CABG, and obesity admitted with severe symptomatic bradycardia who went for temporary pacemaker requiring atropine, dopamine and animal daycare provider consulted
for severe bradycardia/critical care management 02/14/2025.Patient has some complaints of shortness of breath, no chest congestion, productive cough, and he denies any inhalers or previous respiratory issues. He denies any chest pain, chest
tightness, abdominal pain, nausea, focal weakness or lower extremity swelling.
Past Medical History
Past Medical History: None ( Hypertension. Hyperlipidemia. CAD/CABG x 4. Diabetes. MIKE/CPAP. Prostate cancer. Psoriasis. Chronic kidney disease-3B. Melanoma. Prostatectomy. Tonsillectomy. Cataract.)
Social History
Tobacco: Former Smoker ( Quit 45 years ago)
Alcohol: None
Drug: None
Personal:
Living: With Family
Occupational Exposures: no known asbestos exposure
Environmental Exposures: no known tuberculosis exposure
Family History
Family History: Reviewed & Not Pertinent and Other ( Father-CAD, sister diabetes and thyroid disease)
Allergies / Home Medications
Allergies
Allergy/AdvReac Type Severity Reaction Status Date / Time
No Known Allergies Allergy Verified 09/17/24 08:13
Home Medications
�Medication �Instructions �Recorded �Confirmed �Last Taken �Type
atorvastatin 40 mg tablet 40 mg PO HS High Cholesterol 09/17/24 02/14/25 02/13/25 History
aspirin 81 mg chewable tablet 81 mg PO QPM Blood Clot 09/28/24 02/14/25 02/13/25 History
Prevention/Tx
clopidogrel 75 mg tablet 75 mg PO DAILY Heart 10/08/24 02/14/25 02/14/25 Rx
disease/condition 30 days #30 tabs
calcitriol 0.25 mcg capsule 0.25 mcg PO MOWEFR Supplement for 10/09/24 02/14/25 02/13/25 Rx
kidney 30 days #15 caps
dapagliflozin propanediol 10 mg 10 mg PO DAILY 02/14/25 02/14/25 02/13/25 History
tablet (Farxiga)
docusate sodium 100 mg capsule 100 mg PO QPM 02/14/25 02/14/25 02/13/25 History
(Colace)
dulaglutide 1.5 mg/0.5 mL 3 mg SC FR 02/14/25 02/14/25 02/08/25 History
subcutaneous pen injector
(Trulicity)
insulin degludec 200 unit/mL (3 18 unit SC QPM 02/14/25 02/14/25 02/13/25 History
mL) subcutaneous pen (Tresiba
FlexTouch U-200 insulin)
inulin 1.7 gram chewable tablet 3.4 g PO QPM 02/14/25 02/14/25 02/13/25 History
(Fiber Gummies)
levothyroxine 50 mcg tablet 50 mcg PO DAILY 02/14/25 02/14/25 02/14/25 History
(Synthroid)
loratadine 10 mg tablet (Claritin) 10 mg PO QPM 02/14/25 02/14/25 02/13/25 History
losartan 25 mg tablet 25 mg PO QPM 02/14/25 02/14/25 02/13/25 History
oxybutynin chloride 10 mg 10 mg PO QPM 02/14/25 02/14/25 02/13/25 History
tablet,extended release 24 hr
Review of Systems
-
Unable to Obtain full review of systems at this time due to: Other ( per HPI)
Vitals / Labs / Diagnostic Testing
Vital Signs
Pulse Resp BP Pulse Ox
75 24 165/47 98
02/14/25 11:20 02/14/25 11:20 02/14/25 11:20 02/14/25 11:20
Lab Data
02/14/25 11:16
Diagnostic Testing:
Physical Exam
-
Exam:
Well-nourished and well-developed in no apparent distress
HEENT-atraumatic, normocephalic
Neck-supple, no JVD, no bruit
Heart-regular rate and rhythm- subtle systolic murmur
Chest-clear to auscultation, no wheezes, crackles
Back-no tenderness
Abdomen-soft, nontender, nondistended, no hepatosplenomegaly
Extremities-no cyanosis, clubbing, edema and good peripheral pulses
Integument-intact, no rashes, lesions or ecchymosis
Neurology-alert and oriented, nonfocal motor and sensory exam
Assessment
-
84-year-old obese and distant smoking male with a history of hypertension, hyperlipidemia, CAD/CABG, and obesity admitted with fatigue, shortness of breath and severe symptomatic bradycardia who went for temporary pacemaker requiring atropine,
dopamine and animal daycare provider consulted for severe bradycardia/critical care management 02/14/2025.
Severe symptomatic bradycardia status post temporary pacemaker
Hyperkalemia-potassium 7.3
TOMY on top of chronic kidney disease
Hypercalcemia
Hyperglycemia
Leukocytosis
Mild anemia-normocytic
Metabolic acidosis
Lactic acidosis
Elevated LFTs
Elevated troponin
Conditions present prior to admission:
Hypertension.
Hyperlipidemia.
CAD/CABG x 4.
Diabetes.
MIKE/CPAP.
Prostate cancer-2000
Psoriasis.
Chronic kidney disease-3B.
Melanoma.
Trigger finger
Prostatectomy. Tonsillectomy. Cataract.
Plan
Patient critically ill with severe symptomatic bradycardia as well as life-threatening hyperkalemiain need of permanent pacemaker-temporary pacemaker placed
Patient admitted to medical intensive care unit
Supplemental oxygen as needed
Nebulizers if needed-currently not bronchospastic
Monitor for fluid overload-some tachypnea
Aspiration precautions electrolyte incentive spirometry
Cardiology following-correspondence reviewed
Cardiac catheterization lab reports reviewed
Temporary pacemaker placed
Eventual permanent pacemaker
Trend troponin
Reverse hyperkalemia
Nephrology evaluation
Emergent hemodialysis for life-threatening hyperkalemia
Monitor renal function and electrolytes as well as acidosis
Monitor blood sugar
Insulin supplementation as needed
Monitor LFTs
Consider GI evaluation if continues to increase
DVT prophylaxis-on heparin
Nutrition
Early mobilization
Patient was for seen by Dr. Dawson for sleep apnea 04/29/2020 and last seen in the pulmonary office by Lora Johnson NP on 01/24/25
Critical care statement: A total of 55 minutes of critical care time was provided for this patient today. This includes management of unstable vital signs, evaluation of the patient at bedside, reviewing the patient's pertinent medical records
including radiographs, microbiology, laboratory evaluations, and discussion with primary team, consultants, pharmacy, nutrition, physical therapy, case management, charge nurse, critical care nursing, and respiratory therapy.
Diagnostic data:
Chest x-ray 03/27/2010-NAD
Chest x-ray 09/22/2024-low lung volumes, left basilar opacification
Chest x-ray 02/14/2025-low lung volumes, no focal opacifications to suggest pneumonia, top normal pulmonary vasculature
CT chest 09/17/2024-no focal airspace disease or pulmonary nodules, severe coronary artery calcifications
Echocardiogram 12/14/2024-EF 55-60%, aortic sclerosis, PA systolic 25, no evidence for shunting through interatrial septal aneurysm
Cardiac catheterization 02/14/2025-successful placement of temporary pacemaker via right internal jugular as well as successful placement of temporary hemodialysis catheter via the left internal jugular
Lower extremity ultrasound 12/05/12/05/2024-complex cyst or possible hematoma superficially
PSG-AHI 21, REM-AHI 70, desaturation audrey 74%, CPAP 11 cm
PFT 01/24/25-FEV1 2.0-91%, FVC 2.6-81%, TLC 66%, DLCO 56%, DLCO/VA 90%
Data Reviewed
-
PFT: Report reviewed by me
EKG: Report reviewed by me
Radiology: Report reviewed by me
CT Scan: Report reviewed by me
Ultrasound: Report reviewed by me
Medical Tests (Nuc Med, Echo etc): Report reviewed by me
Labs: Labs reviewed by me
Old Records: Reviewed
Critical Care Time (in minutes): 55
--- NOTE | 2025-02-14 12:34 | W.CON.NEPH ---
Consultation
-
Date/Time Consultation Requested: 02/14/2025 12:00
Date/Time Consultation Performed: 02/14/2025 1230 pm
Requesting Provider: Dr. Valdez
Performing Provider: Dr. Richardson
Reason for Consultation: Acute kidney injury/gap metabolic acidosis/hyperkalemia
Medical History
-
Chief Complaint: Hyperkalemia/acute kidney/gap metabolic acidosis
History of Present Illness:
Patient is an 84-year-old male with a past medical history of chronic kidney disease stage IV maintains a baseline creatinine of 2.3 as of 12/19/2024. He has a prior history of coronary artery disease with CABG in September of 2024.. he is maintained
on calcitriol for secondary hyperparathyroidism. He is chronically maintained on insulin in the setting of his diabetes. He has been maintained on both ARB and Farxiga for his heart disease. The patient presented to the emergency room after
having a syncopal episode at home. There was also possibly associated seizure activity. When the patient presented to the hospital he was severely bradycardic. EKG noted wide QRS complex. He was in acute renal failure with a creatinine up from
his baseline of 2.3-6.1 with associated hyperkalemia with potassium of 7.3 and nephrology was urgently consulted for this critically ill patient. The patient was then immediately taken to the [facility] for permanent pacemaker placement.
Past Medical History
diabetes, obstructive sleep apnea, hypertension, hyperlipidemia, CKD, prostate cancer status post surgery, melanoma status post excision, psoriasis, osteoarthritis, CAD s/p CABG
Past Surgical History: Other (CABG, tonsillectomy and appendectomy, prostatectomy, cataract surgery)
Social History
Tobacco: Non-Smoker
Alcohol: None
Personal:
Living: With Family
Family History
No CKD, father with heart disease
Family History: Not Pertinent
Allergies / Home Medications
Allergy/AdvReac Type Severity Reaction Status Date / Time
No Known Allergies Allergy Verified 09/17/24 08:13
�Medication �Instructions �Recorded �Confirmed �Type
atorvastatin 40 mg tablet 40 mg PO HS High Cholesterol 09/17/24 02/14/25 History
aspirin 81 mg chewable tablet 81 mg PO QPM Blood Clot 09/28/24 02/14/25 History
Prevention/Tx
clopidogrel 75 mg tablet 75 mg PO DAILY Heart 10/08/24 02/14/25 Rx
disease/condition 30 days #30 tabs
calcitriol 0.25 mcg capsule 0.25 mcg PO MOWEFR Supplement for 10/09/24 02/14/25 Rx
kidney 30 days #15 caps
dapagliflozin propanediol 10 mg 10 mg PO DAILY 02/14/25 02/14/25 History
tablet (Farxiga)
docusate sodium 100 mg capsule 100 mg PO QPM 02/14/25 02/14/25 History
(Colace)
dulaglutide 1.5 mg/0.5 mL 3 mg SC FR 02/14/25 02/14/25 History
subcutaneous pen injector
(Trulicity)
insulin degludec 200 unit/mL (3 18 unit SC QPM 02/14/25 02/14/25 History
mL) subcutaneous pen (Tresiba
FlexTouch U-200 insulin)
inulin 1.7 gram chewable tablet 3.4 g PO QPM 02/14/25 02/14/25 History
(Fiber Gummies)
levothyroxine 50 mcg tablet 50 mcg PO DAILY 02/14/25 02/14/25 History
(Synthroid)
loratadine 10 mg tablet (Claritin) 10 mg PO QPM 02/14/25 02/14/25 History
losartan 25 mg tablet 25 mg PO QPM 02/14/25 02/14/25 History
oxybutynin chloride 10 mg 10 mg PO QPM 02/14/25 02/14/25 History
tablet,extended release 24 hr
Physical Exam
Vital Signs
Vital Signs
Pulse Resp BP Pulse Ox
75 24 165/47 98
02/14/25 11:20 02/14/25 11:20 02/14/25 11:20 02/14/25 11:20
Lab Results
02/14/25 11:16
WBC 15.2 10^3/uL (4.8-10.8) H 02/14/25 11:16
RBC 3.69 10^6/uL (4.70-6.10) L 02/14/25 11:16
Hgb 11.3 g/dL (13.0-18.0) L 02/14/25 11:16
Hct 34.3 % (39.0-52.0) L 02/14/25 11:16
Plt Count 334 10^3/uL (130-400) 02/14/25 11:16
Sodium 137 mmol/L (135-145) 02/14/25 11:16
Chloride 105 mmol/L (98-107) 02/14/25 11:16
Carbon Dioxide 9 mmol/L (22-30) L* 02/14/25 11:16
BUN 93 mg/dl (9-20) H 02/14/25 11:16
Creatinine 6.1 mg/dL (0.7-1.3) H* 02/14/25 11:16
eGFR 8.53 02/14/25 11:16
Glucose 255 mg/dl (70-99) H 02/14/25 11:16
Calcium 10.6 mg/dl (8.4-10.2) H 02/14/25 11:16
Ukt-Q-Kbgkmlrzjrq Pept 33342 pg/ml 02/14/25 11:16
Albumin 3.5 g/dl (3.5-5.0) 02/14/25 11:16
Physical Exam
General: Awake, Alert, Oriented, AOx3, No Distress and Nontoxic
HEENT: EOMI, Anicteric, Conjunctivae Clear and Facial Symmetry
Respiratory: Normal Excursion, Nonlabored Respirations and Other (coarse and labored)
Cardiac: S1/S2 and Regular Rate/Rhythm
Breast: Deferred by me
Abdomen: Soft, Nontender and Nondistended
Musculoskeletal: No Cyanosis and No Edema
Skin: No Rash
Neuro: Nonfocal/Grossly Intact
Psych: Mood/afflect pleasant, Insight/judgement good and Appropriate
Data Reviewed
-
Radiology: Image Personally Visualized and interpreted (Chest x-ray personally reviewed notes sternal wires but no evidence of congestive heart failure pneumonic infiltrate)
Labs: Labs Reviewed by me (BMP CBC)
Old Records: Reviewed (Reviewed previous creatinine level of 2.3 from date 12/19/2024)
Assessment/Plan
-
Impression:
Acute kidney injury (93/6.1)
Hyperkalemia (7.3)
Gap metabolic acidosis (lactic acid ~10)
Bradycardia
History of coronary artery disease with CABG
Secondary hyperparathyroid
Diabetes
Plan:
- Hyperkalemia treated medically in the emergency room
- Patient taken to [facility] for permanent pacemaker
- Dialysis catheter to be placed and patient to be dialyzed emergently for hyperkalemia metabolic acidosis and acute renal failure
- Patient is critically ill with life-threatening hyperkalemia in the setting of acute renal failure
- 45minutes critical care time spent with patient
Total Time Spent with Patient (in minutes): 45
--- NOTE | 2025-02-14 12:58 | CON.CAR ---
Addendum entered and electronically signed by Shawna Lomeli DO 02/15/25 18:22:
I saw and examined the patient Multiple times on 02/14/2025.
The Casino Duty Manager's note was reviewed and I agree with the note.
Comment: Late entry. Patient is an 84 yo M with PMH of CAD s/p CABG x4 09/2024, HTN, HLD, DM2, CKD, recent diagnosis hypothyroidism. He had bradycardia as well as fatigue noted during cardiac rehab sessions. Toprol was stopped and he underwent 5
day Bardy monitor from 01/29-02/03/25 which showed sinus ramila with episodes of 2nd degree av block type 1 with some 2:1 conduction and no significant pauses. He was scheduled to come to cardiology office today to discuss ppm placement, however
presented to ER by EMS due being unresponsive at home. Patient is unable to provide history of present illness or review of systems due to acute illness. History obtained through speaking with his , daughter and ER physician. Patient's
states that for the last week he has been lethargic and mostly staying slumped over in a chair. She reports poor appetite although she had been giving him his medications which included Farxiga and losartan. She denies any use of NSAIDs or
Tylenol. EMS reported bradycardia with widened QRS s/p bicarb in the field. Then upon arrival to the ER he was given 2 g total of calcium gluconate while waiting for labs to result. His potassium resulted at 7.3 and creatinine resulted at 6.1 with
lactic acid of 10.8 and LFTs in the 1200 range. Cardiology contacted for urgent consultation due to need for emergent temp pacing wire placement due to CHB/bradycardia/sine wave in the setting marked hyperkalemia and anuric renal failure. His
history is unreliable with decreased mental status and delirium but he is reporting pain including chest pain.Patient was initially seen under sterile drapes prior to TVP placement in the [facility] and then fully assessed in ICU bed 3370 with family
members at bedside
General: Awake but somnolent. Delirious. Decreased mental status.
Neck: Right IJ TVP. Left-sided temporary dialysis catheter
Heart: Paced. Positive S1-S2. No murmurs or rubs.
Lungs: Decreased breath sounds with fine crackles at bases. No wheezes
Abd: Positive BS, NT/ND, neg rebound/rigidity/guarding
Ext: ++ edema
: Bladder scan without significant urine.
Plan:
Critically ill 84-year-old gentleman with multisystem organ failure likely secondary to hypoperfusion secondary to complete heart block and acute renal insufficiency with marked hyperkalemia. Blood pressures currently stable not requiring pressors.
On supplemental oxygen with close monitoring of respiratory status. Appreciate input from consultants including interventional cardiology, mangle roller, and nephrology.
Complete heart block
-Urgent TVP placed in [facility] by Dr. Kristopher Yee
-Limited bedside echocardiogram with visually estimated ejection fraction 55% and no pericardial effusion
-Patient has underlying right bundle branch block and marked first-degree AV block with outpatient entry level drafter recently showing 2-1 AV conduction and waking hours and evidence of chronotropic incompetence.
-Eventual need for permanent pacemaker implant, likely tomorrow and will discuss further with EP service
Acute on chronic renal failure with creatinine 6.1 on admission and hyperkalemia with potassium 7.3 with gap metabolic acidosis and a lactic acid on admission of 10
-Urgent dialysis catheter placed in [facility] by Dr. Kristopher Yee
-Nephrology consulted and reviewed case
-Patient currently on dialysis
-Bladder scan with no significant urine and will continue to monitor.
-Blood pressure stable not requiring pressors
-Holding outpatient medications;N.p.o.
-Trend labs including CMP, lactate
Coronary artery disease status post CABG in September 2024 with reports of chest pain in the setting of multisystem organ failure
-I do not believe this is a primary ACS event
-Initial cardiac troponin 0.365 and will be trended
-Follow-up EKG/telemetry
Elevated transaminases likely secondary to shock liver
-Trend LFTs
-Holding all outpatient medications including statin
Type 2 diabetes mellitus-Insulin drip started per mangle roller
Full code
Discussed with family at bedside
Discussed with consultants
Original Note:
Consultation
Consultation Request
Date/Time Consultation Performed: 02/14/25
Requesting Provider: Dr. Lowry
Performing Provider: Josephine Whitfield PA-C for Dr. Lomeli
Reason for Consultation: abnormal EKG
Medical History
-
Chief Complaint: syncope
History of Present Illness:
Patient is an 84 yo M with PMH of CAD s/p CABG x4 09/2024, HTN, HLD, DM2, CKD, recent diagnosis hypothyroidism. He had bradycardia as well as fatigue noted during cardiac rehab sessions. Toprol was stopped and he underwent 5 day Bardy monitor from
01/29-02/03/25 which showed sinus ramila with episodes of 2nd degree av block type 1 with some 2:1 conduction and no significant pauses. He was scheduled to come to cardiology office today to discuss ppm placement, however presented to [facility] ER by EMS
due to syncopal episode witnessed by at home. He was noted to have bradycardia with widened QRS noted by EMS EKG tracings and was given bicarb in the field. Then upon arrival to the ER he was given 2 g total of calcium gluconate while waiting
for labs to result. His potassium resulted at 7.3 and creatinine resulted at 6.1 with lactic acid of 10.8 and LFTs in the 1200 range. Cardiology contacted for urgent consultation due to need for emergent temp pacing wire placement due to
bradycardia/sine wave with concern for marked hyperkalemia as underlying etiology. He does also report some chest discomfort which has been present since his surgery in September. Denies recent NSAID administration or medication changes. He is on
farxiga 10mg daily and losartan 25mg QPM as OP.
PMH:
CAD status post CABG x 4 FRIEDMAN to LAD, SVG to diagonal to OM, SVG to RPDA 09/19/2024
ARF on CKD 3B during 09/2024 admission, did not require HD at that time
Hypertension
Hyperlipidemia
Type 2 diabetes
Prostate cancer status post surgical resection 1999
MIKE on CPAP
Recent diagnosis hypothyroidism
Former smoker
Past Medical History
Past Medical History: Other (in HPI)
Social History
Tobacco: Former Smoker
Personal:
Living: With Family
Employment: Retired
Family History
Family History: CAD and Diabetes
Allergies / Home Medications
Allergy/AdvReac Type Severity Reaction Status Date / Time
No Known Allergies Allergy Verified 09/17/24 08:13
�Medication �Instructions �Recorded �Confirmed �Type
atorvastatin 40 mg tablet 40 mg PO HS High Cholesterol 09/17/24 02/14/25 History
aspirin 81 mg chewable tablet 81 mg PO QPM Blood Clot 09/28/24 02/14/25 History
Prevention/Tx
clopidogrel 75 mg tablet 75 mg PO DAILY Heart 10/08/24 02/14/25 Rx
disease/condition 30 days #30 tabs
calcitriol 0.25 mcg capsule 0.25 mcg PO MOWEFR Supplement for 10/09/24 02/14/25 Rx
kidney 30 days #15 caps
dapagliflozin propanediol 10 mg 10 mg PO DAILY 02/14/25 02/14/25 History
tablet (Farxiga)
docusate sodium 100 mg capsule 100 mg PO QPM 02/14/25 02/14/25 History
(Colace)
dulaglutide 1.5 mg/0.5 mL 3 mg SC FR 02/14/25 02/14/25 History
subcutaneous pen injector
(Trulicity)
insulin degludec 200 unit/mL (3 18 unit SC QPM 02/14/25 02/14/25 History
mL) subcutaneous pen (Tresiba
FlexTouch U-200 insulin)
inulin 1.7 gram chewable tablet 3.4 g PO QPM 02/14/25 02/14/25 History
(Fiber Gummies)
levothyroxine 50 mcg tablet 50 mcg PO DAILY 02/14/25 02/14/25 History
(Synthroid)
loratadine 10 mg tablet (Claritin) 10 mg PO QPM 02/14/25 02/14/25 History
losartan 25 mg tablet 25 mg PO QPM 02/14/25 02/14/25 History
oxybutynin chloride 10 mg 10 mg PO QPM 02/14/25 02/14/25 History
tablet,extended release 24 hr
Review of Systems
-
History Source: Patient
All other systems: Negative unless noted
Physical Exam
Vital Signs
Pulse Resp BP Pulse Ox
75 24 165/47 96
02/14/25 11:20 02/14/25 11:20 02/14/25 11:20 02/14/25 12:55
Lab Results
02/14/25 11:16
Troponin I 0.365 ng/ml H* 02/14/25 11:16
Eoa-A-Ezkktyzamxt Pept 24233 pg/ml 02/14/25 11:16
Physical Exam
General: Other (limited physical exam as patient seen urgently on director of cath lab table)
Neuro: AO x 3
Impression / Plan
-
Primary Zoo Director: Dr. Rosas
Assessment:
Presentation with syncope/unresponsiveness
Marked Hyperkalemia with sine wave on initial EKG
s/p temp pacing wire 02/14/25
ARF on CKD
Shock liver
Elevated lactic acidosis
Elevated troponin
Bradycardia with intermittent mobitz II type 1 and 2:1 av block by OP monitor 01/2025
CAD status post CABG x 4 FRIEDMAN to LAD, SVG to diagonal to OM, SVG to RPDA 09/19/2024
ARF on CKD 3B during 09/2024 admission, did not require HD at that time
Hypertension
Hyperlipidemia
Type 2 diabetes with hyperglycemia
Prostate cancer status post surgical resection 1999
MIKE on CPAP
Recent diagnosis hypothyroidism
Former smoker
ECHO 12/14/2024: Technically difficult study, EF 55 to 60%, aortic sclerosis, trace AR, PAP 25 mmHg, small pericardial effusion
Plan:
- Patient presents critically ill after episode of syncope/unresponsiveness at home. Sine wave noted on initial EKG consistent with marked hyperkalemia, 7.3 on arrival
- Status post bicarb and calcium gluconate. ongoing electrolyte correction
- Cardiology consulted for urgent evaluation
- Undergoing urgent temp wire placement in [facility]
- Discussed with nephrology. Will attempt to also place pigtail catheter for dialysis at time of temp wire placement if IC able
- serial EKGs to reassess heart rhythm. follow on tele
- Last echo 12/14/2024 as above, repeat
- Evaluate for underlying infectious process given leukocytosis and lactic acid of 10.8
- Check TFTs. Patient with recent diagnosis hypothyroidism and started on Synthroid
- Initial Trop 0.3, trend to peak. He complains of some intermittent chest pain since his surgery in September. His reports this has been decreasing with time and he has completed cardiac rehab.
- will need eventual permanent pacemaker placement
- OP farxiga and losartan discontinued
- Discussed with and daughter at bedside
- notified primary multimedia engineer and CT surgery
- CCT 33 minutes
Data Reviewed
-
EKG: Tracing Personally Visualized and interpreted
Medical Tests (Nuc Med, Echo etc): Report Reviewed by me
Labs: Labs Reviewed by me
Old Records: Reviewed
Critical Care Time (in minutes): 33
--- NOTE | 2025-02-14 12:59 | ITS.CL.PN ---
[employer] [facility] [employer] - Procedure Note
Procedure
Procedure Note:
Temporary Pacemaker Insertion/HD Catheter Insertion
Date: 02/14/2025
Referring: Frandy Lowry D.O.
Indication: Complete heart block, hyperkalemia, acidosis, acute on chronic renal failure.
Access:
6 Cameroonian right internal jugular vein using a micropuncture kit under ultrasound guidance via a modified Seldinger technique.
15 Cameroonian left internal jugular vein using a micropuncture kit under ultrasound guidance via a modified Seldinger technique.
Pacemaker Information:
Position: Right interventricular septum.
Current (mA): 20
Rate (bpm): 60
Procedure:
The patient's right neck and inguinal areas were prepped and draped and standard sterile fashion. The right neck was anesthetized with 1% lidocaine. The internal jugular vein was punctured with a micropuncture needle under ultrasound guidance
using a modified Seldinger technique. Fluoroscopy confirmed satisfactory needle and wire position. The site was serially dilated and a 6 Cam[place]onian Arrow sheath was inserted then sutured in place. A temporary balloon-tipped pacemaker wire was covered
with a sterile cover, then inserted through the 6 Cameroonian sheath. The tip of the pacemaker was advanced into the right ventricle and rotated counterclockwise so that it was in contact with the interventricular septum. The pacemaker was turned on at
100 bpm at 20 mA. The current was serially decreased showing good capture at 1 mA. The current was increased to 20 mA and the rate decreased to VVI 60 bpm. The sterile cover was secured and the sheath was covered with 2 opposing tegaderm
dressings. A third tegaderm secured the body of the temporary pacemaker just below the right clavicle.
We then turned our attention to the insertion of the HD catheter. The left neck was prepped and draped in standard sterile fashion. The left internal jugular vein was identified on ultrasound and the associated area anesthetized with 1% lidocaine.
The left internal jugular vein was punctured with a micropuncture needle under ultrasound guidance using a modified Seldinger technique. Fluoroscopy confirmed satisfactory position of the needle and wire entering the left internal jugular vein
then the left subclavian vein finally entering the superior vena cava. The inner micropuncture sheath and wire were removed and exchanged for the 0.035 J-wire associated with the HD catheter kit. The outer micropuncture sheath was removed and the
puncture site was enlarged with a small incision. The tract was serially dilated with the provided skin dilators. The peel-away sheath was inserted as the final step. The HD catheter was advanced into the peel-away dilator over the wire. When
the catheter was in satisfactory position, the peel-away sheath was slowly pulled back and torn into per protocol. The wire was removed and both HD ports were flushed with heparinized saline. A Biopatch was applied and the HD catheter was sutured
in place. The HD catheter was then covered with 2 opposing Tegaderm dressings. The patient was transferred to ICU in stable condition.
Radiation (mGy): 21.28
Dose Area Product (Gy*cm2): 2.3863
Fluoroscopy Time (minutes): 1.1
Conclusions:
1. Successful placement of a temporoary pacemaker via right internal jugular approach without acute complications.
2. Successful placement of a temporary hemodialysis catheter via the left internal jugular approach without acute complications.
Recommendations:
1. Minimal manipulation of the right internal jugular wire to avoid potential dislodgement.
2. Discussion with EP regarding medical management vs. permanent device.
3. Urgent hemodialysis for stabilization of electrolytes.
Copy to: Rito Rosas D.O., Twan Perry D.O.
[2025-02-14 13:42] LABS: Glucose - Point of Care 247 mg/dl (70-99)
[2025-02-14] MEDS: DEXTROSE 50% SYRINGE 25 GRAMS IV (13:43)
[2025-02-14] MEDS: NOVOLIN R 0.1 UNITS IV (13:43)
--- NOTE | 2025-02-14 13:48 | PTCARENOTE ---
Received pt. from equipment operator/laborer. Temp pacer in place, capturing on monitor. See flowsheet on worklist for details.
Nephro bedside, HD cath placed in Cathlab, Starting HD now.
Iv insulin/DEX/calc given.
[2025-02-14 14:08] LABS: Glucose - Point of Care 311 mg/dl (70-99)
[2025-02-14] MEDS: MANNITOL 25% 12.5 GRAMS IV ×2 (14:24→15:40)
[2025-02-14 14:57] LABS: Glucose - Point of Care 243 mg/dl (70-99)
[2025-02-14] MEDS: NOVOLIN R 4 UNITS IV (15:07)
[2025-02-14] MEDS: NOVOLIN R INSULIN INFUSION 100 IV (15:07)
--- NOTE | 2025-02-14 15:14 | PTCARENOTE ---
Started on CC glycemic protocol.
HD in progress.
--- NOTE | 2025-02-14 15:18 | W.PN.NEPH.HD ---
Assessment
-
patient seen on HD
sbp stable at u/f
HD again tomorrow
Progress Note - Hemodialysis
-
Date of Service: February 14, 2025
Duration: 20 minutes and 30 minutes
Potassium Bath: 2
Calcium Bath: 2.5
Opti-Dialyzer: 160
Ultrafiltration: Other (1 kg)
Blood Flow: 250
Dialysate Flow: 600
Heparin: None
EPO: None
--- NOTE | 2025-02-14 15:30 | W.PN.UPDATE ---
Update Note
Progress Note Update
back to see patient, c/o thirst. denies CP, SOB. on HD. repeat EKG ordered. will continue to follow closely
[2025-02-14 15:31] LABS: Carbon Dioxide 8 mmol/L (22-30); Chloride 104 mmol/L (98-107); Potassium 6.7 mmol/L (3.5-5.1); Sodium 136 mmol/L (135-145)
[2025-02-14 15:38] LABS: Free T3 2.69 pg/ml (2.77-5.27)
[2025-02-14 15:52] LABS: TSH Reflex To Free T4 3.75 uIU/ml (0.47-4.68)
[2025-02-14 16:18] LABS: Glucose - Point of Care 184 mg/dl (70-99)
[2025-02-14] MEDS: HEPARIN 2800 UNITS INTRACATH (16:24)
--- NOTE | 2025-02-14 16:30 | CM ---
Patient seen in ICU at bedside with and daughter present. HD in progress, Patient stated that patient had been here at in [place] and IVU in 10/10 and that he was getting better every day until last 2 weeks. Patient lives in a 2 story home
with CPAP, walker and cane. Patient was using the cane prior to this admission. Patient daughter Kailyn Rogers [phone] also support and executor for parents. Patient stated patient plan is to resume prior living arrangements and level of
functioning. they are monitored by [facility] daily/ nurse Megan [phone]. Patient PCP is Dr. Perry and they use the [facility] in [place] for pharmacy needs. CM will continue to follow for discharge planning needs.
Plan; pending treatment plan, watch for recommendations level of care needs/HD
[2025-02-14 16:34] LABS: Lactic Acid 2.9 mmol/L (0.7-2.0)
[2025-02-14 16:44] LABS: Troponin I 0.518 ng/ml
[2025-02-14 17:12] LABS: Glucose - Point of Care 172 mg/dl (70-99)
[2025-02-14] MEDS: COLACE PO (17:18)
[2025-02-14] MEDS: CLARITIN PO (17:18)
[2025-02-14] MEDS: LOW STRENGTH ASPIRIN PO (17:19)
--- NOTE | 2025-02-14 17:49 | PTCARENOTE ---
HD completed 1kg off. Next tx scheduled for 02/15 1200.
Trending BMP Q4.
still confused, but able to be oriented.
Temp Pacer functioning at current settings.
[2025-02-14 18:07] LABS: Glucose - Point of Care 170 mg/dl (70-99)
[2025-02-14 19:00] LABS: Hepatitis B Surface Antigen Negative (Negative)
[2025-02-14 19:13] LABS: Glucose - Point of Care 171 mg/dl (70-99)
[2025-02-14] MEDS: APRESOLINE 10 MG IV (19:15)
[2025-02-14] MEDS: HEPARIN 5000 UNITS SC (19:17)
[2025-02-14 19:18] LABS: Hepatitis B Core Ab, Total Negative (Negative); Hepatitis B Surface Antibody Negative; Hepatitis C Antibody Negative (Negative)
[2025-02-14 20:01] LABS: Blood Urea Nitrogen 68 mg/dl (9-20); Calcium 9.7 mg/dl (8.4-10.2); Carbon Dioxide 24 mmol/L (22-30); Chloride 101 mmol/L (98-107); Estimated Creatinine Clearance 15 ml/min; Glucose 166 mg/dl (70-99); Potassium 5.3 mmol/L (3.5-5.1); Sodium 136 mmol/L (135-145); eGFR 14.15
--- NOTE | 2025-02-14 20:56 | PTCARENOTE ---
Addendum entered by Tere Gibson RN 02/14/25 21:48:
Pacing under rate of 70, discussed with Alcides MAHMOOD, sensitivity changed from 1 to 2. Currently capturing at a rate of 70.
Original Note:
R IJ transvenous pacer, rate 60, mA 20. Pacer wire at 40cm marking. Pacer capturing with each spike, sustained rate 48-mid 50s. Dr Lomeli made aware. Alcides MAHMOOD assessed pacer, rate increased to 70, mA remain 20. Sustained rate at 70.
[2025-02-14 20:59] LABS: Glucose - Point of Care 186 mg/dl (70-99)
[2025-02-14 22:07] LABS: Glucose - Point of Care 175 mg/dl (70-99)
[2025-02-14 22:10] LABS: Ionized Calcium 1.18 mMOL/L (1.15-1.33)
[2025-02-14 22:22] LABS: Lactic Acid 1.8 mmol/L (0.7-2.0)
[2025-02-14 22:24] LABS: Albumin 3.8 g/dl (3.5-5.0); Alkaline Phosphatase 117 U/L (38-126); Blood Urea Nitrogen 72 mg/dl (9-20); Calcium 9.4 mg/dl (8.4-10.2); Carbon Dioxide 23 mmol/L (22-30); Chloride 101 mmol/L (98-107); Estimated Creatinine Clearance 15 ml/min; Glucose 173 mg/dl (70-99); Magnesium 2.1 mg/dl (1.6-2.3); Potassium 5.4 mmol/L (3.5-5.1); Sodium 136 mmol/L (135-145); Total Bilirubin 1.3 mg/dl (0.2-1.3); Total Protein 6.2 g/dl (6.3-8.2); eGFR 14.15
[2025-02-14 22:27] LABS: Ammonia < 9 umol/L (9-30)
[2025-02-14 22:35] LABS: Troponin I 0.802 ng/ml
[2025-02-14 22:50] LABS: ALT (SGPT) 3387 U/L (0-50); AST (SGOT) 4051 U/L (17-59)
--- NOTE | 2025-02-14 23:00 | RESPNOTE ---
PT was placed on his home machine with nasal pillows and room air, will continue to monitor resp status.
[2025-02-14] MEDS: KAYEXALATE SUSPENSION 30 GRAMS RECTAL (23:50)
[2025-02-15] VITALS (43 sets, daily range): BP systolic 134–176; BP diastolic 49–93; BMI 31.8
[2025-02-15 00:03] LABS: Glucose - Point of Care 162 mg/dl (70-99)
--- NOTE | 2025-02-15 00:59 | PTCARENOTE ---
Kayexelate enema given via rectal trumpet. Pt restless and stating need to have BM while rectal trumpet clamped, attempting to get out of bed--trumpet now unclamped. Pt appears to be calmly resting at this time.
[2025-02-15 02:20] LABS: Glucose - Point of Care 166 mg/dl (70-99)
--- NOTE | 2025-02-15 02:28 | PTCARENOTE ---
Pt stating urge to void--unable to void, bladder scanned for 424ml, straight cath for 450ml. UA collected and sent.
[2025-02-15 03:07] LABS: Urine Albumin 3+ (Neg - Trace); Urine Bilirubin Negative (Negative); Urine Character Slightly Cloudy (Clear); Urine Color Yellow; Urine Glucose 3+ (Negative); Urine Ketone Negative (Negative); Urine Leukocyte 3+ (Negative); Urine Nitrite Negative (Negative); Urine Occult Blood 3+ (Negative); Urine Urobilinogen Negative (Neg - 1+)
[2025-02-15 04:07] LABS: Glucose - Point of Care 172 mg/dl (70-99)
[2025-02-15 04:09] LABS: Urine Amorphous Seen; Urine Bacteria Many (Negative); Urine Squamous Cell >30 /LPF (Few); Urine White Cell >100 /HPF (0-5)
--- NOTE | 2025-02-15 04:14 | PTCARENOTE ---
Pt with bloody backup into transvenous pacer plastic sheath. Gt Cummins and Alcides Alcala aware, at bedside. VSS. Pacer wire remains at 40cm mary beth, capturing at 70bpm. AM labs sent and pending. CXR completed. Dr. Mcmahan made aware by IRON CARRIER.
[2025-02-15 04:15] LABS: INR 1.95; PT 22.7 Sec (11.4-14.6)
[2025-02-15 04:16] LABS: APTT 38.2 Sec (23.4-35.0)
[2025-02-15 04:18] LABS: % Basophils 0.2 % (0-2); % Eosinophils 0.2 % (0-6); % Immature Granulocytes 0.6 % (0-0.5); % Monocytes 5.4 % (1.7-9.3); % Neutrophils 85.6 % (42.2-75.2); Absolute Immature Granulocytes 0.1 10^3/uL (0-0.05); Absolute Lymphocytes 1.6 10^3/uL (1.2-3.4); Absolute Monocytes 1.1 10^3/uL (0.1-0.6); Absolute Neutrophils 16.9 10^3/uL (1.4-6.5); Hematocrit 29.2 % (39.0-52.0); Hemoglobin 10.5 g/dL (13.0-18.0); Mean Corpuscular Hgb 30.7 pg (27.0-31.0); Mean Corpuscular Volume 85.4 fL (80.0-94.0); Mean Platelet Volume 10.8 fL (7.4-10.4); Nucleated Red Blood Cells % 0 % (-); Platelet Count 237 10^3/uL (130-400); Red Blood Cell Count 3.42 10^6/uL (4.70-6.10); Red Cell Dist. Width 13.6 % (11.5-14.5); White Blood Cell Count 19.7 10^3/uL (4.8-10.8)
[2025-02-15 04:24] LABS: Blood Urea Nitrogen 76 mg/dl (9-20); Calcium 9.5 mg/dl (8.4-10.2); Carbon Dioxide 23 mmol/L (22-30); Chloride 105 mmol/L (98-107); Estimated Creatinine Clearance 15 ml/min; Glucose 160 mg/dl (70-99); Potassium 5.5 mmol/L (3.5-5.1); Sodium 137 mmol/L (135-145); eGFR 14.15
[2025-02-15] MEDS: APRESOLINE 10 MG IV (04:32)
[2025-02-15 04:37] LABS: Troponin I 0.699 ng/ml
[2025-02-15 06:07] LABS: Albumin 3.5 g/dl (3.5-5.0); Alkaline Phosphatase 116 U/L (38-126); Total Bilirubin 1.3 mg/dl (0.2-1.3); Total Protein 5.9 g/dl (6.3-8.2)
[2025-02-15 06:17] LABS: Glucose - Point of Care 192 mg/dl (70-99)
[2025-02-15 06:35] LABS: ALT (SGPT) 3211 U/L (0-50); AST (SGOT) 3190 U/L (17-59)
[2025-02-15 07:18] LABS: Glucose - Point of Care 165 mg/dl (70-99)
[2025-02-15] MEDS: SYNTHROID PO (07:22)
--- NOTE | 2025-02-15 07:24 | PTCARENOTE ---
Assumed care of pt. approx 0700.
Pacer settings adjusted by night team, reviewed w. off going COUNTER MOLDER. Capturing, blood/fluid backflow into sheath covering consistent with HS findings providers already aware.
--- NOTE | 2025-02-15 07:36 | W.PN.CARDCBS ---
Addendum entered and electronically signed by Helio Real DO 02/15/25 13:55:
I saw and examined the patient.
The Assistant Oceanographer's note was reviewed and I agree with the note.
Comment:
Patient resting comfortably in bed with right IJ TVP and left IJ trialysis catheter. Patient denies any chest pain, shortness breath, palpitations, or weakness at this current time. Patient remains NPO. Patient dependent on device with underlying
complete heart block despite significant improvement/resolution of electrolyte abnormality. Kidney function liver function improving with improving perfusion from pacing.
Exam/A/P as below
Discussion regarding pacemaker indications as noted in update note in chart.
Original Note:
Today's Communication / Plan
-
NPO for PPM today
continue HD and electrolyte correction
follow LFTs
Impression / Plan
-
Primary Partner Marketing Manager: Dr. Rosas
Assessment:
Presentation with syncope/unresponsiveness
Marked Hyperkalemia with sine wave on initial EKG
s/p temp pacing wire 02/14/25
ARF on CKD
Shock liver
Elevated lactic acidosis
Elevated troponin
Bradycardia with intermittent mobitz II type 1 and 2:1 av block by OP monitor 01/2025
CAD status post CABG x 4 FRIEDMAN to LAD, SVG to diagonal to OM, SVG to RPDA 09/19/2024
ARF on CKD 3B during 09/2024 admission, did not require HD at that time
Hypertension
Hyperlipidemia
Type 2 diabetes with hyperglycemia
Prostate cancer status post surgical resection 1999
MIKE on CPAP
Recent diagnosis hypothyroidism
Former smoker
ECHO 12/14/2024: Technically difficult study, EF 55 to 60%, aortic sclerosis, trace AR, PAP 25 mmHg, small pericardial effusion
ECHO 02/14/2025: EF 55%, RV poorly visualized, no pericardial effusion
Plan:
-Presented critically ill with syncope/unresponsiveness
-Sine wave noted on initial EKG in setting of marked hyperkalemia, 7.3
-mentation appears improved this AM
-K improved to 5.5
-Creatinine 4.0 this morning. Was dialyzed last evening. planned for HD again today
-Echo with preserved EF 02/14
-Currently V-paced on review of telemetry. Pacer set to 70 overnight. repeat EKG this AM. NPO for permanent PPM placement today. discussed with nephrology as well as EP and IC to coordinate HD, L sided temp HD cath removal with alternative access
then PPM placement today.
-TSH WNL
-LFTs markedly elevated, suspected shock liver, however downtrending (peaked in 4000 range). GI to eval
-trop peaked at 0.8, suspected nonischemic myocardial injury in setting of shock, hyperkalemia, ARF. he does continue with some intermittent chest pain which patient states has been occurring since his surgery in September. continue asa, plavix,
lipitor.
-OP losartan and farxiga have been discontinued.
-prognosis remains guarded
-CCT 44 minutes
-d/w nursing
Progress Note - Partner Marketing Manager
Subjective
Date of Service: February 15, 2025
mentation improved. no complaints of SOB. states some intermittent mild chest discomfort, stable
Objective
Labs:
02/15/25 03:52
02/15/25 03:52
Labs
Hgb 10.5 g/dL (13.0-18.0) L 02/15/25 03:52
Hct 29.2 % (39.0-52.0) L 02/15/25 03:52
Plt Count 237 10^3/uL (130-400) D 02/15/25 03:52
PT 22.7 Sec (11.4-14.6) H 02/15/25 03:54
INR 1.95 02/15/25 03:54
APTT 38.2 Sec (23.4-35.0) H 02/15/25 03:54
Sodium 137 mmol/L (135-145) 02/15/25 03:52
Potassium 5.5 mmol/L (3.5-5.1) H 02/15/25 03:52
BUN 76 mg/dl (9-20) H 02/15/25 03:52
Creatinine 4.0 mg/dL (0.7-1.3) H 02/15/25 03:52
Glucose 160 mg/dl (70-99) H 02/15/25 03:52
Troponins
02/14/25 02/14/25 02/14/25
11:16 16:06 22:03
Troponin I 0.365 H* 0.518 H* D 0.802 H* D
02/15/25
03:52
Troponin I 0.699 H*
Vital Signs and I&O:
Vital Signs
Temp Pulse Resp BP Pulse Ox
98.5 F 70 19 158/59 93
02/15/25 03:51 02/15/25 06:15 02/15/25 06:15 02/15/25 06:00 02/15/25 06:15
Vital Signs
Temp Pulse Resp BP Pulse Ox
98.5 F 70 19 158/59 93
02/15/25 03:51 02/15/25 06:15 02/15/25 06:15 02/15/25 06:00 02/15/25 06:15
Intake & Output
02/12/25 02/13/25 02/14/25 02/15/25
07:59 07:59 07:59 07:59
Intake Total 1515.4 / 1515.4
Output Total 400 / 400
Balance 1115.4 / 1115.4
Physical Exam
Physical Exam
GEN: No distress, awake, alert, oriented x3
HEENT: supple, anicteric, mmm, eomi
LUNGS: CTA B/L, no wheezes/rales
CV: Irreg (ectopy), S1/S2, no murmur
ABD: soft, BS+, NT/ND
EXT: No cyanosis, clubbing, edema
NEURO: Gross non-focal
SKIN: Warm, pink, dry. No rash. R and L IJ in place
[2025-02-15] MEDS: ROCALTROL PO (08:04)
[2025-02-15] MEDS: PLAVIX PO (08:04)
--- NOTE | 2025-02-15 08:09 | W.PN.INTV ---
Documented by User: Rain Crowe MD, Resident 02/15/25 11:43
Today's Communication / Plan
Recommendations
Patient to undergo Hemodialysis
Insulin Drip to be converted to subcu Insulin
Permanent Pacemaker placement today
Can be transferred to IVU following Pacemaker placement
Continue following for any signs of fever/infection
Assessment
-
Assessment:
84 year old male with a past medical history of hypertension, hyperlipidemia, CAD/CABG, chronic kidney disease stage IV, and obesity was admitted with fatigue, syncope, shortness of breath and severe symptomatic bradycardia. Patient was found to be
in acute renal failure with increased creatinine from his baseline of 2.3, along with hyperkalemia with potassium of 7.3, and wide QRS complexes on EKG. Patient was requiring atropine and dopamine for severe bradycardia and it risk analyst services
were consulted on 02/14/2025 for further management.
Conditions present prior to admission:
Hypertension.
Hyperlipidemia.
CAD/CABG x 4.
Diabetes.
MIKE/CPAP.
Prostate cancer-2000
Psoriasis.
Chronic kidney disease-3B.
Melanoma.
Trigger finger
Prostatectomy. Tonsillectomy. Cataract.
Plan
#Severe symptomatic bradycardia
-temporary pacemaker placed yesterday, scheduled for permanent pacemaker to be placed later today
-heart rate has been in the 70s with pacemaker, had to be adjusted overnight
-Supplemental oxygen as needed
-Nebulizers if needed
-Elevated troponin but peaked, most likely were due to bradycardia
-Aspiration precautions, complains of trouble swallowing. Speech eval ordered, patient NPO for permanent pacemaker placement later today
-Cardiology following, input appreciated
-Lactic acidosis resolved
#Hyperkalemia
-Improved with dialysis treatment
-Nephrology following, input appreciated
-On Insulin gtt, to be stopped later today
-Continue monitoring BMP and following Potassium
-Should improve with improved perfusion of kidneys following pacemaker placement
#TOMY on CKD 4
-Received dialysis treatment yesterday, one more round of dialysis scheduled for today
-TOMY most likely secondary to poor perfusion of kidneys due to poor cardiac output from severe bradycardia
-Inman catheter ordered
-Continue to hold Losartan
#Type 2 diabetes requiring Insulin
-Currently on insulin gtt, to be switched to subcutaneous insulin later today
-Diabetes nurse practitioner consulted for help with insulin management, input appreciated
-Continue monitoring glucose levels and adjust insulin as needed
#Markedly increased LFTs
-most likely secondary to shock liver (hypoperfusion)
-bilirubin and ALP normal, GGT normal
-AST and ALT trending down, continue following
-Levels should improve with pacemaker placement
#Leukocytosis with possible aspiration
-Afebrile but possibly had some aspiration due to difficulty swallowing. Nothing definitive seen on chest x-ray this morning
-Blood and urine cultures pending
-No antibiotics indicated at this time, continue following temperatures
-UA showed asymptomatic, most likely not UTI related
DVT prophylaxis-on heparin subcu q12
Full Code (Following discussion with who says he would want to be intubated if dealing with reversible conditions)
Diagnostic data:
Chest x-ray 09/22/2024-low lung volumes, left basilar opacification
Chest x-ray 02/14/2025-low lung volumes, no focal opacifications to suggest pneumonia, top normal pulmonary vasculature
Chest x-ray 02/15/2025-haziness of each hemidiaphragm, left greater than right, which may represent bibasilar subsegmental atelectasis, aspiration, or pneumonia.
CT chest 09/17/2024-no focal airspace disease or pulmonary nodules, severe coronary artery calcifications
Echocardiogram 02/14/2025- Normal left ventricular systolic function with EF visually estimated 55%
Right ventricle poorly visualized however in subcostal views function appears preserved
No pericardial effusion
Compared to complete 2D and Doppler study dated 12/14/2024, ejection fraction
remains preserved, previously estimated 55-60%. Small pericardial effusion is
not appreciated in current study.
Echocardiogram 12/14/2024-EF 55-60%, aortic sclerosis, PA systolic 25, no evidence for shunting through interatrial septal aneurysm
Cardiac catheterization 02/14/2025-successful placement of temporary pacemaker via right internal jugular as well as successful placement of temporary hemodialysis catheter via the left internal jugular
Lower extremity ultrasound 12/05/12/05/2024-complex cyst or possible hematoma superficially
Subjective Dataa
Subjective Data
Date of Service:
Date of Service: February 15, 2025
Chief Complaint: Student Officer Follow Up
Subjective:
Patient had some urinary retention during the night requiring straight cath. Also had bloody backup in the transvenous pacer plastic sheath. Otherwise, did not report any acute concerns when seen this morning. Tolerated dialysis well yesterday and
reports no issues with the temporary pace maker placed yesterday. Patient scheduled for dialysis then permanent pacemaker placement following that in the afternoon.
Review of Systems
General: Other (No acute concerns)
HEENT: Dysphagia
Cardiopulmonary: Dyspnea (Requiring oxygen supplementation)
GI: Other (Difficulty swallowing)
Neuro: Other (None)
Genitourinary: Other (Difficulty with urination requiring straight cath)
Objective Data
Data Reviewed
Vital Signs / I&O / Oxygen:
Vital Signs
Temp Pulse Resp BP Pulse Ox
98.5 F 70 19 158/59 94
02/15/25 07:37 02/15/25 06:15 02/15/25 06:15 02/15/25 06:00 02/15/25 07:51
Intake and Output
02/14/25 02/15/25 02/16/25
06:59 06:59 06:59
Intake Total 1403.4 / 1515.4 112 / 112
Output Total 400 / 400 0 / 0
Balance 1003.4 / 1115.4 112 / 112
SaO2 94
Nasal Cannula flow liters per 3
minute
Physical Exam
General: Respiratory Distress (N), Comfortable, Pain (N), Fever (N) and Chills (N)
HEENT: Normocephalic, Anicteric and Moist Mucous Membranes
Cardiovascular: S1-S2
Respiratory: Clear and Non-Labored Respirations
GI: Soft, Non Distended, Non Tender and Normal Bowel Sounds
Neurology: Awake, Alert, Oriented and AO x 3
Skin: Warm, Dry and Good Color
Labs/Micro/Reports
Lab Data
02/15/25 03:52
02/15/25 03:52
Laboratory Results
02/15/25
03:54
PT 22.7 H
INR 1.95
APTT 38.2 H

Documented by User: Kurt Dawson MD 02/15/25 14:08
Assessment
-
Assessment:
84 year old male with a past medical history of hypertension, hyperlipidemia, CAD/CABG, chronic kidney disease stage IV, and obesity was admitted with fatigue, syncope, shortness of breath and severe symptomatic bradycardia. Patient was found to be
in acute renal failure with increased creatinine from his baseline of 2.3, along with hyperkalemia with potassium of 7.3, and wide QRS complexes on EKG. Patient was requiring atropine and dopamine for severe bradycardia and it risk analyst services
were consulted on 02/14/2025 for further management.
Conditions present prior to admission:
Hypertension.
Hyperlipidemia.
CAD/CABG x 4.
Diabetes.
MIKE/CPAP.
Prostate cancer-2000
Psoriasis.
Chronic kidney disease-3B.
Melanoma.
Trigger finger
Prostatectomy. Tonsillectomy. Cataract.
Plan
#Severe symptomatic bradycardia
-temporary pacemaker placed yesterday, scheduled for permanent pacemaker to be placed later today
-heart rate has been in the 70s with pacemaker, had to be adjusted overnight
-Supplemental oxygen as needed
-Nebulizers if needed
-Elevated troponin but peaked, most likely were due to bradycardia
-Aspiration precautions, complains of trouble swallowing. Speech eval ordered, patient NPO for permanent pacemaker placement later today
-Cardiology following, input appreciated
-Lactic acidosis resolved
#Hyperkalemia
-Improved with dialysis treatment
-Nephrology following, input appreciated
-On Insulin gtt, to be stopped later today
-Continue monitoring BMP and following Potassium
-Should improve with improved perfusion of kidneys following pacemaker placement
#TOMY on CKD 4
-Received dialysis treatment yesterday, one more round of dialysis scheduled for today
-TOMY most likely secondary to poor perfusion of kidneys due to poor cardiac output from severe bradycardia
-Inman catheter ordered
-Continue to hold Losartan
#Type 2 diabetes requiring Insulin
-Currently on insulin gtt, to be switched to subcutaneous insulin later today
-Diabetes nurse practitioner consulted for help with insulin management, input appreciated
-Continue monitoring glucose levels and adjust insulin as needed
#Markedly increased LFTs
-most likely secondary to shock liver (hypoperfusion)
-bilirubin and ALP normal, GGT normal
-AST and ALT trending down, continue following
-Levels should improve with pacemaker placement
#Leukocytosis with possible aspiration
-Afebrile but possibly had some aspiration due to difficulty swallowing. Nothing definitive seen on chest x-ray this morning
-Blood and urine cultures pending
-No antibiotics indicated at this time, continue following temperatures
-UA showed asymptomatic, most likely not UTI related
DVT prophylaxis-on heparin subcu q12
Full Code (Following discussion with who says he would want to be intubated if dealing with reversible conditions)
I reviewed this patients case independently and in conjunction with the resident. I personally examined the patient. Patient's complex medical history, laboratory evaluations, events over the last 24 hours, radiographs, microbiological data were
all personally reviewed.
Agree with documented assessment and plan
Kurt Dawson MD, [facility], [facility]
Diagnostic data:
Chest x-ray 09/22/2024-low lung volumes, left basilar opacification
Chest x-ray 02/14/2025-low lung volumes, no focal opacifications to suggest pneumonia, top normal pulmonary vasculature
Chest x-ray 02/15/2025-haziness of each hemidiaphragm, left greater than right, which may represent bibasilar subsegmental atelectasis, aspiration, or pneumonia.
CT chest 09/17/2024-no focal airspace disease or pulmonary nodules, severe coronary artery calcifications
Echocardiogram 02/14/2025- Normal left ventricular systolic function with EF visually estimated 55%
Right ventricle poorly visualized however in subcostal views function appears preserved
No pericardial effusion
Compared to complete 2D and Doppler study dated 12/14/2024, ejection fraction
remains preserved, previously estimated 55-60%. Small pericardial effusion is
not appreciated in current study.
Echocardiogram 12/14/2024-EF 55-60%, aortic sclerosis, PA systolic 25, no evidence for shunting through interatrial septal aneurysm
Cardiac catheterization 02/14/2025-successful placement of temporary pacemaker via right internal jugular as well as successful placement of temporary hemodialysis catheter via the left internal jugular
Lower extremity ultrasound 12/05/12/05/2024-complex cyst or possible hematoma superficially
--- NOTE | 2025-02-15 08:24 | W.PN.HOSP.TC ---
Today's Communication/Plan
-
Start diet if okay with consultants
Nifedipine
Inman catheter
Dialysis per nephrology
Monitor electrolytes
GGT
Assessment / Plan
Assessment / Plan
Gen-AAOx3, NAD
HEENT-NC, AT, anicteric, clear oral mm
Neck-supple
CV-reg, no M, +S1/S2
Lungs-clear B/L
Abd-soft, NT, ND
Ext-no edema
Musculoskeletal-no cyanosis, clubbing
Skin-warm and dry
Neuro-grossly non-focal
Psych-calm, cooperative
Severe symptomatic bradycardia - Etiology likely due to hyperkalemia. Temporary transvenous pacemaker placed February 14. Capture is adequate on EKG.
Prior to admission patient had known sinus node disease with consideration for permanent pacemaker.
Lactic acidosis due to decreased cardiac output from profound bradycardia, improved.
Life-threatening hyperkalemia -improving. To get second session of dialysis today. Nephrology following.
TOMY on CKD 4 -initiated hemodialysis on admission. Nephrology following. Etiology of TOMY suspected to be due to profound volume depletion versus other etiology. Inman catheter ordered.
Losartan on hold.
Acute hepatitis -elevated transaminases noted, bilirubin and alkaline phosphatase normal. Check GGT. Possibly due to ischemic etiology given profound bradycardia prior to admission. Was not hypotensive however. Hepatitis B and C panel negative.
Hold atorvastatin.
INR 1.95. Suspect underlying malnutrition.
Elevated troponin -likely due to profound bradycardia, hyperkalemia. No evidence of ACS.
Leukocytosis -nontoxic, doubt infection. Likely leukemoid reaction. Afebrile, monitor for now. Blood and urine cultures pending.
Asymptomatic pyuria -doubt UTI.
Hypercalcemia - improved.
DM2 with hyperglycemia -he is on Farxiga 10 mg daily, dulaglutide 3 mg subcu every Tuesday, insulin degludec 18 units at bedtime at home.
Currently on IV insulin infusion in the ICU, 2 units/h. Diabetes DRY BOX TENDER consulted.
Glucose 160 this morning. Hemoglobin A1c pending.
CAD/CABG -bypass surgery performed 09/19/2024, four-vessel.
Essential hypertension -blood pressure elevated. At home he is on losartan 25 mg nightly. Ideally would need beta-hanh once bradycardia fully addressed. Can start nifedipine.
Hyperlipidemia -hold atorvastatin in light of elevated LFTs.
Hypothyroidism -continue levothyroxine. TSH normal.
Chronic normocytic anemia -suspect hemoglobin at baseline. Will need outpatient follow-up.
Obesity due to excess calories
Full code -confirmed with patient.
Anticipated Discharge: > 48 hours
Subjective/Interval History
-
Date of Service: February 15, 2025
Patient seen and examined. No complaints.
Objective Data
-
Labs:
Laboratory Results
02/14/25 02/15/25 02/15/25
22:03 03:52 03:52
WBC 19.7 H
Hgb 10.5 L
Hct 29.2 L
Plt Count 237 D
PT
INR
APTT
Sodium 136 137
Potassium 5.4 H 5.5 H
Chloride 101 105
Carbon Dioxide 23 23
BUN 72 H 76 H
Creatinine 4.0 H 4.0 H
Glucose 173 H 160 H
Calcium 9.4 9.5
Total Bilirubin 1.3 Cancelled 1.3
AST 4051 H* Cancelled
ALT 3387 H*
Alkaline Phosphatase 117
02/15/25 02/15/25 02/15/25
03:52 03:52 03:52
WBC
Hgb
Hct
Plt Count
PT
INR
APTT
Sodium
Potassium
Chloride
Carbon Dioxide
BUN
Creatinine
Glucose
Calcium
Total Bilirubin
AST 3190 H*
ALT Cancelled 3211 H*
Alkaline Phosphatase Cancelled 116
02/15/25
03:54
WBC
Hgb
Hct
Plt Count
PT 22.7 H
INR 1.95
APTT 38.2 H
Sodium
Potassium
Chloride
Carbon Dioxide
BUN
Creatinine
Glucose
Calcium
Total Bilirubin
AST
ALT
Alkaline Phosphatase
Vital Signs:
Vital Signs
Temp Pulse Resp BP Pulse Ox
98.5 F 68 21 155/56 97
02/15/25 07:37 02/15/25 08:00 02/15/25 08:00 02/15/25 08:00 02/15/25 08:00
I&O
02/14/25 02/15/25 02/16/25
06:59 06:59 06:59
Intake Total 1403.4 / 1515.4
Output Total 400 / 400 0 / 0
Balance 1003.4 / 1115.4
Review of Systems
-
History Source: Patient
All other systems: Reviewed and negative
--- NOTE | 2025-02-15 08:34 | PN.DE.MGMTRT ---
Insulin Management
- -
02/15/2025: Diabetes Management Consult
84 year old male with PMH of CAD s/p CABG x4 09/2024, HTN, HLD, DM2, CKD, recent diagnosis hypothyroidism. He had bradycardia as well as fatigue noted during cardiac rehab sessions. Toprol was stopped and he underwent 5 day Ramila monitor from
01/29-02/03/25 which showed sinus ramila with episodes of 2nd degree av block type 1 with some 2:1 conduction and no significant pauses. He was scheduled to come to cardiology office today to discuss ppm placement, however presented to [facility] by EMS
due to syncopal episode witnessed by at home. He was taking Tresiba 18 units @ HS, Farxiga 10mg daily and Trulicity 3mg weekly. A1C 8.4%, Cr 6.1-->4.0, eGFR 14.15 today
Pt is awake, alert, oriented, resting in bed, offers no complaints, able to provide details about diabetes care plan at home, is not at the bedside.
States he has been using a CGM- Leonel 3 for glucose monitoring at home for the last 2 months. He is in the process of getting an Binder Folder Operator.
He states that he took his Tresiba 18 units yesterday morning prior to coming to the hospital.
Glucose was 255 on arrival to the ED and he was started on Glycemic protocol insulin infusion.
His glucose has improved, current glucose range is 162 to 192 requiring 1.7 to 3 units of insulin/hr
Will transition off insulin infusion to SQ insulin. Give Lantus 15 units NOW and turn drip off 2 hrs after administering Lantus
Plan is to keep pt NPO for procedure--> PPM later today, will start Moderate corrective Q6 hrs.
Will closely monitor and make further adjustments to plan of care if necessary. Discussed with Nurse an ICU team
Diabetes History
- -
Type of Diabetes: 2 requiring insulin
Pre-Admission Diabetes Regimen
02/14/25 02/14/25 02/14/25
11:16 16:00 19:33
Creatinine 6.1 H* Cancelled 4.0 H
02/14/25 02/14/25 02/15/25
20:00 22:03 03:52
Creatinine Cancelled 4.0 H 4.0 H
Insulin Pump Settings
IP Diabetes Regimen
02/14/25 02/14/25 02/14/25
11:16 13:41 14:07
Glucose 255 H
POC Glucose 247 H 311 H
02/14/25 02/14/25 02/14/25
14:55 16:00 16:17
Glucose Cancelled
POC Glucose 243 H 184 H
02/14/25 02/14/25 02/14/25
17:11 18:06 19:11
Glucose
POC Glucose 172 H 170 H 171 H
02/14/25 02/14/25 02/14/25
19:33 20:00 20:57
Glucose 166 H Cancelled
POC Glucose 186 H
02/14/25 02/15/25 02/15/25
22:03 00:01 02:09
Glucose 173 H
POC Glucose 175 H 162 H 166 H
02/15/25 02/15/25 02/15/25
03:52 03:56 06:06
Glucose 160 H
POC Glucose 172 H 192 H
02/15/25
07:06
Glucose
POC Glucose 165 H
Meal type: Breakfast
Patient Education
--- NOTE | 2025-02-15 08:55 | W.PN.INTV ---
Today's Communication / Plan
Recommendations
Hemodialysis
Permanent pacemaker
Trend LFTs
If remains stable transfer to IVU after permanent pacemaker-at that point aspnet developer will sign off-call pulmonary if respiratory issues arise
Assessment
-
84-year-old obese and distant smoking male with a history of hypertension, hyperlipidemia, CAD/CABG, and obesity admitted with fatigue, shortness of breath and severe symptomatic bradycardia who went for temporary pacemaker requiring atropine,
dopamine and aspnet developer consulted for severe bradycardia/critical care management 02/14/2025.
Severe symptomatic bradycardia status post temporary pacemaker
Hyperkalemia-potassium 7.3
TOMY on top of chronic kidney disease
Hypercalcemia
Hyperglycemia
Leukocytosis
Mild anemia-normocytic
Metabolic acidosis
Lactic acidosis
Elevated LFTs-suspect shock liver
Elevated troponin
Conditions present prior to admission:
Hypertension.
Hyperlipidemia.
CAD/CABG x 4.
Diabetes.
MIKE/CPAP.
Prostate cancer-2000
Psoriasis.
Chronic kidney disease-3B.
Melanoma.
Trigger finger
Prostatectomy. Tonsillectomy. Cataract.
Plan
Mental status and hemodynamically much improved
Supplemental oxygen as needed
Nebulizers if needed-currently not bronchospastic
Monitor for fluid overload-some tachypnea
Aspiration precautions electrolyte incentive spirometry
Cardiology following-correspondence reviewed
Cardiac catheterization lab reports reviewed
Temporary pacemaker placed 02/14/[address] Nance -to place permanent pacemaker after hemodialysis 02/15/2025
Troponin trended
Reverse hyperkalemia-much improved--likely will resolve after today's hemodialysis
Nephrology evaluation ongoing-correspondence reviewed
Emergent hemodialysis for life-threatening hyperkalemia 02/14/2025 and again 02/15/2025
Monitor renal function and electrolytes as well as acidosis
Baseline serum creatinine around 2.3-hoping with heart block/bradycardia/hypoperfusion his current renal status is reversible
Monitor blood sugar
Insulin drip-attempt to wean off
Diabetic nurse practitioner
Monitor LFTs-significantly elevated and now trending down-suspect shock liver
GI evaluation ongoing
DVT prophylaxis-on heparin
Nutrition
Early mobilization
The patient could be transferred to IVU after permanent pacemaker placement-at that point aspnet developer would sign off-call pulmonary if respiratory issues arise
Reviewed with at the bedside 02/15/2025 at length and updated on current clinical situation, plan for the next 24 hours and need for outpatient follow-up
Patient was for seen by Dr. Dawson for sleep apnea 04/29/2020 and last seen in the pulmonary office by Lora Johnson NP on 01/24/25
Critical care statement: A total of 40 minutes of critical care time was provided for this patient today. This includes management of unstable vital signs, evaluation of the patient at bedside, reviewing the patient's pertinent medical records
including radiographs, microbiology, laboratory evaluations, and discussion with primary team, consultants, pharmacy, nutrition, physical therapy, case management, charge nurse, critical care nursing, and respiratory therapy.
Diagnostic data:
Chest x-ray 03/27/2010-NAD
Chest x-ray 09/22/2024-low lung volumes, left basilar opacification
Chest x-ray 02/14/2025-low lung volumes, no focal opacifications to suggest pneumonia, top normal pulmonary vasculature
CT chest 09/17/2024-no focal airspace disease or pulmonary nodules, severe coronary artery calcifications
Echocardiogram 12/14/2024-EF 55-60%, aortic sclerosis, PA systolic 25, no evidence for shunting through interatrial septal aneurysm
Cardiac catheterization 02/14/2025-successful placement of temporary pacemaker via right internal jugular as well as successful placement of temporary hemodialysis catheter via the left internal jugular
Lower extremity ultrasound 12/05/12/05/2024-complex cyst or possible hematoma superficially
PSG-AHI 21, REM-AHI 70, desaturation audrey 74%, CPAP 11 cm
PFT 01/24/25-FEV1 2.0-91%, FVC 2.6-81%, TLC 66%, DLCO 56%, DLCO/VA 90%
Subjective Dataa
Subjective Data
Date of Service:
Date of Service: February 15, 2025
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
Subjective:
Feels much improved, more oriented, less short of breath, no chest pain or abdominal pain, making some urine
Review of Systems
General: Other ( per HPI)
Objective Data
Data Reviewed
Vital Signs / I&O / Oxygen:
Vital Signs
Temp Pulse Resp BP Pulse Ox
98.5 F 68 21 155/56 97
02/15/25 07:37 02/15/25 08:00 02/15/25 08:00 02/15/25 08:00 02/15/25 08:00
Intake and Output
02/14/25 02/15/25 02/16/25
06:59 06:59 06:59
Intake Total 1403.4 / 1515.4 124 / 124
Output Total 400 / 400 0 / 0
Balance 1003.4 / 1115.4 124 / 124
SaO2 97
Nasal Cannula flow liters per 3
minute
Physical Exam
General: Respiratory Distress (n) and Comfortable
HEENT: Normocephalic, Anicteric and Moist Mucous Membranes
Cardiovascular: Regular Rhythm and Murmur
Respiratory: Wheeze (n), Crackles ( few basilar), Rhonchi, Non-Labored Respirations, Accessory Resp Muscle Use (n) and Stridor (n)
GI: Soft, Non Distended and Non Tender
Neurology: Awake, Alert and No Motor Deficits
Skin: Warm, Good Color, Cyanosis (n), Jaundice (n) and Rash (n)
Labs/Micro/Reports
Lab Data
02/15/25 03:52
02/15/25 03:52
Laboratory Results
02/15/25
03:54
PT 22.7 H
INR 1.95
APTT 38.2 H
[2025-02-15 09:09] LABS: Glucose - Point of Care 143 mg/dl (70-99)
[2025-02-15] MEDS: PROCARDIA XL (EXTENDED RELEASE) PO (09:13)
--- NOTE | 2025-02-15 09:13 | PTCARENOTE ---
Provider made aware of swallowing issues unable to give oral medications. Speech consulted, however unable to see at this time due to NPO status w. PPM insertion planned.
[2025-02-15 10:21] LABS: Glycohemoglobin (HgbA1c) 7.5 % (4.0-5.6)
[2025-02-15 10:27] LABS: GGTP 43 U/L (15-73)
--- NOTE | 2025-02-15 10:35 | W.PN.NEPH.PH ---
Today's Communication / Plan
-
Dialysis today
Assessment/Plan
-
Impression:
Acute kidney injury (93/6.1), December 2024 creatinine 2.3 which appears to be at his baseline.= Follows with Dr. Corado
Hyperkalemia (7.3)
Gap metabolic acidosis (lactic acid ~10)
Bradycardia
History of coronary artery disease with CABG
Secondary hyperparathyroid
Diabetes
Plan:
Multiorgan failure, TOMY, shock liver
Status post acute dialysis 02/14
- Patient is critically ill with life-threatening hyperkalemia in the setting of acute renal failure= improved
Dialysis pending today with continued electrolyte abnormalities though nonoliguric
See orders
Discussed with critical care nurse
PPM placement
- 33 minutes critical care time spent with patient
-
-
Date of Service: February 15, 2025
CC / HPI / ROS
-
Chief Complaint:
Presents with hyperkalemia and TOMY on CKD
History of Present Illness:
TOMY on CKD hemodynamic changes bradycardia
Review of Systems:
Inman catheter nonoliguric
No chest pain or shortness of breath
Labs
-
Labs:
WBC 19.7 10^3/uL (4.8-10.8) H 02/15/25 03:52
RBC 3.42 10^6/uL (4.70-6.10) L 02/15/25 03:52
Hgb 10.5 g/dL (13.0-18.0) L 02/15/25 03:52
Hct 29.2 % (39.0-52.0) L 02/15/25 03:52
Plt Count 237 10^3/uL (130-400) D 02/15/25 03:52
Sodium 137 mmol/L (135-145) 02/15/25 03:52
Potassium 5.5 mmol/L (3.5-5.1) H 02/15/25 03:52
Chloride 105 mmol/L (98-107) 02/15/25 03:52
Carbon Dioxide 23 mmol/L (22-30) 02/15/25 03:52
BUN 76 mg/dl (9-20) H 02/15/25 03:52
Creatinine 4.0 mg/dL (0.7-1.3) H 02/15/25 03:52
eGFR 14.15 02/15/25 03:52
Glucose 160 mg/dl (70-99) H 02/15/25 03:52
Calcium 9.5 mg/dl (8.4-10.2) 02/15/25 03:52
Moj-A-Ielhwdzvyck Pept 32702 pg/ml 02/14/25 11:16
Albumin 3.5 g/dl (3.5-5.0) 02/15/25 03:52
Albumin Cancelled 02/15/25 03:52
Physical Exam
-
Vital Signs:
Vital Signs
Temp Pulse Resp BP Pulse Ox
98.2 F 70 20 149/62 96
02/15/25 09:11 02/15/25 10:00 02/15/25 10:00 02/15/25 09:30 02/15/25 10:00
--- NOTE | 2025-02-15 11:02 | CM ---
Met patient at bedside with
attended [place] rounds
HD today, NPO for PPM today
PLAN: tbd, CM to follow hospital progress to determine needs
[2025-02-15] MEDS: LANTUS 0.15 UNITS SC (11:13)
[2025-02-15 11:25] LABS: Glucose - Point of Care 142 mg/dl (70-99)
--- NOTE | 2025-02-15 11:51 | PTCARENOTE ---
ROUND NOTES
Nephro has scheduled HD TX prior to pacer insertion.
EP has tentative pacer scheduled for this afternoon after HD.
Per diabetes CHEMISTRY TEACHER transitioning pt. off insulin gtt to Lantus/Mod scale.
Speech unable to see pt. at this time due to NPO status for procedure.
Roller Skate Repairer rounded, due to no longer requiring ICU needs after PPM, will go post op tentatively to IVU.
--- NOTE | 2025-02-15 11:56 | CON.GI ---
Addendum entered and electronically signed by Angélica Huertas DO 02/15/25 15:48:
Patient seen and examined independently of ISI. I agree with her note with my additions below
Sasha is an 84-year-old male with significant cardiac history including CABG last year, diabetes, CKD 4 at baseline, bradycardia who was in his chair and without warning passed out. He has been worked up as an outpatient for his symptomatic
bradycardia and was being worked up for pacemaker. Patient states he was probably out for less than a minute. Upon arrival to the emergency room he was in renal failure with his creatinine up to 6, hyperkalemia, lactic acid of 10.8 requiring
emergency dialysis and going for a permanent pacemaker this afternoon. We were called because of significant hepatocellular injury with an ALT over 3000 AST over 4000. Total bilirubin 1.3 and alkaline phosphatase 117. I reviewed his liver enzymes
as an outpatient which in 2023 were normal. He denies any Tylenol use. No fevers chills or any infectious symptoms prior to syncope and none current. He denies any abdominal pain. States he is mildly nauseous while on dialysis and feels
significant fatigue. He is hungry wants to eat but is n.p.o. for his pacemaker.
# Significant hepatocellular injury -highly likely low-flow/ischemic in the setting of syncope at home due to symptomatic bradycardia
-- Also with concomitant worsening renal function requiring dialysis both letting us know there was poor flow to his kidneys and liver
-- No infectious signs highly doubt HSV hepatitis, other viral hepatitis panel was negative
-- Will check ultrasound with Doppler to ensure no clot
-- Overall very few things will cause liver enzymes to go in the thousands: Ischemic versus Tylenol overdose versus HSV hepatitis versus other viral hepatitis
-- Avoid hypotension
-- Avoid any hepatotoxic medications like statins, Tylenol -I DC'd the Tylenol as needed order
-- As the hepatocellular injury improves expect the bilirubin to rise. This is a normal recovery pattern and ischemic hepatitis
-- Patient's INR was mildly elevated, recheck tomorrow
-- After he gets his ultrasound and pacemaker okay for diet from a GI/hepatology perspective
Original Note:
Consultation
-
Date/Time Consultation Requested: 02/15/25 0800
Date/Time Consultation Performed: 02/15/25 1145
Requesting Provider: MJ Sim
Performing Provider: Dr. Huertas/ISI Vega
Reason for Consultation: elevated LFTs
Medical History
Chief Complaint / HPI
Chief Complaint: Syncope, chest pain
History of Present Illness:
84-year-old male with past medical history CAD status post CABG x 4 (11/2023), diabetes, CKD 4, hypertension, hyperlipidemia, prostate cancer, hypothyroidism, bradycardia who was brought into the emergency room on 02/14/2025 after he passed out at
home while laying in his 'easy chair'. I spoke with him and his at bedside. The patient states that he was having some chest discomfort on and off for approximately 4 days. He was sitting in his easy chair at home when he felt dizzy and lost
consciousness. His called 911 he was brought to the emergency room for further evaluation. The patient had bradycardia requiring temporary pacer. The patient was found to be in acute renal failure with his creatinine up to 6.1, hyperkalemia
with potassium of 7.3, lactic acid of 10.8, he required emergency dialysis. We are asked to evaluate for elevated transaminases. The patient denies any prior history of known liver disease. Transaminases reviewed in chart dating back to 2007
confirmed no prior history of elevated LFTs. The patient is a former smoker quitting in 1979, drinks less than 1 alcoholic beverage every 1 to 2 months, denies any tattoos, piercings, IV drug use or blood transfusion. On presentation total
bilirubin 1.2, AST 1270, ALT 1229, alk phos 104, later that day total bilirubin 1.3 with increased AST up to 4051, ALT 3387, alk phos 117. Repeat today with improvement, total bilirubin 1.3, AST 3190, ALT 3211, alk phos 116, GGT 43. Blood cultures
and urine culture pending. White count increased at 19.7 up from 15.2 yesterday. Hemoglobin 10.5, decreased from 11.3, platelets 237. Prior to this episode the patient denied any GI complaints. He denies any fevers, chills, nausea, vomiting,
melena, hematochezia, dysphagia or dyne aphasia. No early satiety or unintentional weight loss. He states that he is 'hungry' as he has not had anything to eat or drink in 2 days.
Past Medical History
Past Medical History: Other (CAD status post CABG x 4 (11/2023), diabetes, CKD 4, hypertension, hyperlipidemia, prostate cancer, hypothyroidism, bradycardia)
Past Surgical History: Other (CABG, prostatectomy)
Social History
Tobacco: Former Smoker (Quit 1979)
Alcohol: Occasional (Rare less than once a month)
Drug: None
Personal:
Living: With Family
Employment: Retired
Family History
Family History: Other (Family history of gastrointestinal malignancy or IBD)
Allergies / Home Medications
Allergy/AdvReac Type Severity Reaction Status Date / Time
No Known Allergies Allergy Verified 09/17/24 08:13
�Medication �Instructions �Recorded
atorvastatin 40 mg tablet 40 mg PO HS High Cholesterol 09/17/24
aspirin 81 mg chewable tablet 81 mg PO QPM Blood Clot 09/28/24
Prevention/Tx
clopidogrel 75 mg tablet 75 mg PO DAILY Heart 10/08/24
disease/condition 30 days #30 tabs
calcitriol 0.25 mcg capsule 0.25 mcg PO MOWEFR Supplement for 10/09/24
kidney 30 days #15 caps
dapagliflozin propanediol 10 mg 10 mg PO DAILY Heart 02/14/25
tablet (Farxiga) Disease/Condition
docusate sodium 100 mg capsule 100 mg PO QPM Constipation 02/14/25
(Colace)
dulaglutide 1.5 mg/0.5 mL 3 mg SC FR Diabetes 02/14/25
subcutaneous pen injector
(Trulicity)
insulin degludec 200 unit/mL (3 18 unit SC QPM Diabetes 02/14/25
mL) subcutaneous pen (Tresiba
FlexTouch U-200 insulin)
inulin 1.7 gram chewable tablet 3.4 g PO QPM Gastrointestinal Issue 02/14/25
(Fiber Gummies)
levothyroxine 50 mcg tablet 50 mcg PO DAILY Thyroid 02/14/25
(Synthroid)
loratadine 10 mg tablet (Claritin) 10 mg PO QPM Allergies 02/14/25
losartan 25 mg tablet 25 mg PO QPM Blood Pressure 02/14/25
oxybutynin chloride 10 mg 10 mg PO QPM Urinary Issue 02/14/25
tablet,extended release 24 hr
Review of Systems
-
All other systems: A 12 pt ROS was Negative except as stated above in HPI
Vital Signs
Temp Pulse Resp BP Pulse Ox
98.2 F 70 20 149/62 96
02/15/25 09:11 02/15/25 10:00 02/15/25 10:00 02/15/25 09:30 02/15/25 10:00
Physical Exam
Exam
General: No Apparent Distress
HEENT: Anicteric and Other (Bilateral IJ )
Respiratory: Clear (Anterior)
Cardiac: Regular Rhythm
GI: Soft, Non Tender, Non Distended and Normal Bowel Sounds
Skin: Warm and Dry
Neuro: AO x 3
Psych: Calm
Results
WBC 19.7 10^3/uL (4.8-10.8) H 02/15/25 03:52
Hgb 10.5 g/dL (13.0-18.0) L 02/15/25 03:52
Hct 29.2 % (39.0-52.0) L 02/15/25 03:52
MCV 85.4 fL (80.0-94.0) 02/15/25 03:52
Plt Count 237 10^3/uL (130-400) D 02/15/25 03:52
Absolute Neuts (auto) 16.9 10^3/uL (1.4-6.5) H 02/15/25 03:52
PT 22.7 Sec (11.4-14.6) H 02/15/25 03:54
INR 1.95 02/15/25 03:54
APTT 38.2 Sec (23.4-35.0) H 02/15/25 03:54
Sodium 137 mmol/L (135-145) 02/15/25 03:52
Potassium 5.5 mmol/L (3.5-5.1) H 02/15/25 03:52
Chloride 105 mmol/L (98-107) 02/15/25 03:52
Carbon Dioxide 23 mmol/L (22-30) 02/15/25 03:52
BUN 76 mg/dl (9-20) H 02/15/25 03:52
Creatinine 4.0 mg/dL (0.7-1.3) H 02/15/25 03:52
Calcium 9.5 mg/dl (8.4-10.2) 02/15/25 03:52
Total Bilirubin 1.3 mg/dl (0.2-1.3) 02/15/25 03:52
Total Bilirubin Cancelled 02/15/25 03:52
AST 3190 U/L (17-59) H* 02/15/25 03:52
AST Cancelled 02/15/25 03:52
ALT 3211 U/L (0-50) H* 02/15/25 03:52
ALT Cancelled 02/15/25 03:52
Alkaline Phosphatase 116 U/L (38-126) 02/15/25 03:52
Alkaline Phosphatase Cancelled 02/15/25 03:52
Hep Bs Antibody Negative 02/14/25 14:07
Hep B Core Total Ab Negative (Negative) 02/14/25 14:07
Hepatitis C Antibody Negative (Negative) 02/14/25 14:07
Diagnostic Image Results:
Chest x-ray 02/15/2025:1. Tubes and lines as above.
2. Haziness of each hemidiaphragm, left greater than right, which may represent bibasilar subsegmental atelectasis, aspiration, or pneumonia
Prior GI Procedures:
EGD: Never had
Colonoscopy: 'Dr. Almonte 10 years ago'. Normal per patient report. Records unavailable to us.
Assessment / Plan
-
84-year-old male with past medical history CAD status post CABG x 4 (11/2023), diabetes, CKD 4, hypertension, hyperlipidemia, prostate cancer, hypothyroidism, bradycardia who was brought into the emergency room on 02/14/2025 after he passed out at
home while laying in his 'easy chair'. I spoke with him and his at bedside. The patient states that he was having some chest discomfort on and off for approximately 4 days. He was sitting in his easy chair at home when he felt dizzy and lost
consciousness. His called 911 he was brought to the emergency room for further evaluation. The patient had bradycardia requiring temporary pacer. The patient was found to be in acute renal failure with his creatinine up to 6.1, hyperkalemia
with potassium of 7.3, lactic acid of 10.8, he required emergency dialysis. We are asked to evaluate for elevated transaminases. Elevated transaminases On presentation total bilirubin 1.2, AST 1270, ALT 1229, alk phos 104, later that day total
bilirubin 1.3 with increased AST up to 4051, ALT 3387, alk phos 117. Repeat today with improvement, total bilirubin 1.3, AST 3190, ALT 3211, alk phos 116, GGT 43. This is in the setting of severe bradycardia and syncope. No noted hypotension.
However had heart rate of 26 documented, with loss of consciousness at home. Acute hepatitis panel negative. Suspect low flow/shock.
Impression:
Elevated transaminases
Severe symptomatic bradycardia status post temporary pacemaker 02/14/2025 for permanent pacemaker placed
Lactic acidosis
Severe hyperkalemia
TOMY on CKD, requiring HD
Plan:
- Trend LFTs
- Watch CBC and coags to ensure no decreasing platelets or rising INR
- If with no improvement, pain can obtain ultrasound of abdomen.
- As per primary team/other consultants for above
-
-
Thank you for consultation and allowing me to participate in the patient's care. Please call the compensation expert GI physician during the after hours with any questions or concerns.
[2025-02-15] MEDS: NOVOLOG FLEXPEN-MODERATE RESISTANCE SC ×3 (12:28→23:56)
--- NOTE | 2025-02-15 12:37 | W.PN.UPDATE ---
Update Note
Progress Note Update
Spoke with cardiology and EP regard to pacemaker placement which will be done today. Left temporary IJ will need to be removed. Contacted interventional radiology the formal consult placed for access placement on either right IJ or femoral
[2025-02-15 13:12] LABS: Glucose - Point of Care 128 mg/dl (70-99)
[2025-02-15] MEDS: MANNITOL 25% 12.5 GRAMS IV ×2 (13:35→14:15)
[2025-02-15 13:41] LABS: Creatine Phosphokinase 345 U/L (55-170)
--- NOTE | 2025-02-15 13:49 | W.PN.UPDATE ---
Update Note
Progress Note Update
Briefly, patient is a 84-year-old male with a past medical history significant for CAD with CABG times 19 September 2024, CKD 3B, hypertension, hyperlipidemia, diabetes mellitus type 2, sleep apnea on CPAP, hypothyroidism, former smoker who presented
with syncope unresponsiveness found to be hyperkalemic with shock liver/significant CKD. Patient additionally found to be in complete heart block likely contributing to his malperfusion. Temporary dialysis catheter placed with improvement in
potassium. Temporary venous pacemaker placed with improvement in perfusion. In discussion with nephrology, patient making urine with improving urine and potassium values. Patient has symptomatic bradycardia at baseline. Patient noted to have
significant first-degree AV block with right bundle branch block at baseline and evidence of second-degree type I with 2-1 AV conduction during waking hours. Additionally, patient with chronotropic incompetence with max heart rate while wearing
event monitor 60 bpm. On initial presentation to [facility], patient noted to be in complete heart block. Following improvement in renal function and electrolytes, patient remains complete heart block dependent on pacemaker. Following
thorough and thoughtful discussion with patient and his regarding device, we discussed differences in devices including dual-chamber pacemaker versus leadless pacemaker. In discussion with nephrology with patient's continued trajectory,
patient may no longer require hemodialysis. Additionally, with his right bundle branch block and significant first-degree block, dual-chamber pacing would likely be the best option for him with his symptomatic complete heart block. We discussed
pacemaker indications and device implant in detail. For implant there is an approximate 1:1000 risk of RI/stroke/ and a 1% risk of pneumothorax/tamponade/infection/bleeding. We also discussed post procedure implant restrictions including
positions to avoid with implant arm for first six weeks after implant as well as driving restrictions. I took time to answer all questions. Patient undergo dialysis today and have left-sided IJ hemodialysis catheter removed allowing for
implantation of dual-chamber pacemaker along with removal of TVP as additional indicated procedure. Patient and verbalized understanding. Patient consented for procedure. Remains NPO.
--- NOTE | 2025-02-15 14:13 | W.PN.NEPH.HD ---
Assessment
-
seen on hd
temp hd cath positional
unsure if will need hd through wknd
IR aware that they may need to come in this weekend to place HD cath at new location to make way for PPM to be done after HD.
All physicians aware
Progress Note - Hemodialysis
-
Date of Service: February 15, 2025
Duration: 2 hours
Potassium Bath: 2
Calcium Bath: 2.5
Opti-Dialyzer: 160
Ultrafiltration: Other (1 kg)
Blood Flow: 250
Dialysate Flow: 600
Heparin: None
EPO: None
[2025-02-15] MEDS: HEPARIN 2800 UNITS INTRACATH (15:29)
--- NOTE | 2025-02-15 15:51 | PTCARENOTE ---
HD now finished. EP physician notified, needs LIJ HD cath to be removed prior. Nephrology notified, awaiting line to be removed. Dr. English notified of need for line removal.
--- NOTE | 2025-02-15 16:15 | PTCARENOTE ---
LIJ removed, pt. being taken for PPM.
--- NOTE | 2025-02-15 16:40 | ITS.CL.PACE ---
Legal Assistant - Pacemaker Implant
Pacemaker Implant
Procedure Report:
Primary Care Doctor: Dr Twan Perry
Primary Sign Manufacturer: Dr Rito Rosas
Procedure Date: 02/15/2025
Name of procedure:
1. Placement of a dual-chamber pacemaker with left bundle area pacing lead for conduction system pacing
History:
1. Patient is a 84-year-old gentleman with a past medical history significant for symptomatic sinus bradycardia with intermittent Mobitz 2 type I and 2-1 AV block, CAD with prior CABG, CKD 3B, hypertension, hyperlipidemia, diabetes mellitus type 2,
sleep apnea, hypothyroidism who presented with hyperkalemia, renal failure, and complete heart block.
2. Please refer to H&P for complete history.
Indication:
Complete heart block
Methods:
After informed consent was obtained, the patient was brought to the EP laboratory in a postabsorptive, nonsedated state. Peripheral IV access was established. Prophylactic antibiotics were administered prior to incision. Continuous ECG, blood
pressure, and pulse oximetry were initiated. Cardioversion patch electrodes were placed on the patient's chest and back. A grounding patch was applied to the skin. Sedation was administered by anesthesia services. A venogram was not performed
due to patient's renal function.
The left chest was prepared and draped in a sterile fashion. A time-out was performed. Local anesthesia was injected in the subcutaneous tissue in the infraclavicular area. An incision was made medial to the deltopectoral groove. The subcutaneous
tissue was dissected the level of the prepectoral fascia. A subcutaneous pocket was created. Under fluoroscopic guidance, 2 separate venipunctures were made using micropuncture and modified Seldinger technique. These were performed in the
extrathoracic portion of the subclavian vein. Guidewires were passed and two peel-away sheaths were placed, and used to advance leads into the circulation.
Fluoroscopy was used to determine likely anatomic site for left bundle branch pacing. The [employer]onic C315 sheath was used to deliver the Medtronic 3830 Selectsecure pacing lead with the helix exposed just exposed from the sheath tip during continuous
monitoring when pacemapping the septum during gentle clockwise rotation to obtain a paced QRS morphology of a W pattern in lead V1. Once the suspected optimal site was identified, lead deployment was performed with several rapid rotations as paced
QRS morphology was intermittently monitored until a paced QRS complex in lead V1 demonstrated development of an R wave (qR or rSR). The unipolar pacing impedance drop by greater than 400 ohms suggesting perforation into the left ventricular cavity
and the lead was carefully withdrawn and repositioned. Following repositioning, unipolar pacing impedance dropped by approximately 100-200 ohms suggesting it had reached the left ventricular subendocardial. Stable VEgm injury current is present
throughout lead position and at end of case. Final unipolar pacing impedance is 760 Ohms. Unipolar pacing threshold is stable at 1.0 V @ 0.4 ms. The patient had pre-existing right bundle branch block morphology at baseline. Final conduction system
paced QRS complex duration is 118 ms, LVAT is 58 ms, and peak V5 -> peak V1 timing is 67 ms. The C315 sheath was slit under fluoroscopy ensuring lead position and stability.
Next, the right atrial lead was positioned in the right atrial appendage. Adequate sensing and pacing parameters were found, and no diaphragmatic stimulation was seen with high-output pacing. Both sheaths were split, and the leads were secured to
the fascia with Ethibond ties.
The pocket was flushed with antibiotic solution and hemostasis was assured. The generator was connected to the leads and placed inside the pocket. The device was sutured to the fascia. Antibiotic envelope was used. Surgiflo was applied. The wound
was closed with 3 running layers of absorbable suture, and steri-strips were applied. Dressing applied over steri-strips in standard fashion.
Under fluoroscopic guidance, right IJ TVP was removed. Device leads did not change position and sensing/pacing/impedance numbers remained consistent. Right IJ sheath was also removed pressure held and dressed in standard fashion.
Following the procedure, the patient was taken to the recovery area in stable condition. A chest x-ray to be obtained post procedure as routine.
Lead parameters and device programming:
- RA Lead ([employer], Model 5076, #[id number]): Sensing 1.0 mV, Pacing threshold 0.5 V at 0.4 ms, Imp 620 Ohm
- RV Lead (Medtronic, Model 3830, #[id number]): Sensing 8.0 mV, Pacing threshold 0.75 V at 0.4 ms, Imp 760 Ohm
- Device: Medtronic, Model W1 DR 01 pacemaker (# [id number]), programmed DDD, mode switch on, lower rate 60 upper track rate 130 ppm
Conclusions:
1. Successful placement of a dual-chamber pacemaker with conduction system pacing (LBBAP)
2. TVP removal under fluoroscopy
Recommendations:
- Return to patient room
- Chest x-ray tonight, [facility] in AM.
- IV antibiotics while the patient is admitted.
- OK to resume home medications as indicated
- Pressure dressing to be removed in AM, aquacell to remain until wound check
- Follow-up will be arranged in the office in 7-10 days post-discharge for incision check
Helio Real DO, FACC, [facility]
Clinical Cardiac Vp Patient
cc: Dr Twan Perry; Dr Rito Rosas
[2025-02-15 16:48] LABS: Glucose - Point of Care 99 mg/dl (70-99)
[2025-02-15] MEDS: CLARITIN PO (19:44)
[2025-02-15] MEDS: COLACE PO (19:44)
[2025-02-15] MEDS: LOW STRENGTH ASPIRIN PO (19:55)
[2025-02-15 21:08] LABS: Glucose - Point of Care 91 mg/dl (70-99)
--- NOTE | 2025-02-15 22:08 | RESPNOTE ---
Pt does not currently have owncpap machine in the room, as I was notified by RN of the cpap status. We both looked in the room for pts cpap but to no avail. I asked the pt if he wanted to use ours and he initially said yes but when told we didn't
have nasal pillows, he declined
--- NOTE | 2025-02-15 22:30 | PTCARENOTE ---
Pt arrived back from EP labs s/p permanent pacemaker placement at approx 1900. Pt drowsy but easily arousable, able to answer questions and follow commands. Pt A/O x2-3 to person, time, loosely to place (knew he was in the hospital but kept saying
he was in [place]), needs to be reoriented to situation. Pt is calm and cooperative with care. 100% V paced on monitor with occasional PVCs. SpO2 96% on RA. Pressure dressing to L chest wall, left arm in immobilizer. Physical assessment as documented
in nursing shift assessment flowsheet. Call ortega and personal items within reach.
[2025-02-16] VITALS (28 sets, daily range): BP systolic 120–171; BP diastolic 55–91; PULSE 89; O2SAT 95; BMI 30.6
[2025-02-16] MEDS: ANCEF 5 IV ×2 (00:01→07:38)
--- NOTE | 2025-02-16 00:32 | PTCARENOTE ---
Assessment unchanged. 100% V paced on monitor with frequent PVCs. HR currently in 70s.
[2025-02-16] MEDS: MORPHINE SULFATE 1 MG IV (01:55)
[2025-02-16] MEDS: APRESOLINE 10 MG IV ×2 (02:09→23:21)
[2025-02-16 02:16] LABS: Hematocrit 27.4 % (39.0-52.0); Hemoglobin 9.9 g/dL (13.0-18.0); Mean Corp Hgb Conc. 36.1 g/dL (33.0-37.0); Mean Corpuscular Hgb 31.3 pg (27.0-31.0); Mean Corpuscular Volume 86.7 fL (80.0-94.0); Mean Platelet Volume 10.4 fL (7.4-10.4); Platelet Count 203 10^3/uL (130-400); Red Blood Cell Count 3.16 10^6/uL (4.70-6.10); Red Cell Dist. Width 13.9 % (11.5-14.5); White Blood Cell Count 13.7 10^3/uL (4.8-10.8)
--- NOTE | 2025-02-16 02:18 | PTCARENOTE ---
At approx 0140 pt rang call ortega reporting that he was having chest pain, 6/10, indicating pain/pressure in center and towards left side of chest. Denied any radiation, jaw pain, did endorse slight shortness of breath and pain when trying to take a
deep breath. 100% V paced on monitor, HR in 80s, frequent PVCs noted. BP cycled at that time, 170/59, SpO2 95% on RA. Placed on 2LNC for comfort. EKG obtained. Shelton SNOWDEN notified, came into room to assess patient. Morphine 1mg IV
ordered/administered. PRN hydralazine order modified for SBP >140 (had been >170), hydralazine administered as well. See EMAR for med administration details. Troponin ordered, drawn along with the rest of pt's AM labs, currently pending. Pt states
that the chest pain has 'subsided significantly' since receiving the Morphine. Pt now resting with eyes closed.
[2025-02-16 02:31] LABS: INR 1.71; PT 20.3 Sec (11.4-14.6)
[2025-02-16 02:43] LABS: Albumin 3.3 g/dl (3.5-5.0); Alkaline Phosphatase 125 U/L (38-126); Blood Urea Nitrogen 62 mg/dl (9-20); Calcium 8.6 mg/dl (8.4-10.2); Carbon Dioxide 25 mmol/L (22-30); Chloride 107 mmol/L (98-107); Estimated Creatinine Clearance 20 ml/min; Glucose 100 mg/dl (70-99); Magnesium 2.2 mg/dl (1.6-2.3); Potassium 4.5 mmol/L (3.5-5.1); Sodium 142 mmol/L (135-145); Total Bilirubin 1.2 mg/dl (0.2-1.3); Total Protein 5.6 g/dl (6.3-8.2); eGFR 19.98
[2025-02-16 02:52] LABS: ALT (SGPT) 2081 U/L (0-50); AST (SGOT) 1172 U/L (17-59)
[2025-02-16] MEDS: SYNTHROID PO (04:06)
--- NOTE | 2025-02-16 05:20 | PTCARENOTE ---
Assessment unchanged. Pt has been asleep since shortly after receiving Morphine. V paced 80s on monitor.
[2025-02-16] MEDS: NOVOLOG FLEXPEN-MODERATE RESISTANCE SC ×2 (05:34→12:07)
[2025-02-16 05:44] LABS: Glucose - Point of Care 102 mg/dl (70-99)
--- NOTE | 2025-02-16 07:46 | W.PN.HOSP.TC ---
Today's Communication/Plan
-
Transfer out of ICU
PT/OT
Assessment / Plan
Assessment / Plan
Gen-AAOx3, NAD
HEENT-NC, AT, anicteric, clear oral mm
Neck-supple
CV-reg, no M, +S1/S2
Lungs-clear B/L
Abd-soft, NT, ND
Ext-no edema
Musculoskeletal-no cyanosis, clubbing
Skin-warm and dry
Neuro-grossly non-focal
Psych-calm, cooperative
Complete heart block - present on admission, likely triggered by severe hyperkalemia. Underwent dual-chamber pacemaker placement February 15.
Life-threatening hyperkalemia - Resolved.
TOMY on CKD 4 -initiated hemodialysis on admission. Nephrology following. Etiology of TOMY suspected to be due to profound volume depletion versus other etiology. Inman catheter in place, 1.1 L output overnight.
Losartan on hold. Creatinine trending down.
Acute Ischemic hepatitis -elevated transaminases noted, bilirubin and alkaline phosphatase normal. GGT normal. CPK 345. Possibly due to ischemic etiology given profound bradycardia prior to admission. Was not hypotensive however. Hepatitis B and
C panel negative. Hold atorvastatin.
INR 1.95, Repeat 1.7.
GI service has ordered abdominal ultrasound with Doppler.
Elevated troponin -likely due to profound bradycardia, hyperkalemia. No evidence of ACS.
Leukocytosis -nontoxic, doubt infection. Likely leukemoid reaction. Afebrile, monitor for now. WBC count trending down. Blood Cultures negative, urine cultures pending.
Asymptomatic pyuria -doubt UTI.
Hypercalcemia - improved.
DM2 with hyperglycemia -he is on Farxiga 10 mg daily, dulaglutide 3 mg subcu every Tuesday, insulin degludec 18 units at bedtime at home.
Hemoglobin A1c 7.5%. Glucose 100 this morning.
Transitioned off IV insulin February 15, now on glargine 15 units daily, moderate resistance aspart scale.
CAD/CABG -bypass surgery performed 09/19/2024, four-vessel.
Essential hypertension -blood pressure elevated. At home he is on losartan 25 mg nightly, Currently on hold for TOMY. Ideally would need beta-hanh once bradycardia fully addressed. Can start nifedipine.
Hyperlipidemia -hold atorvastatin in light of elevated LFTs.
Hypothyroidism -continue levothyroxine. TSH normal.
Chronic normocytic anemia -suspect hemoglobin at baseline. Will need outpatient follow-up.
Obesity due to excess calories
Full code -confirmed with patient.
PT/OT
Anticipated Discharge: > 48 hours
Subjective/Interval History
-
Date of Service: February 16, 2025
Patient seen and examined. No complaints. Eager to go home.
Objective Data
-
Labs:
Laboratory Results
02/16/25
02:06
WBC 13.7 H
Hgb 9.9 L
Hct 27.4 L
Plt Count 203
PT 20.3 H
INR 1.71
Sodium 142
Potassium 4.5
Chloride 107
Carbon Dioxide 25
BUN 62 H
Creatinine 3.0 H
Glucose 100 H
Calcium 8.6
Total Bilirubin 1.2
AST 1172 H*
ALT 2081 H*
Alkaline Phosphatase 125
Vital Signs:
Vital Signs
Temp Pulse Resp BP Pulse Ox
98.2 F 88 22 158/91 95
02/16/25 07:00 02/16/25 06:00 02/16/25 06:00 02/16/25 06:00 02/16/25 06:00
I&O
02/15/25 02/16/25 02/17/25
06:59 06:59 06:59
Intake Total 1403.4 / 1515.4 220.5 / 220.5
Output Total 400 / 400 1170 / 1170
Balance 1003.4 / 1115.4 -949.5 / -949.5
Review of Systems
-
History Source: Patient
All other systems: Reviewed and negative
--- NOTE | 2025-02-16 08:00 | PTCARENOTE ---
Assumed care of pt at 0715 following shift report. Pt awake and resting quietly in bed. Denies complaints of pain or SOB. Oriented x person, place and situation- confused by date. Reorients easily- conversation appropriate. Follows all commands. Pt
remains 100% vpaced w/ frequent monomorphic PVCs. Dressing to Lt upper chest d/i. Lt arm in sling per order. Inman patent and draining clear yellow urine. O2 at 2l/min via NC w/ POx 98%. Physical assessment completed as documented. Comfort care and
hygiene completed. Call ortega remains w/in pt reach. Safe environment maintained.
--- NOTE | 2025-02-16 08:02 | W.PN.GI.CBS2 ---
Addendum entered and electronically signed by Angélica Huertas DO 02/16/25 13:06:
reviewed U/S without any concerning findings.
GI will sign off. follow recs from below
Original Note:
Today's Communication / Plan
-
- awaiting u/s then ok for diet and if u/s normal GI will sign off
Assessment / Plan
-
84-year-old male with significant cardiac history including CABG last year, diabetes, CKD 4 at baseline, bradycardia who was in his chair and without warning passed out. He has been worked up as an outpatient for his symptomatic bradycardia and was
being worked up for pacemaker. Patient states he was probably out for less than a minute. Upon arrival to the emergency room he was in renal failure with his creatinine up to 6, hyperkalemia, lactic acid of 10.8 requiring emergency dialysis and
going for a permanent pacemaker this afternoon. We were called because of significant hepatocellular injury with an ALT over 3000 AST over 4000. Total bilirubin 1.3 and alkaline phosphatase 117. I reviewed his liver enzymes as an outpatient which
in 2023 were normal. He denies any Tylenol use. No fevers chills or any infectious symptoms prior to syncope and none current. He denies any abdominal pain. States he is mildly nauseous while on dialysis and feels significant fatigue. He is
hungry wants to eat
Impression:
Elevated transaminases
Severe symptomatic bradycardia status post temporary pacemaker 02/14/2025 for permanent pacemaker placed
Lactic acidosis
Severe hyperkalemia
TOMY on CKD, requiring HD
# Significant hepatocellular injury 2/2 low flow (IMPROVING)
-highly likely low-flow/ischemic in the setting of syncope at home due to symptomatic bradycardia
-- Also with concomitant worsening renal function requiring dialysis both letting us know there was poor flow to his kidneys and liver
-- No infectious signs highly doubt HSV hepatitis, other viral hepatitis panel was negative
-- Will check ultrasound with Doppler to ensure no clot
-- Overall very few things will cause liver enzymes to go in the thousands: Ischemic versus Tylenol overdose versus HSV hepatitis versus other viral hepatitis
-- Avoid hypotension
-- Avoid any hepatotoxic medications like statins, Tylenol -I DC'd the Tylenol as needed order
-- As the hepatocellular injury improves expect the bilirubin to rise. This is a normal recovery pattern and ischemic hepatitis
-- Patient's INR was mildly elevated, and improving
-- After he gets his ultrasound okay for diet from a GI/hepatology perspective
I will review the ultrasound later and if no significant findings will sign off. Just trend the LFTs (expect bili to rise - normal)
Subjective
Subjective
Date of Service: February 16, 2025
Patient is hungry and is frustrated that he cannot eat yet
Objective
Data Reviewed
Laboratory Data:
Laboratory Results
02/16/25 02:06
02/16/25 02:06
Laboratory Results
PT 20.3 Sec (11.4-14.6) H 02/16/25 02:06
INR 1.71 02/16/25 02:06
APTT 38.2 Sec (23.4-35.0) H 02/15/25 03:54
Magnesium 2.2 mg/dl (1.6-2.3) 02/16/25 02:06
Total Bilirubin 1.2 mg/dl (0.2-1.3) 02/16/25 02:06
AST 1172 U/L (17-59) H* 02/16/25 02:06
ALT 2081 U/L (0-50) H* 02/16/25 02:06
Alkaline Phosphatase 125 U/L (38-126) 02/16/25 02:06
Vital Signs and I&O:
Vital Signs
Temp Pulse Resp BP Pulse Ox
98.2 F 88 22 158/91 95
02/16/25 07:00 02/16/25 06:00 02/16/25 06:00 02/16/25 06:00 02/16/25 06:00
I&O
02/15/25 02/16/25 02/17/25
06:59 06:59 06:59
Intake Total 1403.4 / 1515.4 220.5 / 220.5
Output Total 400 / 400 1170 / 1170
Balance 1003.4 / 1115.4 -949.5 / -949.5
Physical Exam
Physical Exam
HEENT: Anicteric
GI: Soft, Non Distended and Non Tender
--- NOTE | 2025-02-16 08:27 | W.PN.INTV ---
Addendum entered and electronically signed by Jermaine Garay MD 02/16/25 16:31:
Heparin subcutaneous being held. Defer resuming to primary team + cardiology. Once resumed, start with q8hr, if safe.
Original Note:
Today's Communication / Plan
Recommendations
Hemodialysis per nephro
s/p permanent pacemaker - now V-paced
Trend LFTs
Patient is stable for transfer to IVU. This was confirmed with cardiology, Dr. Boston on 02/16/2025. No additional recommendations at this time. Senior Administrative Associate/pulmonary service will now sign off. Please reconsult if there are any additional
questions/concerns, or if patient's respiratory status deteriorates.
Assessment
-
84-year-old obese and distant smoking male with a history of hypertension, hyperlipidemia, CAD/CABG, and obesity admitted with fatigue, shortness of breath and severe symptomatic bradycardia who went for temporary pacemaker requiring atropine,
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
Severe symptomatic bradycardia status post temporary pacemaker
Hyperkalemia-now resolved
TOMY on top of chronic kidney disease � TOMY improving
Hypercalcemia � resolved
Hyperglycemia � now euglycemic
Leukocytosis � improving
Mild anemia-normocytic
Metabolic acidosis � resolved
Lactic acidosis � resolved
Elevated LFTs-suspect shock liver; and is improving
Elevated troponin � peaked at 1.45 on 02/16/2025
Conditions present prior to admission:
Hypertension.
Hyperlipidemia.
CAD/CABG x 4.
Diabetes.
MIKE/CPAP.
Prostate cancer-2000
Psoriasis.
Chronic kidney disease-3B.
Melanoma.
Trigger finger
Prostatectomy. Tonsillectomy. Cataract.
Plan
Mental status and hemodynamically much improved
Supplemental oxygen as needed
Nebulizers if needed-currently not bronchospastic
Monitor for fluid overload
Aspiration precautions; encourage incentive spirometry
Cardiology following-correspondence reviewed
Cardiac catheterization lab reports reviewed
Temporary pacemaker placed 02/14/[address] Nance -permanent pacemaker placed after hemodialysis on 02/15/2025
Troponin trended down - no longer need to continue trending at this point
Nephrology evaluation ongoing-correspondence reviewed
Emergent hemo(4.5 today) dialysis for life-threatening hyperkalemia 02/14/2025 and again 02/15/2025
K now normal
Monitor renal function and electrolytes and serum HCO3 level
Baseline serum creatinine around 2.3
Monitor blood sugar with goal BG 140-180
Insulin drip weaned off
Diabetic nurse practitioner consulted
Monitor LFTs-significantly elevated and now trending down-suspect shock liver
GI evaluation ongoing; they have now no additional recommendations at this time. Pulmonary service will now sign off. Thank you for allowing us to be involved in the care of this patient. Please reconsult if there are any additional
questions/concerns, or if patient's respiratory status deteriorates.; Avoid hepatotoxic medications if possible; abdominal ultrasound with Doppler showed patent main and right hepatic veins with normal waveforms
DVT prophylaxis-on heparin to raised to q8hr
Nutrition
Early mobilization
Patient is stable for transfer to IVU. This was confirmed with cardiology, Dr. Boston on 02/16/2025. No additional recommendations at this time. Senior Administrative Associate/pulmonary service will now sign off. Thank you for allowing us to be involved in the
care of this patient. Please reconsult if there are any additional questions/concerns, or if patient's respiratory status deteriorates.
Patient was for seen by Dr. Dawson for sleep apnea 04/29/2020 and last seen in the pulmonary office by Lora Johnson NP on 01/24/25
Diagnostic data:
Chest x-ray 03/27/2010-NAD
Chest x-ray 09/22/2024-low lung volumes, left basilar opacification
Chest x-ray 02/14/2025-low lung volumes, no focal opacifications to suggest pneumonia, top normal pulmonary vasculature
CT chest 09/17/2024-no focal airspace disease or pulmonary nodules, severe coronary artery calcifications
Echocardiogram 12/14/2024-EF 55-60%, aortic sclerosis, PA systolic 25, no evidence for shunting through interatrial septal aneurysm
Cardiac catheterization 02/14/2025-successful placement of temporary pacemaker via right internal jugular as well as successful placement of temporary hemodialysis catheter via the left internal jugular
Lower extremity ultrasound 12/05/12/05/2024-complex cyst or possible hematoma superficially
PSG-AHI 21, REM-AHI 70, desaturation audrey 74%, CPAP 11 cm
PFT 01/24/25-FEV1 2.0-91%, FVC 2.6-81%, TLC 66%, DLCO 56%, DLCO/VA 90%
Total time spent today was 58 minutes for this encounter. Time includes reviewing laboratory test/imaging results, reviewing pertinent medical records, obtaining and reviewing medical history, performing an appropriate exam, ordering medications,
tests and procedures. Time also includes documentation of this encounter, coordinating patient care and communicating with other healthcare professionals. Total time does not include separately billed tests performed on this date of service.
Subjective Dataa
Subjective Data
Date of Service:
Date of Service: February 16, 2025
Chief Complaint: Senior Administrative Associate Follow Up and Pulmonary Follow Up
Subjective:
Patient seen this morning. He is doing well. Patient's , Mary, present at bedside and all questions were answered. He has some chest discomfort overnight but currently he feels okay. Currently on 1.5 L/min nasal cannula saturating 99%,
heart rate 86, and BP 162/69. He is V-paced on nurse leader. He denies SOB, DE, nausea, fevers or chills.
Review of Systems
General: Other (Negative unless mentioned above)
Objective Data
Data Reviewed
Vital Signs / I&O / Oxygen:
Vital Signs
Temp Pulse Resp BP Pulse Ox
98.2 F 88 19 160/72 97
02/16/25 07:00 02/16/25 09:00 02/16/25 09:00 02/16/25 09:00 02/16/25 09:00
Intake and Output
02/15/25 02/16/25 02/17/25
06:59 06:59 06:59
Intake Total 1403.4 / 1515.4 220.5 / 220.5
Output Total 400 / 400 1170 / 1220 175 / 175
Balance 1003.4 / 1115.4 -949.5 / -999.5 -175 / -175
SaO2 97
Nasal Cannula flow liters per 2
minute
Physical Exam
General: Respiratory Distress (n), Comfortable and Pain (Mild left-sided anterior chest discomfort where pacemaker was implanted)
HEENT: Normocephalic, Anicteric, Moist Mucous Membranes and Other (Thick neck)
Cardiovascular: S1-S2, Regular Rhythm, Peripheral Edema (negative) and Other (V paced)
Respiratory: Wheeze (n), Crackles ( few basilar), Rhonchi (negative), Non-Labored Respirations, Accessory Resp Muscle Use (n) and Stridor (n)
GI: Soft, Distended (Abdominal obesity), Non Tender and Normal Bowel Sounds
Neurology: AO x 3 and Tremors (negative)
Skin: Warm, Dry, Cyanosis (n), Jaundice (n) and Rash (n)
Labs/Micro/Reports
Lab Data
02/16/25 02:06
02/16/25 02:06
Laboratory Results
02/16/25 02/16/25
02:06 09:10
PT 20.3 H
INR 1.71
pH Cancelled
pCO2 Cancelled
pO2 Cancelled
HCO3 Cancelled
O2 Delivery Level Cancelled
Microbiology
02/14/25 19:33 Blood/Venous Blood Culture - Preliminary
No Growth in 24 hours- Final report to follow
02/14/25 19:33 Blood/Venous Blood Culture - Preliminary
No Growth in 24 hours- Final report to follow
--- NOTE | 2025-02-16 09:32 | W.PN.CARDCBS ---
Today's Communication / Plan
-
Improving
Normal function of pacemaker
Eventually there can be consideration for an ischemic evaluation, likely as an outpatient once he is more fully recovered from his multisystem organ failure.
Impression / Plan
-
Primary Database Dba: Dr. Rosas
Assessment:
Presentation with syncope/unresponsiveness
Marked Hyperkalemia with loss of P wave on ECG, peaked T waves and marked QRS widening
Complete heart block requiring temp pacing wire 02/14/25, then permanent pacemaker implantation on 03-10
ARF on CKD
Shock liver
Elevated lactic acidosis
Elevated troponin
Bradycardia with intermittent mobitz II type 1 and 2:1 av block by OP monitor 01/2025
CAD status post CABG x 4 FRIEDMAN to LAD, SVG to diagonal to OM, SVG to RPDA 09/19/2024
ARF on CKD 3B during 09/2024 admission, did not require HD at that time
Hypertension
Hyperlipidemia
Type 2 diabetes with hyperglycemia
Prostate cancer status post surgical resection 1999
MIKE on CPAP
Recent diagnosis hypothyroidism
Former smoker
ECHO 12/14/2024: Technically difficult study, EF 55 to 60%, aortic sclerosis, trace AR, PAP 25 mmHg, small pericardial effusion
ECHO 02/14/2025: EF 55%, RV poorly visualized, no pericardial effusion
Plan:
Critically ill admitted with syncope/unresponsiveness, multisystem organ failure, shock, complete heart block, marked hyperkalemia, acute renal failure.
He is clinically improving with resolution of hyperkalemia, improving renal function, and improving LFTs.
Etiology of this decompensation while not 100% clear, may be related to heart block and bradycardia as the precipitating event.
- Complete heart block initially treated with temporary pacing wire then permanent pacemaker implanted 02-15-25 (Medtronic dual-chamber permanent pacemaker utilizing conduction system pacing via LBB)
ECG this morning February 16, 2025 finds sinus rhythm with atrial tracking and ventricular pacing as well as frequent PVCs.
- He has had some intermittent chest discomfort since coronary artery bypass grafting surgery September 19, 2024. In the setting of his critical illness trop peaked at 1.4, suspected nonischemic myocardial injury in setting of shock, hyperkalemia,
ARF.
continue asa, plavix, lipitor.
There can be consideration for outpatient ischemic evaluation when she is otherwise recovered
- Hypertension management as per primary service.
Avoid nephrotoxic agents
-prognosis remains guarded but improving
-CCT 40 minutes
Discussed with patient and his at the bedside. Also discussed with ICU nursing.
Progress Note - Database Dba
Subjective
Date of Service: February 16, 2025
He tells me he is feeling better. He tells me he wishes to get out of bed and walk around.
He has had some intermittent chest discomfort which is really no different than what he has had since shortly after his cardiothoracic surgery in September.
Objective
Labs:
02/16/25 02:06
02/16/25 02:06
Labs
Hgb 9.9 g/dL (13.0-18.0) L 02/16/25 02:06
Hct 27.4 % (39.0-52.0) L 02/16/25 02:06
Plt Count 203 10^3/uL (130-400) 02/16/25 02:06
PT 20.3 Sec (11.4-14.6) H 02/16/25 02:06
INR 1.71 02/16/25 02:06
APTT 38.2 Sec (23.4-35.0) H 02/15/25 03:54
Sodium 142 mmol/L (135-145) 02/16/25 02:06
Potassium 4.5 mmol/L (3.5-5.1) 02/16/25 02:06
BUN 62 mg/dl (9-20) H 02/16/25 02:06
Creatinine 3.0 mg/dL (0.7-1.3) H 02/16/25 02:06
Glucose 100 mg/dl (70-99) H 02/16/25 02:06
Troponins
02/14/25 02/14/25 02/14/25
11:16 16:06 22:03
Troponin I 0.365 H* 0.518 H* D 0.802 H* D
02/15/25 02/16/25 02/16/25
03:52 02:06 07:34
Troponin I 0.699 H* 1.450 H* 1.210 H*
Vital Signs and I&O:
Vital Signs
Temp Pulse Resp BP Pulse Ox
98.2 F 88 22 158/91 95
02/16/25 07:00 02/16/25 06:00 02/16/25 06:00 02/16/25 06:00 02/16/25 06:00
Vital Signs
Temp Pulse Resp BP Pulse Ox
98.2 F 88 22 158/91 95
02/16/25 07:00 02/16/25 06:00 02/16/25 06:00 02/16/25 06:00 02/16/25 06:00
Intake & Output
02/14/25 02/15/25 02/16/25 02/17/25
06:59 06:59 06:59 06:59
Intake Total 1403.4 / 1515.4 220.5 / 220.5
Output Total 400 / 400 1170 / 1170
Balance 1003.4 / 1115.4 -949.5 / -949.5
Physical Exam
Physical Exam
Well-appearing, fatigued.
Regular with ectopy normal S1 and S2, no S3 no S4 is grade 1/6 apical systolic murmur no rubs
Lungs reduced breath sounds bilaterally without wheezes rales or rhonchi. Overall poor inspiratory effort.
Abdomen obese soft nontender positive bowel sounds
Extremities +1 pretibial edema bilaterally
[2025-02-16] MEDS: LANTUS 0.1 UNITS SC (10:20)
--- NOTE | 2025-02-16 10:24 | PTCARENOTE ---
Pt here to visit- updated on pt's present condition/plan of care and questions answered.
[2025-02-16] MEDS: LANTUS SC (10:54)
--- NOTE | 2025-02-16 11:00 | PTCARENOTE ---
Abd US in progress at bedside. Waiting on Speech therapy eval. Pt continues to deny complaints. O2 removed- Pox 94-96% on RA. No additional changes from previous assessment findings.
--- NOTE | 2025-02-16 12:00 | W.PN.NEPH.PH ---
Today's Communication / Plan
-
Holding dialysis
Assessment/Plan
-
Impression:
Acute kidney injury (93/6.1), December 2024 creatinine 2.3 which appears to be at his baseline.= Follows with Dr. Corado
Hyperkalemia (7.3)
Gap metabolic acidosis (lactic acid ~10)
Bradycardia
History of coronary artery disease with CABG
Secondary hyperparathyroid
Diabetes
Plan:
Multiorgan failure, TOMY, shock liver
Status post acute dialysis 02/14
Second dialysis treatment 02/15
Discussed with critical care nurse
PPM placement 02/15
Urine output improving creatinine 3
Holding dialysis through the weekend and I do expect him to recover back to his baseline chronic kidney disease
Discussed this with the patient and his was at the bedside
- 33 minutes critical care time spent with patient
-
-
Date of Service: February 16, 2025
CC / HPI / ROS
-
Chief Complaint:
Presents with hyperkalemia and TOMY on CKD
History of Present Illness:
TOMY on CKD hemodynamic changes bradycardia
Review of Systems:
Inman catheter nonoliguric
No chest pain or shortness of breath
Labs
-
Labs:
WBC 13.7 10^3/uL (4.8-10.8) H 02/16/25 02:06
RBC 3.16 10^6/uL (4.70-6.10) L 02/16/25 02:06
Hgb 9.9 g/dL (13.0-18.0) L 02/16/25 02:06
Hct 27.4 % (39.0-52.0) L 02/16/25 02:06
Plt Count 203 10^3/uL (130-400) 02/16/25 02:06
Sodium 142 mmol/L (135-145) 02/16/25 02:06
Potassium 4.5 mmol/L (3.5-5.1) 02/16/25 02:06
Chloride 107 mmol/L (98-107) 02/16/25 02:06
Carbon Dioxide 25 mmol/L (22-30) 02/16/25 02:06
BUN 62 mg/dl (9-20) H 02/16/25 02:06
Creatinine 3.0 mg/dL (0.7-1.3) H 02/16/25 02:06
eGFR 19.98 02/16/25 02:06
Glucose 100 mg/dl (70-99) H 02/16/25 02:06
Calcium 8.6 mg/dl (8.4-10.2) 02/16/25 02:06
Vuy-N-Leonihpzyhu Pept 31528 pg/ml 02/14/25 11:16
Albumin 3.3 g/dl (3.5-5.0) L 02/16/25 02:06
Physical Exam
-
Vital Signs:
Vital Signs
Temp Pulse Resp BP Pulse Ox
98.7 F 88 19 160/72 97
02/16/25 11:00 02/16/25 09:00 02/16/25 09:00 02/16/25 09:00 02/16/25 09:00
[2025-02-16] MEDS: PLAVIX 75 MG PO (12:04)
[2025-02-16] MEDS: PROCARDIA XL (EXTENDED RELEASE) 30 MG PO (12:04)
[2025-02-16 12:18] LABS: Glucose - Point of Care 102 mg/dl (70-99)
--- NOTE | 2025-02-16 13:44 | PTOTSP ---
Speech therapy
Presentation: Patient was oriented and followed commands. Patient's speech appeared to be WNL but noted voice to be hoarse.
Swallowing complaints: Patient shared he has been experiencing belching with all PO and solids 'stuck in esophagus' for ~1 month.
Swallowing function: ARCHIVES SPECIALIST observed patient with several presentations of ice chips, tsp of thins, straw sips of thins, tsp of puree, and regular consistency solids in which patient appeared to tolerate as he did not exhibit any overt clinical s/sx of
aspiration or difficulty with mastication/ manipulation. Patient denied food 'getting stuck' but did demonstrate several instances of belching with PO.
Recommendations:
1) reg/ thin liquids
2) aspiration precautions
3) medications as tolerated
4) consider GI input given belching complaint
Plan: ARCHIVES SPECIALIST will continue to follow to ensure tolerance; pending hospitalization.
--- NOTE | 2025-02-16 16:00 | PTCARENOTE ---
Pt OOB to chair since visit from PT. Tolerating increased activity w/o complication or complaint. Several family members in to visit. remains at bedside. Pt tolerating diet. Confirmed w/ Dr Bliss via TT- no additional restrictions to diet
or PO fluid intake other than what is currently ordered.
--- NOTE | 2025-02-16 17:00 | PTCARENOTE ---
Pt returned to bed per his request. Pt c/o nausea. TT to cross-covering MD for prn Zofran order. After receiving order, pt found to be sleeping soundly- not woken at this time. remains at bedside. No additional changes.
[2025-02-16 17:39] LABS: Glucose - Point of Care 207 mg/dl (70-99)
[2025-02-16] MEDS: CLARITIN 10 MG PO (18:15)
[2025-02-16] MEDS: LOW STRENGTH ASPIRIN 81 MG PO (18:16)
[2025-02-16] MEDS: COLACE 100 MG PO (18:16)
[2025-02-16] MEDS: NOVOLOG FLEXPEN-MODERATE RESISTANCE 3 UNITS SC (18:36)
[2025-02-16 21:12] LABS: Glucose - Point of Care 132 mg/dl (70-99)
--- NOTE | 2025-02-16 21:23 | PTCARENOTE ---
Assumed care of pt at 1900. Pt is A/O x3-4, pleasant and cooperative with care, slightly flat affect. No c/o pain. 100% V paced on monitor, HR 80s, frequent PVCs. Physical assessment as documented in nursing shift assessment flowsheet. Pt IVU level
of care.
Pt being transferred to IVU room 2249, asked pt if he wanted us to notify his of him moving rooms and he declined to have us call her. Belongings sent with patient include: home CPAP mask, cell phone & smelter charger and glasses. Insulin pen also sent
with pt. Pt stated his took his hearing aids home. Pt being transferred by 2 RN via bed at this time (2125).
--- NOTE | 2025-02-16 23:28 | PTCARENOTE ---
Received patient as a tsf from ICU into room 2250. Patient AAOx3, tele monitor shows Vpaced w/ occasional PVCs, and sating 95% RA. Lungs clear throughout. Denies any chest pain. Left chest wall w/ pressure dressing in place. Patient educated on
activity restrictions and verbalized understanding. Inman intact and draining yellow urine, care provided. Patient aware of POC, call ortega within reach.
[2025-02-17] VITALS (11 sets, daily range): BP systolic 110–160; BP diastolic 49–71; PULSE 90–93; O2SAT 95; BMI 31.0
[2025-02-17 04:23] LABS: % Basophils 0.1 % (0-2); % Eosinophils 1.1 % (0-6); % Immature Granulocytes 1.5 % (0-0.5); % Monocytes 10.4 % (1.7-9.3); % Neutrophils 76.9 % (42.2-75.2); Absolute Eosinophils 0.2 10^3/uL (0-0.7); Absolute Immature Granulocytes 0.2 10^3/uL (0-0.05); Absolute Lymphocytes 1.5 10^3/uL (1.2-3.4); Absolute Monocytes 1.5 10^3/uL (0.1-0.6); Absolute Neutrophils 11.4 10^3/uL (1.4-6.5); Hematocrit 29.6 % (39.0-52.0); Hemoglobin 10.2 g/dL (13.0-18.0); Mean Corp Hgb Conc. 34.5 g/dL (33.0-37.0); Mean Corpuscular Hgb 30.4 pg (27.0-31.0); Mean Corpuscular Volume 88.1 fL (80.0-94.0); Mean Platelet Volume 10.1 fL (7.4-10.4); Nucleated Red Blood Cells % 0 % (-); Platelet Count 238 10^3/uL (130-400); Red Blood Cell Count 3.36 10^6/uL (4.70-6.10); Red Cell Dist. Width 13.8 % (11.5-14.5); White Blood Cell Count 14.9 10^3/uL (4.8-10.8)
[2025-02-17 04:57] LABS: ALT (SGPT) 741 U/L (0-50); AST (SGOT) 542 U/L (17-59); Albumin 3.3 g/dl (3.5-5.0); Alkaline Phosphatase 145 U/L (38-126); Blood Urea Nitrogen 73 mg/dl (9-20); Calcium 8.5 mg/dl (8.4-10.2); Carbon Dioxide 23 mmol/L (22-30); Chloride 103 mmol/L (98-107); Estimated Creatinine Clearance 20 ml/min; Glucose 177 mg/dl (70-99); Magnesium 2.3 mg/dl (1.6-2.3); Potassium 4.4 mmol/L (3.5-5.1); Sodium 137 mmol/L (135-145); Total Bilirubin 1.5 mg/dl (0.2-1.3); Total Protein 5.7 g/dl (6.3-8.2); eGFR 19.98
[2025-02-17 08:26] LABS: Glucose - Point of Care 154 mg/dl (70-99)
[2025-02-17] MEDS: SYNTHROID 50 MCG PO (08:31)
[2025-02-17] MEDS: PROCARDIA XL (EXTENDED RELEASE) 30 MG PO (08:32)
[2025-02-17] MEDS: PLAVIX 75 MG PO (08:32)
[2025-02-17] MEDS: NOVOLOG FLEXPEN-MODERATE RESISTANCE 1 UNITS SC (08:46)
--- NOTE | 2025-02-17 09:08 | W.PN.CARDCBS ---
Today's Communication / Plan
-
He is hypertensive. He now has heart rate control/protection via his newly implanted pacemaker. Will avoid nephrotoxic drugs. Will initiate metoprolol tartrate 12.5 mg twice daily (eventually transition to succinate) and can titrate up metoprolol
and if additional agent is needed can consider amlodipine
Impression / Plan
-
Primary Collection Officer: Dr. Rosas
Assessment:
Presentation with syncope/unresponsiveness
Marked Hyperkalemia with loss of P wave on ECG, peaked T waves and marked QRS widening
Complete heart block requiring temp pacing wire 02/14/25, then permanent pacemaker implantation on 03-10
ARF on CKD
Shock liver
Elevated lactic acidosis
Elevated troponin
Bradycardia with intermittent mobitz II type 1 and 2:1 av block by OP monitor 01/2025
CAD status post CABG x 4 FRIEDMAN to LAD, SVG to diagonal to OM, SVG to RPDA 09/19/2024
ARF on CKD 3B during 09/2024 admission, did not require HD at that time
Hypertension
Hyperlipidemia
Type 2 diabetes with hyperglycemia
Prostate cancer status post surgical resection 1999
MIKE on CPAP
Recent diagnosis hypothyroidism
Former smoker
ECHO 12/14/2024: Technically difficult study, EF 55 to 60%, aortic sclerosis, trace AR, PAP 25 mmHg, small pericardial effusion
ECHO 02/14/2025: EF 55%, RV poorly visualized, no pericardial effusion
Plan:
Critically ill on admission with syncope/unresponsiveness, multisystem organ failure, shock, complete heart block, marked hyperkalemia, acute renal failure.
He has clinically improved with resolution of hyperkalemia, improving renal function, and improving LFTs.
Etiology of this decompensation while not 100% clear, may be related to heart block and bradycardia as the precipitating event.
- Complete heart block initially treated with temporary pacing wire then permanent pacemaker implanted 02-15-25 (Medtronic dual-chamber permanent pacemaker utilizing conduction system pacing via LBB)
ECG February 16, 2025 finds sinus rhythm with atrial tracking and ventricular pacing as well as frequent PVCs.
- He has had some intermittent chest discomfort since coronary artery bypass grafting surgery September 19, 2024. In the setting of his critical illness trop peaked at 1.4, suspected nonischemic myocardial injury in setting of shock, hyperkalemia,
ARF.
continue asa, plavix, lipitor.
There can be consideration for outpatient ischemic evaluation when she is otherwise recovered
- Acute renal on chronic failure
Has been improving, has been making urine, no immediate plans for hemodialysis
- Hypertension management as per primary service.
Avoid nephrotoxic agents
Will add Metoprolol tartrate 12.5 mg twice daily and eventually can change to succinate formulation
- prognosis remains guarded but improving
- Deconditioning
out of bed as tolerated, will likely need rehab
Discussed with patient and with IVU nursing
Total time spent today was 51 minutes in preparing to see the patient, seeing the patient and coordination of care. This included review of recent laboratory evaluations, cardiact testing, imaging studies, primary care rtecords, specialty
consultations, hospital records, as well as personally interviewing and examining the patient, which included discussion of their tests, review/ordering medications, and communicating with other healthcare professionals and also treatment planning
as well as counseling.
Progress Note - Collection Officer
Subjective
Date of Service: February 17, 2025
He tells me he is feeling a bit stronger. He was up and walking briefly yesterday while still in the ICU and is looking forward to ambulating today. His appetite is slowly improving.
Objective
Labs:
02/17/25 04:00
02/17/25 04:00
Labs
Hgb 10.2 g/dL (13.0-18.0) L 02/17/25 04:00
Hct 29.6 % (39.0-52.0) L 02/17/25 04:00
Plt Count 238 10^3/uL (130-400) 02/17/25 04:00
PT 20.3 Sec (11.4-14.6) H 02/16/25 02:06
INR 1.71 02/16/25 02:06
APTT 38.2 Sec (23.4-35.0) H 02/15/25 03:54
Sodium 137 mmol/L (135-145) 02/17/25 04:00
Potassium 4.4 mmol/L (3.5-5.1) 02/17/25 04:00
BUN 73 mg/dl (9-20) H 02/17/25 04:00
Creatinine 3.0 mg/dL (0.7-1.3) H 02/17/25 04:00
Glucose 177 mg/dl (70-99) H 02/17/25 04:00
Troponins
02/14/25 02/14/25 02/14/25
11:16 16:06 22:03
Troponin I 0.365 H* 0.518 H* D 0.802 H* D
02/15/25 02/16/25 02/16/25
03:52 02:06 07:34
Troponin I 0.699 H* 1.450 H* 1.210 H*
Vital Signs and I&O:
Vital Signs
Temp Pulse Resp BP Pulse Ox
97.6 F 93 20 159/71 95
02/17/25 08:37 02/17/25 08:21 02/17/25 08:37 02/17/25 08:21 02/17/25 08:37
Vital Signs
Temp Pulse Resp BP Pulse Ox
97.6 F 93 20 159/71 95
02/17/25 08:37 02/17/25 08:21 02/17/25 08:37 02/17/25 08:21 02/17/25 08:37
Intake & Output
02/15/25 02/16/25 02/17/25 02/18/25
06:59 06:59 06:59 06:59
Intake Total 1403.4 / 1515.4 220.5 / 220.5 1080 / 1080
Output Total 400 / 400 1170 / 1220 1340 / 1340
Balance 1003.4 / 1115.4 -949.5 / -999.5 -260 / -260
Physical Exam
Physical Exam
Well-appearing, fatigued.
Regular with ectopy normal S1 and S2, no S3 no S4 is grade 1/6 apical systolic murmur no rubs
Lungs reduced breath sounds bilaterally without wheezes rales or rhonchi. Overall poor inspiratory effort.
Abdomen obese soft nontender positive bowel sounds
Extremities +1 pretibial edema bilaterally
Also I remove the outer pressure dressing from his left upper chest pacemaker implantation site. The underlying Aquacel dressing has a small area of dried blood. Otherwise the area is soft and nontender, nonindurated.
--- NOTE | 2025-02-17 09:43 | W.PN.HOSP.TC ---
Today's Communication/Plan
-
Continue current care
Assessment / Plan
Assessment / Plan
Gen-AAOx3, NAD
HEENT-NC, AT, anicteric, clear oral mm
Neck-supple
CV-reg, no M, +S1/S2
Lungs-clear B/L
Abd-soft, NT, ND
Ext-no edema
Musculoskeletal-no cyanosis, clubbing
Skin-warm and dry
Neuro-grossly non-focal
Psych-calm, cooperative
Complete heart block - present on admission, likely triggered by severe hyperkalemia. Underwent dual-chamber pacemaker placement February 15.
Life-threatening hyperkalemia - Resolved.
TOMY on CKD 4 -initiated hemodialysis on admission. Nephrology following. Etiology of TOMY suspected to be due to profound volume depletion versus other etiology. Inman catheter in place.
Losartan on hold. Creatinine trending down.
Acute Ischemic hepatitis -elevated transaminases noted, bilirubin and alkaline phosphatase normal. GGT normal. CPK 345. Possibly due to ischemic etiology given profound bradycardia prior to admission. Was not hypotensive however. Hepatitis B and
C panel negative. Hold atorvastatin.
INR 1.95, Repeat 1.7.
Abdominal ultrasound with normal liver and spleen size, cholelithiasis without bile duct dilation.
Elevated troponin -likely due to profound bradycardia, hyperkalemia. No evidence of ACS.
Leukocytosis -nontoxic, doubt infection. Likely leukemoid reaction. Afebrile, monitor for now.
Asymptomatic pyuria -urine culture does show E. coli but patient without symptoms.
Hypercalcemia - improved.
DM2 with hyperglycemia -Home regimen is Farxiga 10 mg daily, dulaglutide 3 mg subcu every Tuesday, insulin degludec 18 units at bedtime.
Hemoglobin A1c 7.5%. Glucose 177 this morning. Currently on Lantus 10 units daily, moderate resistance NovoLog scale.
Diabetes [facility] is following.
CAD/CABG -bypass surgery performed 09/19/2024, four-vessel.
Essential hypertension -blood pressure elevated. At home he is on losartan 25 mg nightly, Currently on hold for TOMY. Ideally would need beta-hanh once bradycardia fully addressed. Can start nifedipine.
Hyperlipidemia -hold atorvastatin in light of elevated LFTs.
Hypothyroidism -continue levothyroxine. TSH normal.
Chronic normocytic anemia -suspect hemoglobin at baseline. Will need outpatient follow-up.
Obesity due to excess calories
Full code -confirmed with patient.
Dispo -likely will need SNF on discharge. Continue PT/OT.
Anticipated Discharge: 24 - 48 hours
Subjective/Interval History
-
Date of Service: February 17, 2025
Patient seen and examined. No new complaints.
Objective Data
-
Labs:
Laboratory Results
02/17/25
04:00
WBC 14.9 H
Hgb 10.2 L
Hct 29.6 L
Plt Count 238
Sodium 137
Potassium 4.4
Chloride 103
Carbon Dioxide 23
BUN 73 H
Creatinine 3.0 H
Glucose 177 H
Calcium 8.5
Total Bilirubin 1.5 H
AST 542 H*
ALT 741 H*
Alkaline Phosphatase 145 H
Vital Signs:
Vital Signs
Temp Pulse Resp BP Pulse Ox
97.6 F 93 20 159/71 95
02/17/25 08:37 02/17/25 08:21 02/17/25 08:37 02/17/25 08:21 02/17/25 08:37
I&O
02/16/25 02/17/25 02/18/25
06:59 06:59 06:59
Intake Total 220.5 / 220.5 1080 / 1080
Output Total 1170 / 1220 1340 / 1340
Balance -949.5 / -999.5 -260 / -260
Review of Systems
-
History Source: Patient
All other systems: Reviewed and negative
[2025-02-17] MEDS: LANTUS SC (10:19)
[2025-02-17] MEDS: LOPRESSOR 12.5 MG PO ×2 (11:05→19:36)
--- NOTE | 2025-02-17 12:13 | W.PN.NEPH.PH ---
Today's Communication / Plan
-
BMP in the morning
Maintain Inman catheter
Assessment/Plan
-
Impression:
Acute kidney injury (93/6.1), December 2024 creatinine 2.3 which appears to be at his baseline.= Follows with Dr. Corado
Hyperkalemia (7.3)
Gap metabolic acidosis (lactic acid ~10)
Bradycardia
History of coronary artery disease with CABG
Secondary hyperparathyroid
Diabetes
Plan:
Multiorgan failure, TOMY, shock liver
Status post acute dialysis 02/14
Second dialysis treatment 02/15
Discussed with critical care nurse
PPM placement 02/15
Holding dialysis through the weekend and I do expect him to recover back to his baseline chronic kidney disease
Discussed this with the patient and his was at the bedside
Nonoliguric 1340 out over the last 24 hours
Creatinine at 3 approaching baseline
-
-
Date of Service: February 17, 2025
CC / HPI / ROS
-
Chief Complaint:
Presents with hyperkalemia and TOMY on CKD
History of Present Illness:
TOMY on CKD hemodynamic changes bradycardia
Review of Systems:
Inman catheter nonoliguric
No chest pain or shortness of breath
Labs
-
Labs:
WBC 14.9 10^3/uL (4.8-10.8) H 02/17/25 04:00
RBC 3.36 10^6/uL (4.70-6.10) L 02/17/25 04:00
Hgb 10.2 g/dL (13.0-18.0) L 02/17/25 04:00
Hct 29.6 % (39.0-52.0) L 02/17/25 04:00
Plt Count 238 10^3/uL (130-400) 02/17/25 04:00
Sodium 137 mmol/L (135-145) 02/17/25 04:00
Potassium 4.4 mmol/L (3.5-5.1) 02/17/25 04:00
Chloride 103 mmol/L (98-107) 02/17/25 04:00
Carbon Dioxide 23 mmol/L (22-30) 02/17/25 04:00
BUN 73 mg/dl (9-20) H 02/17/25 04:00
Creatinine 3.0 mg/dL (0.7-1.3) H 02/17/25 04:00
eGFR 19.98 02/17/25 04:00
Glucose 177 mg/dl (70-99) H 02/17/25 04:00
Calcium 8.5 mg/dl (8.4-10.2) 02/17/25 04:00
Phosphorus 4.0 mg/dl (2.5-4.5) 02/17/25 04:00
Wyh-U-Yvcydfmfmbw Pept 24021 pg/ml 02/14/25 11:16
Albumin 3.3 g/dl (3.5-5.0) L 02/17/25 04:00
Physical Exam
-
Vital Signs:
Vital Signs
Temp Pulse Resp BP Pulse Ox
98.5 F 89 18 141/60 97
02/17/25 11:04 02/17/25 11:03 02/17/25 11:04 02/17/25 11:03 02/17/25 11:04
Respiratory:: Bilateral: Coarse
Lung Excursion:: Normal
Abdomen:: Soft
Bowel Sounds:: Normal
Extremity Edema:: None: Bilateral:
Inman Catheter: Yes
[2025-02-17 12:21] LABS: Glucose - Point of Care 214 mg/dl (70-99)
[2025-02-17] MEDS: NOVOLOG FLEXPEN-MODERATE RESISTANCE 3 UNITS SC ×2 (12:21→17:47)
--- NOTE | 2025-02-17 16:23 | PTCARENOTE ---
Inman catheter removed at 15:40, pt due to void by 9:40pm.
--- NOTE | 2025-02-17 16:24 | PTCARENOTE ---
Pt up walking in halls using a walker for short distances of @80 feet. Pt has a very steady gait but is easily tired. Telemetry shows sinus rhythm with vent. pacing, occasional PVC's. Left anterior chest wall pressure dressing removed by
, old dry drainage present. Pt denies any pain.
[2025-02-17 17:01] LABS: Glucose - Point of Care 247 mg/dl (70-99)
[2025-02-17] MEDS: CLARITIN 10 MG PO (17:46)
[2025-02-17] MEDS: COLACE 100 MG PO (17:47)
[2025-02-17] MEDS: LOW STRENGTH ASPIRIN 81 MG PO (17:47)
[2025-02-17 21:01] LABS: Glucose - Point of Care 284 mg/dl (70-99)
[2025-02-17] MEDS: LANTUS 0.1 UNITS SC (22:09)
--- NOTE | 2025-02-17 23:16 | PTCARENOTE ---
Pt rec'd at change of shift awake,alert in recliner chair with spouse at bedside. Pt reports having voided twice on toilet while trying to have a bm post olson removal. Pt aware of need for accurate I&O. Pt bladder scanned at 2200 with only 3cc
noted on scan. Left chest pacer site with drsg (old drainage) noted. V paced on telemetry with occ pvc's.
--- NOTE | 2025-02-17 23:22 | PTCARENOTE ---
Pt rec'd at shift change in bed with Heparin infusing at 1900 units/hr. Pt prepped for CVOR in am. Clipped and showered with 4%chlorhexidine soap. Pt juan jose well with no c/o cp with activity. Afib with V pacing and pvc's noted. Coreg dose at 8pm held
for b/p parameters.
At HS pt asked for Ativan after stating he was starting to feel anxious about upcoming surgery; dose given. Pt reminded of npo status after mn.
[2025-02-18] VITALS (10 sets, daily range): BP systolic 124–171; BP diastolic 55–76; PULSE 78; O2SAT 98; BMI 30.8
[2025-02-18 05:25] LABS: % Basophils 0.1 % (0-2); % Eosinophils 1.9 % (0-6); % Immature Granulocytes 0.6 % (0-0.5); % Lymphocytes 9.6 % (20.5-51.1); % Monocytes 12.1 % (1.7-9.3); % Neutrophils 75.7 % (42.2-75.2); Absolute Eosinophils 0.3 10^3/uL (0-0.7); Absolute Immature Granulocytes 0.1 10^3/uL (0-0.05); Absolute Lymphocytes 1.4 10^3/uL (1.2-3.4); Absolute Monocytes 1.8 10^3/uL (0.1-0.6); Absolute Neutrophils 11.3 10^3/uL (1.4-6.5); Hemoglobin 9.7 g/dL (13.0-18.0); Mean Corp Hgb Conc. 34.6 g/dL (33.0-37.0); Mean Corpuscular Hgb 30.4 pg (27.0-31.0); Mean Corpuscular Volume 87.8 fL (80.0-94.0); Mean Platelet Volume 9.9 fL (7.4-10.4); Nucleated Red Blood Cells % 0 % (-); Platelet Count 242 10^3/uL (130-400); Red Blood Cell Count 3.19 10^6/uL (4.70-6.10); Red Cell Dist. Width 13.6 % (11.5-14.5); White Blood Cell Count 14.9 10^3/uL (4.8-10.8)
[2025-02-18 05:45] LABS: ALT (SGPT) 349 U/L (0-50); AST (SGOT) 164 U/L (17-59); Albumin 2.8 g/dl (3.5-5.0); Alkaline Phosphatase 129 U/L (38-126); Blood Urea Nitrogen 81 mg/dl (9-20); Calcium 8.5 mg/dl (8.4-10.2); Carbon Dioxide 25 mmol/L (22-30); Chloride 101 mmol/L (98-107); Estimated Creatinine Clearance 22 ml/min; Glucose 197 mg/dl (70-99); Potassium 4.5 mmol/L (3.5-5.1); Sodium 132 mmol/L (135-145); eGFR 22.68
[2025-02-18] MEDS: LOPRESSOR 12.5 MG PO ×2 (07:39→20:11)
[2025-02-18] MEDS: SYNTHROID 50 MCG PO (07:39)
[2025-02-18] MEDS: PLAVIX 75 MG PO (07:39)
[2025-02-18] MEDS: ROCALTROL 0.25 MCG PO (07:39)
[2025-02-18] MEDS: PROCARDIA XL (EXTENDED RELEASE) 30 MG PO (07:39)
[2025-02-18 08:19] LABS: Glucose - Point of Care 207 mg/dl (70-99)
--- NOTE | 2025-02-18 08:47 | W.PN.HOSP.TC ---
Today's Communication/Plan
-
Lasix. Anemia w/u. Monitor renal function LFT and Hb.
Assessment / Plan
Assessment / Plan
Gen-AAOx3, NAD
HEENT-NC, AT, anicteric, clear oral mm
Neck-supple
CV-reg, no M, +S1/S2
Lungs-clear B/L
Abd-soft, NT, ND
Ext-b/l edema
Musculoskeletal-no cyanosis, clubbing
Skin-warm and dry
Neuro-grossly non-focal
Psych-calm, cooperative
A/P:
Complete heart block - present on admission, likely triggered by severe hyperkalemia. Underwent dual-chamber pacemaker placement February 15. Discussed with at bedside.
Life-threatening hyperkalemia - Resolved.
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 Losartan on hold. Creatinine trending down. Nephrology stopping HD today 02/18 and will monitor. Giving PO Lasix 40 mg x1 today.
Acute Ischemic hepatitis -[place] due to ischemic etiology given profound bradycardia prior to admission. LFT trending down nicely
Elevated troponin -likely due to profound bradycardia, hyperkalemia. No evidence of ACS.
Leukocytosis -nontoxic, doubt infection. Likely leukemoid reaction/reactive. Afebrile, monitor for now.
Asymptomatic pyuria -urine culture does show E. coli but patient without symptoms.
Hypercalcemia - improved.
DM2 with hyperglycemia -Home regimen is Farxiga 10 mg daily, dulaglutide 3 mg subcu every Tuesday, insulin degludec 18 units at bedtime.
Hemoglobin A1c 7.5%. Glucose 177 this morning. Currently on Lantus 10 units daily, moderate resistance NovoLog scale.
Diabetes WARP HAULER is following. Likely insulin upon discharge but patient has cognitive deficits.
CAD/CABG -bypass surgery performed 09/19/2024, four-vessel.
Essential hypertension -blood pressure elevated. At home he is on losartan 25 mg nightly, Currently on hold for TOMY. Anti-HTN meds per cardio.
Hyperlipidemia -hold atorvastatin in light of elevated LFTs.
Hypothyroidism -continue levothyroxine. TSH normal initially. Cardio repeating TFT in am
Chronic normocytic anemia -slight drop today, proceed to anemia work up
Obesity due to excess calories
DVT prophylaxis-SCD (heparin on hold)
Code status-Full code
Total time spent on today's encounter was 52 minutes which included time spent in counseling the patient/family regarding diagnosis and treatment plan as listed above, goals of care, and symptom management. Case was discussed with nursing staff,
specialists, and care coordinators/case management. All labs and imaging personally reviewed by me. Remainder the time spent in detailed review of previous records, lab data, imaging, and other medical provider documentation.
Anticipated Discharge: 24 - 48 hours
Subjective/Interval History
-
Date of Service: February 18, 2025
Patient with c/o some hand edema, no cp. Denies sob. Afebrile
Objective Data
-
Labs:
Laboratory Results
02/18/25
05:01
WBC 14.9 H
Hgb 9.7 L
Hct 28.0 L
Plt Count 242
Sodium 132 L
Potassium 4.5
Chloride 101
Carbon Dioxide 25
BUN 81 H
Creatinine 2.7 H
Glucose 197 H
Calcium 8.5
Total Bilirubin 1.0
AST 164 H
ALT 349 H
Alkaline Phosphatase 129 H
Vital Signs:
Vital Signs
Temp Pulse Resp BP Pulse Ox
97.6 F 72 20 171/76 97
02/18/25 07:32 02/18/25 07:33 02/18/25 07:32 02/18/25 07:33 02/18/25 07:32
I&O
02/17/25 02/18/25 02/19/25
06:59 06:59 06:59
Intake Total 1080 / 1080 600 / 600
Output Total 1340 / 1340 750 / 750
Balance -260 / -260 -150 / -150
--- NOTE | 2025-02-18 08:48 | PN.DE.MGMTRT ---
Insulin Management
- -
02/18/2025: Diabetes Management Follow up
84 year old male with PMH of CAD s/p CABG x4 09/2024, HTN, HLD, DM2, CKD, recent diagnosis hypothyroidism. He had bradycardia as well as fatigue noted during cardiac rehab sessions. Toprol was stopped and he underwent 5 day Anatoliy monitor from
01/29-02/03/25 which showed sinus anatoliy with episodes of 2nd degree av block type 1 with some 2:1 conduction and no significant pauses. He was scheduled to come to cardiology office today to discuss ppm placement, however presented to [facility] ER by EMS
due to syncopal episode witnessed by at home. He was taking Tresiba 18 units @ HS, Farxiga 10mg daily and Trulicity 3mg weekly. A1C 8.4%, Cr 6.1-->4.0, eGFR 14.15 today
States he has been using a CGM- Leonel 3 for glucose monitoring at home for the last 2 months. He is in the process of getting an Building Architectural Designer.
He states that he took his Tresiba 18 units yesterday morning prior to coming to the hospital.
Glucose was 255 on arrival to the ED and he was started on Glycemic protocol insulin infusion.
Pt is awake, alert, oriented, sitting up in chair, offers no complaints, able to discuss diabetes care, - Mary at the bedside.
Transitioned off insulin drip infusion on 02/15 to SQ insulin. Pt received Lantus 10 units @ HS, FBG 197 V, 207 POC, pt was agreeable to change his long acting administration to AM.
Will change Lantus to AM scheduled at increased dose of 15 units.
02/17 premeal range 214 to 247, requiring 3 units of corrective insulin coverage.
TOMY on CKD, Cr 2.7, eGFR 66.68 today. Will start AC NovoLog 5 units. Change from moderate to low corrective with meals.
Had a lengthy discussion with pt and regarding insulin therapy, discussed mechanism of action for both long and short acting insulin, instructed pt to take short acting insulin before each meal.
Pt seems forgetful and is confusing how often he has to take the long acting insulin. He kept repeating that he takes the Tresiba once a week but kept redirecting him, stating that he takes it daily and not weekly.
Review instructions for insulin administration and wrote all it down.
Will closely monitor and make further adjustments to plan of care if necessary. Discussed with Nurse
Diabetes History
- -
Type of Diabetes: 2 requiring insulin
Pre-Admission Diabetes Regimen
02/18/25
05:01
Creatinine 2.7 H
Lab Results
Hemoglobin A1c 7.5 % (4.0-5.6) H 02/15/25 03:52
Insulin Pump Settings
IP Diabetes Regimen
02/17/25 02/17/25 02/17/25
12:18 16:58 21:00
Glucose
POC Glucose 214 H 247 H 284 H
02/18/25 02/18/25
05:01 08:19
Glucose 197 H
POC Glucose 207 H
Meal type: Lunch
Meal type: Breakfast
Amount consumed: 40%
Amount consumed: 80%
Patient Education
--- NOTE | 2025-02-18 09:30 | CM ---
Reviewed chart. Mr. Curran was transferred to IVU. Met with Mr. Curran to review discharge plans. He states he is feeling tired. He states prior to admission he resides with his spouse in a two story home with two steps to enter. He states he has a
full flight of steps to get to bedroom/full bathroom. He states he has a powder room on the first floor. He states prior to admission he was staying on the first floor. He states prior to admission he was ambulating with a walker or single point
cane. He states he was going to outpatient Cardiac Rehab. He states he has never has VNA Services. He states he has a prescription plan and uses [facility]. He states his spouse does not work outside the home. Will see how he does in
therapy today to see if he will have any skilled care needs. If he needs SNF/Rehab. he will need pre-cert with his insurance. Medical work-up in progress. The discharge plan is to return home with his spouse and VNA verses SNF/Rehab. when
medically stable.
[2025-02-18] MEDS: NOVOLOG FLEXPEN 5 UNITS SC ×3 (10:26→17:50)
[2025-02-18] MEDS: NOVOLOG FLEXPEN-MODERATE RESISTANCE 3 UNITS SC (10:26)
[2025-02-18] MEDS: LANTUS 0.15 UNITS SC (10:26)
--- NOTE | 2025-02-18 10:45 | W.PN.NEPH.PH ---
Today's Communication / Plan
-
lasix
Assessment/Plan
-
Impression:
Acute kidney injury (93/6.1), December 2024 creatinine 2.3 which appears to be at his baseline.= Follows with Dr. Corado
Hyperkalemia (7.3)
Gap metabolic acidosis (lactic acid ~10)
Bradycardia
History of coronary artery disease with CABG
Secondary hyperparathyroid
Diabetes
Plan:
follow BMP
po lasix for hand edema
no further HD
-
-
Date of Service: February 18, 2025
CC / HPI / ROS
-
Chief Complaint:
Presents with hyperkalemia and TOMY on CKD
History of Present Illness:
TOMY/Cr down to 2.7
BP stable
LFTs improving
Review of Systems:
HD CVC out
No chest pain or shortness of breath
Labs
-
Labs:
WBC 14.9 10^3/uL (4.8-10.8) H 02/18/25 05:01
RBC 3.19 10^6/uL (4.70-6.10) L 02/18/25 05:01
Hgb 9.7 g/dL (13.0-18.0) L 02/18/25 05:01
Hct 28.0 % (39.0-52.0) L 02/18/25 05:01
Plt Count 242 10^3/uL (130-400) 02/18/25 05:01
Sodium 132 mmol/L (135-145) L 02/18/25 05:01
Potassium 4.5 mmol/L (3.5-5.1) 02/18/25 05:01
Chloride 101 mmol/L (98-107) 02/18/25 05:01
Carbon Dioxide 25 mmol/L (22-30) 02/18/25 05:01
BUN 81 mg/dl (9-20) H 02/18/25 05:01
Creatinine 2.7 mg/dL (0.7-1.3) H 02/18/25 05:01
eGFR 22.68 02/18/25 05:01
Glucose 197 mg/dl (70-99) H 02/18/25 05:01
Calcium 8.5 mg/dl (8.4-10.2) 02/18/25 05:01
Phosphorus 4.0 mg/dl (2.5-4.5) 02/17/25 04:00
Fuf-J-Vosclnofcxd Pept 34976 pg/ml 02/14/25 11:16
Albumin 2.8 g/dl (3.5-5.0) L 02/18/25 05:01
Physical Exam
-
Vital Signs:
Vital Signs
Temp Pulse Resp BP Pulse Ox
97.6 F 66 20 171/76 97
02/18/25 07:32 02/18/25 09:00 02/18/25 07:32 02/18/25 07:33 02/18/25 07:32
Cardiovascular:: Regular rate and rhythm
Respiratory:: Bilateral: CTA
Lung Excursion:: Normal
Abdomen:: Nontender and Soft
Bowel Sounds:: Normal
Extremity Edema:: +1: Bilateral: (hands)
--- NOTE | 2025-02-18 10:52 | W.PN.CARDCBS ---
Addendum entered and electronically signed by Rito Rosas DO 02/18/25 12:46:
I saw and examined the patient.
The Food Mobile Driver's note was reviewed and I agree with the note.
Comment:
Plan:
No further HD planned for now. Lasix 40 mg per nephrology.
Cont to hold losartan
Electrolyes improved.
Check TSH and FT4.
Lipitor on hold with elevated LFTs, resume as they improved.
Echo with preserved EF
Reviewed update with at bedside. She was very appreciative of care
Original Note:
Today's Communication / Plan
-
Lasix 40 mg PO per nephrology for hand edema, no additional dialysis planned for now
BP improved with Lopressor, consider changing to Coreg which he was on in the past and tolerated well
Losartan remains on hold
Atorvastatin remains on hold, will restart when LFTs less than twice the upper limit of normal
PPM restrictions reviewed with patient and
Impression / Plan
-
Primary Large Sheetfed Press Operator: Dr. Rosas
Assessment:
Presentation with syncope/unresponsiveness
Marked Hyperkalemia with loss of P wave on ECG, peaked T waves and marked QRS widening
Complete heart block
temp pacing wire 02/14/25
s/p Medtronic DC PPM utilizing conduction system pacing via LBB implantation on 02/15/25
TOMY on CKD 4
Shock liver
Elevated lactic acidosis
Elevated troponin
Bradycardia with intermittent Mobitz II type 1 and 2:1 av block by OP monitor 01/2025
CAD status post CABG x 4 FRIEDMAN to LAD, SVG to diagonal to OM, SVG to RPDA 09/19/2024
ARF on CKD 3B during 09/2024 admission, did not require HD at that time
Hypertension
Hyperlipidemia
Type 2 diabetes with hyperglycemia
Prostate cancer status post surgical resection 1999
MIKE on CPAP
Recent diagnosis hypothyroidism
Former smoker
ECHO 12/14/2024: Technically difficult study, EF 55 to 60%, aortic sclerosis, trace AR, PAP 25 mmHg, small pericardial effusion
ECHO 02/14/2025: EF 55%, RV poorly visualized, no pericardial effusion
Plan:
-Critically ill on admission 02/14/25 with syncope/unresponsiveness, multisystem organ failure, shock, complete heart block, marked hyperkalemia, acute renal failure.
-Patient initially had temporary pacing wire placed 02/14/25 followed by Medtronic DC PPM on 02/15/25. Left ACW implant site assessed by me 02/15/[address] with drainage covering about half the pad, but no tenderness or hematoma. Bathing,
activity and limb restrictions reviewed with patient and including visual cues on the do's and don'ts post-PPM
-TOMY on CKD 4 and hyperkalemia and nephrology followed along. Patient received temporary HD treatments and no longer needs dialysis. Nephrology notes reviewed for 02/18/25 and they ordered Lasix 40 mg PO x1 for B/L hand edema.
-Potassium as high as 7.3 on admission and improved to 4.5 on 02/18/25, labs reviewed by me.
-Outpatient dose of losartan 25 mg daily remains on hold.
-Troponin peaked at 1.45, no chest pain and no echo changes. Troponin elevation managed as a nonischemic myocardial injury Troponin elevation.
-Patient is s/p CABG 09/19/24 and outpatient doses of aspirin and Plavix have been continued.
-Shock liver on admission and LFTs improving, but remain twice the upper limit of normal so will not restart outpatient dose of atorvastatin 40 mg daily yet, labs evaluated by me 02/18/25
-VS reviewed by me 02/18/25, intermittent HTN with holding of outpatient dose of losartan 25 mg daily.
-New to Lopressor 12.5 mg BID. Patient was previously on Coreg, but it was stopped prior to admission due to bradycardia.
-New to nifedipine XL 30 mg daily
-PT/OT notes reviewed by me 02/18/25 and patient has been given the option skilled vs home PT and he would rather return home.
-DM RELEASE OF INFORMATION CLERK is managing insulin.
Progress Note - Large Sheetfed Press Operator
Subjective
Date of Service: February 18, 2025
He has hand edema, hands feel like mitts, no chest pain
Objective
Labs:
02/18/25 05:01
02/18/25 05:01
Labs
Hgb 9.7 g/dL (13.0-18.0) L 02/18/25 05:01
Hct 28.0 % (39.0-52.0) L 02/18/25 05:01
Plt Count 242 10^3/uL (130-400) 02/18/25 05:01
PT 20.3 Sec (11.4-14.6) H 02/16/25 02:06
INR 1.71 02/16/25 02:06
APTT 38.2 Sec (23.4-35.0) H 02/15/25 03:54
Sodium 132 mmol/L (135-145) L 02/18/25 05:01
Potassium 4.5 mmol/L (3.5-5.1) 02/18/25 05:01
BUN 81 mg/dl (9-20) H 02/18/25 05:01
Creatinine 2.7 mg/dL (0.7-1.3) H 02/18/25 05:01
Glucose 197 mg/dl (70-99) H 02/18/25 05:01
Troponins
02/16/25 02/16/25
02:06 07:34
Troponin I 1.450 H* 1.210 H*
Vital Signs and I&O:
Vital Signs
Temp Pulse Resp BP Pulse Ox
97.6 F 66 20 171/76 97
02/18/25 07:32 02/18/25 09:00 02/18/25 07:32 02/18/25 07:33 02/18/25 07:32
Vital Signs
Temp Pulse Resp BP Pulse Ox
97.6 F 66 20 171/76 97
02/18/25 07:32 02/18/25 09:00 02/18/25 07:32 02/18/25 07:33 02/18/25 07:32
Intake & Output
02/16/25 02/17/25 02/18/25 02/19/25
06:59 06:59 06:59 06:59
Intake Total 220.5 / 220.5 1080 / 1080 600 / 600 480 / 480
Output Total 1170 / 1220 1340 / 1340 750 / 750
Balance -949.5 / -999.5 -260 / -260 -150 / -150 480 / 480
Physical Exam
Physical Exam
GEN: AAOx3
HEENT: mmm
LUNGS: No audible wheeze
CV: V paced on tele
ABD: ND
EXT: B/L hand edema
NEURO: Gross non-focal
SKIN: No rash
[2025-02-18] MEDS: LASIX 40 MG PO (11:48)
[2025-02-18 12:49] LABS: Glucose - Point of Care 202 mg/dl (70-99)
[2025-02-18] MEDS: NOVOLOG FLEXPEN-MODERATE RESISTANCE SC (13:15)
--- NOTE | 2025-02-18 13:26 | PTCARENOTE ---
Pt is AOX3. Tele- V-paced w/ occ. PVCs. Assessment completed as documented. Pt voiding clear yellow urine appropriately in bathroom. Pt ambulating around room w/ steady gait w/ assistance of RW. Pt has no complaints pain/discomfort/SOB. L chest
Aquacel in place with drainage covering about half the pad. No tenderness or hematoma noted. Activity restrictions reviewed w/ pt and verbalizes understanding. Currently OOB in chair; call shannon w/in reach.
[2025-02-18] MEDS: TUMS CHEWABLE TABLET 200 MG PO (14:05)
[2025-02-18 17:27] LABS: Glucose - Point of Care 188 mg/dl (70-99)
[2025-02-18] MEDS: CLARITIN 10 MG PO (17:50)
[2025-02-18] MEDS: COLACE 100 MG PO (17:50)
[2025-02-18] MEDS: LOW STRENGTH ASPIRIN 81 MG PO (17:50)
[2025-02-18] MEDS: NOVOLOG FLEXPEN-LOW RESISTANCE 1 UNITS SC (17:51)
[2025-02-18 21:51] LABS: Glucose - Point of Care 150 mg/dl (70-99)
--- NOTE | 2025-02-18 22:11 | PTCARENOTE ---
Rec'd pt at change of shift. Pt AAO*3, VSS, VPaced on TELE monitor, and denies any pain or discomfort. L upper chest wall aqua cell dressing with dry old drainage. Cardiology aware. Pt agreed to call for staff assistance before ambulating. Pt
resting with call ortega in reach. See MAR and flowchart for full pt care and assessment.
[2025-02-19] VITALS (12 sets, daily range): BP systolic 133–162; BP diastolic 53–69; BMI 30.9
[2025-02-19 04:50] LABS: Hematocrit 31.1 % (39.0-52.0); Hemoglobin 10.7 g/dL (13.0-18.0); Mean Corp Hgb Conc. 34.4 g/dL (33.0-37.0); Mean Corpuscular Hgb 30.7 pg (27.0-31.0); Mean Corpuscular Volume 89.1 fL (80.0-94.0); Mean Platelet Volume 9.6 fL (7.4-10.4); Platelet Count 286 10^3/uL (130-400); Red Blood Cell Count 3.49 10^6/uL (4.70-6.10); Red Cell Dist. Width 13.7 % (11.5-14.5); Reticulocyte Count 2.9 % (0.4-2.8); White Blood Cell Count 16.6 10^3/uL (4.8-10.8)
[2025-02-19 04:59] LABS: INR 1.22; PT 15.7 Sec (11.4-14.6)
[2025-02-19 05:17] LABS: ALT (SGPT) 247 U/L (0-50); AST (SGOT) 89 U/L (17-59); Albumin 3.1 g/dl (3.5-5.0); Alkaline Phosphatase 137 U/L (38-126); Blood Urea Nitrogen 78 mg/dl (9-20); Calcium 8.8 mg/dl (8.4-10.2); Carbon Dioxide 25 mmol/L (22-30); Chloride 102 mmol/L (98-107); Direct Bilirubin 0.3 mg/dl (0.0-0.4); Estimated Creatinine Clearance 23 ml/min; Glucose 132 mg/dl (70-99); Iron 43 ug/dl (49-181); Potassium 4.6 mmol/L (3.5-5.1); Sodium 135 mmol/L (135-145); Total Bilirubin 1.1 mg/dl (0.2-1.3); Total Protein 5.6 g/dl (6.3-8.2); eGFR 23.73
[2025-02-19 05:26] LABS: Percent Saturation 15 % (20-50); Total Iron Binding Capacity 285 ug/dl (261-462)
[2025-02-19 05:34] LABS: Free T4 1.23 ng/dl (0.78-2.19)
[2025-02-19] MEDS: SYNTHROID 50 MCG PO (05:37)
[2025-02-19 05:48] LABS: TSH 1.74 uIU/ml (0.47-4.68)
[2025-02-19 06:24] LABS: Folate > 20.0 ng/ml (2.76-20); Vitamin B12 > 1000 pg/ml (239-931)
[2025-02-19 07:13] LABS: Glucose - Point of Care 141 mg/dl (70-99)
--- NOTE | 2025-02-19 08:09 | W.PN.HOSP.TC ---
Addendum entered and electronically signed by Laron Ramos MD 02/19/25 18:50:
Doppler LUE with DVT--> start heparin drip.
Anemia -some element of NIKI.
Original Note:
Today's Communication/Plan
-
Doppler left upper extremity. Discharge planning
Assessment / Plan
Assessment / Plan
Gen-AAOx3, NAD
HEENT-NC, AT, anicteric, clear oral mm
Neck-supple
CV-reg, no M, +S1/S2
Lungs-clear B/L
Abd-soft, NT, ND
Ext-b/l edema LUE>RUE
Musculoskeletal-no cyanosis, clubbing
Skin-warm and dry
Neuro-grossly non-focal
Psych-calm, cooperative
A/P:
Complete heart block - present on admission, likely triggered by severe hyperkalemia. Underwent dual-chamber pacemaker placement February 15. Cardiology cleared him for discharge from cardiac standpoint. Discussed with at bedside today. Discussed
with leather case finisher and medically cleared for discharge.
Edema left upper lower extremity-given Lasix yesterday by nephrology. Will obtain Doppler left upper extremity today.
Constipation-bowel regimen
Life-threatening hyperkalemia - Resolved.
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 Losartan on hold. Creatinine trending down. Nephrology stopping HD since 02/18 and will monitor.
Acute Ischemic hepatitis -[place] due to ischemic etiology given profound bradycardia prior to admission. LFT trending down nicely-can continue follow-up as outpatient
Elevated troponin -likely due to profound bradycardia, hyperkalemia. No evidence of ACS.
Leukocytosis -nontoxic, doubt infection. Likely leukemoid reaction/reactive. Monitor as outpatient or repeat if any concern for infection
Asymptomatic pyuria -urine culture does show E. coli but patient without symptoms.
Hypercalcemia - improved.
DM2 with hyperglycemia -Home regimen is Farxiga 10 mg daily, dulaglutide 3 mg subcu every Tuesday, insulin degludec 18 units at bedtime.
Hemoglobin A1c 7.5%. On lantus 15 u and Novolog 5 u ac. Follow-up DIESEL TRUCK DRIVER recommendations
CAD/CABG -bypass surgery performed 09/19/2024, four-vessel.
Essential hypertension -blood pressure elevated. At home he is on losartan 25 mg nightly, Currently on hold for TOMY. Anti-HTN meds per cardio.
Hyperlipidemia -hold atorvastatin in light of elevated LFTs and can likely restart as outpatient.
Hypothyroidism -continue levothyroxine. TSH normal initially. Cardio repeated TFT and unremarkable.
Chronic normocytic anemia -anemia workup consistent with anemia of chronic disease
Obesity due to excess calories
DVT prophylaxis-restart heparin subcu
Code status-Full code
Anticipated Discharge: Within 24 hours
Subjective/Interval History
-
Date of Service: February 19, 2025
Patient still complains of some swelling of the left hand. Otherwise no chest pain or worsening shortness of breath. Afebrile
Objective Data
-
Labs:
Laboratory Results
02/19/25
04:39
WBC 16.6 H
Hgb 10.7 L
Hct 31.1 L
Plt Count 286
PT 15.7 H
INR 1.22
Sodium 135
Potassium 4.6
Chloride 102
Carbon Dioxide 25
BUN 78 H
Creatinine 2.6 H
Glucose 132 H
Calcium 8.8
Total Bilirubin 1.1
AST 89 H
ALT 247 H
Alkaline Phosphatase 137 H
Vital Signs:
Vital Signs
Temp Pulse Resp BP Pulse Ox
98.6 F 73 20 162/67 97
02/19/25 07:00 02/19/25 07:00 02/19/25 07:00 02/19/25 06:59 02/19/25 07:00
I&O
02/18/25 02/19/25 02/20/25
06:59 06:59 06:59
Intake Total 600 / 600 1160 / 1160
Output Total 750 / 750
Balance -150 / -150 1160 / 1160
--- NOTE | 2025-02-19 10:11 | PN.DE.MGMTRT ---
Insulin Management
- -
02/19/2025: Diabetes Management Follow up
84 year old male with PMH of CAD s/p CABG x4 09/2024, HTN, HLD, DM2, CKD, recent diagnosis hypothyroidism. He had bradycardia as well as fatigue noted during cardiac rehab sessions. Toprol was stopped and he underwent 5 day Anatoliy monitor from
01/29-02/03/25 which showed sinus anatoliy with episodes of 2nd degree av block type 1 with some 2:1 conduction and no significant pauses. He was scheduled to come to cardiology office today to discuss ppm placement, however presented to [facility] ER by EMS
due to syncopal episode witnessed by at home. He was taking Tresiba 18 units @ HS, Farxiga 10mg daily and Trulicity 3mg weekly. A1C 7.5%, Cr 6.1-->4.0, eGFR 14.15 today
States he has been using a CGM- Leonel 3 for glucose monitoring at home for the last 2 months. He is in the process of getting an Barber.
He states that he took his Tresiba 18 units yesterday morning prior to coming to the hospital.
Glucose was 255 on arrival to the ED and he was started on Glycemic protocol insulin infusion.
Pt is awake, alert, oriented, sitting up in chair, offers no complaints, able to discuss diabetes care, - Mary at the bedside.
TOMY on CKD, Cr 2.6, eGFR 23.73 today. Current regimen Lantus 15 units in AM with novolog 5 units AC and low corrective.
5/5 glucose range 150 to 207, requiring 1 to 3 units of corrective insulin coverage.
5/6 Will continue current regimen and follow for needed adjustments. Will not restart Farxiga due to elevated cr.
Had a lengthy discussion with pt and regarding insulin therapy, discussed mechanism of action for both long and short acting insulin, instructed pt to take short acting insulin before each meal.
Pt seems forgetful and is confusing how often he has to take the long acting insulin. He kept repeating that he takes the Tresiba once a week but kept redirecting him, stating that he takes it daily and not weekly.
Review instructions for insulin administration and wrote all it down.
Will closely monitor and make further adjustments to plan of care if necessary. Discussed with Nurse
Diabetes History
- -
Type of Diabetes: 2 requiring insulin
Pre-Admission Diabetes Regimen
02/19/25
04:39
Creatinine 2.6 H
Lab Results
Hemoglobin A1c 7.5 % (4.0-5.6) H 02/15/25 03:52
Insulin Pump Settings
IP Diabetes Regimen
02/18/25 02/18/25 02/18/25
12:47 17:26 21:50
Glucose
POC Glucose 202 H 188 H 150 H
02/19/25 02/19/25
04:39 07:12
Glucose 132 H
POC Glucose 141 H
Meal type: Dinner
Meal type: Lunch
Meal type: Breakfast
Amount consumed: 100%
Amount consumed: 50%
Amount consumed: 20%
Patient Education
[2025-02-19] MEDS: PLAVIX 75 MG PO (10:16)
[2025-02-19] MEDS: LOPRESSOR 12.5 MG PO ×2 (10:16→20:36)
[2025-02-19] MEDS: NOVOLOG FLEXPEN 5 UNITS SC ×3 (10:16→18:50)
[2025-02-19] MEDS: NOVOLOG FLEXPEN-LOW RESISTANCE SC ×2 (10:16→14:27)
[2025-02-19] MEDS: PROCARDIA XL (EXTENDED RELEASE) 30 MG PO (10:16)
[2025-02-19] MEDS: LANTUS 0.15 UNITS SC (10:17)
[2025-02-19 12:12] LABS: Glucose - Point of Care 189 mg/dl (70-99)
--- NOTE | 2025-02-19 12:28 | CM ---
Reviewed chart. Met with MrPaula and Mrs. Curran to review discharge plans. He states he is feeling weak and fatigue and wanted to explore inpatient rehab. His first choice was [facility]. because he was there in the past. Explained the criteria needed
for getting into [facility]. Also reviewed SNF/Rehab. as an option if accept by SNF and approved by insurance. They would like to explore SNF/ We reviewed SNF's in the area and they have selected [facility], [facility] and
[facility]. Telephone call to [facility] Admission to make [facility] referral. Referral sent. Telephone call to [facility] Liaison Geno to make the referral. Sent referral. Telephone call to [facility] to make the
referral. Sent referral. Will need pre-cert with his insurance for SNF. Medical work-up in progress. The discharge plan is to go to SNF/Rehab. if bed available and approved by insurance when medically stable.
[2025-02-19] MEDS: COLACE 100 MG PO ×2 (12:38→20:37)
[2025-02-19] MEDS: MIRALAX 17 GRAMS PO (12:38)
--- NOTE | 2025-02-19 14:09 | W.PN.CARDCBS ---
Addendum entered and electronically signed by Rito Rosas DO 02/19/25 17:11:
I saw and examined the patient.
The Corn Detasseler Machine Operator's note was reviewed and I agree with the note.
Comment:
Plan:
Cr continues to improve.
Cont lasix as per nephrology.
Cont to hold losartan
Electrolyes improved.
TSH and FT4 WNL, cont synthroid.
Lipitor on hold with elevated LFTs, resume after they normalize.
Echo with preserved EF
Pt is compensated from a cardiac standpoint.
Pt is now considering rehab.
Discussed with primary service.
Original Note:
Today's Communication / Plan
-
Now considering rehab
Stable from cardiac standpoint
No Lasix ordered
Impression / Plan
-
PCP: Dr. Twan Perry
Primary Supervisor Detasseling Crew: Dr. Rosas
Assessment:
Presentation with syncope/unresponsiveness 02/14/25
Marked Hyperkalemia with loss of P wave on ECG, peaked T waves and marked QRS widening
Complete heart block
temp pacing wire 02/14/25
s/p Medtronic DC PPM utilizing conduction system pacing via LBB implantation on 02/15/25
TOMY on CKD 4
Shock liver
Elevated lactic acidosis
Elevated troponin
Bradycardia with intermittent Mobitz II type 1 and 2:1 av block by OP monitor 01/2025
CAD status post CABG x 4 FRIEDMAN to LAD, SVG to diagonal to OM, SVG to RPDA 09/19/2024
ARF on CKD 3B during 09/2024 admission, did not require HD at that time
Hypertension
Hyperlipidemia
Type 2 diabetes with hyperglycemia
Prostate cancer status post surgical resection 1999
MIKE on CPAP
Recent diagnosis hypothyroidism
Former smoker
ECHO 12/14/2024: Technically difficult study, EF 55 to 60%, aortic sclerosis, trace AR, PAP 25 mmHg, small pericardial effusion
ECHO 02/14/2025: EF 55%, RV poorly visualized, no pericardial effusion
Plan:
-Critically ill on admission 02/14/25 with syncope/unresponsiveness, multisystem organ failure, shock, complete heart block, marked hyperkalemia, acute renal failure. Patient initially had temporary pacing wire placed 02/14/25 followed by Medtronic DC
PPM on 02/15/25.
-Left ACW implant site is stable and reviewed activity limitations with patient and .
-TOMY on CKD 4 and hyperkalemia on admission that improved with HD. No longer needs dialysis. Nephrology gave patient Lasix 40 mg PO x1 for B/L hand edema on 02/19/25 and no additional Lasix ordered. Patient was not taking a loop diuretic prior to
admission.
-Potassium as high as 7.3 on admission and improved to 4.6 on 02/19/25, labs reviewed by me.
-Outpatient dose of losartan 25 mg daily remains on hold.
-VS reviewed by me 02/19/25, and patient continues with intermittent HTN with holding of outpatient dose of losartan 25 mg daily.
-New to Lopressor 12.5 mg BID. Patient was previously on Coreg, but it was stopped prior to admission due to bradycardia.
-New to nifedipine XL 30 mg daily
-Troponin peaked at 1.45, no chest pain and no echo changes. Troponin elevation managed as a nonischemic myocardial injury Troponin elevation.
-Patient is s/p CABG 09/19/24 and outpatient doses of aspirin and Plavix have been continued.
-Shock liver on admission and LFTs improving. Restart outpatient dose of atorvastatin 40 mg daily once LFTs are less than twice the upper limit of normal.
-Patient is now interested in rehab and CM working on referrals. Patient is stable for d/c from a cardiac standpoint
Progress Note - Supervisor Detasseling Crew
Subjective
Date of Service: February 19, 2025
Feels well, says he now thinks rehab is a good idea because he fatigues later in the day
Objective
Labs:
02/19/25 04:39
02/19/25 04:39
Labs
Hgb 10.7 g/dL (13.0-18.0) L 02/19/25 04:39
Hct 31.1 % (39.0-52.0) L 02/19/25 04:39
Plt Count 286 10^3/uL (130-400) 02/19/25 04:39
PT 15.7 Sec (11.4-14.6) H 02/19/25 04:39
INR 1.22 02/19/25 04:39
APTT 38.2 Sec (23.4-35.0) H 02/15/25 03:54
Sodium 135 mmol/L (135-145) 02/19/25 04:39
Potassium 4.6 mmol/L (3.5-5.1) 02/19/25 04:39
BUN 78 mg/dl (9-20) H 02/19/25 04:39
Creatinine 2.6 mg/dL (0.7-1.3) H 02/19/25 04:39
Glucose 132 mg/dl (70-99) H 02/19/25 04:39
Vital Signs and I&O:
Vital Signs
Temp Pulse Resp BP Pulse Ox
98.4 F 70 20 137/56 95
02/19/25 11:20 02/19/25 12:00 02/19/25 11:20 02/19/25 11:21 02/19/25 11:20
Vital Signs
Temp Pulse Resp BP Pulse Ox
98.4 F 70 20 137/56 95
02/19/25 11:20 02/19/25 12:00 02/19/25 11:20 02/19/25 11:21 02/19/25 11:20
Intake & Output
02/17/25 02/18/25 02/19/25 02/20/25
06:59 06:59 06:59 06:59
Intake Total 1080 / 1080 600 / 600 1160 / 1160 480 / 480
Output Total 1340 / 1340 750 / 750
Balance -260 / -260 -150 / -150 1160 / 1160 480 / 480
Physical Exam
Physical Exam
GEN: AAOx3
HEENT: mmm
LUNGS: No audible wheeze
CV: V paced on tele
ABD: ND
EXT: B/L hand edema
NEURO: Gross non-focal
SKIN: No rash
[2025-02-19 14:27] LABS: Glucose - Point of Care 147 mg/dl (70-99)
[2025-02-19] MEDS: PEPCID 20 MG PO (14:28)
[2025-02-19] MEDS: DUPHALAC/CHRONULAC 20 GRAMS PO (14:28)
[2025-02-19] MEDS: HEPARIN 25000 UNITS/250 ML IV (17:53)
[2025-02-19] MEDS: HEPARIN 7200 UNITS IV (17:55)
[2025-02-19] MEDS: LOW STRENGTH ASPIRIN 81 MG PO (18:00)
[2025-02-19] MEDS: CLARITIN 10 MG PO (18:00)
--- NOTE | 2025-02-19 18:00 | W.PN.NEPH.PH ---
Today's Communication / Plan
-
bladder scan
Assessment/Plan
-
Impression:
Acute kidney injury (93/6.1), December 2024 creatinine 2.3 which appears to be at his baseline.= Follows with Dr. Corado
Hyperkalemia (7.3)
Gap metabolic acidosis (lactic acid ~10)
Bradycardia
History of coronary artery disease with CABG
Secondary hyperparathyroid
Diabetes
brachial LUE clot
Plan:
follow BMP
no further HD
AXR in am
-
-
Date of Service: February 19, 2025
CC / HPI / ROS
-
Chief Complaint:
Presents with hyperkalemia and TOMY on CKD
History of Present Illness:
TOMY/Cr down to 2.6
BP stable
LFTs improving
weights stable
Review of Systems:
HD CVC out
No chest pain or shortness of breath
constipated, no appetite
hand edema
Labs
-
Labs:
Sodium 135 mmol/L (135-145) 02/19/25 04:39
Potassium 4.6 mmol/L (3.5-5.1) 02/19/25 04:39
Chloride 102 mmol/L (98-107) 02/19/25 04:39
Carbon Dioxide 25 mmol/L (22-30) 02/19/25 04:39
BUN 78 mg/dl (9-20) H 02/19/25 04:39
Creatinine 2.6 mg/dL (0.7-1.3) H 02/19/25 04:39
eGFR 23.73 02/19/25 04:39
Glucose 132 mg/dl (70-99) H 02/19/25 04:39
Calcium 8.8 mg/dl (8.4-10.2) 02/19/25 04:39
Phosphorus 4.0 mg/dl (2.5-4.5) 02/17/25 04:00
Ihj-Q-Vfdwunkjhtn Pept 73734 pg/ml 02/14/25 11:16
Albumin 3.1 g/dl (3.5-5.0) L 02/19/25 04:39
Physical Exam
-
Vital Signs:
Vital Signs
Temp Pulse Resp BP Pulse Ox
98.0 F 73 16 133/59 97
02/19/25 14:35 02/19/25 16:00 02/19/25 14:35 02/19/25 14:36 02/19/25 14:35
Cardiovascular:: Regular rate and rhythm
Respiratory:: Bilateral: Coarse
Extremity Edema:: None: Bilateral:
[2025-02-19 18:03] LABS: Glucose - Point of Care 177 mg/dl (70-99)
[2025-02-19 18:04] LABS: Hematocrit 30.5 % (39.0-52.0); Hemoglobin 10.6 g/dL (13.0-18.0); Mean Corp Hgb Conc. 34.8 g/dL (33.0-37.0); Mean Corpuscular Hgb 30.5 pg (27.0-31.0); Mean Corpuscular Volume 87.6 fL (80.0-94.0); Mean Platelet Volume 9.4 fL (7.4-10.4); Platelet Count 283 10^3/uL (130-400); Red Blood Cell Count 3.48 10^6/uL (4.70-6.10); Red Cell Dist. Width 13.8 % (11.5-14.5); White Blood Cell Count 17.8 10^3/uL (4.8-10.8)
[2025-02-19 18:14] LABS: APTT 31.3 Sec (23.4-35.0)
[2025-02-19] MEDS: NOVOLOG FLEXPEN-LOW RESISTANCE 1 UNITS SC (18:50)
[2025-02-19] MEDS: AFRIN NASAL SPRAY 2 SPRAYS NASAL (20:36)
[2025-02-19 21:01] LABS: Hematocrit 28.9 % (39.0-52.0); Hemoglobin 10.2 g/dL (13.0-18.0); Mean Corp Hgb Conc. 35.3 g/dL (33.0-37.0); Mean Corpuscular Hgb 31.1 pg (27.0-31.0); Mean Corpuscular Volume 88.1 fL (80.0-94.0); Mean Platelet Volume 9.7 fL (7.4-10.4); Platelet Count 263 10^3/uL (130-400); Red Blood Cell Count 3.28 10^6/uL (4.70-6.10); Red Cell Dist. Width 13.6 % (11.5-14.5); White Blood Cell Count 15.7 10^3/uL (4.8-10.8)
[2025-02-19] MEDS: FERRLECIT 110 MG IV (21:31)
--- NOTE | 2025-02-19 22:02 | PTCARENOTE ---
Rec'd pt at change of shift. Pt AAO*3, VSS, and vpaced on TELE monitor. Pt denies any pain or discomfort but reports bloody nose. Pt with heparin infusing as ordered. Pt instructed to hold pressure at bridge of nose and order for afrin rec'd.
Nose bleeding subsided and hemoglobin stable. ISI Florez aware. Pt resting with call ortega in reach and plan of care updated with patient. See MAR and flowchart for full pt care and assessment.
[2025-02-19 22:30] LABS: Glucose - Point of Care 187 mg/dl (70-99)
[2025-02-20] VITALS (9 sets, daily range): BP systolic 113–157; BP diastolic 53–79; PULSE 72; O2SAT 100; BMI 31.0
[2025-02-20 01:00] LABS: APTT > 200.0 Sec (23.4-35.0)
--- NOTE | 2025-02-20 02:45 | W.PN.UPDATE ---
Addendum entered and electronically signed by ISI Melchor 02/20/25 06:33:
RN reported patient is having b/l nose bleed L>R, more than before. Heparin placed on hold. Nose packing in place with Afrin and gauze at present, stable VS, labs pending. if bleeding continuos will consider ENT.
Original Note:
Update Note
Progress Note Update
RN reported patient is on heparin drip and is having nose bleed. Advised to attempt pressure and Afrin ordered. Patient seen and evaluated, reports he used up 2 small boxes of tissue cleaning blood. at present no bleeding noted. Hgb stable. stable
VS. Continue Heparin drip.
[2025-02-20 03:20] LABS: % Basophils 0.2 % (0-2); % Eosinophils 2.8 % (0-6); % Immature Granulocytes 0.6 % (0-0.5); % Lymphocytes 12.6 % (20.5-51.1); % Monocytes 14.2 % (1.7-9.3); % Neutrophils 69.6 % (42.2-75.2); Absolute Eosinophils 0.4 10^3/uL (0-0.7); Absolute Immature Granulocytes 0.1 10^3/uL (0-0.05); Absolute Lymphocytes 1.9 10^3/uL (1.2-3.4); Absolute Monocytes 2.2 10^3/uL (0.1-0.6); Absolute Neutrophils 10.5 10^3/uL (1.4-6.5); Hematocrit 27.1 % (39.0-52.0); Hemoglobin 9.3 g/dL (13.0-18.0); Mean Corp Hgb Conc. 34.3 g/dL (33.0-37.0); Mean Corpuscular Hgb 30.3 pg (27.0-31.0); Mean Corpuscular Volume 88.3 fL (80.0-94.0); Mean Platelet Volume 9.6 fL (7.4-10.4); Nucleated Red Blood Cells % 0 % (-); Platelet Count 276 10^3/uL (130-400); Red Blood Cell Count 3.07 10^6/uL (4.70-6.10); Red Cell Dist. Width 13.7 % (11.5-14.5); White Blood Cell Count 15.1 10^3/uL (4.8-10.8)
[2025-02-20 03:46] LABS: Blood Urea Nitrogen 79 mg/dl (9-20); Calcium 8.4 mg/dl (8.4-10.2); Carbon Dioxide 22 mmol/L (22-30); Chloride 102 mmol/L (98-107); Estimated Creatinine Clearance 24 ml/min; Glucose 141 mg/dl (70-99); Potassium 4.4 mmol/L (3.5-5.1); Sodium 134 mmol/L (135-145); eGFR 24.87
[2025-02-20] MEDS: SYNTHROID 50 MCG PO (05:21)
[2025-02-20] MEDS: AFRIN NASAL SPRAY 2 SPRAYS NASAL (05:48)
[2025-02-20 07:06] LABS: Glucose - Point of Care 171 mg/dl (70-99)
--- NOTE | 2025-02-20 07:22 | PTCARENOTE ---
Heparin gtt restarted 1200/hr at 3:05 per protocol. Pt reported mild bleeding at nostrils in time after. Pt instructed to hold pressure at nostrils, minimal relief reported.
At 5:15 used call ortega to report continuously bloody nose again. Pt saturating 2-3 gauze pads every 15 minutes. At this time pt was also noticed to having bleeding scratch on L check and bleeding scab on right posterior scalp. Heparin gtt put on
hold. ISI Florez notified and came to bedside to assess patient. Both nostrils with Afrin soaked gauze. Pt instructed to leave gauze as long as possible. Pt verbalized understanding. Rec'd order to hold heparin. Pt resting with call ortega in
reach and plan of care ongoing. See MAR and flowchart for full pt care and assessment.
--- NOTE | 2025-02-20 08:16 | PN.DE.MGMTRT ---
Insulin Management
- -
02/20/2025: Diabetes Management Follow up
84 year old male with PMH of CAD s/p CABG x4 09/2024, HTN, HLD, DM2, CKD, recent diagnosis hypothyroidism. He had bradycardia as well as fatigue noted during cardiac rehab sessions. Toprol was stopped and he underwent 5 day Anatoliy monitor from
01/29-02/03/25 which showed sinus anatoliy with episodes of 2nd degree av block type 1 with some 2:1 conduction and no significant pauses. He was scheduled to come to cardiology office today to discuss ppm placement, however presented to [facility] ER by EMS
due to syncopal episode witnessed by at home. He was taking Tresiba 18 units @ HS, Farxiga 10mg daily and Trulicity 3mg weekly. A1C 7.5%, Cr 6.1-->4.0, eGFR 14.15 today
States he has been using a CGM- Leonel 3 for glucose monitoring at home for the last 2 months. He is in the process of getting an Lead Software Test Engineer.
He states that he took his Tresiba 18 units yesterday morning prior to coming to the hospital.
Glucose was 255 on arrival to the ED and he was started on Glycemic protocol insulin infusion.
Pt is awake, alert, oriented, sitting up in chair, offers no complaints, able to discuss diabetes care, - Mary at the bedside.
TOMY on CKD, Cr 2.5, eGFR 24.87 today. Current regimen Lantus 15 units in AM with novolog 5 units AC and low corrective.
5/6 glucose range 132 to 189, requiring 1 to 3 units of corrective insulin coverage.
02/20 Will continue current regimen and follow for needed adjustments. Will not restart Farxiga due to elevated cr.
Had a lengthy discussion with pt and regarding insulin therapy, discussed mechanism of action for both long and short acting insulin, instructed pt to take short acting insulin before each meal.
Pt seems forgetful and is confusing how often he has to take the long acting insulin. He kept repeating that he takes the Tresiba once a week but kept redirecting him, stating that he takes it daily and not weekly.
Review instructions for insulin administration and wrote all it down.
Will closely monitor and make further adjustments to plan of care if necessary. Discussed with Nurse
Diabetes History
- -
Type of Diabetes: 2 requiring insulin
Pre-Admission Diabetes Regimen
02/20/25
03:03
Creatinine 2.5 H
Lab Results
Hemoglobin A1c 7.5 % (4.0-5.6) H 02/15/25 03:52
Insulin Pump Settings
IP Diabetes Regimen
02/19/25 02/19/25 02/19/25
12:11 14:26 18:03
Glucose
POC Glucose 189 H 147 H 177 H
02/19/25 02/20/25 02/20/25
22:28 03:03 07:05
Glucose 141 H
POC Glucose 187 H 171 H
Meal type: Lunch
Amount consumed: 50%
Patient Education
--- NOTE | 2025-02-20 08:54 | W.PN.HOSP.TC ---
Addendum entered and electronically signed by Laron Ramos MD 02/20/25 13:04:
Hyponatremia
Original Note:
Today's Communication/Plan
-
Anticoagulation on hold and will reevaluate. ENT eval
Assessment / Plan
Assessment / Plan
Gen-AAOx3, NAD
HEENT-NC, AT, anicteric, clear oral mm. Nosebleed L>R
Neck-supple
CV-reg, no M, +S1/S2
Lungs-clear B/L
Abd-soft, NT, ND
Ext-b/l edema LUE>RUE
Musculoskeletal-no cyanosis, clubbing
Skin-warm and dry
Neuro-grossly non-focal
Psych-calm, cooperative
A/P:
Complete heart block - present on admission, likely triggered by severe hyperkalemia. Underwent dual-chamber pacemaker placement February 15. Cardiology cleared him for discharge from cardiac standpoint. Discussed with at bedside prior. Discussed
with social work case manager and medically cleared for discharge.
Acute DVT LUE-started on heparin drip but on hold due to epistaxis.
Epistaxis-ENT eval in the setting of need for anticoagulation-discussed with ENT via [place] text today.
Acute blood loss anemia-continue monitor hemoglobin closely
Constipation-bowel regimen
Life-threatening hyperkalemia - Resolved.
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 Losartan on hold. Creatinine trending down. Nephrology stopping HD since 02/18 and will monitor.
Acute Ischemic hepatitis -[place] due to ischemic etiology given profound bradycardia prior to admission. LFT trending down nicely-can continue follow-up as outpatient
Elevated troponin -likely due to profound bradycardia, hyperkalemia. No evidence of ACS.
Leukocytosis -nontoxic, doubt infection. Likely leukemoid reaction/reactive. Monitor as outpatient or repeat if any concern for infection
Asymptomatic pyuria -urine culture does show E. coli but patient without symptoms.
Hypercalcemia - improved.
DM2 with hyperglycemia -Home regimen is Farxiga 10 mg daily, dulaglutide 3 mg subcu every Tuesday, insulin degludec 18 units at bedtime.
Hemoglobin A1c 7.5%. On lantus 15 u and Novolog 5 u ac. Follow-up SETTER MACHINE recommendations
CAD/CABG -bypass surgery performed 09/19/2024, four-vessel. He is on dual antiplatelet therapy-will need to discuss with cardiology if able to do 1 antiplatelet in the setting of anticoagulation
Essential hypertension -blood pressure elevated. At home he is on losartan 25 mg nightly, Currently on hold for TOMY. Anti-HTN meds per cardio.
Hyperlipidemia -hold atorvastatin in light of elevated LFTs and can likely restart as outpatient.
Hypothyroidism -continue levothyroxine. TSH normal initially. Cardio repeated TFT and unremarkable.
Chronic normocytic anemia -anemia workup consistent with anemia of chronic disease
Obesity due to excess calories
DVT prophylaxis-restart heparin subcu
Code status-Full code
Total time spent on today's encounter was 52 minutes which included time spent in counseling the patient/family regarding diagnosis and treatment plan as listed above, goals of care, and symptom management. Case was discussed with nursing staff,
specialists, and care coordinators/case management. All labs and imaging personally reviewed by me. Remainder the time spent in detailed review of previous records, lab data, imaging, and other medical provider documentation.
Anticipated Discharge: 24 - 48 hours
Subjective/Interval History
-
Date of Service: February 20, 2025
Patient had some epistaxis overnight. He still has some bloody nose from left nare. No chest pain or shortness of breath.
Objective Data
-
Labs:
Laboratory Results
02/19/25 02/20/25 02/20/25
20:48 00:26 03:03
WBC 15.7 H 15.1 H
Hgb 10.2 L 9.3 L
Hct 28.9 L 27.1 L
Plt Count 263 276
APTT > 200.0 H*
Sodium 134 L
Potassium 4.4
Chloride 102
Carbon Dioxide 22
BUN 79 H
Creatinine 2.5 H
Glucose 141 H
Calcium 8.4
02/20/25
09:05
WBC
Hgb
Hct
Plt Count
APTT Pending
Sodium
Potassium
Chloride
Carbon Dioxide
BUN
Creatinine
Glucose
Calcium
Vital Signs:
Vital Signs
Temp Pulse Resp BP Pulse Ox
98.4 F 66 16 138/57 97
02/20/25 07:06 02/20/25 08:00 02/20/25 07:06 02/20/25 07:03 02/20/25 07:06
I&O
02/19/25 02/20/25 02/21/25
06:59 06:59 06:59
Intake Total 1160 / 1160 1680 / 1680
Balance 1160 / 1160 1680 / 1680
[2025-02-20] MEDS: NOVOLOG FLEXPEN 5 UNITS SC ×3 (09:30→18:57)
[2025-02-20] MEDS: NOVOLOG FLEXPEN-LOW RESISTANCE 1 UNITS SC ×2 (09:31→18:58)
[2025-02-20] MEDS: LOPRESSOR 12.5 MG PO ×2 (09:32→20:20)
[2025-02-20] MEDS: DUPHALAC/CHRONULAC 20 GRAMS PO (09:32)
[2025-02-20] MEDS: ROCALTROL 0.25 MCG PO (09:32)
[2025-02-20] MEDS: PROCARDIA XL (EXTENDED RELEASE) 30 MG PO (09:32)
[2025-02-20] MEDS: LANTUS 0.15 UNITS SC (09:33)
[2025-02-20] MEDS: COLACE 100 MG PO ×2 (09:33→20:20)
[2025-02-20] MEDS: MIRALAX 17 GRAMS PO (09:34)
[2025-02-20 09:43] LABS: APTT 45.6 Sec (23.4-35.0)
--- NOTE | 2025-02-20 10:18 | W.PN.NEPH.PH ---
Today's Communication / Plan
-
BMP
Assessment/Plan
-
Impression:
Acute kidney injury (93/6.1), December 2024 creatinine 2.3 which appears to be at his baseline.= Follows with Dr. Corado
Hyperkalemia (7.3)
Gap metabolic acidosis (lactic acid ~10)
Bradycardia
History of coronary artery disease with CABG
Secondary hyperparathyroid
Diabetes
brachial LUE clot
Plan:
follow BMP
no further HD
Bowel regimen for constipation
Flatplate no acute obstruction
-
-
Date of Service: February 20, 2025
CC / HPI / ROS
-
Chief Complaint:
Presents with hyperkalemia and TOMY on CKD
History of Present Illness:
TOMY/Cr down to 2.6
BP stable
LFTs improving
weights stable
Review of Systems:
HD CVC out
No chest pain or shortness of breath
constipated, no appetite
Labs
-
Labs:
WBC 15.1 10^3/uL (4.8-10.8) H 02/20/25 03:03
RBC 3.07 10^6/uL (4.70-6.10) L 02/20/25 03:03
Hgb 9.3 g/dL (13.0-18.0) L 02/20/25 03:03
Hct 27.1 % (39.0-52.0) L 02/20/25 03:03
Plt Count 276 10^3/uL (130-400) 02/20/25 03:03
Sodium 134 mmol/L (135-145) L 02/20/25 03:03
Potassium 4.4 mmol/L (3.5-5.1) 02/20/25 03:03
Chloride 102 mmol/L (98-107) 02/20/25 03:03
Carbon Dioxide 22 mmol/L (22-30) 02/20/25 03:03
BUN 79 mg/dl (9-20) H 02/20/25 03:03
Creatinine 2.5 mg/dL (0.7-1.3) H 02/20/25 03:03
eGFR 24.87 02/20/25 03:03
Glucose 141 mg/dl (70-99) H 02/20/25 03:03
Calcium 8.4 mg/dl (8.4-10.2) 02/20/25 03:03
Phosphorus 4.0 mg/dl (2.5-4.5) 02/17/25 04:00
Prj-N-Cwzzwblugbw Pept 42163 pg/ml 02/14/25 11:16
Albumin 3.1 g/dl (3.5-5.0) L 02/19/25 04:39
Physical Exam
-
Vital Signs:
Vital Signs
Temp Pulse Resp BP Pulse Ox
98.4 F 66 16 138/57 97
02/20/25 07:06 02/20/25 08:00 02/20/25 07:06 02/20/25 07:03 02/20/25 09:25
Cardiovascular:: Regular rate and rhythm
Respiratory:: Bilateral: CTA and Bilateral: Coarse
Lung Excursion:: Normal
Abdomen:: Soft
Bowel Sounds:: Normal
Extremity Edema:: None: Bilateral:
--- NOTE | 2025-02-20 12:21 | CON.MD ---
Consultation - Medical
-
epistaxis
84 yo c bradycardia, heart block and elevated K. consulted due to primarily L sided epistaxis last night
Was on Plavix and heparin drip, which have been held
Pt c rolled gauze in L nares, afrin soaked
No active bleeding
PE - R nares clear, some old blood in oropharynx, but no active bleeding
Small clot seen L anterior nares
Epistaxis
Cauterized with silver nitrate
Cotton ball placed with antibiotic ointment
Leave in place x 24 hrs
Ointment BID to nares
If no bleeding, can resume Plavix tomorrow
[2025-02-20 12:38] LABS: Glucose - Point of Care 142 mg/dl (70-99)
--- NOTE | 2025-02-20 12:39 | PN.CDI ---
CDI
- -
CDI:
Physician Documentation Request
Admit Date: 02/14/25 11:42
Dear Doctor Richard
Patient presented with complete heart block likely triggered by severe hyperkalemia.
Recent sodium results:
Laboratory Tests
02/17/25 02/18/25 02/19/25
04:00 05:01 04:39
Sodium 137 132 L 135
02/20/25
03:03
Sodium 134 L
Could you please provide a diagnosis that supports the above lab abnormalities and additional evaluation/ monitoring
Hyponatremia
Abnormal lab value clinically insignificant
Other
Use of terms such as suspected, likely, concern for, or probable (associated with a specific diagnosis that is being evaluated, monitored, or treated as if it exists) are acceptable and can be coded in the inpatient setting, when documented at the
time of discharge.
Thank you,
Coco Shields RN, BSN
CDI Specialist
tiger text
Please use your independent medical judgment in providing your response.
[2025-02-20] MEDS: PLAVIX PO (14:02)
[2025-02-20] MEDS: NOVOLOG FLEXPEN-LOW RESISTANCE SC (14:04)
[2025-02-20] MEDS: FERRLECIT 110 MG IV (14:32)
--- NOTE | 2025-02-20 14:32 | CM ---
Reviewed chart. Met with Mr. and Mrs. Curran to review discharge plans. We reviewed that [facility] and [facility] not have a bed available. We reviewed [facility] has a bed. They still would like to explore
SNF/Rehab. Telephone call to [facility] to start the pre-cert process. The pended auth number is [id number]. Faxed clinical to [facility] to review for SNF/Rehab. Awaiting tna decision regarding SNF. Telephone call to [facility] Liaison to
update her on tentative discharge date. Medical work-up in progress. The discharge plan is to go to [facility] if bed available and approved by insurance when medically stable.
--- NOTE | 2025-02-20 15:48 | W.PN.CARDCBS ---
Addendum entered and electronically signed by Sam Kan MD 02/20/25 16:06:
I saw and examined the patient.
The BAND TOP MAKER or PA's note was reviewed and I agree with the note.
Comment: General: Well developed, well nourished in NAD.
Neck: Supple, no JVD, HJR, carotids +2 B/L, no bruits bilaterally.
Heart: Non displaced PMI, RRR, no murmurs, No S3, S4, no rubs.
Lungs: Clear to auscultation bilaterally, no wheeze, rhonchi, rubs bilaterally,
normal expiratory phase.
Extremities: No clubbing, cyanosis or edema bilaterally.
Neuro: Grossly nonfocal, awake, alert and oriented x3.
He has new brachial DVT. Significant epistaxis with heparin and ear nose and throat request heparin to be held. Eventual Eliquis when okay with ENT.
Original Note:
Today's Communication / Plan
-
New brachial DVT overnight and then epistaxis with Heparin gtt
Restart aspirin at least, but agree with holding Heparin gtt until tomorrow
Impression / Plan
-
PCP: Dr. Twan Perry
Primary Children'S Tutor: Dr. Rosas
Assessment:
Presentation with syncope/unresponsiveness 02/14/25
Marked Hyperkalemia with loss of P wave on ECG, peaked T waves and marked QRS widening
Complete heart block
temp pacing wire 02/14/25
s/p Medtronic DC PPM utilizing conduction system pacing via LBB implantation on 02/15/25
TOMY on CKD 4
Shock liver
Elevated lactic acidosis
Elevated troponin
Bradycardia with intermittent Mobitz II type 1 and 2:1 av block by OP monitor 01/2025
CAD status post CABG x 4 FRIEDMAN to LAD, SVG to diagonal to OM, SVG to RPDA 09/19/2024
ARF on CKD 3B during 09/2024 admission, did not require HD at that time
Hypertension
Hyperlipidemia
Type 2 diabetes with hyperglycemia
Prostate cancer status post surgical resection 1999
MIKE on CPAP
Recent diagnosis hypothyroidism
Former smoker
ECHO 12/14/2024: Technically difficult study, EF 55 to 60%, aortic sclerosis, trace AR, PAP 25 mmHg, small pericardial effusion
ECHO 02/14/2025: EF 55%, RV poorly visualized, no pericardial effusion
Plan:
-Overnight events noted, patient with newly diagnosed occlusive left brachial vein in the mid to distal upper arm 02/19/25. Patient started on Heparin gtt and then developed a nosebleed.
-ENT saw patient for epistaxis on 02/20/25 and would like Heparin gtt to be held for 24 hours. Will hold Heparin gtt until 02/21/25 and then consider starting Eliquis at that time. Patient will need DVT dosing for Eliquis.
-Left ACW implant site is stable on Heparin gtt and reviewed activity limitations with patient and .
-TOMY on CKD 4 and hyperkalemia on admission that improved with HD. No longer needs dialysis. No additional Lasix ordered. Patient was not taking a loop diuretic prior to admission.
-Potassium as high as 7.3 on admission and improved to 4.4 on 02/20/25, labs reviewed by me.
-Outpatient dose of losartan 25 mg daily remains on hold.
-VS reviewed by me 02/19/25, and patient continues with intermittent HTN with holding of outpatient dose of losartan 25 mg daily.
-New to Lopressor 12.5 mg BID. Patient was previously on Coreg, but it was stopped prior to admission due to bradycardia.
-New to nifedipine XL 30 mg daily
-Troponin peaked at 1.45, no chest pain and no echo changes. Troponin elevation managed as a nonischemic myocardial injury Troponin elevation.
-Patient is s/p CABG 09/19/24 and outpatient doses of aspirin and Plavix are also on hold due to epistaxis, will restart aspirin 81 mg daily now
-Shock liver on admission and LFTs improving. Restart outpatient dose of atorvastatin 40 mg daily once LFTs are less than twice the upper limit of normal.
Progress Note - Children'S Tutor
Subjective
Date of Service: February 20, 2025
He denies pain
Objective
Labs:
02/20/25 03:03
02/20/25 03:03
Labs
Hgb 9.3 g/dL (13.0-18.0) L 02/20/25 03:03
Hct 27.1 % (39.0-52.0) L 02/20/25 03:03
Plt Count 276 10^3/uL (130-400) 02/20/25 03:03
PT 15.7 Sec (11.4-14.6) H 02/19/25 04:39
INR 1.22 02/19/25 04:39
APTT 45.6 Sec (23.4-35.0) H 02/20/25 09:15
Sodium 134 mmol/L (135-145) L 02/20/25 03:03
Potassium 4.4 mmol/L (3.5-5.1) 02/20/25 03:03
BUN 79 mg/dl (9-20) H 02/20/25 03:03
Creatinine 2.5 mg/dL (0.7-1.3) H 02/20/25 03:03
Glucose 141 mg/dl (70-99) H 02/20/25 03:03
Vital Signs and I&O:
Vital Signs
Temp Pulse Resp BP Pulse Ox
97.6 F 71 16 138/54 97
02/20/25 15:05 02/20/25 15:05 02/20/25 15:05 02/20/25 15:05 02/20/25 15:05
Vital Signs
Temp Pulse Resp BP Pulse Ox
97.6 F 71 16 138/54 97
02/20/25 15:05 02/20/25 15:05 02/20/25 15:05 02/20/25 15:05 02/20/25 15:05
Intake & Output
02/18/25 02/19/25 02/20/25 02/21/25
06:59 06:59 06:59 06:59
Intake Total 600 / 600 1160 / 1160 1680 / 1680
Output Total 750 / 750
Balance -150 / -150 1160 / 1160 1680 / 1680
Physical Exam
Physical Exam
GEN: AAOx3
HEENT: mmm
LUNGS: No audible wheeze
CV: V paced on tele
ABD: ND
EXT: B/L hand edema
NEURO: Gross non-focal
SKIN: No rash
[2025-02-20 17:19] LABS: Glucose - Point of Care 179 mg/dl (70-99)
[2025-02-20] MEDS: CLARITIN 10 MG PO (17:41)
[2025-02-20] MEDS: LOW STRENGTH ASPIRIN 81 MG PO (17:41)
[2025-02-20] MEDS: POLYSPORIN OINTMENT 1 APPLIC TOPICAL (17:48)
--- NOTE | 2025-02-20 19:32 | PTCARENOTE ---
Pt c/o fatigue today after being awake all last night with a nosebleed. Some bleeding this morning, heparin infusion and plavix on hold. Pt seen by , left nare packed, this fell out later and was not replaced. Antibiotic ointment applied.
No further bleeding from pt's nose.
Pt OOB to chair and walking a little in halls. Fall precautions in place. Pt very tired today but denies any discomfort. Telemetry shows vent. paced rhythm with frequent PVC's.
[2025-02-20] MEDS: AFRIN NASAL SPRAY NASAL (20:20)
[2025-02-20 22:48] LABS: Glucose - Point of Care 166 mg/dl (70-99)
[2025-02-21] VITALS (8 sets, daily range): BP systolic 113–176; BP diastolic 52–84; BMI 30.6
--- NOTE | 2025-02-21 02:16 | PTCARENOTE ---
Pt. has not had any epistaxis so far this shift, VSS, V-paced with PVC's on the monitor. Sat OOB in chair for a couple of hours at beginning of shift then went to bed, eager to sleep since he didn't sleep well the night before.
[2025-02-21 04:59] LABS: Hematocrit 25.4 % (39.0-52.0); Hemoglobin 8.8 g/dL (13.0-18.0); Mean Corp Hgb Conc. 34.6 g/dL (33.0-37.0); Mean Corpuscular Hgb 30.7 pg (27.0-31.0); Mean Corpuscular Volume 88.5 fL (80.0-94.0); Mean Platelet Volume 9.7 fL (7.4-10.4); Platelet Count 281 10^3/uL (130-400); Red Blood Cell Count 2.87 10^6/uL (4.70-6.10); Red Cell Dist. Width 13.8 % (11.5-14.5); White Blood Cell Count 16.5 10^3/uL (4.8-10.8)
[2025-02-21 05:28] LABS: Blood Urea Nitrogen 71 mg/dl (9-20); Calcium 9.1 mg/dl (8.4-10.2); Carbon Dioxide 23 mmol/L (22-30); Chloride 105 mmol/L (98-107); Estimated Creatinine Clearance 24 ml/min; Glucose 109 mg/dl (70-99); Sodium 135 mmol/L (135-145); eGFR 24.87
[2025-02-21] MEDS: SYNTHROID 50 MCG PO (06:18)
--- NOTE | 2025-02-21 09:05 | W.PN.CARDCBS ---
Addendum entered and electronically signed by Jim Morgan MD 02/21/25 11:20:
84-year-old man admitted February 14 with syncope related heart block in the setting of known sinus bradycardia with history of A-V block. Upon presentation he had potassium of 7.3 with creatinine of 6.1, lactate of 10.8 and shock liver. He underwent
emergent implantation of a temporary pacing wire and hemodialysis catheter. Subsequently underwent permanent pacemaker implantation and now with epistaxis and left upper extremity DVT.
PMH/PSH: CABG September 2024, history of TOMY on baseline CKD 3B, hypertension, hyperlipidemia, diabetes, remote prostate cancer status post prostatectomy, sleep apnea, hypothyroidism
Current meds: IV heparin on hold, clopidogrel 75 mg daily on hold, nifedipine ER, metoprolol tartrate 12.5 twice daily, insulin, lactulose, IV iron, Oxy metolazone, aspirin 81 mg daily
176/58, pulse 79, respiratory 20, afebrile, patient appears fatigued but no acute distress, head neck exam unremarkable, lungs are clear, regular rate and rhythm, abdomen benign extremities without clubbing cyanosis or edema
White count 16.5, hemoglobin 8.8, potassium is 5.0, BUN and creatinine of 71 and 2.5
Assessment:
Presentation with syncope/unresponsiveness 02/14/25
Marked Hyperkalemia with loss of P wave on ECG, peaked T waves and marked QRS widening
Complete heart block
temp pacing wire 02/14/25
s/p Medtronic DC PPM utilizing conduction system pacing via LBB implantation on 02/15/25AKI on CKD 4
Shock liver
Elevated lactic acidosis
Elevated troponin
Bradycardia with intermittent Mobitz II type 1 and 2:1 av block by OP monitor 01/2025
CAD status post CABG x 4 FRIEDMAN to LAD, SVG to diagonal to OM, SVG to RPDA 09/19/2024
ARF on CKD 3B during 09/2024 admission, did not require HD at that time
Hypertension
Hyperlipidemia
Type 2 diabetes with hyperglycemia
Prostate cancer status post surgical resection 1999
MIKE on CPAP
Recent diagnosis hypothyroidism
Former smoker
Plan:
Despite advanced heart block and multisystem organ failure that resulted, Mr. Curran is continuing to improve.
He is no longer on dialysis. Creatinine is currently stable at 2.5
Volume status seems reasonable. There is no evidence of acute HFpEF on exam.
Shock liver is resolving. Hemoglobin is acceptable 8.8.
The major issues now are left upper extremity DVT from pacemaker implantation, and epistaxis. Currently heparin and Plavix are on hold. He is receiving aspirin.
Would favor the initiation of Eliquis at this time, stopping aspirin and Plavix.
Management of volume status, BP, decision regarding Farxiga per nephrology.
Original Note:
Today's Communication / Plan
-
Start Eliquis 10 mg BID now then continue for 2 weeks and then drop dose to 5 mg BID for 3 months for DVT dosing, there is no cardiac indication for long-term OAC
Aspirin and Plavix have been stopped. Aspirin should be restarted when Eliquis therapy has been completed
Impression / Plan
-
PCP: Dr. Twan Perry
Primary Cupola Liner: Dr. Rosas
Assessment:
Presentation with syncope/unresponsiveness 02/14/25
Marked Hyperkalemia with loss of P wave on ECG, peaked T waves and marked QRS widening
Complete heart block
temp pacing wire 02/14/25
s/p Medtronic DC PPM utilizing conduction system pacing via LBB implantation on 02/15/25
TOMY on CKD 4
Shock liver
Elevated lactic acidosis
Elevated troponin
Bradycardia with intermittent Mobitz II type 1 and 2:1 av block by OP monitor 01/2025
CAD status post CABG x 4 FRIEDMAN to LAD, SVG to diagonal to OM, SVG to RPDA 09/19/2024
ARF on CKD 3B during 09/2024 admission, did not require HD at that time
Hypertension
Hyperlipidemia
Type 2 diabetes with hyperglycemia
Prostate cancer status post surgical resection 1999
MIKE on CPAP
Recent diagnosis hypothyroidism
Former smoker
ECHO 12/14/2024: Technically difficult study, EF 55 to 60%, aortic sclerosis, trace AR, PAP 25 mmHg, small pericardial effusion
ECHO 02/14/2025: EF 55%, RV poorly visualized, no pericardial effusion
Plan:
-Diagnosed occlusive left brachial vein in the mid to distal upper arm 02/19/25. Patient started on Heparin gtt and then developed epistaxis 02/19/25 PM and Heparin gtt wa stopped. Aspirin adn Plavix also stopped on 02/19/25. ENT cauterized the area and
packed the nose. Nasal packing removed 02/20/25 PM and aspirin 81 mg daily restarted 02/20/25. No recurrence of epistaxis as of 02/21/25.
-Recommend starting Eliquis for DVT dosing at 10 mg BID for 7 days and then 5 mg BID thereafter for 3 months. Reviewed with hospitalist attending via TT.
-Will stop aspirin and Plavix at this point, patient had CABG 09/2024.
-Left ACW implant site is stable on my inspection 02/21/25. Will remove Aquacel dressing 02/21/25 or 02/22/25 pending final date of d/c
-TOMY on CKD 4 and hyperkalemia on admission that improved with HD. No longer needs dialysis. No additional Lasix ordered. Patient was not taking a loop diuretic prior to admission.
-Potassium as high as 7.3 on admission and improved to 5.0 on 02/21/25, labs reviewed by me.
-Cre stable at 2.5 and nephrology following
-Outpatient dose of losartan 25 mg daily remains on hold.
-VS reviewed by me 02/21/25, and BP 176/85.
-New to Lopressor this admission, will increase dose to 25 mg BID on 02/21/25. Patient was previously on Coreg, but it was stopped prior to admission due to bradycardia.
-New to nifedipine XL 30 mg daily
-Troponin peaked at 1.45, no chest pain and no echo changes. Troponin elevation managed as a nonischemic myocardial injury Troponin elevation.
-Shock liver on admission and LFTs improving. Restart outpatient dose of atorvastatin 40 mg daily once LFTs are less than twice the upper limit of normal. At this point we will likely wait until office f/u to restart statin.
Progress Note - Cupola Liner
Subjective
Date of Service: February 21, 2025
No recurrence of epistaxis, no chest pain, no LUE pain
Objective
Labs:
02/21/25 04:36
02/21/25 04:36
Labs
Hgb 8.8 g/dL (13.0-18.0) L 02/21/25 04:36
Hct 25.4 % (39.0-52.0) L 02/21/25 04:36
Plt Count 281 10^3/uL (130-400) 02/21/25 04:36
PT 15.7 Sec (11.4-14.6) H 02/19/25 04:39
INR 1.22 02/19/25 04:39
APTT 45.6 Sec (23.4-35.0) H 02/20/25 09:15
Sodium 135 mmol/L (135-145) 02/21/25 04:36
Potassium 5.0 mmol/L (3.5-5.1) 02/21/25 04:36
BUN 71 mg/dl (9-20) H 02/21/25 04:36
Creatinine 2.5 mg/dL (0.7-1.3) H 02/21/25 04:36
Glucose 109 mg/dl (70-99) H 02/21/25 04:36
Vital Signs and I&O:
Vital Signs
Temp Pulse Resp BP Pulse Ox
98.8 F 79 20 176/58 98
02/21/25 07:33 02/21/25 07:34 02/21/25 07:33 02/21/25 07:34 02/21/25 07:33
Vital Signs
Temp Pulse Resp BP Pulse Ox
98.8 F 79 20 176/58 98
02/21/25 07:33 02/21/25 07:34 02/21/25 07:33 02/21/25 07:34 02/21/25 07:33
Intake & Output
02/19/25 02/20/25 02/21/25 02/22/25
06:59 06:59 06:59 06:59
Intake Total 1160 / 1160 1680 / 1680 480 / 480
Balance 1160 / 1160 1680 / 1680 480 / 480
Physical Exam
Physical Exam
GEN: AAOx3
HEENT: mmm
LUNGS: No audible wheeze
CV: V paced on tele
ABD: ND
EXT: B/L hand edema left worse than right
NEURO: Gross non-focal
SKIN: No rash
--- NOTE | 2025-02-21 09:05 | W.PN.HOSP.TC ---
Today's Communication/Plan
-
Restart Eliquis
Assessment / Plan
Assessment / Plan
Gen-AAOx3, NAD
HEENT-NC, AT, anicteric, clear oral mm. Nosebleed L>R
Neck-supple
CV-reg, no M, +S1/S2
Lungs-clear B/L
Abd-soft, NT, ND
Ext-b/l edema LUE>RUE
Musculoskeletal-no cyanosis, clubbing
Skin-warm and dry
Neuro-grossly non-focal
Psych-calm, cooperative
A/P:
Complete heart block - present on admission, likely triggered by severe hyperkalemia. Underwent dual-chamber pacemaker placement February 15. Discussed with at bedside prior.
Acute DVT LUE-we will start Eliquis today
Epistaxis-ENT consult appreciated. Held anticoagulation and Plavix and asa restarted by cardio yesterday. Today cardio to discontinue completely aspirin and Plavix and okay to challenge with Eliquis.
Acute blood loss anemia-continue monitor hemoglobin closely
Constipation-bowel regimen
Life-threatening hyperkalemia - Resolved.
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 Losartan on hold. Creatinine trending down. Nephrology stopping HD since 02/18 and will monitor.
Acute Ischemic hepatitis -[place] due to ischemic etiology given profound bradycardia prior to admission. LFT trending down nicely-can continue follow-up as outpatient
Elevated troponin -likely due to profound bradycardia, hyperkalemia. No evidence of ACS.
Leukocytosis -nontoxic, doubt infection. Likely leukemoid reaction/reactive. Monitor as outpatient or repeat if any concern for infection
Asymptomatic pyuria -urine culture does show E. coli but patient without symptoms.
Hypercalcemia - improved.
DM2 with hyperglycemia -Home regimen is Farxiga 10 mg daily, dulaglutide 3 mg subcu every Tuesday, insulin degludec 18 units at bedtime.
Hemoglobin A1c 7.5%. On lantus 15 u and Novolog 5 u ac. Follow-up INTERIOR SPECIALIST recommendations
CAD/CABG -bypass surgery performed 09/19/2024, four-vessel. Discontinued DAPT-discussed with cardiology. Plan to restart aspirin after finishing Eliquis treatment.
Essential hypertension -blood pressure elevated. At home he is on losartan 25 mg nightly, Currently on hold for TOMY. Anti-HTN meds per cardio.
Hyperlipidemia -hold atorvastatin in light of elevated LFTs and can likely restart as outpatient.
Hypothyroidism -continue levothyroxine. TSH normal initially. Cardio repeated TFT and unremarkable.
Chronic normocytic anemia -anemia workup consistent with anemia of chronic disease
Obesity due to excess calories
DVT prophylaxis-restart heparin subcu
Code status-Full code
Total time spent on today's encounter was 52 minutes which included time spent in counseling the patient/family regarding diagnosis and treatment plan as listed above, goals of care, and symptom management. Case was discussed with nursing staff,
specialists, and care coordinators/case management. All labs and imaging personally reviewed by me. Remainder the time spent in detailed review of previous records, lab data, imaging, and other medical provider documentation.
Anticipated Discharge: 24 - 48 hours
Subjective/Interval History
-
Date of Service: February 21, 2025
No further epistaxis today. No chest pain or shortness of breath.
Objective Data
-
Labs:
Laboratory Results
02/21/25
04:36
WBC 16.5 H
Hgb 8.8 L
Hct 25.4 L
Plt Count 281
Sodium 135
Potassium 5.0
Chloride 105
Carbon Dioxide 23
BUN 71 H
Creatinine 2.5 H
Glucose 109 H
Calcium 9.1
Vital Signs:
Vital Signs
Temp Pulse Resp BP Pulse Ox
98.8 F 79 20 176/58 98
02/21/25 07:33 02/21/25 07:34 02/21/25 07:33 02/21/25 07:34 02/21/25 07:33
I&O
02/20/25 02/21/25 02/22/25
06:59 06:59 06:59
Intake Total 1680 / 1680 480 / 480
Balance 1680 / 1680 480 / 480
[2025-02-21] MEDS: NOVOLOG FLEXPEN-LOW RESISTANCE SC ×2 (09:36→18:34)
[2025-02-21 09:37] LABS: Glucose - Point of Care 110 mg/dl (70-99)
[2025-02-21] MEDS: COLACE 100 MG PO ×2 (09:37→20:44)
[2025-02-21] MEDS: PROCARDIA XL (EXTENDED RELEASE) 30 MG PO (09:37)
[2025-02-21] MEDS: LOPRESSOR 12.5 MG PO ×2 (09:37→10:33)
[2025-02-21] MEDS: AFRIN NASAL SPRAY NASAL ×2 (09:38→20:45)
[2025-02-21] MEDS: MIRALAX 17 GRAMS PO (09:38)
[2025-02-21] MEDS: DUPHALAC/CHRONULAC 20 GRAMS PO (09:39)
[2025-02-21] MEDS: POLYSPORIN OINTMENT 1 APPLIC TOPICAL ×2 (09:40→20:50)
--- NOTE | 2025-02-21 10:06 | PN.DE.MGMTRT ---
Insulin Management
- -
02/21/2025: Diabetes Management Follow up
84 year old male with PMH of CAD s/p CABG x4 09/2024, HTN, HLD, DM2, CKD, recent diagnosis hypothyroidism. He had bradycardia as well as fatigue noted during cardiac rehab sessions. Toprol was stopped and he underwent 5 day Ramila monitor from
01/29-02/03/25 which showed sinus ramila with episodes of 2nd degree av block type 1 with some 2:1 conduction and no significant pauses. He was scheduled to come to cardiology office today to discuss ppm placement, however presented to [facility] ER by EMS
due to syncopal episode witnessed by at home. He was taking Tresiba 18 units @ HS, Farxiga 10mg daily and Trulicity 3mg weekly. A1C 7.5%, Cr 6.1-->4.0, eGFR 14.15 today
States he has been using a CGM- Leonel 3 for glucose monitoring at home for the last 2 months. He is in the process of getting an Computer Technical Specialist.
He states that he took his Tresiba 18 units yesterday morning prior to coming to the hospital.
Glucose was 255 on arrival to the ED and he was started on Glycemic protocol insulin infusion.
Pt is awake, alert, oriented, sitting up in chair, offers no complaints, able to discuss diabetes care.
TOMY on CKD, Cr 2.5, eGFR 24.87 today. Current regimen Lantus 15 units in AM with novolog 5 units AC and low corrective.
02/20 glucose range 141 to 179, requiring 1 unit of corrective insulin coverage.
02/21 Will continue current regimen, lantus 15 units in AM with novolog 5 units AC, and follow for needed adjustments. Will not restart Farxiga due to elevated cr.
Patient to transfer to SNF.
02/19 Had a lengthy discussion with pt and regarding insulin therapy, discussed mechanism of action for both long and short acting insulin, instructed pt to take short acting insulin before each meal.
Pt more alert able to state his insulin is tresiba and will be taken daily in AM with novolog at each meal.
Review instructions for insulin administration and wrote all it down.
Will closely monitor and make further adjustments to plan of care if necessary. Discussed with Nurse
Diabetes History
- -
Type of Diabetes: 2 requiring insulin
Pre-Admission Diabetes Regimen
02/21/25
04:36
Creatinine 2.5 H
Lab Results
Hemoglobin A1c 7.5 % (4.0-5.6) H 02/15/25 03:52
Insulin Pump Settings
IP Diabetes Regimen
02/20/25 02/20/25 02/20/25
12:37 17:18 22:40
Glucose
POC Glucose 142 H 179 H 166 H
02/21/25 02/21/25
04:36 09:35
Glucose 109 H
POC Glucose 110 H
Meal type: Lunch
Amount consumed: 100%
Patient Education
--- NOTE | 2025-02-21 10:21 | W.PN.UPDATE ---
Update Note
Progress Note Update
Epistaxis
cotton ball removed
no active bleeding
A/P Epistaxis
Improved
continue saline gel and saline spray
Eliquis restarted due to venous thrombosis
Contact again if needed
[2025-02-21] MEDS: NOVOLOG FLEXPEN 5 UNITS SC ×3 (10:32→19:32)
[2025-02-21] MEDS: ELIQUIS 10 MG PO ×2 (10:33→20:39)
[2025-02-21] MEDS: LANTUS 0.15 UNITS SC (10:33)
[2025-02-21] MEDS: LOW STRENGTH ASPIRIN PO (10:35)
--- NOTE | 2025-02-21 11:46 | W.PN.NEPH.PH ---
Today's Communication / Plan
-
BMP in the morning
Assessment/Plan
-
Impression:
Acute kidney injury (93/6.1), December 2024 creatinine 2.3 which appears to be at his baseline.= Follows with Dr. Corado
Hyperkalemia (7.3)
Gap metabolic acidosis (lactic acid ~10)
Bradycardia
History of coronary artery disease with CABG
Secondary hyperparathyroid
Diabetes
brachial LUE clot
Plan:
follow BMP
no further HD
Bowel regimen for constipation
Flatplate no acute obstruction
Renal function stable
-
-
Date of Service: February 21, 2025
CC / HPI / ROS
-
Chief Complaint:
Presents with hyperkalemia and TOMY on CKD
History of Present Illness:
TOMY/Cr down to 2.6
BP stable
LFTs improving
weights stable
Review of Systems:
HD CVC out
No chest pain or shortness of breath
constipated, no appetite
Epistaxis has resolved
Labs
-
Labs:
WBC 16.5 10^3/uL (4.8-10.8) H 02/21/25 04:36
RBC 2.87 10^6/uL (4.70-6.10) L 02/21/25 04:36
Hgb 8.8 g/dL (13.0-18.0) L 02/21/25 04:36
Hct 25.4 % (39.0-52.0) L 02/21/25 04:36
Plt Count 281 10^3/uL (130-400) 02/21/25 04:36
Sodium 135 mmol/L (135-145) 02/21/25 04:36
Potassium 5.0 mmol/L (3.5-5.1) 02/21/25 04:36
Chloride 105 mmol/L (98-107) 02/21/25 04:36
Carbon Dioxide 23 mmol/L (22-30) 02/21/25 04:36
BUN 71 mg/dl (9-20) H 02/21/25 04:36
Creatinine 2.5 mg/dL (0.7-1.3) H 02/21/25 04:36
eGFR 24.87 02/21/25 04:36
Glucose 109 mg/dl (70-99) H 02/21/25 04:36
Calcium 9.1 mg/dl (8.4-10.2) 02/21/25 04:36
Phosphorus 4.0 mg/dl (2.5-4.5) 02/17/25 04:00
Evr-C-Fodumuduhyi Pept [id number] pg/ml 02/14/25 11:16
Albumin 3.1 g/dl (3.5-5.0) L 02/19/25 04:39
Physical Exam
-
Vital Signs:
Vital Signs
Temp Pulse Resp BP Pulse Ox
98.4 F 79 20 176/58 95
02/21/25 11:25 02/21/25 07:34 02/21/25 11:25 02/21/25 07:34 02/21/25 11:25
Cardiovascular:: Regular rate and rhythm
Respiratory:: Bilateral: CTA and Bilateral: Coarse
Lung Excursion:: Normal
Abdomen:: Soft
Bowel Sounds:: Normal
Extremity Edema:: None: Bilateral:
--- NOTE | 2025-02-21 11:48 | CM ---
Reviewed chart. Met with Mr. and Mrs. Curran to review discharge plans. Reviewed we received SNF Approval from [place]. The Auth. number is [id number], from 02/22/25 to 02/28/25. We reviewed transport to [facility]. Reviewed
wheelchair van transport and out of pocket cost and family transportation. Telephone call to [facility] Liaison to update her with auth. number and tentative discharge date. Medical work-up in progress. The discharge plan is to go to
[facility] tomorrow if medically stable.
[2025-02-21 13:07] LABS: Glucose - Point of Care 254 mg/dl (70-99)
[2025-02-21] MEDS: NOVOLOG FLEXPEN-LOW RESISTANCE 3 UNITS SC (13:07)
[2025-02-21] MEDS: FERRLECIT 110 MG IV (14:08)
[2025-02-21] MEDS: PEPCID 20 MG PO (14:08)
[2025-02-21 18:05] LABS: Glucose - Point of Care 103 mg/dl (70-99)
[2025-02-21] MEDS: CLARITIN 10 MG PO (18:30)
--- NOTE | 2025-02-21 19:28 | PTCARENOTE ---
Pt OOB to chair all day, able to shower with assistance. No further nosebleeds, eliquis started for left brachial DVT. Telemetry shows vent. paced rhythm with PVC's. Pt had large BM today.
--- NOTE | 2025-02-21 19:40 | PTCARENOTE ---
Assumed care on pt, aaox3, denies any pain or discomfort. blood sugar 103 at dinner time, scheduled novolog 5 unit given at this time after pt ate 100% dinner. V paced on the monitor with occasional PVC's. HR 80's. O2 sat 98% RA. Call ortega within
reach.
[2025-02-21] MEDS: LOPRESSOR 25 MG PO (20:40)
[2025-02-21 22:08] LABS: Glucose - Point of Care 134 mg/dl (70-99)
[2025-02-21] MEDS: APRESOLINE 10 MG IV (22:22)
[2025-02-22 02:55] VITALS: BP 145/51
[2025-02-22 04:14] LABS: Hematocrit 23.8 % (39.0-52.0); Hemoglobin 8.3 g/dL (13.0-18.0); Mean Corp Hgb Conc. 34.9 g/dL (33.0-37.0); Mean Corpuscular Hgb 31.1 pg (27.0-31.0); Mean Corpuscular Volume 89.1 fL (80.0-94.0); Mean Platelet Volume 9.8 fL (7.4-10.4); Platelet Count 292 10^3/uL (130-400); Red Blood Cell Count 2.67 10^6/uL (4.70-6.10); Red Cell Dist. Width 13.9 % (11.5-14.5); White Blood Cell Count 13.7 10^3/uL (4.8-10.8)
[2025-02-22 04:40] LABS: Blood Urea Nitrogen 66 mg/dl (9-20); Calcium 8.8 mg/dl (8.4-10.2); Carbon Dioxide 23 mmol/L (22-30); Chloride 105 mmol/L (98-107); Estimated Creatinine Clearance 26 ml/min; Glucose 107 mg/dl (70-99); Potassium 4.9 mmol/L (3.5-5.1); Sodium 133 mmol/L (135-145); eGFR 27.49
[2025-02-22 06:00] VITALS: BMI 30.7
[2025-02-22] MEDS: SYNTHROID 50 MCG PO (07:07)
--- NOTE | 2025-02-22 07:23 | W.PN.CARDCBS ---
Addendum entered and electronically signed by Shawna Lomeli DO 02/22/25 18:14:
I saw and examined the patient.
The Industrial Health Engineer's note was reviewed and I agree with the note.
Comment: Patient seen and examined sitting out of bed to chair. Overall feels better. Denies chest pain or pressure. No shortness of breath. Voiding well.
GEN: No distress, awake, alert, oriented x3
HEENT: mmm
LUNGS: CTA b/l, no wheezes/rales. Aquacel dressing removed
CV: Reg, S1/S2, no murmur
EXT: No edema
Plan:
-Presented with complete heart block, TOMY, hyperkalemia, and shock liver. He is now s/p PPM placement 02/15/2025 and has been improving.
-Stable on tele w/ no arrhythmias noted. Aquacel dressing remains in place. As it has been 1 week since implant, will remove today.
-Hyperkalemia improved, creat downtrending. Now down to 2.3 02/22. No longer on HD. Nephrology following.
-Losartan remains on hold. Continue Nifedipine and metoprolol tartrate. BP and HR stable this AM.
-Diagnosed w/ occlusive L brachial vein in the mid to distal upper arm 02/19. Was started on heparin gtt and developed epistaxis, so so heparin, aspirin, and plavix stopped.
-ENT cauterized the area and packed the nose. Nasal packing removed 02/20 and patient restarted on Eliquis alone. No recurrent epistaxis noted.
-Will continue DVT dosing of Eliquis for now. Once Eliquis to be stopped as OP, would resume aspirin 81mg daily given recent CABG 09/2024. Will not plan to restart Plavix
-Elevated troponin noted this admission, peaking at 1.45 and trending down thereafter. No chest pain and no changes noted on echo. Managing as nonischemic myocardial injury.
-Shock liver noted on admission w/ improvement throughout admission. Lipitor 40mg daily remains on hold. Will continue to follow LFTs as OP and resume once they are less than twice the upper limit of normal.
-Will arrange cardiology follow up visit.
-OK for discharge at this time from cardiac standpoint.
Original Note:
Today's Communication / Plan
-
Aquacel dressing removed
No further bleeding
Continue Eliquis, DVT dosing
Continue Lopressor, nifedipine
Will consider resuming lipitor as OP
Follow up arranged
Impression / Plan
-
PCP: Dr. Twan Perry
Primary Or Director: Dr. Rosas
Assessment:
Presentation with syncope/unresponsiveness 02/14/25
Marked Hyperkalemia with loss of P wave on ECG, peaked T waves and marked QRS widening
Complete heart block
temp pacing wire 02/14/25
s/p [employer] DC PPM utilizing conduction system pacing via LBB implantation on 02/15/25
TOMY on CKD 4
Epistaxis
Shock liver
Elevated lactic acidosis
Elevated troponin
Bradycardia with intermittent Mobitz II type 1 and 2:1 av block by OP monitor 01/2025
CAD status post CABG x 4 FRIEDMAN to LAD, SVG to diagonal to OM, SVG to RPDA 09/19/2024
ARF on CKD 3B during 09/2024 admission, did not require HD at that time
Hypertension
Hyperlipidemia
Type 2 diabetes with hyperglycemia
Prostate cancer status post surgical resection 1999
MIKE on CPAP
Recent diagnosis hypothyroidism
Former smoker
ECHO 12/14/2024: Technically difficult study, EF 55 to 60%, aortic sclerosis, trace AR, PAP 25 mmHg, small pericardial effusion
ECHO 02/14/2025: EF 55%, RV poorly visualized, no pericardial effusion
Plan:
-Presented with complete heart block, TOMY, hyperkalemia, and shock liver. He is now s/p PPM placement 02/15/2025 and has been improving.
-Stable on tele w/ no arrhythmias noted. Aquacel dressing remains in place. As it has been 1 week since implant, will remove today.
-Hyperkalemia improved, creat downtrending. Now down to 2.3 02/22. No longer on HD. Nephrology following.
-Losartan remains on hold. Continue Nifedipine and metoprolol tartrate. BP and HR stable this AM.
-Diagnosed w/ occlusive L brachial vein in the mid to distal upper arm 02/19. Was started on heparin gtt and developed epistaxis, so so heparin, aspirin, and plavix stopped.
-ENT cauterized the area and packed the nose. Nasal packing removed 02/20 and patient restarted on Eliquis alone. No recurrent epistaxis noted.
-Will continue DVT dosing of Eliquis for now. Once Eliquis to be stopped as OP, would resume aspirin 81mg daily. given recent CABG 09/2024.
-Elevated troponin noted this admission, peaking at 1.45 and trending down thereafter. No chest pain and no changes noted on echo. Managing as nonischemic myocardial injury.
-Shock liver noted on admission w/ improvement throughout admission. Lipitor 40mg daily remains on hold. Will continue to follow LFTs as OP and resume once they are less than twice the upper limit of normal.
-Will arrange cardiology follow up visit.
-OK for discharge at this time from cardiac standpoint.
HPI: Patient is an 84 yo M with PMH of CAD s/p CABG x4 09/2024, HTN, HLD, DM2, CKD, recent diagnosis hypothyroidism. He had bradycardia as well as fatigue noted during cardiac rehab sessions. Toprol was stopped and he underwent 5 day Bardy monitor
from 01/29-02/03/25 which showed sinus ramila with episodes of 2nd degree av block type 1 with some 2:1 conduction and no significant pauses. He was scheduled to come to cardiology office today to discuss ppm placement, however presented to [facility] ER by
EMS due to syncopal episode witnessed by at home. He was noted to have bradycardia with widened QRS noted by EMS EKG tracings and was given bicarb in the field. Then upon arrival to the ER he was given 2 g total of calcium gluconate while
waiting for labs to result. His potassium resulted at 7.3 and creatinine resulted at 6.1 with lactic acid of 10.8 and LFTs in the 1200 range. Cardiology contacted for urgent consultation due to need for emergent temp pacing wire placement due to
bradycardia/sine wave with concern for marked hyperkalemia as underlying etiology. He does also report some chest discomfort which has been present since his surgery in September. Denies recent NSAID administration or medication changes. He is on
farxiga 10mg daily and losartan 25mg QPM as OP.
Progress Note - Or Director
Subjective
Date of Service: February 22, 2025
Feeling well. Only complaint is tiredness as he did not sleep well. No further bleeding noted.
Objective
Labs:
02/22/25 03:40
02/22/25 03:40
Labs
Hgb 8.3 g/dL (13.0-18.0) L 02/22/25 03:40
Hct 23.8 % (39.0-52.0) L 02/22/25 03:40
Plt Count 292 10^3/uL (130-400) 02/22/25 03:40
PT 15.7 Sec (11.4-14.6) H 02/19/25 04:39
INR 1.22 02/19/25 04:39
APTT 45.6 Sec (23.4-35.0) H 02/20/25 09:15
Sodium 133 mmol/L (135-145) L 02/22/25 03:40
Potassium 4.9 mmol/L (3.5-5.1) 02/22/25 03:40
BUN 66 mg/dl (9-20) H 02/22/25 03:40
Creatinine 2.3 mg/dL (0.7-1.3) H 02/22/25 03:40
Glucose 107 mg/dl (70-99) H 02/22/25 03:40
Vital Signs and I&O:
Vital Signs
Temp Pulse Resp BP Pulse Ox
97.6 F 76 18 137/53 98
02/22/25 03:30 02/22/25 00:00 02/22/25 03:30 02/21/25 23:56 02/22/25 03:30
Vital Signs
Temp Pulse Resp BP Pulse Ox
97.6 F 76 18 137/53 98
02/22/25 03:30 02/22/25 00:00 02/22/25 03:30 02/21/25 23:56 02/22/25 03:30
Intake & Output
02/20/25 02/21/25 02/22/25 02/23/25
06:59 06:59 06:59 06:59
Intake Total 1680 / 1680 480 / 480 480 / 480
Balance 1680 / 1680 480 / 480 480 / 480
Physical Exam
Physical Exam
GEN: No distress, awake, alert, oriented x3
HEENT: supple, anicteric, mmm
LUNGS: CTA b/l, no wheezes/rales
CV: Reg, S1/S2, no murmur
EXT: No clubbing, cyanosis, or edema
NEURO: Gross non-focal
SKIN: Warm, dry, no rash
[2025-02-22 07:42] VITALS: BP 153/71
[2025-02-22 07:45] LABS: Glucose - Point of Care 138 mg/dl (70-99)
[2025-02-22] MEDS: NOVOLOG FLEXPEN-LOW RESISTANCE SC (08:21)
--- NOTE | 2025-02-22 08:30 | PN.DE.MGMTRT ---
Insulin Management
- -
02/22/2025: Diabetes Management Follow up
84 year old male with PMH of CAD s/p CABG x4 09/2024, HTN, HLD, DM2, CKD, recent diagnosis hypothyroidism. He had bradycardia as well as fatigue noted during cardiac rehab sessions. Toprol was stopped and he underwent 5 day Ramila monitor from
01/29-02/03/25 which showed sinus ramila with episodes of 2nd degree av block type 1 with some 2:1 conduction and no significant pauses. He was scheduled to come to cardiology office today to discuss ppm placement, however presented to [facility] ER by EMS
due to syncopal episode witnessed by at home. He was taking Tresiba 18 units @ HS, Farxiga 10mg daily and Trulicity 3mg weekly. A1C 7.5%, Cr 6.1-->4.0-->2.3, eGFR 27.49 today
States he has been using a CGM- Elonel 3 for glucose monitoring at home for the last 2 months. He is in the process of getting an [employer].
He states that he took his Tresiba 18 units yesterday morning prior to coming to the hospital.
Glucose was 255 on arrival to the ED and he was started on Glycemic protocol insulin infusion.
Pt is awake, alert, oriented, sitting up in chair, offers no complaints, able to discuss diabetes care.
TOMY on CKD, Cr 2.3, eGFR 27.49 today. Glucose stable and in range, HS 134, FBG 107 V, 138 POC
Will continue current regimen, Lantus 15 units in AM with NovoLog 5 units AC, and low corrective with melas
Will cont to follow for needed adjustments. Will not restart Farxiga due to elevated cr.
Patient to transfer to SNF.
02/19 Had a lengthy discussion with pt and regarding insulin therapy, discussed mechanism of action for both long and short acting insulin, instructed pt to take short acting insulin before each meal.
Pt more alert able to state his insulin is Tresiba and will be taken daily in AM with NovoLog at each meal.
Review instructions for insulin administration and wrote all of it down.
Will closely monitor and make further adjustments to plan of care if necessary. Discussed with Nurse
Diabetes History
- -
Type of Diabetes: 2 requiring insulin
Pre-Admission Diabetes Regimen
02/22/25
03:40
Creatinine 2.3 H
Lab Results
Hemoglobin A1c 7.5 % (4.0-5.6) H 02/15/25 03:52
Insulin Pump Settings
IP Diabetes Regimen
02/21/25 02/21/25 02/21/25
09:35 13:04 18:04
Glucose
POC Glucose 110 H 254 H 103 H
02/21/25 02/22/25 02/22/25
22:06 03:40 07:43
Glucose 107 H
POC Glucose 134 H 138 H
Meal type: Dinner
Meal type: Lunch
Meal type: Breakfast
Amount consumed: 100%
Amount consumed: 90%
Amount consumed: 80%
Patient Education
[2025-02-22 09:01] LABS: ALT (SGPT) 127 U/L (0-50); AST (SGOT) 34 U/L (17-59)
[2025-02-22] MEDS: MIRALAX PO (09:23)
[2025-02-22] MEDS: LANTUS 0.15 UNITS SC (09:23)
[2025-02-22] MEDS: NOVOLOG FLEXPEN 5 UNITS SC ×2 (09:24→12:49)
[2025-02-22] MEDS: DUPHALAC/CHRONULAC PO (09:26)
[2025-02-22] MEDS: COLACE 100 MG PO (09:27)
[2025-02-22] MEDS: LOPRESSOR 25 MG PO (09:27)
[2025-02-22] MEDS: ELIQUIS 10 MG PO (09:27)
[2025-02-22] MEDS: AFRIN NASAL SPRAY 30 SPRAYS NASAL (09:27)
[2025-02-22] MEDS: PROCARDIA XL (EXTENDED RELEASE) 30 MG PO (09:28)
[2025-02-22] MEDS: ROCALTROL 0.25 MCG PO (09:28)
--- NOTE | 2025-02-22 09:38 | W.PN.HOSP.TC ---
Addendum entered and electronically signed by Laron Ramos MD 02/22/25 14:50:
Yes, epistaxis related to/associated with/due to/exacerbated by anticoagulation medications
Original Note:
Today's Communication/Plan
-
Discharge planning today
Assessment / Plan
Assessment / Plan
Gen-AAOx3, NAD
HEENT-NC, AT, anicteric, clear oral mm.
Neck-supple
CV-reg, no M, +S1/S2
Lungs-clear B/L
Abd-soft, NT, ND
Ext-b/l edema LUE>RUE
Musculoskeletal-no cyanosis, clubbing
Skin-warm and dry
Neuro-grossly non-focal
Psych-calm, cooperative
A/P:
Complete heart block - present on admission, likely triggered by severe hyperkalemia. Underwent dual-chamber pacemaker placement February 15. Discussed with at bedside today. Medically ready for discharge
Acute DVT LUE-tolerating Eliquis 10 mg twice a day for 7 days and then 5 mg twice a day
Epistaxis-ENT consult appreciated. Resolved
Acute blood loss anemia superimposed on anemia of chronic disease-improved
Constipation-bowel regimen
Life-threatening hyperkalemia - Resolved.
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 Losartan on hold. Creatinine trending down. Nephrology stopped HD since 02/18 and recommend no HD.
Acute Ischemic hepatitis -[place] due to ischemic etiology given profound bradycardia prior to admission. LFT trending down nicely-can continue follow-up as outpatient
Elevated troponin -likely due to profound bradycardia, hyperkalemia. No evidence of ACS.
Leukocytosis -nontoxic, doubt infection. Likely leukemoid reaction/reactive. Monitor as outpatient or repeat if any concern for infection
Asymptomatic pyuria -urine culture does show E. coli but patient without symptoms.
Hypercalcemia - improved.
DM2 with hyperglycemia -stopping home regimen. Hemoglobin A1c 7.5%. On lantus 15 u and Novolog 5 u ac as [employer] recommendations
CAD/CABG -bypass surgery performed 09/19/2024, four-vessel. Discontinued DAPT-discussed with cardiology. Plan to restart aspirin after finishing Eliquis treatment.
Essential hypertension -blood pressure elevated. At home he is on losartan 25 mg nightly, Currently on hold for TOMY. Anti-HTN meds per cardio.
Hyperlipidemia -hold atorvastatin in light of elevated LFTs and can likely restart as outpatient.
Hypothyroidism -continue levothyroxine. TSH normal initially. Cardio repeated TFT and unremarkable.
Obesity due to excess calories
DVT prophylaxis-restart heparin subcu
Code status-Full code
Anticipated Discharge: Today
Subjective/Interval History
-
Date of Service: February 22, 2025
No new complaints.
Objective Data
-
Labs:
Laboratory Results
02/22/25
03:40
WBC 13.7 H
Hgb 8.3 L
Hct 23.8 L
Plt Count 292
Sodium 133 L
Potassium 4.9
Chloride 105
Carbon Dioxide 23
BUN 66 H
Creatinine 2.3 H
Glucose 107 H
Calcium 8.8
AST 34
ALT 127 H
Vital Signs:
Vital Signs
Temp Pulse Resp BP Pulse Ox
98.4 F 74 20 153/71 97
02/22/25 07:44 02/22/25 09:28 02/22/25 07:44 02/22/25 09:28 02/22/25 07:44
I&O
02/21/25 02/22/25 02/23/25
06:59 06:59 06:59
Intake Total 480 / 480 480 / 480
Balance 480 / 480 480 / 480
--- NOTE | 2025-02-22 10:05 | PTCARENOTE ---
received patient this am, sitting in recliner. left arm remains swollen, good radial pulse. INT x 2 in right forearm. LCW aquaseal intact, no ecchymosis, no hematoma. monitor shows Vpaced, VSS. patient has no more nose bleeds. patient may go to
rehab today.
--- NOTE | 2025-02-22 11:07 | W.PN.NEPH.PH ---
Today's Communication / Plan
-
Okay for discharge from renal standpoint
Assessment/Plan
-
Impression:
Acute kidney injury (93/6.1), December 2024 creatinine 2.3 which appears to be at his baseline.= Follows with Dr. Corado
Hyperkalemia (7.3)
Gap metabolic acidosis (lactic acid ~10)
Bradycardia
History of coronary artery disease with CABG
Secondary hyperparathyroid
Diabetes
brachial LUE clot
Plan:
follow BMP
no further HD
Bowel regimen for constipation
Flatplate no acute obstruction= bowels improved
Renal function stable
Okay for discharge from renal standpoint
-
-
Date of Service: February 22, 2025
CC / HPI / ROS
-
Chief Complaint:
Presents with hyperkalemia and TOMY on CKD
History of Present Illness:
TOMY/Cr down to 2.6�2.3
BP stable
LFTs improving
weights stable
Review of Systems:
HD CVC out
No chest pain or shortness of breath
Bowel movements improved
Epistaxis has resolved
Labs
-
Labs:
WBC 13.7 10^3/uL (4.8-10.8) H 02/22/25 03:40
RBC 2.67 10^6/uL (4.70-6.10) L 02/22/25 03:40
Hgb 8.3 g/dL (13.0-18.0) L 02/22/25 03:40
Hct 23.8 % (39.0-52.0) L 02/22/25 03:40
Plt Count 292 10^3/uL (130-400) 02/22/25 03:40
Sodium 133 mmol/L (135-145) L 02/22/25 03:40
Potassium 4.9 mmol/L (3.5-5.1) 02/22/25 03:40
Chloride 105 mmol/L (98-107) 02/22/25 03:40
Carbon Dioxide 23 mmol/L (22-30) 02/22/25 03:40
BUN 66 mg/dl (9-20) H 02/22/25 03:40
Creatinine 2.3 mg/dL (0.7-1.3) H 02/22/25 03:40
eGFR 27.49 02/22/25 03:40
Glucose 107 mg/dl (70-99) H 02/22/25 03:40
Calcium 8.8 mg/dl (8.4-10.2) 02/22/25 03:40
Phosphorus 4.0 mg/dl (2.5-4.5) 02/17/25 04:00
Mpn-V-Lbvyvnosipf Pept 85064 pg/ml 02/14/25 11:16
Albumin 3.1 g/dl (3.5-5.0) L 02/19/25 04:39
Physical Exam
-
Vital Signs:
Vital Signs
Temp Pulse Resp BP Pulse Ox
98.4 F 74 20 153/71 96
02/22/25 07:44 02/22/25 09:28 02/22/25 07:44 02/22/25 09:28 02/22/25 08:30
Cardiovascular:: Regular rate and rhythm
Respiratory:: Bilateral: CTA
Lung Excursion:: Normal
Abdomen:: Soft
Bowel Sounds:: Normal
Extremity Edema:: None: Bilateral:
[2025-02-22 11:33] VITALS: BP 123/49
--- NOTE | 2025-02-22 11:42 | CM ---
Reviewed chart. Met with and Mrs. Curran to review discharge plans. Mrs. Curran went to visit [facility] yesterday. They are agreeable to go ing to [facility] for SNF/Rehab. We reviewed transportation to [facility].
Spouse is going to provide transportation. Medical work-up in progress. The discharge plan is to go to [facility] when medically stable.
[2025-02-22 12:05] VITALS: BP 123/46; PULSE 67; O2SAT 96
--- NOTE | 2025-02-22 12:28 | W.DCSUMMARY ---
Discharge Summary
Discharge Data
Date of Admission: 02/14/25
Date of Discharge: 02/22/25
-
Pending Results: No
Hospital Course
Patient 83 years old with history of CAD, CKD, diabetes mellitus, hypertension, hyperlipidemia, prostate cancer, hypothyroidism came into the hospital after an unresponsive event and found to be bradycardic, severe hyperkalemia, elevated LFTs, TOMY.
Cardiology, nephrology, director medicare sales/pulmonary and GI were consulted. He underwent pacemaker implantation. He also required temporary hemodialysis. Renal function improved and stabilized. Echocardiogram showed preserved EF. Patient course
complicated with acute DVT left upper extremity. He also had significant epistaxis and ENT evaluated the patient. He had some local measures and epistaxis resolved. Anticoagulation was resumed and dual antiplatelets was discontinued by
cardiology. PT OT evaluated patient. Patient is going to be discharged to skilled facility today.
Discharge duration: 35 minutes
Discharge Plan
-
Patient Disposition: Group Home/SNF
Discharge Diagnosis/Procedures: Complete heart block status post pacemaker implant. Acute deep vein thrombosis left upper extremity. Acute kidney injury required temporary hemodialysis. Acute ischemic hepatitis. Diabetes mellitus. Hypertension.
Coronary artery disease.
Diet: Low Cholesterol, Low Sodium, Diabetic, Carb Controlled and Restrict fluids to 64 oz
Activity: As tolerated
Driving Restrictions: No driving for 1 week
Blood Work: Please PCP to order CBC, CMP within 1 week
Other Services: PT and OT
Specialty Instructions: Weigh Daily- Call MD for wt gain/loss 3 lbs overnight/5 lbs in 1 week
Stand Alone Forms: DC Inst - Implanted Device
Referrals:
[facility] [Other]
Rito Rosas DO [Active] - 03/14/25 2:00 pm (Scheduled cardiology followup)
Michele Glover MD [Active] - in four to six weeks
Arthur Sanchez MD [Active] - in one to two weeks
Kurt Dawson MD [Active] - in four to six weeks
Twan Perry DO [Family Provider] - in less than 1 week
Angélica Huertas DO [Active] - in four to six weeks
Additional Discharge Medication Instructions: Eliquis 10 mg p.o. twice a day for 7 days-starting date 02/21/2025. After the first 7 days transition to 5 mg p.o. twice a day for 3 to 6 months. Restart aspirin 81 mg p.o. daily after finishing Eliquis.
Prescriptions:
New
insulin aspart U-100 100 unit/mL (3 mL) Insulin Pen
5 unit SC AC Qty: 0 0RF
Insulin Glargine Lantus [Lantus] 15 UNITS
Subcutaneous Insulin Syringe [Syringe-Insulin] 0 UNIT
As Directed mls/hr SC DAILY
Ordered By: Laron Ramos MD
Last Taken: 02/22/25 09:23 0.15 mls
polyethylene glycol 3350 17 gram Powder In Packet
17 g PO DAILY 14 Days Qty: 0 0RF
nifedipine 30 mg Tablet Extended Release
30 mg PO DAILY 30 Days Qty: 30 0RF
famotidine 20 mg Tablet
20 mg PO Q48H 14 Days Qty: 7 0RF
metoprolol tartrate 25 mg Tablet
25 mg PO BID 30 Days Qty: 60 0RF
Eliquis DVT-PE Treat 30D Start 5 mg (74 tabs) tablets,dose pack
See Rx Instructions .ROUTE .COMPLEX Qty: 74 0RF
Rx Instructions:
orally per package directions
oxymetazoline [Afrin (oxymetazoline)] 0.05 % [place],Non-Aerosol
1 spray intranasal BID Qty: 15 0RF
Polysporin 500-10,000 unit/gram Ointment In Packet
1 applic topical TIDPRN PRN (Reason: epistaxis) Qty: 144 0RF
Continued
oxybutynin chloride 10 mg Tablet Extended Release 24hr
10 mg PO QPM
levothyroxine [Synthroid] 50 mcg Tablet
50 mcg PO DAILY
docusate sodium [Colace] 100 mg Capsule
100 mg PO QPM
loratadine [Claritin] 10 mg Tablet
10 mg PO QPM
Fiber Gummies 1.7 gram Tablet,Chewable
3.4 g PO QPM
calcitriol 0.25 mcg Capsule
0.25 mcg PO MOWEFR 30 Days Qty: 15 0RF
Discontinued
atorvastatin 40 mg Tablet
40 mg PO HS
losartan 25 mg Tablet
25 mg PO QPM
insulin degludec [Tresiba FlexTouch U-200] 200 unit/mL (3 mL) Insulin Pen
18 unit SC QPM
dapagliflozin propanediol [Farxiga] 10 mg Tablet
10 mg PO DAILY
Trulicity 1.5 mg/0.5 mL Pen Injector
3 mg SC FR
aspirin 81 mg Tablet,Chewable
81 mg PO QPM
clopidogrel 75 mg Tablet
75 mg PO DAILY 30 Days Qty: 30 0RF
Discharge Orders:
Discharge Patient (As Directed); Ordered 02/22/25
Ordered By: Laron Ramos
Discharge Date and Time
Discharge Date/Time: 02/22/25 14:22
Print Language: SCOTTISH
[2025-02-22] MEDS: NOVOLOG FLEXPEN-LOW RESISTANCE 3 UNITS SC (12:49)
[2025-02-22 12:50] LABS: Glucose - Point of Care 283 mg/dl (70-99)
--- NOTE | 2025-02-22 13:27 | PTCARENOTE ---
report given to [facility] [phone] ext. [phone], spoke to Reanna MCGUIRE. patient just called out and stated that he has another nose bleed like the day before, TT Dr. Ramos.
[2025-02-22 13:34] VITALS: BP 120/53
--- NOTE | 2025-02-22 13:53 | PTCARENOTE ---
Addendum entered by Renetta Osorio RN 02/22/25 14:14:
I called Reanna MCGUIRE at [place] with patient update
Original Note:
patient will be transported to [facility] by his and son in law. report was already called and envelope containing patients records was given to patient and . INT x 2 removed, telemetry removed. personal belongings packed and sent with
patient. bloody nose has resolved.
--- NOTE | 2025-02-22 14:04 | PTCARENOTE ---
and son in law will take patient to [place]. patient taken to their car by by staff.
--- NOTE | 2025-02-22 14:37 | PN.CDI ---
CDI
- -
CDI:
Physician Documentation Request
Admit Date: 02/14/25 11:42
Dear Doctor Richard,
02/19 Patient noted to have LUE DVT. Heparin drip started.
Patient also takes Plavix and aspirin.
02/20 Patient noted to have bilateral nose bleeding. Heparin and Plavix was placed on hold.
Please clarify if a relationship exist between these conditions:
Yes, epistaxis related to/associated with/due to/exacerbated by anticoagulation medications
No, epistaxis is not related to/associated with/due to/exacerbated by anticoagulation medications
Unable to determine
Use of terms such as suspected, likely, concern for, or probable (associated with a specific diagnosis that is being evaluated, monitored, or treated as if it exists) are acceptable and can be coded in the inpatient setting, when documented at the
time of discharge.
Thank you,
Coco Shields RN, BSN
CDI Specialist
tiger text
Please use your independent medical judgment in providing your response.
== END 2025-02-22 14:22 | DRG 242 ==
LOC: IVU 11:42
PROVIDERS: Internal Medicine; Internal Medicine Cardiovascular Disease; Internal Medicine Nephrology; Nuclear Medicine Nuclear Cardiology; Nurse Practitioner Adult Health; Nurse Practitioner Family; Nurse Practitioner Gerontology; Nurse Practitioner Primary Care; Physician Assistant Medical; Specialist; ADMITTING PHYSICIAN Hospitalist; ATTENDING PHYSICIAN Hospitalist; CONSULT PHYSICIAN Internal Medicine; CONSULT PHYSICIAN Internal Medicine Cardiovascular Disease; CONSULT PHYSICIAN Internal Medicine Critical Care Medicine; EMERGENCY PHYSICIAN Emergency Medicine; FAMILY PHYSICIAN Family Medicine; OTHER PHYSICIAN Otolaryngology; OTHER PHYSICIAN Specialist
PROC: 5A1D70Z Performance of Urinary Filtration, Intermittent, Less than 6 Hours Per Day (ICD-10-PCS; 2025-02-14)
PROC: 5A1223Z Performance of Cardiac Pacing, Continuous (ICD-10-PCS; 2025-02-14)
PROC: 02HV33Z Insertion of Infusion Device into Superior Vena Cava, Percutaneous Approach (ICD-10-PCS; 2025-02-14)
PROC: 02H63JZ Insertion of Pacemaker Lead into Right Atrium, Percutaneous Approach (ICD-10-PCS; 2025-02-15)
PROC: 02HK3JZ Insertion of Pacemaker Lead into Right Ventricle, Percutaneous Approach (ICD-10-PCS; 2025-02-15)
PROC: 0JH606Z Insertion of Pacemaker, Dual Chamber into Chest Subcutaneous Tissue and Fascia, Open Approach (ICD-10-PCS; 2025-02-15)
PROC: 093K7ZZ Control Bleeding in Nasal Mucosa and Soft Tissue, Via Natural or Artificial Opening (ICD-10-PCS; 2025-02-20)
PROC: 2Y41X5Z Packing of Nasal Region using Packing Material (ICD-10-PCS; 2025-02-20)
DX: I44.2 Atrioventricular block, complete (principal); K72.00 Acute and subacute hepatic failure without coma; N17.9 Acute kidney failure, unspecified; E87.20 Acidosis, unspecified; N18.4 Chronic kidney disease, stage 4 (severe); N25.81 Secondary hyperparathyroidism of renal origin; I82.622 Acute embolism and thrombosis of deep veins of left upper extremity; I5A Non-ischemic myocardial injury (non-traumatic); D68.32 Hemorrhagic disorder due to extrinsic circulating anticoagulants; D62 Acute posthemorrhagic anemia; E87.1 Hypo-osmolality and hyponatremia; E11.22 Type 2 diabetes mellitus with diabetic chronic kidney disease; E11.65 Type 2 diabetes mellitus with hyperglycemia; I25.10 Atherosclerotic heart disease of native coronary artery without angina pectoris; E87.5 Hyperkalemia; R00.1 Bradycardia, unspecified; R04.0 Epistaxis; T45.515A Adverse effect of anticoagulants, initial encounter; K59.00 Constipation, unspecified; R82.81 Pyuria; I12.9 Hypertensive chronic kidney disease with stage 1 through stage 4 chronic kidney disease, or unspecified chronic kidney disease; E83.52 Hypercalcemia; I45.10 Unspecified right bundle-branch block; D63.1 Anemia in chronic kidney disease; E66.09 Other obesity due to excess calories; D72.829 Elevated white blood cell count, unspecified; R79.89 Other specified abnormal findings of blood chemistry; L40.9 Psoriasis, unspecified; E78.00 Pure hypercholesterolemia, unspecified; G47.33 Obstructive sleep apnea (adult) (pediatric); E03.9 Hypothyroidism, unspecified; Z68.30 Body mass index [BMI] 30.0-30.9, adult; Z85.46 Personal history of malignant neoplasm of prostate; Z95.1 Presence of aortocoronary bypass graft; Z85.820 Personal history of malignant melanoma of skin; Z90.49 Acquired absence of other specified parts of digestive tract; Z87.891 Personal history of nicotine dependence; Z79.82 Long term (current) use of aspirin; Z79.02 Long term (current) use of antithrombotics/antiplatelets; Z79.4 Long term (current) use of insulin
CPT/HCPCS: 93308; 33208; 33210; 36556; 71045; 74018; 76700; 80048; 80051; 80053; 81003; 81015; 82140; 82248; 82330; 82550; 82607; 82728; 82746; 82962; 82977; 83036; 83540; 83550; 83605; 83735; 83880; 84100; 84439; 84443; 84450; 84460; 84481; 84484; 85025; 85027; 85045; 85610; 85730; 86704; 86706; 86803; 87040; 87077; 87086; 87186; 87340; 92526; 92610; 93005; 93971; 93975; 96374; 96375; 97112; 97116; 97163; 97167; 97530; 97535; 99291; C1769; C1785; C1887; C1892; C1898; G0257; J2916

== ENCOUNTER → 2025-04-05 11:26 | Outpatient (REF) | payer OTHER, SELFPAY ==
[2025-04-05 10:56] LABS: % Basophils 0.6 % (0-2); % Eosinophils 2.9 % (0-6); % Immature Granulocytes 0.1 % (0-0.5); % Lymphocytes 18.2 % (20.5-51.1); % Monocytes 10.8 % (1.7-9.3); % Neutrophils 67.4 % (42.2-75.2); Absolute Basophils 0.1 10^3/uL (0-0.2); Absolute Eosinophils 0.3 10^3/uL (0-0.7); Absolute Lymphocytes 1.6 10^3/uL (1.2-3.4); Absolute Neutrophils 6.1 10^3/uL (1.4-6.5); Hematocrit 26.7 % (39.0-52.0); Hemoglobin 9.3 g/dL (13.0-18.0); Mean Corp Hgb Conc. 34.8 g/dL (33.0-37.0); Mean Corpuscular Hgb 32.1 pg (27.0-31.0); Mean Corpuscular Volume 92.1 fL (80.0-94.0); Mean Platelet Volume 10.1 fL (7.4-10.4); Platelet Count 246 10^3/uL (130-400)
== END ==
LOC: OIDL 11:26
PROVIDERS: ATTENDING PHYSICIAN Registered Nurse
DX: D50.8 Other iron deficiency anemias (principal); D63.1 Anemia in chronic kidney disease; D53.9 Nutritional anemia, unspecified
CPT/HCPCS: 85025

== ENCOUNTER 2025-06-28 06:05 | Day surgery (SDC) | payer OTHER, SELFPAY ==
[2025-06-28 07:30] VITALS: BP 161/57; BMI 29.6
[2025-06-28 07:35] VITALS: BMI 29.6
[2025-06-28 07:40] LABS: Glucose - Point of Care 101 mg/dl (70-99)
[2025-06-28 10:02] VITALS: BP 135/53
[2025-06-28 10:10] LABS: Glucose - Point of Care 91 mg/dl (70-99)
[2025-06-28 10:15] VITALS: BP 153/60
[2025-06-28 10:28] VITALS: BP 163/61
== END 2025-06-28 10:35 | disposition home or self-care (01) ==
LOC: SDS 06:05
PROVIDERS: ATTENDING PHYSICIAN Internal Medicine
DX: D50.9 Iron deficiency anemia, unspecified (principal); D17.5 Benign lipomatous neoplasm of intra-abdominal organs; K64.8 Other hemorrhoids; K55.20 Angiodysplasia of colon without hemorrhage; K31.811 Angiodysplasia of stomach and duodenum with bleeding; K31.89 Other diseases of stomach and duodenum; K31.A0 Gastric intestinal metaplasia, unspecified
CPT/HCPCS: 43255; 45382; 43239; 82962; 88305

== ENCOUNTER → 2025-07-02 13:54 | Outpatient (REF) | payer OTHER, SELFPAY | LOC: RAD 13:54 | PROVIDERS: ATTENDING PHYSICIAN Nuclear Medicine Nuclear Cardiology; FAMILY PHYSICIAN Family Medicine | DX: Z86.718 Personal history of other venous thrombosis and embolism (principal) | CPT/HCPCS: 93971 ==